=== PATIENT | female | born 1995 | race Caucasian/White ===

== ENCOUNTER 2016-09-14 02:14 | Outpatient (CLI) | payer MEDICAID ==
[~2016-09-14] VITALS: Ht 160 cm; Wt 73.9 kg
[~2016-09-14 02:14] MED LIST: AZITHROMYCIN250 MG PO; FLINTSTONES COM1 CTB PO; FLINTSTONES GU1 EACH PO; KEFLEX 500MG.500 MG PO; MAGNESIUM CITRA1 BOT PO; MEDROL DOSEPAK4 MG PO; MIRALAX(PO17 GM/1 PA PO; MOTRIN 400MG.400 MG PO; MOTRIN400 MG PO; VENTOLIN H0.09 MG/AC IH
[2016-09-14 02:39] VITALS: BP 117/80
[2016-09-14 03:06] LABS: URINE BILIRUBIN - DIPSTICK NEGATIVE (NEG); URINE BLOOD NEGATIVE (NEG)
== END 2016-09-14 03:25 | disposition home or self-care (01) ==
LOC: OB 02:14 → OBOUT 02:14 → OB 02:18 → OBOUT 03:25
PROVIDERS: Nurse Practitioner Obstetrics & Gynecology
DX: O62.9 Abnormality of forces of labor, unspecified (principal); Z3A.37 37 weeks gestation of pregnancy

== ENCOUNTER 2016-09-14 14:18 | Outpatient (CLI) | payer MEDICAID ==
[~2016-09-14] VITALS: Ht 160 cm; Wt 74.8 kg
[2016-09-14 14:28] VITALS: BP 127/57
[2016-09-14 14:38] LABS: URINE BILIRUBIN - DIPSTICK NEGATIVE (NEG); URINE BLOOD NEGATIVE (NEG)
== END 2016-09-14 16:16 | disposition home or self-care (01) ==
LOC: OB 14:18 → OBOUT 14:18
PROVIDERS: Obstetrics & Gynecology
DX: O62.9 Abnormality of forces of labor, unspecified (principal); Z3A.37 37 weeks gestation of pregnancy

== ENCOUNTER 2016-09-25 13:55 | Inpatient (IN) | payer MEDICAID ==
[~2016-09-25] VITALS: Ht 160 cm; Wt 74.8 kg
[2016-09-25 14:10] LABS: URINE BILIRUBIN - DIPSTICK NEGATIVE (NEG); URINE BLOOD TRACE-INTACT (NEG)
[2016-09-25 14:12] VITALS: BP 141/78
[2016-09-25] MEDS ORDERED: CLARITIN 10MG T10 MG PO (14:18)
--- OUTSIDE RECORDS SUMMARY | 2016-09-25 15:27 | External Medical Summary Rpt ---
Author Author , Organization [employer] Address Unknown Phone Unavailable Care Team Providers Care Radiologic Technology Teacher Name Role Phone ALISSON VINSON Unavailable Unavailable [facility] Unavailable Unavailable MEDICAL GROUP, [facility] BEINEKE JOLIE, BEINEKE Unavailable Unavailable JOLIE TIDWELL, TIDWELL Unavailable Unavailable TIDWELL ALL, TIDWELL ALL Unavailable Unavailable [facility] [employer] [facility] Unavailable Unavailable DEPARTMENT, [facility] DEPART[facility] Unavailable Unavailable DEPARTMENT, [facility] DEPARTMENT BRIGHT ENRIQUE, BRIGHT Unavailable Unavailable ENRIQUE MENG, FAN Unavailable Unavailable FAN JC, FAN Unavailable Unavailable JC FAN JC, FAN Unavailable Unavailable JC FAN, ERVIN J, Unavailable Unavailable FAN, ERVIN J [facility] Unavailable Unavailable [facility], [facility] WILLIAM J, WILLIAM J Unavailable Unavailable ANTWON THERESA, ANTWON Unavailable Unavailable THERESA ANTWON THERESA, ANTWON Unavailable Unavailable THERESA MOUNIKA, KYLAH Unavailable Unavailable J, MOUNIKA, KYLAH J ISRA ROCK, ISRA Unavailable Unavailable ROCK DAVID OSORIO, DAVID JO Unavailable Unavailable DAVID OSORIO, DAVID JO Unavailable Unavailable ECKERLINE, C A, Unavailable Unavailable ECKERLINE, C A [facility] FAUGHN DYSON, FAUGHN Unavailable Unavailable DYSON FAUGHN DYSON, FAUGHN Unavailable Unavailable DYSON TREVA ROCK, TREVA Unavailable Unavailable ROCK TREVA ROCK, TREVA Unavailable Unavailable ROCK HEATHER DON, HEATHER Unavailable Unavailable DON HARPEL RAMIRO, HARPEL Unavailable Unavailable RAMIRO HARPEL RAMIRO, HARPEL Unavailable Unavailable RAMIRO [facility] Unavailable Unavailable INC, [facility], [facility] WARD SCALES, Unavailable Unavailable WARD SCALES HINES Unavailable Unavailable JORDEN CHRISTIANNES Unavailable Unavailable CHRISTIAN FAY, CHRISTIAN FAY Unavailable Unavailable CHRISTIAN FAY, CHRISTIAN FAY Unavailable Unavailable [facility] Unavailable Unavailable P[facility], [facility], Unavailable Unavailable [facility] STACEY IMT, STACEY Unavailable Unavailable IMT STACEY IMT, STACEY Unavailable Unavailable IMT SABRINA SAMINA, SABRINA Unavailable Unavailable SAMINA [facility], [facility] HAIM, SANTANA Garcia, HAIM, Unavailable Unavailable SANTANA KOLB Unavailable Unavailable CAR, KENNEDI CAR JANE NUNEZ, Unavailable Unavailable JANE NUNEZ KHUSHI DMD MANDAEN, KHUSHI Unavailable Unavailable DMD MANDAEN KHUSHI DMD MANDAEN, KHUSHI Unavailable Unavailable DMD MANDAEN [facility] CEVALLOS JUSTUS, CEVALLOS JUSTUS Unavailable Unavailable NWABUNOR RAE, Unavailable Unavailable NWABUN[facility] RAE [facility] Unavailable Un[facility] Un[facility], [facility] Unavailable Unavailable LAB, [facility] RENUSCH SB, RENUSCH Unavailable Unavailable SB MERINO HAMILTON, MERINO Unavailable Unavailable HAMILTON SCIFRES ANG, SCIFRES Unavailable Unavailable ANG SCIFRES ANG, SCIFRES Unavailable Unavailable ANG STRIFLING RHY, Unavailable Unavailable STRIFLING RHY PILO JAC, Unavailable Unavailable PILO ROMÁN MAYELIN CARDENAS, MAYELIN Unavailable Unavailable [facility], Unavailable Unavailable [facility] Unavailable Unavailable [place] [facility], [facility] PEDIA [facility] Unavailable Unavailable #493, [facility] # Unavailable Unavailable [id number], [facility] # [id number] [facility] # Unavailable Unavailable [id number], [facility] # [id number] IRBY JR CAR, Unavailable Unavailable IRBY JR CAR WELLS MARKUS, WELLS MARKUS Unavailable Unavailable WEST, WEST Unavailable Unavailable WE[facility], WEST Unavailable Unavailable [facility], [facility] Unavailable Unavailable [facility], [facility] Unavailable Unavailable [facility] Unavailable Unavailable [facility] [place], [facility] MUNGUIA PET, MUNGUIA PET Unavailable Unavailable NESTOR GOMEZ, Unavailable Unavailable NESTOR GOMEZ Purpose Continuity of Care Document - 08-03-2005 through 2016 Problems Code Diagnosis DOS Provider Status [id number] MYOPIA 08-11-2016 CHRISTIAN BILATERAL Z3480 ENC 08-10-2016 [facility] OTH NORMAL GROUP PREG UNS TRIMESTER [id number] ABNORMAL 07-03-2016 [facility] GLUCOSE [facility] COMPLICATIN GROUP G N760 ACUTE 06-29-2016 [facility] VAGINITIS PHYS[facility]IANS GROUP Z3492 ENC 05-23-2016 [facility] NORMAL IMAGING ASS UNS 2 TRIMESTER Z36 ENCOUNTER 05-23-2016 [facility] SCREENING OF MOTHER Z3A20 20 WEEKS 05-23-2016 [facility] MEDICAL OF IMAGING ASS R112 NAUSEA WITH 04-11-2016 [facility]OMITING [facility] UNSPECIFIED INC Z3A15 15 WEEKS 04-11-2016 [facility] GESTATION [facility] OF INC Z720 TOBACCO USE 04-11-2016 [facility] INC [id number] UTERINE 02-28-2016 [facility] SIZE-DATE [facility] DISCREPANCY INC FIRST TRIMESTER Z3491 ENC 02-28-2016 [facility] MED[facility] NORMAL IMAGING ASS UNS 1 TRIMESTER Z3A08 8 WEEKS 02-28-2016 [facility] MEDICAL OF IMAGING ASS B373 CANDIDIASIS 02-22-2016 [facility] AND VAGINA Z113 ENCOUNTER 02-22-2016 [facility] SCREEN [facility] INFECTIONS SEXL MODE TRANSMISSN Z3201 ENCOUNTER 02-22-2016 [facility] TEST RESULT POSITIVE K5900 CONSTIPATIO 01-15-2016 [facility], UNSPECIFIED PLLC R1032 LEFT LOWER 01-15-2016 [facility]ANT [facility], PAIN PLLC M545 LOW BACK 12-07-2015 [facility] PAIN J209 ACUTE 09-11-2015 [facility] J0100 ACUTE 07-09-2015 [facility] SINUSITIS MEDICAL UNSPECIFIED GROUP H6991 UNSPECIFIED 05-24-2015 [facility] EUSTACHIAN TUBE DISORDER RIGHT EAR J00 ACUTE 05-24-2015 [facility] NASOPHARYNG ITIS COMMON COLD K219 GASTRO-ESOP 03-30-2015 [facility] H REFLUX DISEASE WITHOUT ESOPHAGITIS B349 VIRAL 03-22-2015 [facility] INFECTION UNSPECIFIED J4521 MILD 03-22-2015 [facility] INTERMITTEN T ASTHMA WITH ACUTE EXACERBATIO N J029 ACUTE 03-15-2015 [facility] PHARYNGITIS [facility]IANS, PLLC UNSPECIFIED J060 ACUTE 03-15-2015 [facility] LARYNGOPHAR [facility] YNGITIS INC R0602 SHORTNESS 03-15-2015 [facility] MEDICAL IMAGING ASS 3671 MYOPIA 12-22-2014 SCIFRES ANG V242 ROUTINE 06-08-2014 [facility] FOLLOW-UP 650 NORMAL 03-17-2014 [facility] DELIVERY [facility] GROUP V270 OUTCOME OF 03-17-2014 [facility] SINGLE GROUP LIVEBORN 48080 THREATENED 03-16-2014 [facility] PRE[facility]URE [facility] LABOR GROUP ANTEPARTUM 17835 OTH&UNS CRD 03-16-2014 [facility]NT[facility]GL [facility] W/O COMPRS INC COMP L&D DELIV 50563 FIRST-DEGRE 03-16-2014 [facility] E PERINEAL [facility] LACERATION INC WITH DELIVERY V221 SUPERVISION 03-13-2014 FAN JC OF OTHER NORMAL 76261 OTHER 01-15-2014 HARPEL RAMIRO THREATENED LABOR, ANTEPARTUM 06739 PAIN IN 01-15-2014 [place] [facility] ANKLE AND IMAGING ASS FOOT 56862 UNSPECIFIED 01-15-2014 STACEY IMT SITE OF ANKLE SPRAIN AND STRAIN E8888 OTHER fall01-15-2014 STACEY IMT 12581 ABN MAT 12-29-2013 [facility] GLUCOSE [facility] TOLERANCE INC COMPL PG CB/PP UNS EOC 84138 ABNORMAL 12-26-2013 [facility] JC MATERNAL GLUCOSE TOLERANCE ANTEPARTUM V283 ENCOUNTER 11-19-2013 MENG JC ROUTINE SCREEN MALFORMATIO N ULTRASONIC 45043 BN&JNT D/O 10-14-2013 TREVA ROCK MAT BACK PELVIS&LW LIMBS ANTEPARTUM 76916 OTH CURRENT 10-14-2013 [facility] MAT CONDS [facility] CLASSIFIABL INC E ELSW ANTPRTM 7242 LUMBAGO 10-14-2013 TREVA ROCK 7245 UNSPECIFIED 10-14-2013 [facility] BACKACHE [facility] INC 95470 ABDOMINAL 10-14-2013 [facility] PAIN, [facility] UNSPECIFIED INC SITE V220 SUPERVISION 10-07-2013 FAN JC OF NORMAL FIRST 75583 OTHER 08-14-2013 [facility] J[facility] SPECIFED COMPLICATIO N ANTEPARTUM V7242 08-01-2013 [facility] EXAMINATION OR TEST POSITIVE RESULT V2503 ENCOUNTER 07-31-2013 [facility] EMERGENCY HEALTH CONTRACEPT DEPARTMENT CNSL&PRESCR IPTION V2689 OTHER 07-31-2013 [facility] SPECIFIED HEALTH PROCREATIVE DEPARTMENT MANAGEMENT V851 BODY MASS 07-31-2013 [facility] INDEX HEALTH BETWEEN DEPARTMENT 19-24 ADULT 3679 UNSPECIFIED 12-13-2012 ANTWON THERESA DISORDER OF REFRACTION& ACCOMMODATI ON 684 IMPETIGO 12-12-2012 [facility] 1274 ENTEROBIASI 06-24-2012 [facility] S 5990 URINARY 06-24-2012 [facility] TRACT INFECTION SITE NOT SPECIFIED 5589 OTH&UNSPEC 10-18-2011 DAVID OSORIO NONINFECTIO US GASTROENTER ITIS&COLITI S V720 EXAMINATION 09-14-2011 CHRISTIAN FAY OF EYES AND VISION 36603 UNSPECIFIED 05-31-2011 FAUGHN DYSON CONJUNCTIVI TIS V1582 PERS HX 05-16-2011 [facility] TOBACCO USE HEALTH PRESENTING DEPARTMENT HAZARDS HEALTH V2549 SURVEILLANC 05-16-2011 [facility] Rukuku E OT PREV HEALTH PRSC DEPARTMENT CONTRACEPT METHOD 4659 ACUTE URIS 03-17-2011 [facility] OF UNSPECIFIED SITE 16717 ASTHMA, 03-17-2011 [facility] UNSPECIFIED , UNSPECIFIED STATUS 7821 RASH AND 03-17-2011 [facility] OTHER NONSPECIFIC SKIN ERUPTION 72208 UNSPECIFIED 02-28-2011 [facility] VAGINITIS AND VULVOVAGINI TIS 2662 OTHER 01-25-2011 [facility] B-COMPLEX HEALTH DEFICIENCIE DEPARTMENT S V2509 OT GENERAL 01-25-2011 [facility] HEALTH CNSL&ADVICE DEPARTMENT CONTRACEPT MANAGEMENT V850 BODY MASS 01-25-2011 [facility] INDEX LESS HEALTH THAN 19 DEPARTMENT ADULT 5210 DENTAL 01-18-2011 KHUSHI DMD CARIES MANDAEN 605 REDUNDANT 03-16-2010 [facility] PHIMOSIS 19715 POOR 03-16-2010 [facility] OF MANAGEMENT [place] MOTH DELIV 50777 OLIGOHYDRAM 03-16-2010 [facility] DELIVERED CLINIC OF [place] V3000 SINGLE 03-16-2010 [facility] W/O 16195 POOR 03-14-2010 [facility]OTH [facility] OF ANTPRTM [place] COND/COMP 6259 UNSPEC 12-23-2009 [facility] PCC W/FEMALE GENITAL ORGANS 7048 OTHER 09-28-2009 [facility] DISEASE OF PEDIA HAIR&HAIR FOLLICLES V642 SURG/OTH 08-23-2009 [facility] PROC NOT [facility] CARRIED OUT INC BECAUSE PTS DECN 1121 CANDIDIASIS 08-02-2009 PATHOLOGY & OF [facility] CYTOLOGY AND VAGINA LAB V745 SCREENING 08-02-2009 PATHOLOGY & EXAMINATION CYTOLOGY FOR LAB VENEREAL DISEASE 462 ACUTE 03-05-2009 [facility] V259 UNSPECIFIED 03-05-2009 [facility] CONTRACEPTI PEDIA VE MANAGEMENT V700 ROUTINE 03-05-2009 [facility] MEDICAL PEDIA EXAM@HEALTH CARE FACL V7388 SPECIAL SCR 03-05-2009 [facility] EXAMINATION PEDIA OTH SPEC CHLAMYDIAL DZ 7881 DYSURIA 01-05-2009 [facility] 7840 HEADACHE 12-21-2008 [facility] PEDIA V202 ROUTINE 12-04-2008 [facility] MED[facility] OR SERV CHILD FOUNDATIO HEALTH CHECK V7231 ROUTINE 10-27-2008 [facility] EXAMINATION [facility] 6235 LEUKORRHEA 08-06-2008 [facility] SPECIFIED PEDIA INFECTIVE 7862 COUGH 07-22-2008 [facility] PEDIA 7295 PAIN IN 01-27-2008 [facility] MEDICAL SOFT SERV TISSUES OF FOUNDATIO LIMB 7296 RESIDUAL 01-27-2008 [facility] BODY IN [facility] SOFT TISSUE 8830 OPEN WOUND 01-27-2008 [facility] WITHOUT MENTION COMPLICATIO N 8831 OPEN WOUND 01-27-2008 [facility] COMPLICATED 9156 FINGER SUP 01-27-2008 [facility] MEDICAL FB W/O LACI SERV OPEN FOUNDATIO WOUND&W/O MENTION INF E9179 OTHER 01-27-2008 [facility]ICAL STRIKING SERV AGAINST FOUNDATIO W/WO SUBSEQUENT FALL 92860 HEAD 11-21-[facility] 6918 OTHER 08-03-2005 [facility] DERMATITIS PEDIA AND RELATED CONDITIONS Medications Na ND Rx Da Fi Fi Am Da Di Ph RX Ph St me C No te ll ll ou ys ag ar # ys at rm s nt no ma ic us Or Da si cy ia de te s n re d ME 68 03 04 70 5 00 RI Ac TR 68 -1 -1 .0 00 TE ti ON 20 6- 4- 00 01 ve ID 45 20 20 17 AI AZ 57 17 17 54 D OL 0 93 PH E AR VA MA GI CY NA L #3 0. 93 75 8 % GL ME 68 02 03 70 5 00 RI Ac TR 68 -1 -1 .0 00 TE ti ON 20 6- 7- 00 01 ve ID 45 20 20 17 AI AZ 57 17 17 14 D OL 0 53 PH E AR VA MA GI CY NA L #3 0. 93 75 8 % GL CE 68 10 10 0 30 10 WA 70 WE Ac PH 18 -2 -2 .0 L- 98 ST ti AL 00 0- 0- 00 MA 35 ve EX 12 20 20 RT 5 RY IN 20 11 11 AN 1 PH B 50 AR 0 MA MG CY # CA PS 10 UL 04 E 93 CASTANEDA 53 10 10 0 40 10 WA 70 WE Ac LF 74 -2 -2 .0 L- 98 ST ti AM 60 0- 0- 00 MA 35 ve ET 27 20 20 RT 6 RY HO 20 11 11 AN XA 5 PH B ZO AR LE MA -T CY MP # DS 10 04 TA 93 BL ET VA 00 10 10 0 20 10 70 WE Ac LT 17 -1 -1 .0 L- 97 ST ti RE 30 8- 8- 00 MA 93 ve X 56 20 20 RT 1 RY 1 50 11 11 AN GM 4 PH B AR CA MA PL CY ET # 10 04 93 IL 00 07 07 4 10 30 WA 70 WE Ac EV 12 -2 -2 0. L- 87 LL ti ID 60 8- 8- 00 MA 40 S ve EN 07 20 20 0 RT 5 CH T 06 11 11 AM 50 1 PH BE 00 AR RS MA SE CY MO NS # RG IT AN IV 10 E [address] E LI 60 01 01 0 60 1 WA 70 CO Ac ND 43 -1 -2 .0 L- 62 OP ti AN 20 0- 7- 00 MA 05 ER ve E 83 20 20 RT 9 1% 36 11 11 MITCH 0 PH HN LO AR G TI MA ON CY # 10 04 93 LI 60 01 01 1 60 7 WA 70 CO Ac ND 43 -0 -1 .0 L- 61 OP ti AN 20 5- 2- 00 MA 49 ER ve E 83 20 20 RT 1 1% 36 11 11 MITCH 0 PH HN LO AR G TI MA ON CY # 10 04 93 LI 60 01 01 1 60 7 WA 70 CO Ac ND 43 -0 -0 .0 L- 61 OP ti AN 20 5- 5- 00 MA 49 ER ve E 83 20 20 RT 1 1% 36 11 11 MITCH 0 PH HN LO AR G TI MA ON CY # 10 04 93 NI 00 08 08 0 20 10 WA 70 [place] Ac TR 37 -1 -1 .0 L- 43 RP ti OF 83 2- 4- 00 MA 57 EL ve UR 42 20 20 RT 4 AN 20 10 10 GE TO 1 PH RA IN AR LD MA R MO CY NO # -M CR 10 04 10 93 0 MG FE 00 07 07 9 30 30 WA 88 CL Ac RR 67 -0 -0 .0 L- 16 AR ti OU 70 5- 5- 00 MA 24 KE ve S 07 20 20 RT 8 CASTANEDA 01 10 10 DE LF 0 PH RE AT AR K E MA J 32 CY 5 # MG 10 TA 05 BL 91 ET SE 54 05 05 5 15 30 WA 70 CL Ac RT 45 -1 -1 .0 L- 33 AR ti RA 80 0- 0- 00 MA 04 KE ve LI 94 20 20 RT 2 NE 51 10 10 DE 0 PH RE HC AR K L MA J 10 CY 0 # MG 10 TA 04 BL 93 ET 00 11 12 00 14 7 WA 70 LE Ac 59 -2 -0 .0 L- 12 NT ti 13 3- 3- 00 MA 93 ZS ve 97 20 20 RT 0 CH 05 09 09 -P 0 PH AR AR CE MA LL CY S CA #4 RO 93 LY N IL 00 11 11 00 30 30 WA 70 DE Ac OP 59 -1 -1 .0 L- 11 OK ti RA 15 2- 9- 00 MA 53 AR ve NO 55 20 20 RT 7 LO 50 09 09 AM L 1 PH IT 20 AR M MA MG CY TA #4 BL 93 ET 00 10 11 00 3. 20 WA 70 LE Ac 06 -2 -0 00 L- 09 NT ti 21 3- 5- 0 MA 05 ZS ve 92 20 20 RT 5 CH 01 09 09 -P 5 PH AR AR CE MA LL CY S CA #4 RO 93 LY N CASTANEDA 53 08 09 00 20 10 WA 70 No Ac LF 74 -2 -1 .0 L- 01 t ti AM 60 6- 0- 00 MA 54 Av ve ET 27 20 20 RT 3 ai HO 20 09 09 la XA 5 PH bl ZO AR e LE MA -T CY MP #4 DS 93 TA BL ET SF 60 07 07 00 56 10 WA 69 DU Ac 25 -2 -3 .0 L- 97 RB ti 1. 80 3- 0- 00 MA 47 IN ve 1% 15 20 20 RT 3 10 09 09 DO GE 1 PH UG L AR LA MA S CY D #4 93 MITCH 00 07 07 00 91 91 WA 69 WO Ac LE 55 -2 -3 .0 L- 97 OD ti SS 59 4- 0- 00 MA 55 S ve A 12 20 20 RT 8 SH 0. 36 09 09 EI 15 6 PH LA AR H MG MA -0 CY .0 3 #4 MG 93 TA BL ET 63 09 09 00 28 7 WA 69 No Ac 30 -1 -2 .0 L- 60 t ti 40 5- 6- 00 MA 23 Av ve 65 20 20 RT 5 ai 70 08 08 la 1 PH bl AR e MA CY #4 93 Results Labs Lab Lab Date Result Refere Interp Status Commen Order Detail nces retati t Range on CHLAMYDIA AND GONORRHEA TESTING (01-25-2011 16:31) COLLECT K1320 complet OR 011 ed 16:31 ETHNICI WHITE, complet TY 011 NON-HIS ed 16:31 PANIC KIT 03/2011 complet EXPIRAT 011 ed ION 16:31 DATE SYMPTOM YES complet S 011 ed 16:31 REASON INITIAL complet FOR 011 FAMILY ed REQUEST 16:31 PLANNIN G VISIT SPECIME FEMALE complet N 011 ENDOCER ed SOURCE 16:31 VICAL PREGNAN NO complet T 011 ed 16:31 CHART N/A complet NUMBER 011 ed 16:31 Chlamyd NEGATIV complet ia 011 E ed trachom 16:31 atis rRNA [Presen ce] in Unspeci fied specime n by Probe & target amplifi cation method Neisser NEGATIV complet ia 011 E ed gonorrh 16:31 oeae rRNA [Presen ce] in Unspeci fied specime n by Probe & target amplifi cation method Procedures Procedure DOS Code Location Performer Comment OPHTH 04542 [facility] 7 XM&EVAL COMPRHNSV ESTAB PT 1/> FRAMES V2020 ALISSON VINSON PURCHASES 7 SPHERE V2100 ALISSON VINSON SINGLE 7 VISION PLANO +/- 4.00 PER LENS GLUCOSE 08968 [facility] POST 7 PHYSICIAN PHYSICIAN GLUCOSE S GROUP S GROUP DOSE SMR PRIM 33894 [facility] FAN SRC WET 7 PHYSICIAN [place] S GROUP NFCT AGT US PREG 02765 [place] [facility] UTERUS 7 MEDICAL W/DETAIL IMAGING ASS URSULA 1ST GESTATION URNLS DIP 26040 [facility] ROD[facility]IGEZ 6 [facility] STICK/TAB INC INC LET REAGENT AUTO MICROSCOP Y BLOOD 63912 [facility] COUNT 6 [facility] COMPLETE INC INC AUTO&AUTO DIFRNTL WBC CULTURE 64537 [facility] RODRIGEZ BACTERIAL 6 [facility] INC [place] [address] [facility] RODRIGEZ INFUSION 6 [facility] THERAPY/P INC INC ROPHYLAXI S /DX 1ST TO 1 HR BASIC 76994 [facility] R[facility] METABOLIC 6 [facility] PANEL INC INC CALCIUM TOTAL OBSTETRIC 78794 [facility] ROD[facility] PANEL 6 [facility] INC INC INF AGT G0432 [facility] R[facility] AB DETECT 6 [facility] EIA TECH INC INC HIV-1&/HI V-2 SCR COLLECTIO 34082 [facility] RODRIGEZ N VENOUS 6 [facility] BLOOD INC INC VENIPUNCT URE US PREG 83477 [place] ALL UTERUS 6 MEDICAL REAL TIME IMAGING W/IMAGE ASS DCMTN TRANSVAG DRUG TST G0477 [facility] MENG PRESUMP;C 6 PHYSICIAN JC PBL BEING S GROUP READ DC OPT OBV ONLY CYTP C/V 59821 [facility], AUTO THIN 6 [facility] LYR PREPJ SCR MNL RESCR PHYS IADNA 92278 [facility], CHLAMYDIA 6 [facility] TRACHOMAT IS AMPLIFIED PROBE TQ IADNA 11920 [facility], NEISSERIA 6 [facility] GONORRHOE AE AMPLIFIED PROBE TQ URINE 77320 [facility] MENG 6 PHYSICIAN JC TEST S GROUP VISUAL COLOR CMPRSN METHS URINE 92846 [facility] RODRIGEZ 6 [facility] TEST INC INC VISUAL COLOR CMPRSN METHS CULTURE 36524 [facility] BCT 6 [facility] ISOL&PRSM INC INC PTV ID ISOLATE EA URINE CULTURE 19889 [facility] BACTERIAL 6 [facility] INC INC QUANTTATI VE COLONY COUNT URINE SUSCEPTIB 61451 [facility] LTY STDY 6 [facility] ANTIMICRB INC INC IAL MICRO/AGA R DILUTJ COMPREHEN 49319 [facility] SIVE 6 [facility] METABOLIC INC INC PANEL BLOOD 70059 [facility] COUNT 6 [facility] COMPLETE INC INC AUTO&AUTO DIFRNTL WBC URNLS DIP 36799 [facility]Z 6 [facility] STICK/TAB [place] [address] [facility] R[facility] ABDOMEN & 6 [facility] PELVIS INC INC W/O CONTRAST MATERIAL IAADIADOO [address] [facility] IAADIADOO [address] [facility] [address] [place] [address] [facility] STREPTOCO 5 [facility] CCUS INC INC GROUP A CUL BACT 56480 [facility] XCPT 5 [facility] URINE INC INC BLOOD/STO OL AEROBIC ISOL URNLS DIP 34235 [facility] RODRIGEZ 5 [facility] STICK/TAB INC INC LET REAGENT AUTO MICROSCOP Y RADIOLOGI 91265 [facility] R[facility] C EXAM 5 [facility] CHEST 2 INC INC VIEWS FRONTAL&L ATERAL IAADIADOO 59673 [facility] ISRA 5 [facility] CCUS GROUP A IAADI 95984 [facility] RODRIGEZ INFLUENZA 5 [facility] B VIRUS INC INC IAADI 47657 EL[facility] RODRIGEZ INFFLUENZ 5 [facility] A A VIRUS INC INC URINE 96377 [facility] RODRIGEZ 5 [facility] TEST INC INC VISUAL COLOR CMPRSN METHS OPHTH 88709 [facility] 5 ANG ANG XM&EVAL COMPRE NEW PT 1/> VST CYTP C/V 16263 [facility] AUTO THIN 5 [facility] LYR PREPJ SCR MNL RESCR PHYS VAGINAL 16951 [facility] DELIVERY 4 PHYSICIAN JC ONLY S GROUP W/POSTPAR ENIO CARE NEURAXIAL 10611 [facility] 4 ANESTH THERESA ANALG/ANE OF THE S PLND BLUE VAGINAL DELIVERY REPAIR OF 7569 ELIA RODRIGEZ OTHER 4 [facility] CURRENT INC INC OBSTETRIC LACERATIO N 92156 [facility] NONSTRESS 4 PHYSICIAN PHYSICIAN TEST S GROUP S GROUP CUL BACT 95931 COMBINED COMBINED XCPT 4 PHYSICIAN PHYSICIAN URINE S LA S LA BLOOD/STO OL AEROBIC ISOL CULTURE 85525 [facility]EZ BACTERIAL 4 [facility] INC INC QUANTTATI VE COLONY COUNT URINE EVAL C/V 66473 [facility] R[facility] AMNIOTIC 4 [facility] FLUID INC INC PROTEIN QUAL EA SPECIMEN FTL 49361 [facility] RODR[facility]EZ FIBRONECT 4 [facility] IN INC INC CERVICOVA G SECRETION S SEMI-REY URNLS DIP 36284 [facility] RODRIGEZ 4 [facility] STICK/TAB INC INC LET REAGENT AUTO MICROSCOP Y 18123 [facility] R[facility]RIGEZ NONSTRESS 4 [facility] TEST INC INC FTL 68584 ELIA RODRIGEZ FIBRONECT 4 [facility] IN INC INC CERVICOVA G SECRETION S SEMI-REY RADEX 12387 [place] ANKLE 4 MEDICAL JOLIE COMPLETE IMAGING MINIMUM 3 ASS VIEWS 84031 HARPEL HARPEL NONSTRESS 4 RAMIRO RAMIRO TEST GLUCOSE 67462 [facility] RODRIGEZ TOLERANCE 4 [facility] TEST GTT INC INC 3 SPECIMENS URNLS DIP 82136 [facility] RODRIGEZ 4 [facility] STICK/TAB INC INC LET RGNT NON-AUTO W/O MICRSCP GLUCOSE 10570 [facility] RODRIGEZ TOLERANCE 4 [facility] EA ADDL INC INC BEYOND 3 SPECIMENS GLUCOSE 88428 MENG FAN TOLERANCE 4 JC JC TEST GTT 3 SPECIMENS US PREG 48399 MENG FAN UTERUS 4 JC JC AFTER 1ST TRIMEST 1/ GESTATION EVAL C/V 38415 ELIA RODRIGEZ AMNIOTIC 4 [facility] FLUID INC INC PROTEIN QUAL EA SPECIMEN CULTURE 11663 ELIA RODRIGEZ BACTERIAL 4 [facility] INC INC QUANTTATI VE COLONY COUNT URINE URNLS DIP 57930 ELIA [facility] 4 [facility] STICK/TAB INC INC LET REAGENT AUTO MICROSCOP Y US PREG 86533 MENG FAN UTERUS 4 JC JC REAL TIME W/IMAGE DCMTN TRANSVAG ANTIBODY 85149 COMBINED COMBINED CHLAMYDIA 4 PHYSICIAN PHYSICIAN S LA S LA CUL BACT 47897 COMBINED COMBINED XCPT 4 PHYSICIAN PHYSICIAN URINE S LA S LA BLOOD/STO OL AEROBIC ISOL URINE 20735 MENG FAN 4 JC JC TEST VISUAL COLOR CMPRSN METHS URINE [address] [place] [address] [facility] TEST V[facility] COLOR T T CMPRSN METHS IADNA 497[address] [place] NE[address]ER[address] Motion Traxx [facility] AE T T AMPLIFIED PROBE TQ IADNA 16473 [place] CHLAMYDIA 4 [facility] Motion Traxx [facility] IS T T AMPLIFIED PROBE TQ SPHERE V2100 ANTWON ANTWON SINGLE 3 THERESA THERESA VISION PLANO +/- 4.00 PER LENS OPHTH 09847 ANTWON ANTWON MEDICAL 3 THERESA THERESA XM&EVAL COMPRE NEW PT 1/> VST FRAMES V2020 ANTWON ANTWON PURCHASES 3 THERESA THERESA DETERMINA 20876 ANTWON ANTWON TION 3 THERESA THERESA REFRACTIV E STATE FITTING 73752 ANTWON ANTWON SPECTACLE 3 THERESA THERESA S XCPT [facility] 88063 [facility] PROVIDED 3 OFFICE OTH/THN REG SCHED HOURS SPHERE V2100 ANAHI CHRISTIAN FAY SINGLE 2 VISION PLANO +/- 4.00 PER LENS OPHTH 14847 ANAHI CHRISTIAN FAY MEDICAL 2 XM&EVAL COMPRE NEW PT 1/> VST FRAMES V2020 ANAHI APONTE PURCHASES 2 DETERMINA 05619 ANAHI APONTE TION 2 REFRACTIV E STATE FITTING 68930 ANAHI APONTE SPECTACLE 2 S XCPT [facility] PRESSURIZ 46341 [facility] ED/NONPRE 1 SSURIZED INHALATIO N TREATMENT CONTRACEP A4267 [place] T[address] [facility] MALE EACH T T WET Q0111 [place] AYO [address] [facility] [employer] Traxx [facility] INCL PREP [facility] CERV/SKIN T T SPECIMENS IADNA 66364 [place] CHLAMY[address] Motion Traxx [facility] IS T T AMPLIFIED PROBE TQ IADNA 33286 [place] NE[address] [employer] Tra[facility] AE T T AMPLIFIED PROBE TQ CONTRACEP J7303 [place] T SUPPLY [address] [employer] [facility] G VAG T T RING EA ANALGESIA D9230 KHUSHI DMD KHUSHI DMD 1 MANDAEN MANDAEN ANXIOLYSI S INHALATIO N OF NITROUS OXIDE ANALGESIA D9230 KHUSHI DMD KHUSHI DMD 1 MANDAEN MANDAEN ANXIOLYSI S INHALATIO N OF NITROUS OXIDE ANALGESIA D9230 KHUSHI DMD KHUSHI DMD 1 MANDAEN MANDAEN ANXIOLYSI S INHALATIO N OF NITROUS OXIDE ANALGESIA D9230 KHUSHI DMD KHUSHI DMD 1 [facility] ANXIOLYSI S INHALATIO N OF NITROUS [facility] HOSP[facility] 15950 FAMILY WILLIAM Hooper DISCHARGE 0 CARE DAY ASSOCIATE [facility] T 30 MIN/< SUBQ 07454 [facility] 0 CARE CARE PER ASSOCIATE DAY E/M S NORMAL CIRCUMCIS 32426 FAMILY WILLIAM Hooper ION 0 CARE W/CLAMP/O ASSOCIATE [facility] S W/BLOCK NEURAXIAL 99465 [facility] LABOR 0 ANESTH ANALG/ANE OF THE S PLND BLUE VAGINAL DELIVERY 1ST 27894 FAMILY WILLIAM Hooper HOSP/WYATT 0 CARE [facility] S CARE PER DAY NML NB VAGINAL 36823 WOMEN'S FAN DELIVERY 0 [facility]ALTH [facility] ONLY CLINIC OF [place] REPAIR OF 7569 ELIA RODRIGEZ OTHER 0 [facility] CURRENT INC INC OBSTETRIC [place]ATIO [place] PREG 33529 WOMEN'S FAN UTERUS 0 [facility]ALTH [facility] REAL TIME CLINIC OF F/U [place] TRNSABDL PER FETUS 09028 W[facility]'S FAN BIOPHYSIC 0 [facility] AL CLINIC OF PROFILE [place] W/O NON-STRES S TESTING DOPPLER 31896 WOMEN'S FAN VELOCIMET 0 [facility]ALTH [facility] RY CLINIC OF UMBILICAL [place] ARTERY 30109 ELIA RODRIGEZ NONSTRESS 0 [facility] TEST INC INC CULTURE 71026 ELIA RODRIGEZ BACTERIAL 0 [facility] INC INC QUANTTATI VE COLONY COUNT URINE URNLS DIP 54958 ELIA RODRIGEZ 0 [facility] STICK/TAB INC INC LET REAGENT AUTO MICROSCOP Y US PREG 91474 [facility] F[facility] UTERUS 0 [facility]ALTH [facility] REAL TIME CLINIC OF F/U [place] TRNSABDL PER FETUS DOPPLER 37046 WOMEN'S FAN VELOCIMET 0 [facility]ALTH [facility] RY [facility]IN[facility] OF UMBILICAL [place] ARTERY 30210 WOM[facility]'S [facility] BIOPHYSIC 0 HEALTH J[facility] AL CLINIC OF PROFILE [place] W/O NON-STRES S TESTING DOPPLER 58056 WOMEN'S FAN VELOCIMET 0 [facility]ALTH [facility] RY [facility]IN[facility] OF UMBILICAL [place] ARTERY 75030 WOMEN'S FAN BIOPHYSIC 0 HEALTH J[facility] AL CLINIC OF PROFILE [place] W/O NON-STRES S TESTING US PREG 53959 WOMEN'S FAN UTERUS 0 HEALTH JC REAL TIME CLINIC OF F/U [place] TRNSABDL PER FETUS 45684 WOMEN'S F[facility] BIOPHYSIC 0 HEALTH JC AL CLINIC OF PROFILE [place] W/O NON-STRES S TESTING DOPPLER 73519 WOMEN'S WOMEN'S VELOCIMET 0 HEALTH HEALTH RY CLINIC OF [place] [address] WOMEN'S FAN 0 HEALTH JC UTERUS CLINIC OF LIMITED [place] 1/> FETUSES CUL BACT 54761 COMBINED COMBINED XCPT 0 PHYSICIAN PHYSICIAN URINE S LA S LA BLOOD/STO OL AEROBIC ISOL US PREG 10382 [facility] UTERUS 0 HEALTH JC REAL TIME CLINIC OF F/U [place] TRNSABDL PER FETUS 46547 WOMEN'S FAN BIOPHYSIC 0 HEALTH JC AL CLINIC OF PROFILE [place] W/O NON-STRES S TESTING DOPPLER 70359 WOMEN'S FAN VELOCIMET 0 HEALTH JC RY [facility]INIC OF UMBILICAL [place] ARTERY DOPPLER 62568 WOMEN'S FAN VELOCIMET 0 HEALTH JC RY CLINIC OF UMBILICAL [place] ARTERY 14603 WOMEN'S FAN BIOPHYSIC 0 HEALTH JC AL CLINIC OF PROFILE [place] W/O NON-STRES S TESTING US PREG 83068 WOMEN'S FAN UTERUS 0 HEALTH JC REAL TIME CLINIC OF F/U [place] TRNSABDL PER FETUS GLUCOSE 35249 WOMEN'S FAN TOLERANCE 0 HEALTH JC TEST GTT CLINIC OF 3 [place] SPECIMENS GLUCOSE 72778 WOMEN'S FAN POST 0 HEALTH JC GLUCOSE CLINIC OF DOSE [place] URINLS 36726 [facility] DIP 0 PHYSICIAN RAMIRO STICK/TAB GROUP LET PCC REAGNT NON-AUTO MICRSCPY URINALYSI 96741 [facility] S 0 PHYSICIAN RAMIRO MICROSCOP GROUP IC ONLY PCC US PREG 70283 [facility], UTERUS 0 HEALTH ERVIN J AFTER CLINIC OF TRIMEST [place] [facility] URNLS DIP 92857 ELIA ELIA 0 [facility] STICK/TAB INC INC LET REAGENT AUTO MICROSCOP Y US PREG 51923 [facility], UTERUS 0 HEALTH ERVIN J REAL TIME CLINIC OF W/IMAGE DCMTN [place] [facility] MOLECULAR 59918 MOLECULAR MOLECULAR DX AMP 0 TARGET PATHOLOGY PATHOLOGY MULTIPLEX LAB LAB 1ST 2 NETWORK NETWORK SEQ INC INC MOLECULAR 41281 MOLECULAR MOLECULAR 0 DIAGNOSTI PATHOLOGY PATHOLOGY CS LAB LAB INTERPRET NETWORK NETWORK ATION & INC INC REPORT MUTATION 53863 MOLECULAR MOLECULAR ID 0 ENZYMATIC PATHOLOGY PATHOLOGY LAB LAB LIG/PRIME NETWORK NETWORK R XTN 1 INC INC SGM EA CYTP C/V 46821 PATHOLOGY PATHOLOGY AUTO THIN 0 & & LYR CYTOLOGY CYTOLOGY PREPJ SCR LAB LAB MNL RESCR PHYS MOLECULAR 04059 MOLECULAR MOLECULAR DX AMP 0 TARGET PATHOLOGY PATHOLOGY MULTIPLEX LAB LAB EA ADDL NETWORK NETWORK SEQ INC INC MOLEC 72923 MOLECULAR MOLECULAR SEP&ID HI 0 RESOLU PATHOLOGY PATHOLOGY TQ EACH LAB LAB NUCLEIC NETWORK NETWORK ACID PREP INC INC IADNA 91909 PATHOLOGY PATHOLOGY NEISSERIA 0 & & CYTOLOGY CYTOLOGY GONORRHOE LAB LAB AE AMPLIFIED PROBE TQ IADNA 26363 PATHOLOGY PATHOLOGY CHLAMYDIA 0 & & CYTOLOGY CYTOLOGY TRACHOMAT LAB LAB IS AMPLIFIED PROBE TQ MOLEC 34540 MOLECULAR MOLECULAR ISOL/XTRJ 0 HP PATHOLOGY PATHOLOGY NUCLEIC LAB LAB ACID EA NETWORK NETWORK TYPE INC INC IADNA 49490 [facility] NEISSERIA 9 Y Y [facility]OSP[facility] GONORRHOE AE AMPLIFIED PROBE TQ IADNA 63657 [facility] CHLAMYDIA 9 Y Y [facility]OSP[facility] TRACHOMAT IS AMPLIFIED PROBE TQ IADNA 67592 [facility] CHLAMYDIA 9 Y Y HOSPITAL [facility] TRACHOMAT IS AMPLIFIED PROBE TQ CUL BACT 09025 [facility] XCPT 9 Y Y URINE [facility] BLOOD/STO OL AEROBIC ISOL IADNA 74166 [facility] NEISSERIA 9 Y Y [facility]OSPITAL [facility] GONORRHOE AE AMPLIFIED PROBE TQ IAADIADOO 16454 [facility]- 9 Y OF [place]CE[place] STREPTOCO [place] [facility] CCUS PEDIA GROUP A URINE 52087 [facility]- 9 Y OF PARCELLS TEST [place] CAR VISUAL PEDIA COLOR CMPRSN METHS OPHTH 01287 [facility] 9 [facility] LD, XM&EVAL KYLAH Hooper INTERMEDI ATE ESTAB PT URNLS DIP 30893 [facility] 9 Y OF ENRIQUE STICK/TAB [place] LET RGNT PEDIA NON-AUTO W/O MICRSCP IAADIADOO 57986 [facility] 9 Y OF JR CAR STREPTOCO [place] CCUS PEDIA GROUP A IADNA 91747 PATHOLOGY PATHOLOGY NEISSERIA 9 & & CYTOLOGY CYTOLOGY GONORRHOE LAB LAB AE AMPLIFIED PROBE TQ IADNA 71660 PATHOLOGY PATHOLOGY CHLAMYDIA 9 & & CYTOLOGY CYTOLOGY TRACHOMAT LAB LAB IS AMPLIFIED PROBE TQ CYTP C/V 17225 PATHOLOGY PATHOLOGY AUTO THIN 9 & & LYR CYTOLOGY CYTOLOGY PREPJ SCR LAB LAB MNL RESCR PHYS URNLS DIP 90888 [facility] 9 Y Y STICK/TAB [facility] LET REAGENT AUTO MICROSCOP Y IAADIADOO 44272 [facility] 9 Y OF ROM[place]N STREPTOCO [place] CCUS PEDIA GROUP A RADEX 65352 [facility] FING 8 Y Y MINIMUM 2 [facility] VIEWS INCISION 41458 [place] ECKERLINE & REMOVAL 8 MEDICAL , C A FOREIGN SERV BODY SUBQ FOUNDATIO TISS SIMPLE OPHTH 41439 [facility] 8 [facility] LD, XM&EVAL KYLAH J INTERMEDI ATE NEW PT FRAMES V2020 [facility], PURCHASES 8 Y OPTICAL WARD R SPHERE V2100 [facility], SINGLE 8 Y OPTICAL WARD R VISION PLANO +/- 4.00 PER LENS FITTING 28085 [facility], SPECTACLE 8 Y OPTICAL WARD R S XCPT APHAKIA MONOFOCAL Encounters Encounter Start End Date Code Location Performer Type Date OFFICE 18692 [facility] 7 7 PHYSICIAN T VISIT S GROUP 15 MINUTES OFFICE 34010 [facility] OUT[facility] 7 7 PHYSICIAN T VISIT S GROUP 15 MINUTES OFFICE 22482 [facility] 7 7 PHYSICIAN T VISIT S GROUP 15 MINUTES OFFICE 40557 [facility] 7 7 PHYSICIAN T VISIT S GROUP 15 MINUTES OFFICE 59570 [facility] 7 7 PHYSICIAN T VISIT S GROUP 15 MINUTES HOSPITAL ELIA - 7 7 [facility] OUTPATIEN INC T OFFICE 50106 [facility] 6 6 PHYSICIAN T VISIT S GROUP 15 MINUTES HOSPITAL ELIA - 6 6 [facility] OUTPATIEN INC T EMERGENCY 48178 ELIA 6 6 [facility] DEPARTMEN INC T VISIT HIGH/URGE NT SEVERITY HOSPITAL ELIA - 6 6 [facility] OUTPATIEN INC T OFFICE 18595 [facility] 6 6 PHYSICIAN JC T VISIT S GROUP 15 MINUTES OFFICE 27771 [facility] OUT[facility] 6 6 PHYSICIAN JC T VISIT S GROUP 15 MINUTES HOSPITAL ELIA - 6 6 [facility] OUTPATIEN INC T OFFICE 25749 [facility] OUT[facility] 6 6 PHYSICIAN JC T VISIT S GROUP 25 MINUTES EMERGENCY 74554 ELIA 6 6 [facility] DEPARTMEN INC T VISIT LOW/MODER SEVERITY HOSPITAL ELIA - 6 6 [facility] OUTPATIEN INC T EMERGENCY 53587 DWAIN LE 6 6 PHYSICIAN [facility] T VISIT HIGH/URGE NT SEVERITY OFFICE 18915 [facility] RY OUTPATIEN 6 6 T VISIT 15 MINUTES OFFICE 98084 ELIA DHALIWAL OUTPATIEN 6 6 [facility] T VISIT HOSPITAL 25 MINUTES OFFICE 03194 [facility] OUTPATIEN 6 6 HEALTH LA ENRIQUE T VISIT MEDICAL 15 GROUP MINUTES OFFICE 09222 [facility] OUTPATIEN 6 6 T VISIT 15 MINUTES OFFICE 54293 [facility] OUTPATIEN 5 5 T VISIT 15 MINUTES OFFICE 75007 [facility] OUTPATIEN 5 5 T VISIT 15 MINUTES OFFICE 65986 ELIA DHALIWAL OUTPATIEN 5 5 [facility] T NEW 20 HOSPITAL MINUTES EMERGENCY 06813 ELIA 5 5 [facility] DEPARTMEN INC T VISIT LOW/MODER SEVERITY EMERGENCY 30726 [facility] DEPT 5 5 PHYSICIAN [facility] VIS[facility], [facility] HIGH SEVERITY& THREAT FUNJ HOSPITAL ELIA - 5 5 [facility] OUTPATIEN INC HOSPITAL ELIA - 4 4 [facility] INPATIENT INC OFFICE 48044 [facility] FAN OUTPATIEN 4 4 J[facility] J[facility] T VISIT 15 MINUTES OFFICE 50036 [facility]AN OUTPATIEN 4 4 J[facility] T VISIT 15 MINUTES HOSPITAL ELIA - 4 4 [facility] OUTPATIEN INC T OFFICE 46653 [facility]AN OUTPATIEN 4 4 JC J[facility] T VISIT 15 MINUTES OFFICE 55877 [facility]AN OUTPATIEN 4 4 JC J[facility] T VISIT 15 MINUTES HOSPITAL ELIA - 4 4 [facility] OUTPATIEN INC T OFFICE 68472 [facility] OUTPATIEN 4 4 JC JC T VISIT 15 MINUTES HOSPITAL ELIA - 4 4 [facility] OUTPATIEN INC T EMERGENCY 94991 STACEY STACEY 4 4 [facility] T VISIT MODERATE SEVERITY OFFICE 54694 FAN FAN OUTPATIEN 4 4 JC JC T VISIT 15 MINUTES OFFICE 09846 [facility]AN OUTPATIEN 4 4 JC JC T VISIT 15 MINUTES HOSPITAL ELIA - 4 4 [facility] OUTPATIEN INC T OFFICE 85240 FAN [facility]AN OUTPATIEN 4 4 JC JC T VISIT 5 MINUTES OFFICE 72491 FAN FAN OUTPATIEN 4 4 JC JC T VISIT 15 MINUTES OFFICE 16306 MENG BOWERE OUTPATIEN 4 4 JC JC T VISIT 15 MINUTES EMERGENCY 47840 ELIA 4 4 [facility] DEPARTMEN INC T VISIT LOW/MODER SEVERITY EMERGENCY 58642 TREVA TREVA 4 4 [facility] DEPARTMEN T VISIT HIGH/URGE NT SEVERITY HOSPITAL ELIA - 4 4 [facility] OUTPATIEN INC T OFFICE 27552 MENG BOWERE OUTPATIEN 4 4 JC JC T VISIT 15 MINUTES OFFICE 76182 MENG BOWERE OUTPATIEN 4 4 JC JC T VISIT 15 MINUTES OFFICE 91220 [facility]AN FAN OUTPATIEN 4 4 JC JC T NEW 45 MINUTES OFFICE 04794 [facility] [facility] [address] [employer] [facility] T VISIT 15 DEPARTMEN DEPARTMEN MINUTES T T OFFICE 63035 [facility] RYA OUTPATIEN 3 3 T VISIT 15 MINUTES EMERGENCY 99841 YAHAIRA CAM 3 3 EMERGENCY RAE DEPARTMEN SERVICES T VISIT MODERATE SEVERITY OFFICE 48203 DAVID OSORIO OUTPATIEN 2 2 T NEW 45 MINUTES EMERGENCY 18857 NANCY CRUZ 2 2 DYSON DYSON DEPARTMEN T VISIT MODERATE SEVERITY OFFICE 76913 [facility] [facility] OUT[facility]IEN [address] [facility] T VISIT 10 DEPARTMEN DEPARTMEN MINUTES T T EMERGENCY 34011 SABRINA BENNETT 1 1 SAMINA SAMINA DEPARTMEN T VISIT HIGH/URGE NT SEVERITY OFFICE 36025 [place] [facility] 1 1 T VISIT 15 MINUTES OFFICE 75216 [facility] 1 1 T NEW 30 MINUTES INITIAL 67024 DIANNE DEAN PREVENTIV [address] [facility] NEW PT T T AGE 12-17 YR HOSPITAL ELIA - 0 0 [facility] INPATIENT [facility] ELIA - 0 0 [facility] OUTPATIEN INC T OFFICE 03131 [facility]PATI[facility] 0 0 [facility]ALTH [facility] T VISIT CLINIC OF 15 [place]LEY MINUTES OFFICE 01848 [facility] 0 0 [facility]ALTH [facility] T VISIT CLINIC OF 10 [place] MINUTES OFFICE 58761 [facility] F[facility] OUTPATIEN 0 0 HEALTH JC T VISIT CLINIC OF 15 [place]SHLEY MINUTES OFFICE 75386 [facility] F[facility] OUTPATIEN 0 0 HEALTH JC T VISIT CLINIC OF 15 [place]LEY MINUTES OFFICE 44176 [facility] F[facility] OUTPATIEN 0 0 HEALTH JC T VISIT CLINIC OF 15 [place] MINUTES OFFICE 74664 [facility] F[facility] OUTPATIEN 0 0 HEALTH JC T VISIT 5 CLINIC OF MINUTES [place] OFFICE 56064 [facility] 0 0 PHYSICIAN RAMIRO T VISIT GROUP 15 PCC MINUTES OFFICE 02993 [facility] OUTPATIEN 0 0 HEALTH JC T VISIT CLINIC OF 15 [place] MINUTES OFFICE 07293 [facility], OUTPATIEN 0 0 HEALTH ERVIN J T VISIT CLINIC OF 15 MIN[facility]ES [facility] 13021 [facility], OUTPATIEN 0 0 HEALTH ERVIN J T VISIT CLINIC OF 15 MINUTES [facility] OFF[facility] 15268 [facility] LENTZSCH- OUTPATIEN 0 0 Y OF PARCELLS T VISIT [place] CAR 15 PEDIA MINUTES OFFICE 95931 [facility], OUTPATIEN 0 0 HEALTH ERVIN J T VISIT CLINIC OF 15 MIN[facility]ES [facility] OFF[facility] 56700 [facility], OUTPATIEN 0 0 HEALTH ERVIN J T VISIT CLINIC OF 15 MINUTES SHAYY [facility] EMERGENCY 47112 ELIA 0 0 [facility] DEPARTMEN INC T VISIT LIMITED/M INOR [facility] ELIA - 0 0 [facility] OUTPATIEN INC T [facility] PERIOD[facility] 17470 [facility] LENTZSCH- PREVENTIV 9 9 Y OF PARCELLS E MED EST [place] CAR PATIENT PEDIA 12-YRS HOSPITAL [facility] 95166 [facility] 9 9 Y OF ENRIQUE T VISIT [place] 15 PEDIA [facility] UN[facility]ERSIT - 9 [facility] 63002 [facility] OF JR CAR T VISIT [place] 15 PEDIA MINUTES PERIODIC 51133 DC GOMEZ, PREVENTIV 9 9 MEDICAL NESTOR H E MED EST SERV PATIENT FOUNDATIO 12-17YRS INITIAL 84673 [facility], PREVENTIV 9 9 HEALTH ERVIN J E CLINIC OF MEDICINE NEW PT SHAYY AGE 12-17 [facility] YR OFFICE 42033 [facility] HEATHER OUTPATIEN 9 9 Y OF DON T VISIT [place] 15 PEDIA MINUTES HOSPITAL [facility] - [facility] T OFFICE 58804 UNIVERSIT PILO OUTPATIEN 9 9 Y OF ROMÁN T VISIT [place] 15 PEDIA MINUTES OFFICE 12162 [facility] MERINO OUTPATIEN 8 8 Y OF [place] T VISIT [place] 15 PEDIA MINUTES EMERGENCY 66883 UNIVERSIT 8 8 Y DEPARTMEN HOSPITAL T VISIT MODERATE SEVERITY HOSPITAL UNIVERSIT - 8 8 Y OUTPATIEN HOSPITAL T PERIODIC 91307 [facility] ZAHRA MARKUS PREVENTIV 8 8 Y OF E MED EST [place] PATIENT PEDIA 12-17YRS OFFICE 45644 [facility] STRIFLING OUTPATIEN 8 8 Y OF RHY T VISIT [place] 15 PEDIA MINUTES INITIAL 73923 [facility] NILDA PET PREVENTIV 6 6 Y OF E [place] MEDICINE PEDIA NEW PT AGE 12-17 YR
--- OUTSIDE RECORDS SUMMARY | 2016-09-25 15:27 | External Medical Summary Rpt ---
Author Author , Organization [employer] Address Unknown Phone Unavailable Care Team Providers Care Manufacturing Engineer Chief Name Role Phone ALISSON VINSON Unavailable Unavailable [facility] Unavailable Unavailable MEDICAL GROUP, [facility] BEINEKE JOLIE, BEINEKE Unavailable Unavailable JOLIE TIDWELL, TIDWELL Unavailable Unavailable TIDWELL ALL, TIDWELL ALL Un[facility] Unavailable Unavailable DEPARTMENT, [facility] DEPARTMENT [facility] Unavailable Unavailable DEPARTMENT, [facility] DEPARTMENT BRIGHT ENRIQUE, BRIGHT Unavailable Unavailable ENRIQUE [...] [facility] Unavailable Unavailable INC, [facility], [facility] WARD SCALES, Unavailable Unavailable WARD SCALES HINES Unavailable Unavailable JORDEN CHRISTIANNES Unavailable Unavailable CHRISTIAN FAY, CHRISTIAN FAY Unavailable Unavailable CHRISTIAN FAY, CHRISTIAN FAY Unavailable Unavailable [facility] Unavailable Unavailable PCC, [facility], Unavailable Unavailable [facility] STACEY IMT, STACEY Unavailable Unavailable IMT STACEY IMT, STACEY Unavailable Unavailable IMT SABRINA SAMINA, SABRINA Unavailable Unavailable [facility] Unavailable Unavailable [facility], [facility] HAIM, SANTANA Garcia, HAIM, Unavailable Unavailable SANTANA KOLB Unavailable Unavailable CAR, KENNEDI CAR JANE NUNEZ, Unavailable Unavailable JANE NUNEZ KHUSHI DMD DRUZE, KHUSHI Unavailable Unavailable DMD DRUZE KHUSHI DMD DRUZE, KHUSHI Unavailable Unavailable [facility] Unavailable [facility]available [facility], [...] PILO ROMÁN MAYELIN CARDENAS, MAYELIN Unavailable Unavailable [facility], Unavailable Unavailable [facility] Unavailable Unavailable [place] JANET[place], [facility] PEDIA [facility] Unavailable Unavailable #493, [facility] # Unavailable Unavailable [id number], [facility] # [id number] [facility] # Unavailable Unavailable [id number], [facility] # [id number] IRBY JR CAR, Unavailable Unavailable IRBY JR [...] MYOPIA 08-11-2016 CHRISTIAN BILATERAL Z3480 ENC 08-10-2016 [facility] SUPERVISION PHYSICIANS OTH NORMAL GROUP PREG UNS TRIMESTER [id number] ABNORMAL 07-03-2016 [facility] GLUCOSE PHYSICIANS COMPLICATIN GROUP G N760 ACUTE 06-29-2016 [facility] VAGINITIS PHYSICIANS GROUP Z3492 ENC 05-23-2016 [facility] MEDICAL NORMAL IMAGING ASS UNS 2 TRIMESTER Z36 ENCOUNTER 05-23-2016 [facility] SCREENING OF MOTHER Z3A20 20 WEEKS 05-23-2016 [facility] MEDICAL OF IMAGING ASS R112 NAUSEA WITH 04-11-2016 [facility] VOMITING [facility] UNSPECIFIED INC Z3A15 15 WEEKS 04-11-2016 [facility] GESTATION [facility] OF INC Z720 TOBACCO USE 04-11-2016 [facility] INC Q03896 UTERINE 02-28-2016 [facility] SIZE-DATE [facility] DISCREPANCY INC FIRST TRIMESTER Z3491 ENC 02-28-2016 [facility] MEDICAL NORMAL IMAGING ASS UNS 1 TRIMESTER Z3A08 8 WEEKS 02-28-2016 [facility] MEDICAL OF IMAGING ASS B373 CANDIDIASIS 02-22-2016 [facility] AND VAGINA Z113 ENCOUNTER 02-22-2016 [facility] SCREEN [facility] INFECTIONS SEXL MODE TRANSMISSN Z3201 ENCOUNTER 02-22-2016 [facility] FOR PHYSICIANS GROUP TEST RESULT POSITIVE K5900 CONSTIPATIO 01-15-2016 [facility] N [facility]ANS, UNSPECIFIED PLLC R1032 LEFT LOWER 01-15-2016 [facility] QU[facility]ANT [facility], PAIN PLLC M545 LOW BACK 12-07-2015 [facility] PAIN J209 ACUTE 09-11-2015 [facility] J0100 ACUTE 07-09-2015 [facility] UNSPECIFIED GROUP H6991 UNSPECIFIED 05-24-2015 [facility] EUSTACHIAN TUBE DISORDER RIGHT EAR J00 ACUTE 05-24-2015 [facility] NASOPHARYNG ITIS COMMON COLD K219 GASTRO-ESOP 03-30-2015 [facility] H REFLUX DISEASE WITHOUT ESOPHAGITIS B349 VIRAL 03-22-2015 [facility] INFECTION UNSPECIFIED J4521 MILD 03-22-2015 [facility] INTERMITTEN T ASTHMA WITH ACUTE EXACERBATIO N J029 ACUTE 03-15-2015 [facility] PHARYNGITIS PHYSICIANS, PLLC UNSPECIFIED J060 ACUTE 03-15-2015 [facility]NGOPHAR [facility] YNGITIS INC R0602 SHORTNESS 03-15-2015 [facility] MEDICAL IMAGING ASS 3671 MYOPIA 12-22-2014 SCIFRES ANG V242 ROUTINE 06-08-2014 [facility] FOLLOW-UP 650 NORMAL 03-17-2014 [facility] DELIVERY PHYSICIANS GROUP V270 OUTCOME OF 03-17-2014 [facility] DELIVERY PHYSICIANS SINGLE GROUP LIVEBORN 67358 THREATENED 03-16-2014 [facility] PREMATURE PHYSICIANS LABOR GROUP ANTEPARTUM 44567 OTH&UNS CRD 03-16-2014 [facility]NTANGL [facility] W/O COMPRS INC COMP L&D DELIV 17813 FIRST-DEGRE 03-16-2014 [facility] E PERINEAL [facility] LACERATION INC WITH DELIVERY V221 SUPERVISION 03-13-2014 [facility] OF OTHER NORMAL 58012 OTHER 01-15-2014 HARPEL RAMIRO THREATENED LABOR, ANTEPARTUM 43385 PAIN IN 01-15-2014 [place] JOINT, MEDICAL ANKLE AND IMAGING ASS FOOT 44871 UNSPECIFIED 01-15-2014 STACEY IMT SITE OF ANKLE SPRAIN AND STRAIN E8888 OTHER fall01-15-2014 STACEY IMT 00631 ABN MAT 12-29-2013 [facility] GLUCOSE [facility] TOLERANCE INC COMPL PG CB/PP UNS EOC 78904 ABNORMAL 12-26-2013 [facility] MATERNAL GLUCOSE TOLERANCE ANTEPARTUM V283 ENCOUNTER 11-19-2013 [facility] ROUTINE SCREEN MALFORMATIO N ULTRASONIC 90655 BN&JNT D/O 10-14-2013 [facility] [place] MAT BACK PELVIS&LW LIMBS ANTEPARTUM 32009 OTH CURRENT 10-14-2013 [facility] MAT CONDS [facility] CLASSIFIABL INC E ELSW ANTPRTM 7242 LUMBAGO 10-14-2013 [place] [place] 7245 UNSPECIFIED 10-14-2013 [facility] BACKACHE [facility] INC 50712 ABDOMINAL 10-14-2013 [facility] PAIN, [facility] UNSPECIFIED INC SITE V220 SUPERVISION 10-07-2013 [facility] OF NORMAL FIRST 63559 OTHER 08-14-2013 [facility] SPECIFED COMPLICATIO N ANTEPARTUM V7242 08-01-2013 [facility] EXAMINATION OR TEST POSITIVE RESULT V2503 ENCOUNTER 07-31-2013 [facility] EMERGENCY HEALTH CONTRACEPT DEPARTMENT CNSL&PRESCR IPTION V2689 OTHER 07-31-2013 [facility] SPECIFIED HEALTH PROCREATIVE DEPARTMENT MANAGEMENT V851 BODY MASS 07-31-2013 [facility] INDEX HEALTH BETWEEN DEPARTMENT 19-24 ADULT 3679 UNSPECIFIED 12-13-2012 ANTWON THERESA DISORDER OF REFRACTION& ACCOMMODATI ON 684 IMPETIGO 12-12-2012 [facility] 1274 ENTEROBIASI 06-24-2012 [facility] S 5990 URINARY 06-24-2012 [facility] TRACT INFECTION SITE NOT SPECIFIED 5589 OTH&UNSPEC 10-18-2011 DAVID OSORIO NONINFECTIO US GASTROENTER ITIS&COLITI S V720 EXAMINATION 09-14-2011 CHRISTIAN FAY OF EYES AND VISION 81754 UNSPECIFIED 05-31-2011 FAUGHN DYSON CONJUNCTIVI TIS V1582 PERS HX 05-16-2011 [facility] TOBACCO USE HEALTH PRESENTING DEPARTMENT HAZARDS HEALTH V2549 SURVEILLANC 05-16-2011 [facility]OB[facility] [employer]ass E OT PREV HEALTH PRSC DEPARTMENT CONTRACEPT METHOD 4659 ACUTE URIS 03-17-2011 [facility] OF UNSPECIFIED SITE 85632 ASTHMA, 03-17-2011 [facility] UNSPECIFIED , UNSPECIFIED STATUS 7821 RASH AND 03-17-2011 [facility] OTHER NONSPECIFIC SKIN ERUPTION 62694 UNSPECIFIED 02-28-2011 [facility] VAGINITIS AND VULVOVAGINI TIS 2662 OTHER 01-25-2011 [facility] B-COMPLEX HEALTH DEFICIENCIE DEPARTMENT S V2509 OT GENERAL 01-25-2011 [facility] HEALTH CNSL&ADVICE DEPARTMENT CONTRACEPT MANAGEMENT V850 BODY MASS 01-25-2011 [facility] INDEX LESS HEALTH THAN 19 DEPARTMENT ADULT 5210 DENTAL 01-18-2011 KHUSHI DMD CARIES DRUZE 605 REDUNDANT 03-16-2010 [facility] PHIMOSIS 66039 POOR 03-16-2010 [facility] A[facility]ECT CLINIC OF MANAGEMENT [place] MOTH DELIV 31772 OLIGOHYDRAM 03-16-2010 [facility]OS, HEALTH DELIVERED CLINIC OF [place] V3000 SINGLE 03-16-2010 [facility] W/O 01649 POOR 03-14-2010 [facility] MGMT HEALTH MOTH CLINIC OF ANTPRTM [place] COND/COMP 6259 UNSPEC 12-23-2009 [facility] SYMPTOM PHYSICIAN ASSOC GROUP PCC W/FEMALE GENITAL ORGANS 7048 OTHER 09-28-2009 [facility] DISEASE OF PEDIA HAIR&HAIR FOLLICLES V642 SURG/OTH 08-23-2009 [facility] PROC NOT [facility] CARRIED OUT INC BECAUSE PTS DECN 1121 CANDIDIASIS 08-02-2009 PATHOLOGY & OF [facility] CYTOLOGY AND VAGINA LAB V745 SCREENING 08-02-2009 PATHOLOGY & EXAMINATION CYTOLOGY FOR LAB VENEREAL DISEASE 462 ACUTE 03-05-2009 [facility] V259 UNSPECIFIED 03-05-2009 [facility] CONTRACEPTI PEDIA VE MANAGEMENT V700 ROUTINE 03-05-2009 [facility] EXAM@HEALTH CARE FACL V7388 SPECIAL SCR 03-05-2009 [facility] EXAMINATION PEDIA OTH SPEC CHLAMYDIAL DZ 7881 DYSURIA 01-05-2009 [facility] 7840 HEADACHE 12-21-2008 [facility] PEDIA V202 ROUTINE 12-04-2008 [facility] OR SERV CHILD FOUNDATIO HEALTH CHECK V7231 ROUTINE 10-27-2008 [facility] CL[facility] OF EXAMINATION [facility] 6235 LEUKORRHEA 08-06-2008 [facility] SPECIFIED PEDIA INFECTIVE 7862 COUGH 07-22-2008 [facility] PEDIA 7295 PAIN IN 01-27-2008 [facility] SOFT SERV TISSUES OF FOUNDATIO LIMB 7296 RESIDUAL 01-27-2008 [facility] BODY IN [facility] SOFT TISSUE 8830 OPEN WOUND 01-27-2008 [facility] AZLE WITHOUT MENTION COMPLICATIO N 8831 OPEN WOUND 01-27-2008 [facility] COMPLICATED 9156 FINGER SUP 01-27-2008 [facility] FB W/O LACI SERV OPEN FOUNDATIO WOUND&W/O MENTION INF E9179 OTHER 01-27-2008 [facility] STRIKING SERV AGAINST FOUNDATIO W/WO SUBSEQUENT FALL 15773 HEAD 11-21-2007 [facility] UNSPEC[facility] P[facility]IA 6918 OTHER 08-03-2005 [facility] DERMATITIS PEDIA AND RELATED CONDITIONS Medications Na [...] PL CY ET # 10 04 93 WV 00 07 07 4 10 30 WA [...] S CA #4 RO 93 LY N WV 00 11 11 00 30 30 WA [...] Procedure DOS Code Location Performer Comment OPHTH 06478 [facility] 7 XM&EVAL COMPRHNSV ESTAB PT 1/> FRAMES V2020 ALISSON VINSON PURCHASES 7 SPHERE V2100 ALISSON VINSON SINGLE 7 VISION [place]AN[place] +/- 4.00 PER LENS GLUCOSE 63695 [facility] POST 7 PHYSICIAN PHYSICIAN GLUCOSE S GROUP S GROUP DOSE SMR PRIM 97364 [facility] FAN SRC WET 7 PHYSICIAN [place] S GROUP NFCT AGT US PREG 80343 [place] TIDWELL UTERUS 7 MEDICAL W/DETAIL IMAGING ASS URSULA 1ST GESTATION URNLS DIP 31608 [facility] RODRIGEZ 6 [facility] STICK/TAB INC INC LET REAGENT AUTO MICROSCOP Y BLOOD 09022 [facility]IA COUNT 6 [facility] COMPLETE INC INC AUTO&AUTO DIFRNTL WBC CULTURE 74955 [facility] RODRIGEZ BACTERIAL 6 [facility] INC [place] [address] [facility] RODRIGEZ INFUSION 6 [facility] THERAPY/P INC INC ROPHYLAXI S /DX 1ST TO 1 HR BASIC 34109 [facility] ROD[facility]EZ METABOLIC 6 [facility] PANEL INC INC CALCIUM TOTAL OBSTETRIC 93768 [facility] RODRIGEZ PANEL 6 [facility] INC INC INF AGT G0432 [facility] RODRIGEZ AB DETECT 6 [facility] EIA TECH INC INC HIV-1&/HI V-2 SCR COLLECTIO 85099 [facility] RODRIGEZ N VENOUS 6 [facility] BLOOD [place] 42520 [place] TIDWELL ALL UTERUS 6 MEDICAL REAL TIME IMAGING W/IMAGE ASS DCMTN TRANSVAG DRUG TST G0477 [facility] MENG PRESUMP;C 6 PHYSICIAN JC PBL BEING S GROUP READ DC OPT OBV ONLY CYTP C/V 06038 [facility], AUTO THIN 6 [facility] LYR PREPJ SCR MNL RESCR PHYS IADNA 51113 [facility], CHLAMYDIA 6 [facility] TRACHOMAT IS AMPLIFIED PROBE TQ IADNA 42132 [facility], NEISSERIA 6 [facility] GONORRHOE AE AMPLIFIED PROBE TQ URINE 18854 [facility] MENG 6 PHYSICIAN JC TEST S GROUP VISUAL COLOR CMPRSN METHS URINE 33712 [facility] RODRIGEZ 6 [facility] TEST INC INC VISUAL COLOR CMPRSN METHS CULTURE 79006 [facility] R[facility] BCT 6 [facility] ISOL&PRSM INC INC PTV ID ISOLATE EA URINE CULTURE 66161 [facility] R[facility] BACTERIAL 6 [facility] INC INC QUANTTATI VE COLONY COUNT URINE SUSCEPTIB 31146 [facility] RODR[facility] LTY STDY 6 [facility] ANTIMICRB INC INC IAL MICRO/AGA R DILUTJ COMPREHEN 06660 [facility] SIVE 6 [facility] METABOLIC INC INC PANEL BLOOD 90973 [facility] R[facility] COUNT 6 [facility] COMPLETE INC INC AUTO&AUTO DIFRNTL WBC URNLS DIP 83825 [facility] RODRIGEZ 6 [facility] STICK/TAB INC [place] [address] [facility] RODRIGEZ ABDOMEN & 6 [facility] PELVIS INC INC W/O CONTRAST MATERIAL IAADIADOO [address] [facility] IAADIADOO 17022 [facility] [address] [place] [address] [facility] RODRIGEZ STREPTOCO 5 [facility] CCUS INC INC GROUP A CUL BACT 03618 [facility] R[facility] XCPT 5 [facility] URINE INC INC BLOOD/STO OL AEROBIC ISOL URNLS DIP 12550 [facility] RODRIGEZ 5 [facility] STICK/TAB INC INC LET REAGENT AUTO MICROSCOP Y RADIOLOGI 25529 [facility] RODR[facility] C EXAM 5 [facility] CHEST 2 INC INC VIEWS FRONTAL&L ATERAL IAADIADOO 68988 [facility] ISRA 5 [facility] CCUS GROUP A IAADI 42156 [facility] RODRIGEZ INFLUENZA 5 [facility] B VIRUS INC INC IAADI 86961 ELIA RODRIGEZ INFFLUENZ 5 [facility] A A VIRUS INC INC URINE 07373 [facility] RODRIGEZ 5 [facility] TEST INC INC VISUAL COLOR CMPRSN METHS OPHTH 81949 SCIFRES SCIFRES MEDICAL 5 ANG ANG XM&EVAL COMPRE NEW PT 1/> VST CYTP C/V 56681 [facility] AUTO THIN 5 [facility] LYR PREPJ SCR MNL RESCR PHYS VAGINAL 85018 [facility] FAN DELIVERY 4 PHYSICIAN JC ONLY S GROUP W/POSTPAR ENIO CARE NEURAXIAL 85062 [facility] LABOR 4 ANESTH THERESA ANALG/ANE OF THE S PLND BLUE VAGINAL DELIVERY REPAIR OF 7569 [facility] RODRIGEZ OTHER 4 [facility] CURRENT INC INC OBSTETRIC LACERATIO N 02133 [facility] NONSTRESS 4 PHYSICIAN PHYSICIAN TEST S GROUP S GROUP CUL BACT 76816 COMBINED COMBINED XCPT 4 PHYSICIAN PHYSICIAN URINE S LA S LA BLOOD/STO OL AEROBIC ISOL CULTURE 62282 [facility] R[facility]RIGEZ BACTERIAL 4 [facility] INC INC QUANTTATI VE COLONY COUNT URINE EVAL C/V 91756 [facility] RODR[facility]EZ AMNIOTIC 4 [facility] FLUID INC INC PROTEIN QUAL EA SPECIMEN FTL 50483 [facility] R[facility]EZ FIBRONECT 4 [facility] IN INC INC CERVICOVA G SECRETION S SEMI-REY URNLS DIP 14705 [facility] RODRIGEZ 4 [facility] STICK/TAB INC INC LET REAGENT AUTO MICROSCOP Y 73726 [facility] R[facility]EZ NONSTRESS 4 [facility] TEST INC INC FTL 30557 [facility] RODRIGEZ FIBRONECT 4 [facility] IN INC INC CERVICOVA G SECRETION S SEMI-REY RADEX 34035 [place] BEINEKE ANKLE 4 MEDICAL JOLIE COMPLETE IMAGING MINIMUM 3 ASS VIEWS 40501 HARPEL HARPEL NONSTRESS 4 RAMIRO RAMIRO TEST GLUCOSE 86231 [facility] RODRIGEZ TOLERANCE 4 [facility] TEST GTT INC INC 3 SPECIMENS URNLS DIP 85687 [facility] RODRIGEZ 4 [facility] STICK/TAB INC INC LET RGNT NON-AUTO W/O MICRSCP GLUCOSE 29210 [facility] RODRIGEZ TOLERANCE 4 [facility] EA ADDL INC INC BEYOND 3 SPECIMENS GLUCOSE 94524 MENG FAN TOLERANCE 4 JC JC TEST GTT 3 SPECIMENS [place] PREG 33669 MENG FAN UTERUS 4 JC JC AFTER 1ST TRIMEST 1/ GESTATION EVAL C/V 33475 [facility] RODRIGEZ AMNIOTIC 4 [facility] FLUID INC INC PROTEIN QUAL EA SPECIMEN CULTURE 58564 [facility] RODRIGEZ BACTERIAL 4 [facility] INC INC QUANTTATI VE COLONY COUNT URINE URNLS DIP 96651 [facility] RODRIGEZ 4 [facility] STICK/TAB INC INC LET REAGENT AUTO MICROSCOP Y US PREG 98696 MENG FAN UTERUS 4 JC JC REAL TIME W/IMAGE DCMTN TRANSVAG ANTIBODY 53174 COMBINED COMBINED CHLAMYDIA 4 PHYSICIAN PHYSICIAN S LA S LA CUL BACT 89483 COMBINED COMBINED XCPT 4 PHYSICIAN PHYSICIAN URINE S LA S LA BLOOD/STO OL AEROBIC ISOL URINE 40944 MENG FAN 4 JC JC TEST VISUAL COLOR CMPRSN METHS URINE 20676 [place] 4 MO Y[place] TEST VISUAL [facility]PARTMEN [facility] COLOR T T CMPRSN METHS IADNA 10786 [place] NEISSERIA 4 MO Yuyuto [facility] GONORRHOE DEPARTMEN [facility] AE T T AMPLIFIED PROBE TQ IADNA 77256 [place] CHLAMYDIA 4 [facility] Yuyuto TRACHOMAT [facility] IS T T AMPLIFIED PROBE TQ SPHERE V2100 ANTWON ANTWON SINGLE 3 THERESA THERESA VISION PLANO +/- 4.00 PER LENS OPHTH 60701 ANTWON ANTWON MEDICAL 3 THERESA THERESA XM&EVAL COMPRE NEW PT 1/> VST FRAMES V2020 ANTWON ANTWON PURCHASES 3 THERESA THERESA DETERMINA 25400 AN[facility] ATNWON TION 3 THERESA THERESA REFRACTIV E STATE FITTING 84169 ANTWON ANTWON SPECTACLE 3 THERESA THERESA S XCPT APHAKIA [facility] 62109 [facility] PROVIDED 3 OFFICE OTH/THN REG SCHED HOURS SPHERE V2100 ANAHI CHRISTIAN FAY SINGLE 2 VISION [place] +/- 4.00 PER LENS OPHTH 36419 ANAHI CHRISTIAN FAY MEDICAL 2 XM&EVAL COMPRE NEW PT 1/> VST FRAMES V2020 ANAHI APONTE PURCHASES 2 DETERMINA 02907 ANAHI APONTE TION 2 REFRACTIV E STATE FITTING 75309 ANAHI APONTE SPECTACLE 2 S XCPT APHAKIA MONOFOCAL PRESSURIZ 52641 [facility] ED/NONPRE 1 SSURIZED INHALATIO N TREATMENT CONTRACEP A4267 [place] TIVE 1 MO Yuyuto [facility] SUPPLY CONDOM [facility] MALE EACH T T WET Q0111 [place] AYO 1 MO Yuyuto [facility] INCL PREP VAGINAL [facility] CERV/SKIN T T SPECIMENS IADNA 82313 [place] CHLAMYDIA 1 MO Yuyuto [place] Yuyuto TRACHOMAT [facility] IS T T AMPLIFIED PROBE TQ IADNA 96097 [place] NEISSERIA 1 MO Yuyuto [facility] GONORRHOE [facility] AE T T AMPLIFIED PROBE TQ CONTRACEP J7303 [place] T SUPPLY 1 MO Yuyuto [place] HORMONE CONTAININ [facility] G VAG T T RING EA ANALGESIA D9230 KHUSHI DMD KHUSHI DMD 1 DRUZE DRUZE ANXIOLYSI S INHALATIO N OF NITROUS OXIDE ANALGESIA D9230 KHUSHI DMD KHUSHI DMD 1 DRUZE DRUZE ANXIOLYSI S INHALATIO N OF NITROUS OXIDE ANALGESIA D9230 KHUSHI DMD KHUSHI DMD 1 DRUZE DRUZE ANXIOLYSI S INHALATIO N OF NITROUS OXIDE ANALGESIA D9230 KUHSHI DMD KHUSHI DMD 1 [facility] ANXIOLYSI S INHALATIO N OF NITROUS OXIDE HOSPITAL 75825 [facility]ILY [facility] DISCHARGE 0 CARE DAY ASSOCIATE [facility] S T 30 MIN/< SUBQ 69615 [facility] 0 CARE CARE PER ASSOCIATE DAY E/M S NORMAL CIRCUMCIS 35369 FAMILY WILLIAM Ho[facility] ION 0 CARE W/CLAMP/O ASSOCIATE [facility] S W/BLOCK NEURAXIAL 28525 [facility] LABOR 0 ANESTH ANALG/ANE OF THE S PLND BLUE VAGINAL DELIVERY 1ST 20444 FAMILY WILLIAM Hooper HOSP/W[facility]ATT 0 CARE [facility] S CARE PER DAY NML NB VAGINAL 79069 [facility]OMEN[facility]S FAN DELIVERY 0 HEALTH JC ONLY CLINIC OF [place] REPAIR OF 7569 ELIA RODRIGEZ OTHER 0 [facility] CURRENT INC INC OBSTETRIC LACERATIO N US PREG 12857 WOMEN'S FAN UTERUS 0 HEALTH JC REAL TIME CLINIC OF F/U [place] TRNSABDL PER FETUS 60888 WOMEN'[facility] FAN BIOPHYSIC 0 HEALTH JC AL CLINIC OF PROFILE [place] W/O NON-STRES S TESTING DOPPLER 74711 WOMEN'S FAN VELOCIMET 0 HEALTH JC RY CLINIC OF UMBILICAL [place] ARTERY 91155 ELIA RODRIGEZ NONSTRESS 0 [facility] TEST INC INC CULTURE 85554 [facility]IA RODRIGEZ BACTERIAL 0 [facility] INC INC QUANTTATI VE COLONY COUNT URINE URNLS DIP 05451 [facility] RODRIGEZ 0 [facility] STICK/TAB INC INC LET REAGENT AUTO MICROSCOP Y US PREG 19157 [facility] FAN UTERUS 0 HEALTH JC REAL TIME CLINIC OF F/U [place] TRNSABDL PER FETUS DOPPLER 86041 WOMEN'S FAN VELOCIMET 0 HEALTH JC RY CLINIC OF UMBILICAL [place] ARTERY 61674 WOMEN'S FAN BIOPHYSIC 0 HEALTH JC AL CLINIC OF PROFILE [place] W/O NON-STRES S TESTING DOPPLER 98612 WOMEN'S FAN VELOCIMET 0 HEALTH JC RY CLINIC OF UMBILICAL [place] ARTERY 90392 WOMEN'S FAN BIOPHYSIC 0 HEALTH JC AL CLINIC OF PROFILE [place] W/O NON-STRES S TESTING US PREG 68854 [facility] FAN UTERUS 0 HEALTH JC REAL TIME CLINIC OF F/U [place] TRNSABDL PER FETUS 46591 [facility] F[facility] BIOPHYSIC 0 [facility]IN[facility] OF PROFILE [place] W/O NON-STRES S TESTING DOPPLER 11136 W[facility]EN'S WOMEN'S VELOCIMET 0 [facility] [place] [address] [facility]'S FAN 0 [facility] UTERUS CLINIC OF LIMITED [place] 1/> FETUSES CUL BACT 00023 COMBINED COMBINED XCPT 0 PHYSICIAN PHYSICIAN URINE S LA S LA BLOOD/STO OL AEROBIC ISOL US PREG 38601 [facility] UTERUS 0 [facility] REAL TIME CLINIC OF F/U [place] TRNSABDL PER FETUS 72216 WOMEN'S FAN BIOPHYSIC 0 [facility] AL CLINIC OF PROFILE [facility] W/O NON-STRES S TESTING DOPPLER 23713 WOMEN'S FAN VELOCIMET 0 [facility] OF UMBILICAL [place] ARTERY DOPPLER 05304 WOMEN'S FAN VELOCIMET 0 [facility] OF UMBILICAL [place] ARTERY 74859 WOMEN'S FAN BIOPHYSIC 0 [facility] AL CLINIC OF PROFILE [place] W/O NON-STRES [place] TESTING [place] PREG 32420 [facility]S FAN UTERUS 0 [facility] REAL TIME CLINIC OF F/U [place] TRNSABDL PER FETUS GLUCOSE 69678 WOMEN'S FAN TOLERANCE 0 [facility]ALTH [facility] TEST GTT CLINIC OF 3 [place] SPECIMENS GLUCOSE 45452 WOMEN'S FAN POST 0 [facility]ALTH [facility] GLUCOSE CLINIC OF DOSE [place] URINLS 61810 [facility] HARPEL DIP 0 PHYSICIAN RAMIRO STICK/TAB GROUP LET PCC REAGNT NON-AUTO MICRSCPY URINALYSI 23342 [facility] HARPEL S 0 PHYSICIAN RAMIRO MICROSCOP GROUP IC ONLY [place] PREG 14389 WOMEN'S FAN, UTERUS 0 HEALTH ERVIN J AFTER CLINIC OF TRIMEST [facility] URNLS DIP 19985 ELIA ELIA 0 [facility] STICK/TAB INC INC LET REAGENT AUTO MICROSCOP Y [place] PREG 69856 [facility]OMEN[facility]S FAN, UTERUS 0 HEALTH ERVIN J REAL TIME CLINIC OF W/IMAGE DCMTN [facility] MOLECULAR 99927 MOLECULAR MOLECULAR DX AMP 0 TARGET PATHOLOGY PATHOLOGY MULTIPLEX LAB LAB 1ST 2 NETWORK NETWORK SEQ INC INC MOLECULAR 33642 MOLECULAR MOLECULAR 0 DIAGNOSTI PATHOLOGY PATHOLOGY CS LAB LAB INTERPRET NETWORK NETWORK ATION & INC INC REPORT MUTATION 42409 MOLECULAR MOLECULAR ID 0 ENZYMATIC PATHOLOGY PATHOLOGY LAB LAB LIG/PRIME NETWORK NETWORK R XTN 1 INC INC SGM EA CYTP C/V 40099 PATHOLOGY PATHOLOGY AUTO THIN 0 & & LYR CYTOLOGY CYTOLOGY PREPJ SCR LAB LAB MNL RESCR PHYS MOLECULAR 76771 MOLECULAR MOLECULAR DX AMP 0 TARGET PATHOLOGY PATHOLOGY MULTIPLEX LAB LAB EA ADDL NETWORK NETWORK SEQ INC INC MOLEC 25855 MOLECULAR MOLECULAR SEP&ID HI 0 RESOLU PATHOLOGY PATHOLOGY TQ EACH LAB LAB NUCLEIC NETWORK NETWORK ACID PREP INC INC IADNA 94978 PATHOLOGY PATHOLOGY NEISSERIA 0 & & CYTOLOGY CYTOLOGY GONORRHOE LAB LAB AE AMPLIFIED PROBE TQ IADNA 66279 PATHOLOGY PATHOLOGY CHLAMYDIA 0 & & CYTOLOGY CYTOLOGY TRACHOMAT LAB LAB IS AMPLIFIED PROBE TQ MOLEC 56602 MOLECULAR MOLECULAR ISOL/XTRJ 0 HP PATHOLOGY PATHOLOGY NUCLEIC LAB LAB ACID EA NETWORK NETWORK TYPE INC INC IADNA 70750 [facility] NEISSERIA [address] [facility] GONORRHOE AE AMPLIFIED PROBE TQ IADNA 93606 [facility] CHLAMYDIA [address] [facility] TRACHOMAT IS AMPLIFIED PROBE TQ IADNA 89895 [facility] CHLAMYDIA [address] [facility] TR[facility] IS AMPLIFIED PROBE TQ CUL BACT 85703 [facility] XCPT 9 Y Y URINE [facility] BLOOD/STO OL AEROBIC ISOL IADNA 32357 [facility] NEISSERIA [address] [facility] GONORRHOE AE AMPLIFIED PROBE TQ IAADIADOO 44638 [facility]- 9 Y OF [place] STREPTOCO [place] [facility] CCUS [facility]EDIA GROUP A URINE 49081 [facility]- 9 Y OF [place] TEST [place] CAR VISUAL PEDIA COLOR CMPRSN METHS OPHTH 28774 [facility] 9 [facility] LD, XM&EVAL [place]LA[place] INTERMEDI ATE ESTAB PT URNLS DIP 64683 [facility] 9 Y OF ENRIQUE STICK/TAB [place] LET RGNT PEDIA NON-AUTO W/O MICRSCP IAADIADOO [id number] [facility] IRBY 9 Y OF JR CAR STREPTOCO [place] [facility]IA GROUP A IADNA 24502 PATHOLOGY PATHOLOGY NEISSERIA 9 & & CYTOLOGY CYTOLOGY GONORRHOE LAB LAB AE AMPLIFIED PROBE TQ IADNA 97222 PATHOLOGY PATHOLOGY CHLAMYDIA 9 & & CYTOLOGY CYTOLOGY TRACHOMAT LAB LAB IS AMPLIFIED PROBE TQ CYTP C/V 59381 PATHOLOGY PATHOLOGY AUTO THIN 9 & & LYR CYTOLOGY CYTOLOGY PREPJ SCR LAB LAB MNL RESCR PHYS URNLS DIP 11522 [facility] 9 Y Y STICK/TAB [facility] LET REAGENT AUTO MICROSCOP Y IAADIADOO 69064 [facility] 9 Y OF ROMÁN STREPTOCO [place] CC[facility] PEDIA GROUP A RADEX 04557 [facility] FING 8 Y Y MINIMUM [address] [facility] VIEWS INCISION [address]95 [place] ECKERLINE & REMOVAL 8 MEDICAL , C A FOREIGN SERV BODY SUBQ FOUNDATIO TISS SIMPLE OPHTH 98441 [facility] 8 [facility] LD, XM&EVAL KYLAH J INTERMEDI ATE NEW PT FRAMES V2020 [facility], PURCHASES 8 Y OPTICAL WARD R SPHERE V2100 [facility], SINGLE 8 Y OPTICAL WARD R VISION PLANO +/- 4.00 PER LENS FITTING 47944 [facility], SPECTACLE 8 Y OPTICAL WARD R S XCPT APHAKIA MONOFOCAL Encounters Encounter Start End Date Code Location Performer Type Date OFFICE 51679 [facility] MENG OUTPATIEN 7 7 PHYSICIAN T VISIT S GROUP 15 MINUTES OFFICE 43273 [facility] FAN OUTPATIEN 7 7 PHYSICIAN T VISIT S GROUP 15 MINUTES OFFICE 53942 [facility] FAN OUTPATIEN 7 7 PHYSICIAN T VISIT S GROUP 15 MINUTES OFFICE 13582 [facility] FAN OUTPATIEN 7 7 PHYSICIAN T VISIT S GROUP 15 MINUTES OFFICE 74245 [facility] MENG OUTPATIEN 7 7 PHYSICIAN T VISIT S GROUP 15 MINUTES HOSPITAL ELIA - 7 7 [facility] OUTPATIEN INC T OFFICE 01668 [facility] FAN OUTPATIEN 6 6 PHYSICIAN T VISIT S GROUP 15 MINUTES HOSPITAL ELIA - 6 6 [facility] OUTPATIEN INC T EMERGENCY 35032 [facility] 6 6 [facility] DEPARTMEN INC T VISIT HIGH/URGE NT SEVERITY HOSPITAL EL[facility] - 6 6 [facility] OUTPATIEN INC T OFFICE 01086 [facility] FAN OUTPATIEN 6 6 PHYSICIAN JC T VISIT S GROUP 15 MINUTES OFFICE 98632 [facility] FAN OUTPATIEN 6 6 PHYSICIAN JC T VISIT S GROUP 15 MINUTES HOSPITAL ELIA - 6 6 [facility] OUTPATIEN INC T OFFICE 05245 [facility] FAN OUTPATIEN 6 6 PHYSICIAN JC T VISIT S GROUP 25 MINUTES EMERGENCY 84236 ELIA 6 6 [facility] DEPARTMEN INC T VISIT LOW/MODER SEVERITY HOSPITAL ELIA - 6 6 [facility] OUTPATIEN INC T EMERGENCY 93338 DWAIN LE 6 6 [facility] T VISIT HIGH/URGE NT SEVERITY OFFICE 30895 [facility] RY OUTPATIEN 6 6 T VISIT 15 MINUTES OFFICE 70787 ELIA DHALIWAL OUTPATIEN 6 6 [facility] T VISIT HOSPITAL 25 MINUTES OFFICE 04209 [facility] OUTPATIEN 6 6 [facility] T VISIT MEDICAL 15 GROUP MINUTES OFFICE 99177 [facility] OUTPATIEN 6 6 T VISIT 15 MINUTES OFFICE 02107 [facility] OUTPATIEN 5 5 T VISIT 15 MINUTES OFFICE 53621 [facility] OUTPATIEN 5 5 T VISIT 15 MINUTES OFFICE 21492 ELIA DHALIWAL OUTPATIEN 5 5 [facility] T NEW 20 HOSPITAL MINUTES EMERGENCY 07605 ELIA 5 5 [facility] DEPARTMEN INC T VISIT LOW/MODER SEVERITY EMERGENCY 74016 DWAIN [facility]IL[facility] DEPT 5 5 PHYSICIAN [facility] VISIT S, [facility] HIGH SEVERITY& THREAT FUNJ HOSPITAL ELIA - 5 5 [facility] OUTPATIEN INC HOSPITAL ELIA - 4 4 [facility] INPATIENT INC OFFICE 15619 FAN FAN OUTPATIEN 4 4 JC JC T VISIT 15 MINUTES OFFICE 80089 FAN FAN OUTPATIEN 4 4 JC JC T VISIT 15 MINUTES HOSPITAL ELIA - 4 4 [facility] OUTPATIEN INC T OFFICE 85753 FAN FAN OUTPATIEN 4 4 JC JC T VISIT 15 MINUTES OFFICE 10674 [facility]AN FAN OUTPATIEN 4 4 JC JC T VISIT 15 MINUTES HOSPITAL ELIA - 4 4 [facility] OUTPATIEN INC T OFFICE 57396 FAN FAN OUTPATIEN 4 4 JC JC T VISIT 15 MINUTES HOSPITAL ELIA - 4 4 [facility] OUTPATIEN INC T EMERGENCY 86429 STACEY STACEY [facility] V[facility] MODERATE SEVERITY OFFICE 67080 FAN FAN OUTPATIEN 4 4 JC JC T VISIT 15 MINUTES OFFICE 12358 FAN FAN OUTPATIEN 4 4 JC JC T VISIT 15 MINUTES HOSPITAL ELIA - 4 4 [facility] OUTPATIEN INC T OFFICE 78343 FAN FAN OUTPATIEN 4 4 JC JC T VISIT 5 MINUTES OFFICE 94481 FAN FAN OUTPATIEN 4 4 JC JC T VISIT 15 MINUTES OFFICE 96308 MENG BOWERE OUTPATIEN 4 4 JC JC T VISIT 15 MINUTES EMERGENCY 99647 [facility] 4 4 [facility] DEPARTMEN INC T VISIT LOW/MODER SEVERITY EMERGENCY 55646 TREVA TREVA 4 4 [facility] DEPARTMEN T VISIT HIGH/URGE NT SEVERITY HOSPITAL ELIA - 4 4 [facility] OUTPATIEN INC T OFFICE 23857 MENG BOWERE OUTPATIEN 4 4 JC JC T VISIT 15 MINUTES OFFICE 17394 MENG BOWERE OUTPATIEN 4 4 JC JC T VISIT 15 MINUTES OFFICE 13186 FAN FAN OUTPATIEN 4 4 JC JC T NEW 45 MINUTES OFFICE 84509 [facility] OUT[facility] 4 4 [facility] T VISIT 15 DEPARTMEN DEPARTMEN MINUTES T T OFFICE 44437 [facility] RYA OUTPATIEN 3 3 T VISIT 15 MINUTES EMERGENCY 36751 YAHAIRA CAM 3 3 EMERGENCY RAE DEPARTMEN SERVICES T VISIT MODERATE SEVERITY OFFICE 38590 DAVID OSORIO OUTPATIEN 2 2 T NEW 45 MINUTES EMERGENCY 93081 NANCY CRUZ 2 2 DYSON DYSON DEPARTMEN T VISIT MODERATE SEVERITY OFFICE 84558 [facility] [facility] OUTPATIEN 2 2 [employer] [facility] T VISIT 10 DEPARTMEN DEPARTMEN MINUTES T T EMERGENCY 68455 SABRINA BENNETT 1 1 SAMINA SAMINA DEPARTMEN T VISIT HIGH/URGE NT SEVERITY OFFICE 76738 [place] [facility] OUTPATIEN 1 1 T VISIT 15 MINUTES OFFICE 05153 [facility] 1 1 T NEW 30 MINUTES INITIAL 14369 DIANNE DEAN PREVENTIV 1 1 [facility] NEW PT T T AGE 12-17 YR HOSPITAL ELIA - 0 0 [facility] INPATIENT [facility] HOSPITAL ELIA - 0 0 [facility] OUTPATIEN INC T OFFICE 93553 [facility] 0 0 HEALTH JC T VISIT CLINIC OF 15 ASHLEY MINUTES OFFICE 42638 [facility] F[facility] OUTPATIEN 0 0 HEALTH JC T VISIT CLINIC OF 10 ASHLEY MINUTES OFFICE 17495 [facility] F[facility] OUTPATIEN 0 0 HEALTH JC T VISIT CLINIC OF 15 ASHLEY MINUTES OFFICE 97669 [facility] F[facility] OUTPATIEN 0 0 HEALTH JC T VISIT CLINIC OF 15 ASHLEY MINUTES OFFICE 10620 [facility] F[facility] OUTPATIEN 0 0 HEALTH JC T VISIT CLINIC OF 15 ASHLEY MINUTES OFFICE 11538 [facility] F[facility] OUTPATIEN 0 0 HEALTH JC T VISIT 5 CLINIC OF MINUTES ASHLEY OFFICE 34261 [facility] HARPEL OUTPATIEN 0 0 PHYSICIAN RAMIRO T VISIT GROUP 15 PCC MINUTES OFFICE 25792 [facility] OUTPATIEN 0 0 HEALTH JC T VISIT CLINIC OF 15 ASHLEY MINUTES OFFICE 89176 [facility], OUTPATIEN 0 0 HEALTH ERVIN J T VISIT CLINIC [facility] 15 [facility]ES [facility] OFF[facility] 71877 [facility], OUTPATIEN 0 0 HEALTH ERVIN J T VISIT CLINIC OF 15 MINUTES [facility] 78955 [facility] LENTZSCH- OUTPATIEN 0 0 Y OF PARCELLS T VISIT [place] CAR 15 PEDIA MINUTES OFFICE 29287 [facility], OUTPATIEN 0 0 HEALTH ERVIN J T VISIT CLINIC [facility] 20890 [facility], OUTPATIEN 0 0 HEALTH ERVIN J T VISIT CLINIC OF 15 MINUTES [facility] EMERGENCY 56678 [facility] 0 0 [facility] DEPARTMEN INC T VISIT LIMITED/M INOR [facility] ELIA - 0 0 [facility] OUTPATIEN INC T HOSPITAL [facility] PERIODIC 78199 UNIVERSIT LENTZSCH- PREVENTIV 9 9 Y OF PARCELLS E MED EST [place] CAR PATIENT PEDIA 12-YRS [facility]OSPITAL [facility] 38142 [facility] 9 9 Y OF ENRIQUE T VISIT [place] 15 PEDIA [facility] 34447 [facility] Y OF JR CAR T VISIT [place] 15 PEDIA MINUTES PERIODIC 28843 [place] GOMEZ, PREVENTIV 9 9 MEDICAL NESTOR H E MED EST SERV PATIENT FOUNDATIO 12-17YRS INITIAL 06953 [facility], PREVENTIV 9 9 HEALTH ERVIN J E CLINIC OF MEDICINE NEW PT SHAYY AGE 12-17 [facility] YR OFFICE 48373 UNIVERSIT HEATHER OUTPATIEN 9 9 Y OF DON T VISIT [place] 15 PEDIA MINUTES [facility]OSPITAL [facility] 73463 UNIVERSIT PILO OUTPATIEN 9 9 Y OF ROMÁN T VISIT [place] 15 PEDIA MINUTES OFFICE 83026 UNIVERSIT MERINO OUTPATIEN 8 8 Y OF HAMILTON T VISIT [place] 15 PEDIA MINUTES EMERGENCY 11979 UNIVERSIT 8 8 Y DEPARTMEN HOSPITAL T VISIT MODERATE SEVERITY HOSPITAL UNIVERSIT - 8 8 Y OUTPATIEN HOSPITAL T PERIODIC 42793 [facility] ZAHRA MARKUS PREVENTIV 8 8 Y OF E MED EST [place] PATIENT PEDIA 12-17YRS OFFICE 53651 [facility] STRIFLING OUTPATIEN 8 8 Y OF RHY T VISIT [place] 15 PEDIA MINUTES INITIAL 44681 [facility] NILDA PET PREVENTIV 6 6 Y OF E [place] MEDICINE PEDIA NEW PT AGE 12-17 YR
--- OUTSIDE RECORDS SUMMARY | 2016-09-25 15:33 | External Medical Summary Rpt ---
Author Author , Organization [employer] Address Unknown Phone Unavailable Care Team Providers Care Pharmaceutical Assistant Name Role Phone ALISSON VINSON Unavailable Unavailable [facility] Unavailable Unavailable MEDICAL GROUP, [facility] BEINEKE JOLIE, BEINEKE Unavailable Unavailable JOLIE TIDWELL, TIDWELL Unavailable Unavailable TIDWELL ALL, TIDWELL ALL Unavailable Un[facility] Un[facility] Unavailable [facility], [facility] BRIGHT ENRIQUE, BRIGHT Unavailable Unavailable ENRIQUE MENG, FAN Unavailable Unavailable FAN JC, FAN Unavailable Unavailable JC FAN JC, FAN Unavailable Unavailable JC ERVIN FAN J, Unavailable Unavailable FAN, ERVIN J [facility] Unavailable Unavailable [place], [facility] WILLIAM J, WILLIAM J Unavailable Unavailable ANTWON THERESA, ANTWON Unavailable Unavailable THERESA ANTWON THERESA, ANTWON Unavailable Unavailable THERESA MOUNIKA, KYLAH Unavailable Unavailable J, MOUNIKA, KYLAH J ISRA ROCK, ISRA Unavailable Unavailable ROCK DAVID JO, DAVID JO Unavailable Unavailable DAVID OSORIO, DAVID [...] RAMIRO [facility] Unavailable Un[facility], [facility] Unavailable [facility], [facility] WARD SCALES, Unavailable Unavailable WARD SCALES HINES Unavailable Unavailable CHRISTIANJORDENCHRISTIAN Unavailable Unavailable CHRISTIAN FAY, CHRISTIAN FAY Unavailable Unavailable CHRISTIAN FAY, CHRISTIAN FAY Unavailable Unavailable [facility] Unavailable Unavailable [facility], [facility], Unavailable Unavailable [facility] STACEY IMT, STACEY Unavailable Unavailable IMT STACEY IMT, STACEY Unavailable Unavailable IMT SABRINA SAMINA, SABRINA Unavailable Unavailable SAMINA [facility] Unavailable Unavailable IMAGING [facility], [facility] HAIM, SANTANA Garcia, HAIM, Unavailable Unavailable SANTANA KOLB Unavailable Unavailable CAR, KENNEDI CAR MATCHESCACHORRO ENRIQUE, Unavailable Unavailable JAEN ENRIQUE KHUSHI DMD LATTER DAY, KHUSHI Unavailable Unavailable DMD LATTER DAY KHUSHI DMD LATTER DAY, KHUSHI Unavailable Unavailable DMD LATTER DAY [facility] Unavailable [facility], [...] STRIFLING RHY, Unavailable Unavailable STRIFLING RHY PILO FRNACE, Unavailable Unavailable PILO ROMÁN CARDENAS, MAYELIN Unavailable Unavailable THERESA [facility], Unavailable Unavailable [facility] Unavailable Unavailable [place] [facility], [facility] Unavailable Unavailable #493, [facility] # Unavailable Unavailable [id number], [facility] # [id number] [facility] # Unavailable Unavailable [id number], [facility] # [id number] IRBY JR CAR, Unavailable Unavailable IRBY JR [...] MYOPIA 08-11-2016 [facility] BILATERAL Z3480 ENC 08-10-2016 [facility] O[facility] NORMAL GROUP PREG UNS TRIMESTER [id number] ABNORMAL 07-03-2016 [facility] COMPLICATIN GROUP G N760 ACUTE 06-29-2016 [facility] Z3492 ENC 05-23-2016 [facility] MEDICAL NORMAL IMAGING ASS UNS 2 TRIMESTER Z36 ENCOUNTER 05-23-2016 [facility] SCREENING OF MOTHER Z3A20 20 WEEKS 05-23-2016 [facility] MEDICAL OF IMAGING ASS R112 NAUSEA WITH 04-11-2016 [facility]OMITING [facility] UNSPECIFIED INC Z3A15 15 WEEKS 04-11-2016 [facility] INC Z720 TOBACCO USE 04-11-2016 [facility] Q26457 UTERINE 02-28-2016 [facility] SIZE[facility]DATE [facility] DISCREPANCY INC FIRST TRIMESTER Z3491 ENC 02-28-2016 [facility] MEDICAL NORMAL IMAGING ASS UNS 1 TRIMESTER Z3A08 8 WEEKS 02-28-2016 [facility] MEDICAL OF IMAGING ASS B373 CANDIDIASIS 02-22-2016 [facility] AND VAGINA Z113 ENCOUNTER 02-22-2016 [facility] SCREEN [facility] INFECTIONS SEXL MODE TRANSMISSN Z3201 ENCOUNTER 02-22-2016 [facility] TEST RESULT POSITIVE K5900 CONSTIPATIO 01-15-2016 [facility] N [facility], UNSPECIFIED PLLC R1032 LEFT LOWER 01-15-2016 [facility]ANT [facility], PAIN PLLC M545 LOW BACK 12-07-2015 [facility] PAIN J209 ACUTE 09-11-2015 [facility] J0100 ACUTE 07-09-2015 [facility] SINUSITIS MEDICAL UNSPECIFIED GROUP H6991 UNSPECIFIED 05-24-2015 [facility] EUSTACHIAN TUBE DISORDER RIGHT EAR J00 ACUTE 05-24-2015 [facility] NASOPHARYNG ITIS COMMON COLD K219 GASTRO-ESOP 03-30-2015 [facility] H REFLUX DISEASE WITHOUT ESOPHAGITIS B349 VIRAL 03-22-2015 [facility] INFECTION UNSPECIFIED J4521 MILD 03-22-2015 [facility] INTERMITTEN T ASTHMA WITH ACUTE EXACERBATIO N J029 ACUTE 03-15-2015 [facility] PHARYNGITIS PHYSICIANS, PLLC UNSPECIFIED J060 ACUTE 03-15-2015 [facility]AR [facility] YNGITIS INC R0602 SHORTNESS 03-15-[address] [place] [address] [facility] IM[facility]ING [facility] 3671 MYOPIA 12-22-2014 SCIFRES ANG V242 ROUTINE 06-08-2014 [facility] FOLLOW-UP 650 NORMAL 03-17-2014 [facility] V270 OUTCOME OF 03-17-2014 [facility] SINGLE GROUP LIVEBORN 79830 THREATENED 03-16-2014 [facility] LABOR [facility] ANTEPARTUM 78306 OTH&UNS CRD 03-16-2014 [facility]GL [facility] W/O COMPRS INC COMP L&D DELIV 83500 FIRST-DEGRE 03-16-2014 [facility] PERINEAL [facility] LACERATION INC WITH DELIVERY V221 SUPERVISION 03-13-2014 FAN JC OF OTHER NORMAL 32561 OTHER 01-15-2014 HARPEL RAMIRO THREATENED LABOR, ANTEPARTUM 13569 PAIN IN 01-15-2014 [place] [facility]INT, MEDICAL ANKLE AND IMAGING ASS FOOT 65734 UNSPECIFIED 01-15-2014 STACEY IMT SITE OF ANKLE SPRAIN AND STRAIN E8888 OTHER FALL 01-15-2014 STACEY IMT 43125 ABN MAT 12-29-2013 [facility] GLUCOSE [facility] TOLERANCE INC COMPL PG CB/PP UNS EOC 35712 ABNORMAL 12-26-2013 [facility] JC MATERNAL GLUCOSE TOLERANCE ANTEPARTUM V283 ENCOUNTER 11-19-2013 M[facility] J[facility] ROUTINE SCREEN MALFORMATIO N ULTRASONIC 95895 BN&JNT D/O 10-14-2013 [facility] [place] MAT BACK PELVIS&LW LIMBS ANTEPARTUM 99682 OTH CURRENT 10-14-2013 [facility] MAT CONDS [facility] CLASSIFIABL INC E ELSW ANTPRTM 7242 LUMBAGO 10-14-2013 [place] 7245 UNSPECIFIED 10-14-2013 [facility] BACKACHE [facility] INC 99164 ABDOMINAL 10-14-2013 [facility] PAIN, [facility] UNSPECIFIED INC SITE V220 SUPERVISION 10-07-2013 FAN JC OF NORMAL FIRST 41675 OTHER 08-14-2013 [facility] J[facility] SPECIFED COMPLICATIO N ANTEPARTUM V7242 08-01-2013 [facility] J[facility] EXAMINATION OR TEST POSITIVE RESULT V2503 ENCOUNTER 07-31-2013 [facility] EMERGENCY HEALTH CONTRACEPT DEPARTMENT CNSL&PRESCR IPTION V2689 OTHER 07-31-2013 [facility] SPECIFIED HEALTH PROCREATIVE DEPARTMENT MANAGEMENT V851 BODY MASS 07-31-2013 [facility] INDEX HEALTH BETWEEN DEPARTMENT 19-24 ADULT 3679 UNSPECIFIED 12-13-2012 ANTWON THERESA DISORDER OF REFRACTION& ACCOMMODATI ON 684 IMPETIGO 12-12-2012 [facility] 1274 ENTEROBIASI 06-24-2012 [facility] S 5990 URINARY 06-24-2012 [place] TRACT INFECTION SITE NOT SPECIFIED 5589 OTH&UNSPEC 10-18-2011 DAVID OSORIO NONINFECTIO US GASTROENTER ITIS&COLITI S V720 EXAMINATION 09-14-2011 CHRISTIAN FAY OF EYES AND VISION 65162 UNSPECIFIED 05-31-2011 FAUGHN DYSON CONJUNCTIVI TIS V1582 PERS HX 05-16-2011 [facility] TOBACCO USE HEALTH PRESENTING DEPARTMENT HAZARDS HEALTH V2549 SURVEILLANC 05-16-2011 [facility] E OTH PREV HEALTH PRSC DEPARTMENT CONTRACEPT METHOD 2029 ACUTE URIS 03-17-2011 [place] OF UNSPECIFIED SITE 97738 ASTHMA, 03-17-2011 [facility] UNSPECIFIED , UNSPECIFIED STATUS 7821 RASH AND 03-17-2011 [facility] OTHER NONSPECIFIC SKIN ERUPTION 25503 UNSPECIFIED 02-28-2011 [place] [place] VAGINITIS AND VULVOVAGINI TIS 2662 OTHER 01-25-2011 [facility] B-COMPLEX HEALTH DEFICIENCIE DEPARTMENT S V2509 OTH GENERAL 01-25-2011 [facility] HEALTH CNSL&ADVICE DEPARTMENT CONTRACEPT MANAGEMENT V850 BODY MASS 01-25-2011 [facility] INDEX LESS HEALTH THAN 19 DEPARTMENT ADULT 5210 DENTAL 01-18-2011 KHUSHI DMD CARIES LATTER DAY 605 REDUNDANT 03-16-2010 [facility] PHIMOSIS 18064 POOR 03-16-2010 [facility] OF MANAGEMENT [place] MOTH DELIV 02945 OLIGOHYDRAM 03-16-2010 [facility], HEALTH DELIVERED CLINIC OF [place] V3000 SINGLE 03-16-2010 [facility] LIVEBORN [facility] W/O 73563 POOR 03-14-2010 [facility] MOTH CLINIC OF ANTPRTM [place] COND/COMP 6259 UNSPEC 12-23-2009 [facility] PCC W/FEMALE GENITAL ORGANS 7048 OTHER 09-28-2009 [facility] DISEASE OF PEDIA HAIR&HAIR FOLLICLES V642 SURG/OTH 08-23-2009 [facility] PROC NOT [facility] CARRIED OUT INC BECAUSE PTS DECN 1121 CANDIDIASIS 08-02-2009 PATHOLOGY & OF [facility] CYTOLOGY AND VAGINA LAB V745 SCREENING 08-02-2009 PATHOLOGY & EXAMINATION CYTOLOGY FOR LAB VENEREAL DISEASE 462 ACUTE 03-05-2009 [facility] V259 UNSPECIFIED 03-05-2009 [facility] CONTRACEPTI PEDIA VE MANAGEMENT V700 ROUTINE 03-05-2009 [facility] MEDICAL PEDIA EXAM@HEALTH CARE FACL V7388 SPECIAL SCR 03-05-2009 [facility] EXAMINATION PEDIA OTH SPEC CHLAMYDIAL DZ 7881 DYSURIA 01-05-2009 [facility] 7840 HEADACHE 12-21-2008 [facility] PEDIA V202 ROUTINE 12-04-2008 OR MEDICAL OR SERV CHILD FOUNDATIO HEALTH CHECK V7231 ROUTINE 10-27-2008 [facility] EXAMINATION [place] [facility] 6235 LEUKORRHEA 08-06-2008 [facility] SPECIFIED PEDIA INFECTIVE 7862 COUGH 07-22-2008 [facility] PEDIA 7295 PAIN IN 01-27-2008 OR MEDICAL SOFT SERV TISSUES OF FOUNDATIO LIMB 7296 RESIDUAL 01-27-2008 [facility] BODY IN [facility] SOFT TISSUE 8830 OPEN WOUND 01-27-2008 [facility] WITHOUT MENTION COMPLICATIO N 8831 OPEN WOUND 01-27-2008 [facility] COMPLICATED 9156 FINGER SUP 01-27-2008 OR MEDICAL FB W/O LACI SERV OPEN FOUNDATIO WOUND&W/O MENTION INF E9179 OTHER 01-27-2008 [facility] MEDICAL STRIKING SERV AGAINST FOUNDATIO W/WO SUBSEQUENT FALL 33541 HEAD 11-21-2007 [facility] 6918 OTHER 08-03-2005 [facility] DERMATITIS PEDIA AND RELATED CONDITIONS Medications Na [...] VA 00 10 10 0 20 10 WA 70 WE Ac LT 17 -1 -1 .0 L- 97 ST ti RE 30 8- 8- 00 MA 93 ve X 56 20 20 RT 1 RY 1 50 11 11 AN GM 4 PH B AR CA MA PL CY ET # 10 04 93 HI 00 07 07 4 10 30 WA [...] S CA #4 RO 93 LY N HI 00 11 11 00 30 30 WA [...] bl AR e MA CY #4 93 Procedures Procedure DOS Code Location Performer Comment SPHERE V2100 ALISSON VINSON SINGLE 7 [place] +/- 4.00 PER LENS OPHTH 23163 [facility] 7 XM&EVAL COMPRHNSV ESTAB PT 1/> FRAMES V2020 ALISSON VINSON PURCHASES 7 GLUCOSE 87215 [facility] POST 7 PHYSICIAN PHYSICIAN GLUCOSE S GROUP S GROUP DOSE SMR PRIM 50806 [facility] SRC WET 7 PHYSICIAN [place] S GROUP NFCT AGT US PREG 80836 [place] [facility] UTERUS 7 MEDICAL W/DETAIL IMAGING ASS URSULA 1ST GESTATION BLOOD 54544 [facility] COUNT 6 [facility] COMPLETE INC INC AUTO&[place] [address] [facility] INFUSION 6 [facility] THERAPY/P INC INC ROPHYLAXI S /DX 1ST TO 1 HR CULTURE 88073 [facility] BACTERIAL 6 [facility] INC INC QUANTTATI VE COLONY COUNT URINE URNLS DIP 53541 [facility] 6 [facility] STICK/TAB INC INC LET REAGENT AUTO MICROSCOP Y BASIC 43988 [facility] METABOLIC 6 [facility] PANEL INC INC CALCIUM TOTAL COLLECTIO 75795 [facility] N VENOUS 6 [facility] BLOOD INC INC VENIPUNCT URE OBSTETRIC 39954 [facility] PANEL 6 [facility] INC INC INF AGT G0432 [facility] AB DETECT 6 [facility] EIA TECH INC INC HIV-1&/HI V-2 SCR US PREG 93784 [place] [facility] ALL UTERUS 6 MEDICAL REAL TIME IMAGING W/IMAGE ASS DCMTN TRANSVAG URINE 18714 [facility] 6 PHYSICIAN JC TEST S GROUP VISUAL COLOR CMPRSN METHS CYTP C/V 99757 [facility] AUTO THIN 6 [facility] LLC LYR PREPJ SCR MNL RESCR PHYS DRUG TST G0477 [facility] PRESUMP;C 6 PHYSICIAN JC PBL BEING S GROUP READ DC OPT OBV ONLY IADNA 59715 [facility], [facility], NEISSERIA 6 [facility] GONORRHOE AE AMPLIFIED PROBE TQ IADNA 07214 [facility], CHLAMYDIA 6 [facility] TRACHOMAT IS AMPLIFIED PROBE TQ COMPREHEN 65229 [facility] SIVE 6 [facility] METABOLIC INC INC PANEL CULTURE 88241 [facility] BCT 6 [facility] ISOL&PRSM INC INC PTV ID ISOLATE EA URINE BLOOD 58475 [facility] COUNT 6 [facility] COMPLETE INC INC AUTO&AUTO DIFRNTL WBC SUSCEPTIB 44042 [facility] LTY STDY 6 [facility] ANTIMICRB INC INC IAL MICRO/AGA R DILUTJ CULTURE 08251 [facility] BACTERIAL 6 [facility] INC INC QUANTTATI VE COLONY COUNT URINE URINE 61042 [facility] 6 [facility] TEST INC INC VISUAL COLOR CMPRSN METHS URNLS DIP 34647 [facility] 6 [facility] STICK/TAB INC [place] [address] [facility] ABDOMEN & 6 [facility] PELVIS INC INC W/O CONTRAST MATERIAL IAADIADOO 59786 EPISCOPALIAN [facility] 6 [facility] IAADIADOO 17528 [facility] [address] [place] [address] [facility] STREPTOCO 5 [facility] CCUS INC INC GROUP A URNLS DIP 81381 [facility] 5 [facility] STICK/TAB INC INC LET REAGENT AUTO MICROSCOP Y URINE 15590 [facility] 5 [facility] TEST INC INC VISUAL COLOR CMPRSN METHS RADIOLOGI 63121 [facility] C EXAM 5 [facility] CHEST 2 INC INC VIEWS FRONTAL&L ATERAL IAADIADOO 32611 [facility] ISRA 5 [facility] CCUS GROUP A CUL BACT 90758 [facility] XCPT 5 [facility] URINE INC INC BLOOD/STO OL AEROBIC ISOL IAADI 59517 [facility] INFLUENZA 5 [facility] B VIRUS INC INC IAADI 01857 [facility] INFFLUENZ 5 [facility] A A VIRUS INC INC OPHTH 24331 [facility] SC[facility]RES MEDICAL 5 ANG ANG XM&EVAL COMPRE NEW PT 1/> VST CYTP C/V 66650 [facility] AUTO THIN 5 [facility] LYR PREPJ SCR MNL RESCR PHYS NEURAXIAL 99485 [facility] LAB[facility] 4 ANESTH THERESA ANALG/ANE OF THE S PLND BLUE VAGINAL DELIVERY VAGINAL 13778 [facility] 4 PHYSICIAN JC ONLY S GROUP W/POSTPAR ENIO CARE 63132 [facility] NONSTRESS 4 PHYSICIAN PHYSICIAN TEST S GROUP S GROUP REPAIR OF 7569 [facility] R[facility] OTHER 4 [facility] CURRENT INC INC OBSTETRIC LACERATIO N CUL BACT 30538 COMBINED COMBINED XCPT 4 PHYSICIAN PHYSICIAN URINE S LA S LA BLOOD/STO OL AEROBIC ISOL CULTURE 54536 [facility] BACTERIAL 4 [facility] INC INC QUANTTATI VE COLONY COUNT URINE EVAL C/V 28747 [facility] AMNIOTIC 4 [facility] FLUID INC INC PROTEIN QUAL EA SPECIMEN 15265 [facility] NONSTRESS 4 [facility] TEST INC INC URNLS DIP 22373 [facility]EZ 4 [facility] STICK/TAB INC INC LET REAGENT AUTO MICROSCOP Y FTL 76792 [facility] FIBRONECT 4 [facility] IN INC INC CERVICOVA G SECRETION S SEMI-REY FTL 12332 [facility] FIBRONECT 4 [facility] IN INC INC CERVICOVA G SECRETION S SEMI-REY 73478 HARPEL HARPEL NONSTRESS 4 RAMIRO RAMIRO TEST RADEX 38219 NIGEL BEINEKE ANKLE 4 MEDICAL JOLIE COMPLETE IMAGING MINIMUM 3 ASS VIEWS URNLS DIP 97247 [facility]Z 4 [facility] STICK/TAB INC INC LET RGNT NON-AUTO W/O MICRSCP GLUCOSE 86034 [facility] TOLERANCE 4 [facility] TEST GTT INC INC 3 SPECIMENS GLUCOSE 16820 ELIA RODRIGEZ TOLERANCE 4 [facility] EA ADDL INC INC BEYOND 3 SPECIMENS GLUCOSE 46069 MNEG FAN TOLERANCE 4 JC JC TEST GTT 3 SPECIMENS US PREG 95575 MENG FAN UTERUS 4 JC JC AFTER 1ST TRIMEST GESTATION EVAL C/V 25912 [facility] AMNIOTIC 4 [facility] FLUID INC INC PROTEIN QUAL EA SPECIMEN CULTURE 96306 [facility] BACTERIAL 4 [facility] INC INC QUANTTATI VE COLONY COUNT URINE URNLS DIP 22313 [facility] 4 [facility] STICK/TAB INC INC LET REAGENT AUTO MICROSCOP Y US PREG 11749 MENG FAN UTERUS 4 JC JC REAL TIME W/IMAGE DCMTN TRANSVAG URINE 99770 MENG FAN 4 JC JC TEST VISUAL COLOR CMPRSN METHS CUL BACT 65952 COMBINED COMBINED XCPT 4 PHYSICIAN PHYSICIAN URINE S LA S LA BLOOD/STO OL AEROBIC ISOL ANTIBODY 41180 COMBINED COMBINED CHLAMYDIA 4 PHYSICIAN PHYSICIAN S LA S LA IADNA 84111 [place] CH[place]AMYDIA 4 [place] [facility] [place] [facility] TRACHOMAT [facility] IS T T AMPLIFIED PROBE TQ URINE 18639 [place] 4 [facility] CaterCow TEST VISUAL DE[facility] COLOR T T CMPRSN METHS IADNA 18292 [place] NEISSERIA 4 [place] [facility] [place] [facility] GONORRHOE [facility] AE T T AMPLIFIED PROBE TQ FITTING 44856 [facility] ANTWON SPECTACLE 3 THERESA THERESA S XCPT APHAKIA MONOFOCAL OPHTH 17861 [facility] ANTWON MEDICAL 3 THERESA THERESA XM&EVAL COMPRE NEW PT 1/> VST DETERMINA 95366 [facility] TION 3 THERESA THERESA REFRACTIV E STATE SPHERE V2100 [facility] SINGLE 3 THERESA THERESA VISION [place]AN[place] +/- 4.00 PER LENS FRAMES V2020 [facility] AN[facility] PURCHASES 3 THERESA THERESA SERVICES 28657 [facility] PROVIDED 3 OFFICE OTH/THN REG SCHED HOURS FRAMES V2020 [facility] FAY [facility] PURCHASES 2 SPHERE V2100 CHRISTIAN FAY CHRISTIAN FAY SINGLE 2 [place] +/- 4.00 PER LENS DETERMINA 40315 CH[facility]STIAN FAY CH[facility]STIAN FAY TION 2 REFRACTIV E STATE OPHTH 72798 CHRISTIAN FAY CHRISTIAN FAY MEDICAL 2 XM&EVAL COMPRE NEW PT 1/> VST FITTING 99466 CH[facility]IAN FAY CHRISTIAN FAY SPECTACLE 2 S XCPT APHAKIA MONOFOCAL PRESSURIZ 92664 [facility] ED/NONPRE 1 SSURIZED INHALATIO N TREATMENT CONTRACEP A4267 [place] TIVE 1 [facility] MALE EACH T T IADNA 16034 [place] CHLAMYDIA 1 [facility] TRACHOMAT [facility] IS T T AMPLIFIED PROBE TQ WET Q0111 [place] AYO 1 [facility] PREP VAGINAL [facility] CERV/SKIN T T SPECIMENS CONTRACEP J7303 [place] T SUPPLY 1 [facility] G VAG T T RING EA IADNA 56866 [place] NEISSERIA 1 [facility] GONORRHOE [facility] AE T T AMPLIFIED PROBE TQ ANALGESIA D9230 KHUSHI DMD KHUSHI DMD 1 LATTER DAY LATTER DAY ANXIOLYSI S INHALATIO N OF NITROUS OXIDE ANALGESIA D9230 KHUSHI DMD KHUSHI DMD 1 LATTER DAY LATTER DAY ANXIOLYSI S INHALATIO N OF NITROUS OXIDE ANALGESIA D9230 KHUSHI DMD KHUSHI DMD 1 LATTER DAY LATTER DAY ANXIOLYSI S INHALATIO N OF NITROUS OXIDE ANALGESIA D9230 KHUSHI DMD KHUSHI DMD 1 [facility] ANXIOLYSI S INHALATIO N OF NITROUS OXIDE HOSPITAL 43626 [facility] DISCHARGE 0 CARE DAY ASSOCIATE MANAGEMEN S T 30 MIN/< CIRCUMCIS 01446 [facility] ION 0 CARE W/CLAMP/O ASSOCIATE TH DEV S W/BLOCK SUBQ 59832 [facility] 0 CARE CARE PER ASSOCIATE DAY E/M S NORMAL 1ST 58196 [facility] 0 [facility] S CARE PER DAY NML NB NEURAXIAL 05321 [facility] 0 ANESTH ANALG/ANE OF THE S PLND BLUE VAGINAL DELIVERY VAGINAL 62847 [facility] DELIVERY 0 HEALTH JC ONLY CLINIC OF [place] REPAIR OF 7569 [facility]IA RODRIGEZ OTHER 0 [facility] CURRENT INC INC OBSTETRIC LACERATIO N DOPPLER 08439 [facility]OMEN'S FAN VELOCIMET 0 HEALTH JC RY CLINIC OF UMBILICAL [place] ARTERY US PREG 12174 [facility] UTERUS 0 HEALTH JC REAL TIME CLINIC OF F/U [place] TRNSABDL PER FETUS 90829 [facility]OM[facility]'S FAN BIOPHYSIC 0 HEALTH JC AL CLINIC OF PROFILE [place] W/O NON-STRES S TESTING CULTURE 26932 [facility] BACTERIAL 0 [facility] INC INC QUANTTATI VE COLONY COUNT URINE 36800 [facility] NONSTRESS 0 [facility] TEST INC INC URNLS DIP 65183 [facility]EZ 0 [facility] STICK/TAB INC INC LET REAGENT AUTO MICROSCOP Y DOPPLER 30081 [facility] FAN VELOCIMET 0 HEALTH JC RY CLINIC OF UMBILICAL [facility] ARTERY US PREG 84092 WOMEN'S FAN UTERUS 0 HEALTH JC REAL TIME CLINIC OF F/U [place] TRNSABDL PER FETUS 48286 [facility] FAN BIOPHYSIC 0 HEALTH JC AL CLINIC OF PROFILE [place] W/O NON-STRES S TESTING 40623 [facility] FAN BIOPHYSIC 0 HEALTH JC AL CLINIC OF PROFILE [place] W/O NON-STRES S TESTING US PREG 28970 [facility] UTERUS 0 [facility] TIME [facility]IN[facility] OF F/U [facility] TRNSABDL PER FETUS DOPPLER 92023 WOMEN'S FAN VELOCIMET 0 [facility] RY CLINIC OF UMBILICAL [place] ARTERY DOPPLER 33146 WOMEN'S WOMEN'S VELOCIMET 0 [facility] [place] [address] [facility] FAN 0 [facility] UTERUS CLINIC OF LIMITED A[facility] 1/> FETUSES 39007 [facility] BIOPHYSIC 0 [facility] OF PROFILE [facility] W/O NON-STRES S TESTING CUL BACT 13657 COMBINED COMBINED XCPT 0 PHYSICIAN PHYSICIAN URINE S LA S LA BLOOD/STO OL AEROBIC ISOL US PREG 90570 [facility]US 0 [facility] TIME [facility]IN[facility] OF F/U [facility] TRNSABDL PER FETUS 97596 [facility] BIOPHYSIC 0 [facility] AL [facility]IN[facility] OF PROFILE [facility] W/O NON-STRES S TESTING DOPPLER 63134 [facility] VELOCIMET 0 [facility] RY CLINIC OF UMBILICAL [facility] ARTERY DOPPLER 68009 WOMEN'S FAN VELOCIMET 0 [facility] RY [facility]IN[facility] OF UMBILICAL [place] ARTERY 69934 [facility]'S F[facility] BIOPHYSIC 0 [facility] AL [facility]IN[facility] OF PROFILE [place] W/O NON-STRES S TESTING [place] PREG 56131 [facility] UTERUS 0 [facility] REAL TIME CLINIC OF F/U [facility] TRNSABDL PER FETUS GLUCOSE 78250 [facility]'S FAN TOLERANCE 0 [facility] TEST GTT CLINIC OF 3 A[facility] SPECIMENS GLUCOSE 69037 [facility]'S FAN POST 0 [facility] GLUCOSE CLINIC OF DOSE [facility] URINALYSI 25990 [facility] S 0 PHYSICIAN RAMIRO MICROSCOP GROUP IC ONLY PCC URINLS 54090 [facility] DIP 0 PHYSICIAN RAMIRO STICK/TAB GROUP LET PCC REAGNT NON-AUTO MICRSCPY [place] PREG 91748 [facility]EN'S FAN, UTERUS 0 HEALTH ERVIN J AFTER [facility] OF [facility] URNLS DIP 72724 ELIA RODRIGEZ [facility] STICK/TAB INC INC LET REAGENT AUTO MICROSCOP Y [place] PREG 67665 [facility], UTERUS 0 HEALTH ERVIN J REAL TIME CLINIC OF W/IMAGE DCMTN [facility] MOLECULAR 59769 MOLECULAR MOLECULAR DX AMP 0 TARGET PATHOLOGY PATHOLOGY MULTIPLEX LAB LAB 1ST 2 NETWORK NETWORK SEQ INC INC MOLECULAR 05743 MOLECULAR MOLECULAR 0 DIAGNOSTI PATHOLOGY PATHOLOGY CS LAB LAB INTERPRET NETWORK NETWORK ATION & INC INC REPORT MUTATION 05766 MOLECULAR MOLECULAR ID 0 ENZYMATIC PATHOLOGY PATHOLOGY LAB LAB LIG/PRIME NETWORK NETWORK R XTN 1 INC INC SGM EA MOLEC 58738 MOLECULAR MOLECULAR ISOL/XTRJ 0 HP PATHOLOGY PATHOLOGY NUCLEIC LAB LAB ACID EA NETWORK NETWORK TYPE INC INC MOLECULAR 42618 MOLECULAR MOLECULAR DX AMP 0 [facility] PATHOLOGY PATHOLOGY MULTIPLEX LAB LAB EA ADDL NETWORK NETWORK SEQ INC INC MOLEC 06008 MOLECULAR MOLECULAR SEP&ID HI 0 RESOLU PATHOLOGY PATHOLOGY TQ EACH LAB LAB NUCLEIC NETWORK NETWORK ACID PREP INC INC CYTP C/V 54526 PATHOLOGY PATHOLOGY AUTO THIN 0 & & LYR CYTOLOGY CYTOLOGY PREPJ SCR LAB LAB MNL RESCR PHYS IADNA 06435 PATHOLOGY PATHOLOGY CHLAMYDIA 0 & & CYTOLOGY CYTOLOGY TRACHOMAT LAB LAB IS AMPLIFIED PROBE TQ IADNA 33232 PATHOLOGY PATHOLOGY NEISSERIA 0 & & CYTOLOGY CYTOLOGY GONORRHOE LAB LAB AE AMPLIFIED PROBE TQ IADNA 11732 [facility] NEISSERIA 9 Y Y [facility] GONORRHOE AE AMPLIFIED PROBE TQ IADNA 67527 [facility] CHLAMYDIA 9 Y Y [facility] TRACHOMAT IS AMPLIFIED PROBE TQ IADNA 60675 [facility] CHLAMYDIA Y Y [facility] TRACHOMAT IS AMPLIFIED PROBE TQ IAADIADOO 27796 [facility]- 9 Y [facility] A CUL BACT 47394 [facility] XCPT 9 Y Y URINE [facility] BLOOD/STO OL AEROBIC ISOL URINE 87168 [facility] [facility] 9 Y OF PARCELLS TEST [place] CAR VISUAL PEDIA COLOR CMPRSN METHS IADNA 86519 [facility] NEISSERIA 9 Y Y [facility] GONORRHOE AE AMPLIFIED PROBE TQ OPHTH 20510 [facility] 9 [facility] LD, XM&EVAL KYLAH J INTERMEDI ATE ESTAB PT URNLS DIP 27496 [facility] 9 Y OF ENRIQUE STICK/TAB [place] LET RGNT PEDIA NON-AUTO W/O MICRSCP IAADIADOO 49393 [facility] 9 Y OF JR [facility] CC[facility] PEDIA GROUP A IADNA 67335 PATHOLOGY PATHOLOGY CHLAMYDIA 9 & & CYTOLOGY CYTOLOGY TRACHOMAT LAB LAB IS AMPLIFIED PROBE TQ CYTP C/V 54532 PATHOLOGY PATHOLOGY AUTO THIN 9 & & LYR CYTOLOGY CYTOLOGY PREPJ SCR LAB LAB MNL RESCR PHYS IADNA 89705 PATHOLOGY PATHOLOGY NEISSERIA 9 & & CYTOLOGY CYTOLOGY GONORRHOE LAB LAB AE AMPLIFIED PROBE TQ URNLS DIP 22667 [facility] Y Y STICK/TAB [facility] LET REAGENT AUTO MICROSCOP Y IAADIADOO 17909 [facility] 9 Y OF ROMÁN [facility] CCUS PEDIA GROUP A INCISION 13249 [place] ECKERLINE & REMOVAL 8 MEDICAL , C A FOREIGN SERV BODY SUBQ FOUNDATIO TISS SIMPLE RADEX 35703 [facility] FING 8 Y Y MINIMUM 2 HOSPITAL HOSPITAL VIEWS FITTING 08501 [facility], SPECTACLE 8 Y OPTICAL WARD R S XCPT APHAKIA MONOFOCAL FRAMES V2020 [facility], PURCHASES 8 Y OPTICAL WARD R SPHERE V2100 [facility], SINGLE 8 Y OPTICAL WARD R VISION PLANO +/- 4.00 PER LENS OPH 95019 [facility] 8 [facility] LD, XM&EVAL KYLAH J INTERMEDI ATE NEW PT Encounters Encounter Start End Date Code Location Performer Type Date OFFICE 51401 [facility] T VISIT S GROUP 15 MINUTES OFFICE 77118 [facility] VIS[facility] GROUP 15 MINUTES OFFICE 02835 [facility] 7 [facility] T VISIT S GROUP 15 MINUTES OFFICE 70658 [facility] 7 [facility]IAN T VISIT S GROUP 15 MINUTES OFFICE 92903 [facility] 7 [facility]IAN T VISIT S GROUP 15 MINUTES [facility] 7 7 [facility] T OFFICE 87099 [facility] 6 PHYSICIAN T VISIT S GROUP 15 MINUTES EMERGENCY 30382 [facility] 6 6 [facility] DEPART[facility] T VISIT HIGH/URGE NT SEVERITY [facility] - 6 6 [facility] T OFFICE 96187 [facility] 6 PHYSICIAN JC T VISIT S GROUP 15 MINUTES [facility]OSPITAL [facility] - 6 6 [facility] T OFFICE 03447 [facility] 6 6 PHYSICIAN JC T VISIT S GROUP 15 MINUTES HOSPITAL [facility] - 6 6 [facility]PAT[facility] INC T OFFICE 41044 [facility] 6 6 PHYSICIAN JC T VISIT S GROUP 25 MINUTES HOSPITAL [facility] - 6 6 [facility] OUTPATIEN INC T EMERGENCY 54730 [facility] 6 6 [facility] DEPARTMEN INC T VISIT LOW/MODER SEVERITY EMERGENCY 86025 DWAIN LE 6 6 [facility] VIS[facility] HIGH/URGE NT SEVERITY OFFICE 21839 [facility] OUTPATIEN 6 6 T VISIT 15 MINUTES OFFICE 65410 [facility] DHALIWAL OUTPATIEN 6 6 [facility] 25 MINUTES OFFICE 75869 [facility] OUTPATI[facility] 6 6 [facility] T VISIT MEDICAL 15 GROUP MINUTES OFFICE 54592 [facility] OUTPATIEN 6 6 T VISIT 15 MINUTES OFFICE 26082 [facility] OUTPATIEN 5 5 T VISIT 15 MINUTES OFFICE 01675 [facility] OUTPATIEN 5 5 T VISIT 15 MINUTES OFFICE 22279 [facility] DHALIWAL OUTPATIEN [address] MINUTES EMERGENCY 98806 [facility] 5 5 [facility] DEPART[facility] INC T VISIT LOW/MODER SEVERITY EMERGENCY 30364 DWAIN [facility] DEPT 5 5 PHYSICIAN [facility] VISIT S, [facility] HIGH SEVERITY& THREAT [facility] ELIA - 5 5 [facility] OUTPATIEN INC [facility]OSPITAL [facility] - 4 4 [facility] INPATIENT INC OFFICE 57227 [facility] FAN OUTPATIEN 4 4 JC JC T VISIT 15 MINUTES OFFICE 75398 [facility]AN OUTPATIEN 4 4 JC JC T VISIT 15 MINUTES HOSPITAL [facility] - 4 4 [facility] OUTPATIEN INC T OFFICE 05455 M[facility] FAN OUTPATIEN 4 4 JC JC T VISIT 15 MINUTES HOSPITAL [facility] - 4 4 [facility] OUTPATIEN INC T OFFICE 51607 [facility]AN OUTPATIEN 4 4 JC JC T VISIT 15 MINUTES OFFICE 78792 [facility] OUTPATIEN 4 4 JC JC T VISIT 15 MINUTES HOSPITAL EL[facility] - 4 4 [facility] OUTPATIEN INC T EMERGENCY 92969 STACEY STACEY 4 4 IMT IMT DEPARTMEN T VISIT MODERATE SEVERITY OFFICE 89801 [facility] OUTPATIEN 4 4 JC JC T VISIT 15 MINUTES OFFICE 79488 [facility] OUTPATIEN 4 4 JC JC T VISIT 15 MINUTES HOSPITAL EL[facility] - 4 4 [facility] OUTPATIEN INC T OFFICE 26263 [facility]AN OUTPATIEN 4 4 JC JC T VISIT 5 MINUTES OFFICE 67668 [facility]AN OUTPATIEN 4 4 JC JC T VISIT 15 MINUTES OFFICE 90992 [facility]AN OUTPATIEN 4 4 JC JC T VISIT 15 MINUTES EMERGENCY 51436 [facility] 4 4 [facility] DEPARTMEN INC T VISIT LOW/MODER SEVERITY [facility]OSPITAL [facility] - 4 4 [facility] OUTPATIEN INC T EMERGENCY 55812 TREVA [place] 4 4 [place] DEPARTMEN T VISIT HIGH/URGE NT SEVERITY OFFICE 24830 MENG BOWERE OUTPATIEN 4 4 CJ JC T VISIT 15 MINUTES OFFICE 46830 [facility]AN OUTPATIEN 4 4 JC JC T VISIT 15 MINUTES OFFICE 88825 [facility] FAN OUTPATIEN 4 4 JC JC T NEW 45 MINUTES OFFICE 43265 DIANNE DEAN OUTPATIEN 4 4 [facility] VIS[facility] 15 DEPARTMEN DEPARTMEN MINUTES T T OFFICE 70182 [facility] OUTPATIEN 3 3 T VISIT 15 MINUTES EMERGENCY 81182 YAHAIRA DORINA 3 3 [facility] VISIT MODERATE SEVERITY OFFICE 73281 DAVID JO DAVID JO OUTPATIEN 2 2 T NEW 45 MINUTES EMERGENCY 77327 NANCY CRUZ 2 2 DYSON DYSON DEPARTMEN T VISIT MODERATE SEVERITY OFFICE 41199 DIANNE BRANDON OUTPATIEN 2 2 [facility] T VISIT 10 DEPARTMEN DEPARTMEN MINUTES T T EMERGENCY 46550 SABRINA BENNETT 1 1 SAMINA SAMINA DEPARTMEN T VISIT HIGH/URGE NT SEVERITY OFFICE 32900 [facility] 1 1 T VISIT 15 MINUTES OFFICE 58668 [facility] OUTPATI[facility] 1 1 T NEW 30 MINUTES INITIAL 30135 DIANNE DEAN PREVENTIV 1 1 [facility] PT T T AGE 12-17 YR [facility] EL[facility] - 0 0 [facility] INPATIENT [facility] EL[facility] - 0 0 [facility] OUTPATIEN [facility] T OFFICE 95467 [facility]PATI[facility] 0 0 [facility]ALTH [facility] T VISIT CLINIC OF 15 ASHLEY MINUTES OFFICE 60439 [facility] F[facility] OUTPATIEN 0 0 HEALTH [facility] T VISIT CLINIC OF 10 ASHLEY MINUTES OFFICE 66829 [facility] F[facility] OUTPATIEN 0 0 HEALTH JC T VISIT CLINIC OF 15 ASHLEY MINUTES OFFICE 44575 [facility] F[facility] OUTPATIEN 0 0 HEALTH JC T VISIT CLINIC OF 15 ASHLEY MINUTES OFFICE 28239 [facility] F[facility] OUTPATIEN 0 0 HEALTH JC T VISIT CLINIC OF 15 ASHLEY MINUTES OFFICE 52471 [facility] F[facility] OUTPATIEN 0 0 HEALTH JC T VISIT 5 CLINIC OF MINUTES ASHLEY OFFICE 66653 [facility] 0 PHYSICIAN RAMIRO T VISIT GROUP 15 PCC MINUTES OFFICE 43703 [facility] OUTPATIEN 0 0 HEALTH JC T VISIT CLINIC OF 15 ASHLEY MINUTES OFFICE 07832 [facility], OUTPATIEN 0 0 HEALTH ERVIN J T VISIT CLINIC OF 15 MINUTES [facility] OFF[facility] 69052 [facility], OUTPATIEN 0 0 HEALTH ERVIN J [facility] 54457 [facility] L[facility]SCH- OUTPATIEN 0 0 Y OF PARCELLS T VISIT [place] CAR 15 PEDIA MINUTES OFFICE 26970 [facility], OUTPATIEN 0 0 HEALTH ERVIN J T VISIT CLINIC OF 15 MINUTES [facility] EMERGENCY DEPARTMENT OFFICE 88674 [facility]S FAN, OUTPATIEN 0 0 HEALTH ERVIN J T VISIT CLINIC OF 15 MINUTES [facility] EMERGENCY DEPARTMENT EMERGENCY 13704 [facility] 0 0 [facility] DEPARTMEN [facility] T VISIT LIMITED/M INOR [facility] ELIA - 0 0 [facility] OUTPATIEN [facility] H[facility]PITAL UNIVERSIT - [address] [facility] UNIVERSIT - 9 9 Y [facility] PERIODIC 62314 UNIVERSIT LENTZSCH- PREVENTIV 9 9 Y OF PARCELLS E MED EST [place] CAR PATIENT PEDIA 12-17YRS OFFICE 14349 [facility] 9 Y OF ENRIQUE T VISIT [place] 15 PEDIA MINUTES HOSPITAL UNIVERSIT - 9 9 Y [facility] OFFICE 42143 UN[facility]ERSIT [facility] 9 9 Y OF JR CAR T VISIT [place] 15 PEDIA MINUTES PERIODIC 47764 FRANKLIN GOMEZ, PREVENTIV 9 9 MEDICAL NESTOR H E MED EST SERV PATIENT FOUNDATIO 12-17YRS INITIAL 89020 [facility], PREVENTIV 9 9 [facility]ALTH [facility] NEW PT SHAYY AGE 12-17 PLLC YR OFFICE 52096 [facility] HEATHER OUTPATIEN 9 9 Y OF DON T VISIT [place] 15 PEDIA MINUTES HOSPITAL UNIVERSIT - 9 9 Y OUTPATIEN HOSPITAL T OFFICE 38450 [facility]IT [facility] OUTPATIEN 9 9 Y OF ROMÁN T VISIT [place] 15 PEDIA MINUTES OFFICE 50977 [facility] MERINO OUTPATIEN 8 8 Y OF [place] T VISIT [place] 15 PEDIA MINUTES EMERGENCY 99393 UN[facility]ERSIT 8 8 Y [facility] H[facility]PITAL T VISIT MODERATE SEVERITY HOSPITAL UNIVERSIT - 8 8 Y OUTPATIEN HOSPITAL T PERIODIC 25507 UNIVERSIT ZAHRA MARKUS PREVENTIV 8 8 Y OF E MED EST [place] PATIENT PEDIA 12-17YRS OFFICE 96918 [facility] STRIFLING OUTPATIEN 8 8 Y OF RHY T VISIT [place] 15 PEDIA MINUTES INITIAL 53228 UNIVERSIT MUNGUIA PET PREVENTIV 6 6 Y OF E [place] MEDICINE PEDIA NEW PT AGE 12-17 YR
--- OUTSIDE RECORDS SUMMARY | 2016-09-25 15:33 | External Medical Summary Rpt ---
Author Author , Organization [employer] Address Unknown Phone Unavailable Care Team Providers Care Pipelines Superintendent Name Role Phone ALISSON VINSON Unavailable Unavailable [facility] Unavailable Unavailable MEDICAL GROUP, [facility] BEINEKE JOLIE, BEINEKE Unavailable Unavailable JOLIE TIDWELL, TIDWELL Unavailable Unavailable TIDWELL ALL, TIDWELL ALL Unavailable Unavailable [facility] Unavailable Unavailable DEPARTMENT, [facility] DEPARTMENT [facility] Unavailable Unavailable DEPARTMENT, [facility] DEPARTMENT BRIGHT ENRIQUE, BRIGHT Unavailable Unavailable ENRIQUE EMNG, FAN Unavailable Unavailable FAN JC, FAN Unavailable [...] Unavailable Unavailable [facility] Unavailable [facility], [facility] WARD SCALES, Unavailable Unavailable WARD SCALES HINES Unavailable Unavailable CHRISTIANJORDENCHRISTIAN Unavailable Unavailable CHRISTIAN FAY, CHRISTIAN FAY Unavailable Unavailable CHRISTIAN FAY, CHRISTIAN FAY Unavailable Unavailable [facility] Unavailable Unavailable P[facility], [facility], Unavailable Unavailable [facility] STACEY IMT, STACEY Unavailable Unavailable IMT STACEY IMT, STACEY Unavailable Unavailable IMT SABRINA SAMINA, SABRINA Unavailable Unavailable SAMINA [facility] Unavailable Unavailable [facility], [facility] HAIM, SANTANA Garcia, HAIM, Unavailable Unavailable SANTANA KOLB Unavailable Unavailable CAR, KENNEDI CAR MATCHESCACHORRO ENRIQUE, Unavailable Unavailable JANE ENRIQUE KHUSHI DMD CATHOLIC, KHUSHI Unavailable Unavailable DMD CATHOLIC KHUSHI DMD CATHOLIC, KHUSHI Unavailable Unavailable DMD [facility] Unavailable [facility] [...] STRIFLING RHY, Unavailable Unavailable STRIFLING RHY PILO FRANCE, Unavailable Unavailable PILO ROMÁN CARDENAS, MAYELIN Unavailable Unavailable [facility], Unavailable Unavailable [facility] Unavailable [facility]available [place] [facility], [facility] Unavailable Unavailable #493, [facility] # Unavailable [facility]available [id number], [facility] # [id number] [facility] # Unavailable Unavailable [id number], [facility] # [id number] IRBY JR CAR, Unavailable Unavailable IRBY JR [...] MYOPIA 08-11-2016 CHRISTIAN BILATERAL Z3480 ENC 08-10-2016 [facility] SUPERVISION PHYSICIANS OTH NORMAL GROUP PREG UNS TRIMESTER [id number] ABNORMAL 07-03-2016 [facility] GLUCOSE PHYSICIANS COMPLICATIN GROUP G N760 ACUTE 06-29-2016 [facility] VAGINITIS PHYSICIANS GROUP Z3492 ENC 05-23-2016 [facility] MEDICAL NORMAL IMAGING ASS UNS 2 TRIMESTER Z36 ENCOUNTER 05-23-2016 [facility] SCREENING OF MOTHER Z3A20 20 WEEKS 05-23-2016 [facility] OF IMAGING ASS R112 NAUSEA WITH 04-11-2016 [facility] VOMITING [facility] UNSPECIFIED INC Z3A15 15 WEEKS 04-11-2016 [facility] INC Z720 TOBACCO USE 04-11-2016 [facility] K69682 UTERINE 02-28-2016 [facility] SIZE-DATE [facility] DISCREPANCY INC FIRST TRIMESTER Z3491 ENC 02-28-2016 [facility] MEDICAL NORMAL IMAGING ASS UNS 1 TRIMESTER Z3A08 8 WEEKS 02-28-2016 [facility] OF IMAGING ASS B373 CANDIDIASIS 02-22-2016 [facility] AND VAGINA Z113 ENCOUNTER 02-22-2016 [facility] SCREEN [facility] INFECTIONS SEXL MODE TRANSMISSN Z3201 ENCOUNTER 02-22-2016 [facility] GROUP TEST RESULT POSITIVE K5900 CONSTIPATIO 01-15-2016 [facility], UNSPECIFIED PLLC R1032 LEFT LOWER 01-15-2016 [facility], PAIN PLLC M545 LOW BACK 12-07-2015 [place] [place] PAIN J209 ACUTE 09-11-2015 [facility] J0100 ACUTE 07-09-2015 [facility] SINUSITIS MEDICAL UNSPECIFIED GROUP H6991 UNSPECIFIED 05-24-2015 [...] YNGITIS INC R0602 SHORTNESS 03-15-2015 [place] [facility] MEDICAL IMAGING ASS 3671 MYOPIA 12-22-2014 SC[facility] ANG V242 ROUTINE 06-08-2014 [facility] FOLLOW-UP 650 NORMAL 03-17-2014 [facility] DELIVERY PHYSICIANS GROUP V270 OUTCOME OF 03-17-2014 [facility] DELIVERY PHYSICIANS SINGLE GROUP LIVEBORN 23262 THREATENED 03-16-2014 [facility] PREMATURE PHYSICIANS LABOR GROUP ANTEPARTUM 27056 OTH&UNS CRD 03-16-2014 [facility]GL [facility] W/O COMPRS INC COMP L&D DELIV 39851 FIRST-DEGRE 03-16-2014 [facility] E PERINEAL [facility] LACERATION INC WITH DELIVERY V221 SUPERVISION 03-13-2014 [facility] J[facility] OF OTHER NORMAL 13075 OTHER 01-15-2014 HARPEL RAMIRO THREATENED LABOR, ANTEPARTUM 43090 PAIN IN 01-15-2014 [place] [facility], MEDICAL ANKLE AND IMAGING ASS FOOT 64617 UNSPECIFIED 01-15-2014 ST[facility] IMT SITE OF ANKLE SPRAIN AND STRAIN E8888 OTHER FALL 01-15-2014 STACEY IMT 83520 ABN MAT 12-29-2013 [facility] GLUCOSE [facility] TOLERANCE INC COMPL PG CB/PP UNS EOC 93427 ABNORMAL 12-26-2013 [facility] MATERNAL GLUCOSE TOLERANCE ANTEPARTUM V283 ENCOUNTER 11-19-2013 [facility] ROUTINE SCREEN MALFORMATIO N ULTRASONIC 57400 BN&JNT D/O 10-14-2013 [facility] MAT BACK PELVIS&LW LIMBS ANTEPARTUM 37894 OTH CURRENT 10-14-2013 [facility] MAT CONDS [facility] CLASSIFIABL INC E ELSW ANTPRTM 7242 LUMBAGO 10-14-2013 [place] [place] 7245 UNSPECIFIED 10-14-2013 [facility] BACKACHE [facility] 63668 ABDOMINAL 10-14-2013 [facility] PAIN, [facility] UNSPECIFIED INC SITE V220 SUPERVISION 10-07-2013 F[facility] J[facility] OF NORMAL FIRST 69460 OTHER 08-14-2013 [facility] SPECIFED COMPLICATIO N ANTEPARTUM V7242 08-01-2013 [facility] EXAMINATION OR TEST POSITIVE RESULT V2503 ENCOUNTER 07-31-2013 [facility] EMERGENCY HEALTH CONTRACEPT DEPARTMENT CNSL&PRESCR IPTION V2689 OTHER 07-31-2013 [facility] SPECIFIED HEALTH PROCREATIVE DEPARTMENT MANAGEMENT V851 BODY MASS 07-31-2013 [facility] INDEX HEALTH BETWEEN DEPARTMENT 19-24 ADULT 3679 UNSPECIFIED 12-13-2012 [facility] TH[facility]ESA DISORDER OF REFRACTION& ACCOMMODATI ON 684 IMPETIGO 12-12-2012 [place] 1274 ENTEROBIASI 06-24-2012 [place] S 5990 URINARY 06-24-2012 [place] TRACT INFECTION SITE NOT SPECIFIED 5589 OTH&UNSPEC 10-18-2011 DAVID OSORIO NONINFECTIO US GASTROENTER ITIS&COLITI S V720 EXAMINATION 09-14-2011 CHRISTIAN FAY OF EYES AND VISION 32786 UNSPECIFIED 05-31-2011 FAUGHN DYSON CONJUNCTIVI TIS V1582 PERS HX 05-16-2011 [facility] TOBACCO USE HEALTH PRESENTING DEPARTMENT HAZARDS HEALTH V2549 SURVEILLANC 05-16-2011 [facility] OTH PREV HEALTH PRSC DEPARTMENT CONTRACEPT METHOD 9299 ACUTE URIS 03-17-2011 [place] OF UNSPECIFIED SITE 09069 ASTHMA, 03-17-2011 [place] UNSPECIFIED , UNSPECIFIED STATUS 7821 RASH AND 03-17-2011 [place] OTHER NONSPECIFIC SKIN ERUPTION 07858 UNSPECIFIED 02-28-2011 [place] VAGINITIS AND VULVOVAGINI TIS 2662 OTHER 01-25-2011 [facility] B-COMPLEX HEALTH DEFICIENCIE DEPARTMENT S V2509 OTH GENERAL 01-25-2011 [facility] HEALTH CNSL&ADVICE DEPARTMENT CONTRACEPT MANAGEMENT V850 BODY MASS 01-25-2011 [facility] INDEX LESS HEALTH THAN 19 DEPARTMENT ADULT 5210 DENTAL 01-18-2011 KHUSHI DMD CARIES CATHOLIC 605 REDUNDANT 03-16-2010 [facility] PHIMOSIS 98607 POOR 03-16-2010 [facility] A[facility]ECT [facility]IN[facility] OF MANAGEMENT [place] MOTH DELIV 48976 OLIGOHYDRAM 03-16-2010 [facility], HEALTH DELIVERED CLINIC OF [place] V3000 SINGLE 03-16-2010 [facility] LIVEBORN [facility] W/O 80179 POOR 03-14-2010 [facility] MGMT HEALTH MOTH CLINIC OF ANTPRTM [place] COND/COMP 6259 UNSPEC 12-23-2009 [facility] SYMPTOM PHYSICIAN ASSOC GROUP PCC W/FEMALE GENITAL ORGANS 7048 OTHER 09-28-2009 [facility] DISEASE OF PEDIA HAIR&HAIR FOLLICLES V642 SURG/OTH 08-23-2009 [facility] PROC NOT [facility] CARRIED OUT INC BECAUSE PTS DECN 1121 CANDIDIASIS 08-02-2009 PATHOLOGY & OF [facility] CYTOLOGY AND VAGINA LAB V745 SCREENING 08-02-2009 PATHOLOGY & EXAMINATION CYTOLOGY FOR LAB VENEREAL DISEASE 462 ACUTE 03-05-2009 [place] [facility] V259 UNSPECIFIED 03-05-2009 [facility] CONTRACEPTI PEDIA VE MANAGEMENT V700 ROUTINE 03-05-2009 [facility] MEDICAL PEDIA EXAM@HEALTH CARE FACL V7388 SPECIAL SCR 03-05-2009 [facility] EXAMINATION PEDIA OTH SPEC CHLAMYDIAL DZ 7881 DYSURIA 01-05-2009 [facility] 7840 HEADACHE 12-21-2008 [facility] PEDIA V202 ROUTINE 12-04-2008 [facility] OR SERV CHILD FOUNDATIO HEALTH CHECK V7231 ROUTINE 10-27-2008 [facility] EXAMINATION [place] [facility] 6235 LEUKORRHEA 08-06-2008 [facility] SPECIFIED PEDIA INFECTIVE 7862 COUGH 07-22-2008 [facility] PEDIA 7295 PAIN IN 01-27-2008 [place] MEDICAL SOFT SERV TISSUES OF FOUNDATIO LIMB 7296 RESIDUAL 01-27-2008 [facility] BODY IN [facility] SOFT TISSUE 8830 OPEN WOUND 01-27-2008 [facility] WITHOUT MENTION COMPLICATIO N 8831 OPEN WOUND 01-27-2008 [facility] COMPLICATED 9156 FINGER SUP 01-27-2008 [facility]ICAL FB W/O LACI SERV OPEN FOUNDATIO WOUND&W/O MENTION INF E9179 OTHER 01-27-2008 [facility] STRIKING SERV AGAINST FOUNDATIO W/WO SUBSEQUENT FALL 01684 HEAD 11-21-2007 [facility] U[facility]PEC[facility]IA 6918 OTHER 08-03-2005 [facility] DERMATITIS PEDIA AND RELATED CONDITIONS [...] [place] +/- 4.00 PER LENS OPHTH 70082 [facility] 7 XM&EVAL COMPRHNSV ESTAB PT 1/> FRAMES V2020 ALISSON VINSON PURCHASES 7 GLUCOSE 10227 [facility] MUS[facility] POST 7 PHYSICIAN PHYSICIAN GLUCOSE S GROUP S GROUP DOSE SMR PRIM 83300 [facility] SRC WET 7 PHYSICIAN [place] S GROUP NFCT AGT US PREG 56681 [place] [facility] UTERUS 7 MEDICAL W/DETAIL IMAGING ASS URSULA 1ST GESTATION BLOOD 14257 [facility] COUNT 6 [facility] COMPLETE INC INC AUTO&[place] [address] [facility] INFUSION 6 [facility] THERAPY/P INC INC ROPHYLAXI S /DX 1ST TO 1 HR CULTURE 17521 [facility] BACTERIAL 6 [facility] INC INC QUANTTATI VE COLONY COUNT URINE URNLS DIP 86660 [facility] 6 [facility] STICK/TAB INC INC LET REAGENT AUTO MICROSCOP Y BASIC 98552 [facility] METABOLIC 6 [facility] PANEL INC INC CALCIUM TOTAL COLLECTIO 12482 [facility] N VENOUS 6 [facility] BLOOD INC INC VENIPUNCT URE OBSTETRIC 47310 [facility] PANEL 6 [facility] INC INC INF AGT G0432 [facility] AB DETECT 6 [facility] EIA TECH INC INC HIV-1&/HI V-2 SCR US PREG 47922 [place] [facility] ALL UTERUS 6 MEDICAL REAL TIME IMAGING W/IMAGE ASS DCMTN TRANSVAG URINE 75688 [facility] 6 PHYSICIAN JC TEST S GROUP VISUAL COLOR CMPRSN METHS CYTP C/V 98718 [facility], AUTO THIN 6 LLC LLC LYR PREPJ SCR MNL RESCR PHYS DRUG TST G0477 [facility] MENG PRESUMP;C 6 PHYSICIAN JC PBL BEING S GROUP READ DC OPT OBV ONLY IADNA 22053 [facility], [facility] NEISSERIA 6 [facility] GONORRHOE AE AMPLIFIED PROBE TQ IADNA 02015 [facility], CHLAMYDIA 6 [facility] TRACHOMAT IS AMPLIFIED PROBE TQ COMPREHEN 59693 [facility] SIVE 6 [facility] METABOLIC INC INC PANEL CULTURE 32613 [facility] BCT 6 [facility] ISOL&PRSM INC INC PTV ID ISOLATE EA URINE BLOOD 63389 [facility] COUNT 6 [facility] COMPLETE INC INC AUTO&AUTO DIFRNTL WBC SUSCEPTIB 37814 [facility] LTY STDY 6 [facility] ANTIMICRB INC INC IAL MICRO/AGA R DILUTJ CULTURE 66450 [facility] BACTERIAL 6 [facility] INC INC QUANTTATI VE COLONY COUNT URINE URINE 79024 [facility] 6 [facility] TEST INC INC VISUAL COLOR CMPRSN METHS URNLS DIP 47145 [facility] 6 [facility] STICK/TAB INC [place] [address] [facility] R[facility] ABDOMEN & 6 [facility] PELVIS INC INC W/O CONTRAST MATERIAL IAADIADOO 64193 [facility]IG[facility] 6 [facility] INFLUENZA MEDICAL GROUP IAADIADOO 22587 [facility] [address] [place] [address] [facility] STREPTOCO 5 [facility] CCUS INC INC GROUP A URNLS DIP 76357 [facility] 5 [facility] STICK/TAB INC INC LET REAGENT AUTO MICROSCOP Y URINE 12213 [facility] 5 [facility] TEST INC INC VISUAL COLOR CMPRSN METHS RADIOLOGI 69441 [facility] C EXAM 5 [facility] CHEST 2 INC INC VIEWS FRONTAL&L ATERAL IAADIADOO 83233 [facility] ISRA 5 [facility] CCUS GROUP A CUL BACT 04055 [facility] XCPT 5 [facility] URINE INC INC BLOOD/STO OL AEROBIC ISOL IAADI 13067 [facility] INFLUENZA 5 [facility] B VIRUS INC INC IAADI 81858 [facility] INFFLUENZ 5 [facility] A A VIRUS INC INC OPHTH 22332 [facility] 5 ANG ANG XM&EVAL COMPRE NEW PT 1/> VST CYTP C/V 64204 [facility], AUTO THIN 5 [facility] LYR PREPJ SCR MNL RESCR PHYS NEURAXIAL 44064 [facility] LABOR 4 ANESTH THERESA ANALG/ANE OF THE S PLND BLUE VAGINAL DELIVERY VAGINAL 30491 [facility] FAN DELIVERY 4 PHYSICIAN JC ONLY S GROUP W/POSTPAR ENIO CARE 31302 [facility] NONSTRESS 4 PHYSICIAN PHYSICIAN TEST S GROUP S GROUP REPAIR OF 7569 [facility] OTHER 4 [facility] CURRENT INC INC OBSTETRIC LACERATIO N CUL BACT 34592 COMBINED COMBINED XCPT 4 PHYSICIAN PHYSICIAN URINE S LA S LA BLOOD/STO OL AEROBIC ISOL CULTURE 26058 [facility] BACTERIAL 4 [facility] INC INC QUANTTATI VE COLONY COUNT URINE EVAL C/V 38855 [facility] AMNIOTIC 4 [facility] FLUID INC INC PROTEIN QUAL EA SPECIMEN 80377 [facility] NONSTRESS 4 [facility] TEST INC INC URNLS DIP 47712 [facility] 4 [facility] STICK/TAB INC INC LET REAGENT AUTO MICROSCOP Y FTL 54234 [facility] FIBRONECT 4 [facility] IN INC INC CERVICOVA G SECRETION S SEMI-REY FTL 95587 [facility] FIBRONECT 4 [facility] IN INC INC CERVICOVA G SECRETION S SEMI-REY 51966 HARPE[facility] HARPEL NONSTRESS 4 RAMIRO RAMIRO TEST RADEX 98033 NIGEL BEINEKE ANKLE 4 MEDICAL JOLIE COMPLETE IMAGING MINIMUM 3 ASS VIEWS URNLS DIP 97369 [facility] 4 [facility] STICK/TAB INC INC LET RGNT NON-AUTO W/O MICRSCP GLUCOSE 38623 [facility] TOLERANCE 4 [facility] TEST GTT INC INC 3 SPECIMENS GLUCOSE 09716 [facility] R[facility]EZ TOLERANCE 4 [facility] EA ADDL INC INC BEYOND 3 SPECIMENS GLUCOSE 64035 MENG FAN TOLERANCE 4 JC JC TEST GTT 3 SPECIMENS US PREG 53377 MENG FAN UTERUS 4 JC JC AFTER 1ST TRIMEST GESTATION EVAL C/V 08899 [facility] R[facility] AMNIOTIC 4 [facility] FLUID INC INC PROTEIN QUAL EA SPECIMEN CULTURE 59028 [facility] BACTERIAL 4 [facility] INC INC QUANTTATI VE COLONY COUNT URINE URNLS DIP 24561 [facility] 4 [facility] STICK/TAB INC INC LET REAGENT AUTO MICROSCOP Y [place] PREG 32292 MENG FAN UTERUS 4 JC JC REAL TIME W/IMAGE DCMTN TRANSVAG URINE 90342 MENG FAN 4 JC JC TEST VISUAL COLOR CMPRSN METHS CUL BACT 48518 COMBINED COMBINED XCPT 4 PHYSICIAN PHYSICIAN URINE S LA S LA BLOOD/STO OL AEROBIC ISOL ANTIBODY 31210 COMBINED COMBINED CHLAMYDIA 4 PHYSICIAN PHYSICIAN S LA S LA IADNA 79895 [facility] CHLAMYDIA 4 NE [facility] NE [facility] TRACHOMAT DEPARTMEN DEPART81ST MEDICAL GROUP IS T T AMPLIFIED PROBE TQ URINE 15491 [facility] 4 COUNT INCLUDES THE [facility] TEST VISUAL DEPARTMEN DEPART81ST MEDICAL GROUP COLOR T T CMPRSN METHS IADNA 78148 [facility] [facility] NEISSERIA 4 NE [facility] NE [facility] GONORRHOE DEPARTMEN DEPART81ST MEDICAL GROUP AE T T AMPLIFIED PROBE TQ FITTING 38988 [facility] SPECTACLE 3 THERESA THERESA S XCPT APHAKIA MONOFOCAL OPHTH 73770 [facility] MEDICAL 3 THERESA THERESA XM&EVAL COMPRE NEW PT 1/> VST DETERMINA 91663 [facility] TION 3 THERESA THERESA REFRACTIV E STATE SPHERE V2100 [facility] SINGLE 3 THERESA THERESA VISION PLANO +/- 4.00 PER LENS FRAMES V2020 [facility] PURCHASES 3 THERESA THERESA SERVICES 12794 [facility] PROVIDED 3 OFFICE OTH/THN REG SCHED HOURS FRAMES V2020 [facility]RI[facility]IAN FAY [facility] PURCHASES 2 SPHERE V2100 [facility]IAN FAY CH[facility]STIAN F[facility] SINGLE 2 VISION PLANO +/- 4.00 PER LENS DETERMINA 98012 CHRISTIAN FAY CHRISTIAN FAY TION 2 REFRACTIV E STATE OPHTH 14103 CHRISTIAN FAY CHRISTIAN FAY MEDICAL 2 XM&EVAL COMPRE NEW PT 1/> VST FITTING 88820 CHRISTIAN FAY CHRISTIAN FAY SPECTACLE 2 S XCPT APHAKIA MONOFOCAL PRESSURIZ 21547 [facility] ED/NONPRE 1 SSURIZED INHALATIO N TREATMENT CONTRACEP A4267 [facility] [facility] TIVE 1 NE [facility] SUPPLY CONDOM DEPART81ST MEDICAL GROUP DEPART81ST MEDICAL GROUP MALE EACH T T IADNA 12991 [place] CHLAMYDIA 1 NE [facility] TRACHOMAT DEPART81ST MEDICAL GROUP DEPART81ST MEDICAL GROUP IS T T AMPLIFIED PROBE TQ WET Q0111 [place] AYO 1 NE [facility] INCL PREP VAGINAL DEPART81ST MEDICAL GROUP DEPART81ST MEDICAL GROUP CERV/SKIN T T SPECIMENS CONTRACEP J7303 [place] T SUPPLY 1 NE [facility] DEPART81ST MEDICAL GROUP DEPART81ST MEDICAL GROUP G VAG T T RING EA IADNA 84099 [place] NEISSERIA 1 NE Crowdrally [facility] GONORRHOE DEPART81ST MEDICAL GROUP DEPART81ST MEDICAL GROUP AE T T AMPLIFIED PROBE TQ ANALGESIA D9230 KHUSHI DMD KHUSHI DMD 1 [facility] ANXIOLYSI S INHALATIO N OF NITROUS OXIDE ANALGESIA D9230 KHUSHI DMD KHUSHI DMD 1 [facility]ATHOLIC CATHOLIC ANXIOLYSI S INHALATIO N OF NITROUS OXIDE ANALGESIA D9230 KHUSHI DMD KHUSHI DMD 1 CATHOLIC CATHOLIC ANXIOLYSI S INHALATIO N OF NITROUS OXIDE ANALGESIA D9230 KHUSHI DMD KHUSHI DMD 1 [facility] ANXIOLYSI S INHALATIO N OF NITROUS OXIDE HOSPITAL 71483 [facility] DISCHARGE 0 CARE DAY ASSOCIATE MANAGEMEN S T 30 MIN/< CIRCUMCIS 88028 [facility] ION 0 CARE W/CLAMP/O ASSOCIATE TH DEV S W/BLOCK SUBQ 88940 [facility] 0 CARE CARE PER ASSOCIATE DAY E/M S NORMAL 1ST 36139 [facility] H[facility]P/W[facility] [address] [facility] S CARE PER DAY NML NB NEURAXIAL [address] [facility] LABOR 0 ANESTH ANALG/ANE OF THE S PLND BLUE VAGINAL DELIVERY VAGINAL 76869 [facility] F[facility] DELIVERY 0 HEALTH JC ONLY CLINIC OF [place] REPAIR OF 7569 [facility] R[facility]IGE[facility] OTHER 0 [facility] CURRENT INC INC OBSTETRIC LACERATIO N DOPPLER 19839 [facility] FAN VELOCIMET 0 HEALTH JC RY CLINIC OF UMBILICAL [place] 60638 [facility] F[facility] UTERUS 0 HEALTH JC REAL TIME CLINIC OF F/U [place] TRNSABDL PER FETUS 73520 [facility] BIOPHYSIC 0 HEALTH JC AL CLINIC OF PROFILE [place] W/O NON-STRES S TESTING CULTURE 83833 [facility] BACTERIAL 0 [facility] INC INC QUANTTATI VE COLONY COUNT URINE 33289 [facility] NONSTRESS 0 [facility] TEST INC INC URNLS DIP 65889 [facility] 0 [facility] STICK/TAB INC INC LET REAGENT AUTO MICROSCOP Y DOPPLER 69642 [facility] F[facility] VELOCIMET 0 HEALTH CJ RY CLINIC OF UMBILICAL [place] ARTERY US PREG 48263 [facility] F[facility] UTERUS 0 HEALTH JC REAL TIME CLINIC OF F/U [place] TRNSABDL PER FETUS 83016 [facility] BIOPHYSIC 0 HEALTH JC AL CLINIC OF PROFILE [place] W/O NON-STRES S TESTING 29660 [facility] FAN BIOPHYSIC 0 HEALTH JC AL CLINIC OF PROFILE [place] W/O NON-STRES S TESTING US PREG 55302 [facility] UTERUS 0 HEALTH JC REAL TIME CLINIC OF F/U [place] TRNSABDL PER FETUS DOPPLER 84867 [facility]EN'S FAN VELOCIMET 0 HEALTH JC RY CLINIC OF UMBILICAL [place] ARTERY DOPPLER 63734 WOMEN'S WOMEN'S VELOCIMET 0 HEALTH HEALTH RY CLINIC OF [facility] [address] WOMEN'S FAN 0 HEALTH JC UTERUS CLINIC OF LIMITED [place] 1/> FETUSES 60192 [facility] BIOPHYSIC 0 HEALTH JC AL CLINIC OF PROFILE [place] W/O NON-STRES S TESTING CUL BACT 46730 COMBINED COMBINED XCPT 0 PHYSICIAN PHYSICIAN URINE S LA S LA BLOOD/STO OL AEROBIC ISOL US PREG 82551 [facility] UTERUS 0 HEALTH JC REAL TIME CLINIC OF F/U [place] TRNSABDL PER FETUS 87150 [facility] FAN BIOPHYSIC 0 HEALTH JC AL CLINIC OF PROFILE [place] W/O NON-STRES S TESTING DOPPLER 28298 WOMEN'S FAN VELOCIMET 0 HEALTH JC RY CLINIC OF UMBILICAL [place] ARTERY DOPPLER 23682 WOMEN'S FAN VELOCIMET 0 HEALTH JC RY CLINIC OF UMBILICAL [place] ARTERY 64613 WOMEN'S FAN BIOPHYSIC 0 HEALTH JC AL CLINIC OF PROFILE [place] W/O NON-STRES S TESTING US PREG 85672 [facility] FAN UTERUS 0 HEALTH JC REAL TIME CLINIC OF F/U [facility] TRNSABDL PER FETUS GLUCOSE 00132 WOMEN'S FAN TOLERANCE 0 [facility] TEST GTT CLINIC OF 3 [facility] SPECIMENS GLUCOSE 48987 WOMEN'S FAN POST 0 [facility]ALTH [facility] GLUCOSE CLINIC OF DOSE [facility] URINALYSI 72181 [facility] HARPE[facility] S 0 PHYSICIAN RAMIRO MICROSCOP GROUP IC ONLY PCC URINLS 88547 [facility] HAR[facility] DIP 0 PHYSICIAN RAMIRO STICK/TAB GROUP LET PCC REAGNT NON-AUTO [place]CRSCPY [place] PREG 81308 WOMEN'S FAN, UTERUS 0 HEALTH ERVIN J AFTER CLINIC OF [facility] [place] [facility] URNLS DIP 72929 ELIA RODRIGEZ 0 [facility] STICK/TAB INC INC LET REAGENT AUTO MICROSCOP Y [place] PREG 30932 WOMEN'S FAN, UTERUS 0 HEALTH ERVIN J REAL TIME CLINIC OF W/IMAGE DCMTN [place] [facility] MOLECULAR 97120 MOLECULAR MOLECULAR DX AMP 0 TARGET PATHOLOGY PATHOLOGY MULTIPLEX LAB LAB 1ST 2 NETWORK NETWORK SEQ INC INC MOLECULAR 27592 MOLECULAR MOLECULAR 0 DIAGNOSTI PATHOLOGY PATHOLOGY CS LAB LAB INTERPRET NETWORK NETWORK ATION & INC INC REPORT MUTATION 45273 MOLECULAR MOLECULAR ID 0 ENZYMATIC PATHOLOGY PATHOLOGY LAB LAB LIG/PRIME NETWORK NETWORK R XTN 1 INC INC SGM EA MOLEC 42148 MOLECULAR MOLECULAR ISOL/XTRJ 0 HP PATHOLOGY PATHOLOGY NUCLEIC LAB LAB ACID EA NETWORK NETWORK TYPE INC INC MOLECULAR 85909 MOLECULAR MOLECULAR DX AMP 0 TARGET PATHOLOGY PATHOLOGY MULTIPLEX LAB LAB EA ADDL NETWORK NETWORK SEQ INC INC MOLEC 18282 MOLECULAR MOLECULAR SEP&ID HI 0 RESOLU PATHOLOGY PATHOLOGY TQ EACH LAB LAB NUCLEIC NETWORK NETWORK ACID PREP INC INC CYTP C/V 86597 PATHOLOGY PATHOLOGY AUTO THIN 0 & & LYR CYTOLOGY CYTOLOGY PREPJ SCR LAB LAB MNL RESCR PHYS IADNA 96081 PATHOLOGY PATHOLOGY CHLAMYDIA 0 & & CYTOLOGY CYTOLOGY TRACHOMAT LAB LAB IS AMPLIFIED PROBE TQ IADNA 87567 PATHOLOGY PATHOLOGY NEISSERIA 0 & & CYTOLOGY CYTOLOGY GONORRHOE LAB LAB AE AMPLIFIED PROBE TQ IADNA 33480 [facility] NEISSERIA 9 Y Y [facility] GONORRHOE AE AMPLIFIED PROBE TQ IADNA 27485 [facility] CHLAMYDIA 9 Y Y [facility] TRACHOMAT IS AMPLIFIED PROBE TQ IADNA 17046 [facility] CHLAMYDIA Y Y [facility] TRACHOMAT IS AMPLIFIED PROBE TQ IAADIADOO 34671 [facility] CYPRESS- 9 Y OF [place] STREPTOCO [place] CAR CCUS PEDIA GROUP A CUL BACT 46210 [facility] XCPT 9 Y Y URINE [facility] BLOOD/STO OL AEROBIC ISOL URINE 41009 [facility] 9 Y OF [place] TEST [place] CAR VISUAL PEDIA COLOR CMPRSN METHS IADNA 91056 [facility] NEISSERIA 9 Y Y [facility] GONORRHOE AE AMPLIFIED PROBE TQ OPHTH 85545 [facility] LD, XM&EVAL [place]LAH J INTERMEDI ATE ESTAB PT URNLS DIP 66716 [facility] 9 Y OF ENRIQUE STICK/TAB [place] LET RGNT PEDIA NON-AUTO W/O MICRSCP IAADIADOO 04820 [facility] 9 Y OF JR [facility] CCUS PEDIA GROUP A IADNA 29116 PATHOLOGY PATHOLOGY CHLAMYDIA 9 & & CYTOLOGY CYTOLOGY TRACHOMAT LAB LAB IS AMPLIFIED PROBE TQ CYTP C/V 19465 PATHOLOGY PATHOLOGY AUTO THIN 9 & & LYR CYTOLOGY CYTOLOGY PREPJ SCR LAB LAB MNL RESCR PHYS IADNA 40183 PATHOLOGY PATHOLOGY NEISSERIA 9 & & CYTOLOGY CYTOLOGY GONORRHOE LAB LAB AE AMPLIFIED PROBE TQ URNLS DIP 06780 [facility] Y Y STICK/TAB [facility] LET REAGENT AUTO MICROSCOP Y IAADIADOO 02008 [facility] 9 Y OF ROMÁN [facility] INC[facility] [id number] [place] ECKERLINE & REMOVAL 8 MEDICAL , C A FOREIGN SERV BODY SUBQ FOUNDATIO TISS SIMPLE RADEX 90384 [facility] FING 8 Y Y MINIMUM 2 HOSPITAL HOSPITAL VIEWS FITTING 11367 [facility], SPECTACLE 8 Y OPTICAL WARD R S XCPT APHAKIA MONOFOCAL FRAMES V2020 [facility], PURCHASES 8 Y OPTICAL WARD R SPHERE V2100 [facility], SINGLE 8 Y OPTICAL WARD R VISION PLANO +/- 4.00 PER LENS OPH 47306 [facility] 8 [facility] LD, XM&EVAL KYLAH J INTERMEDI ATE NEW PT Encounters Encounter Start End Date Code Location Performer Type Date OFFICE 43219 [facility] FAN OUTPATIEN 7 7 PHYSICIAN T VISIT S GROUP 15 MINUTES OFFICE 76821 [facility] FAN OUTPATIEN 7 7 PHYSICIAN T VISIT S GROUP 15 MINUTES OFFICE 52125 [facility] FAN OUTPATIEN 7 7 PHYSICIAN T VISIT S GROUP 15 MINUTES OFFICE 20010 [facility] FAN OUTPATIEN 7 7 PHYSICIAN T VISIT S GROUP 15 MINUTES OFFICE 30849 [facility] FAN OUTPATIEN 7 7 PHYSICIAN T VISIT S GROUP 15 MINUTES HOSPITAL [facility] - 7 7 [facility] OUTPATIEN INC T OFFICE 04689 [facility] OUTPATIEN 6 6 PHYSICIAN T VISIT S GROUP 15 MINUTES EMERGENCY 77804 [facility] 6 6 [facility] DEPARTMEN INC T VISIT HIGH/URGE NT SEVERITY HOSPITAL [facility] - 6 6 [facility] OUTPATIEN INC T OFFICE 58818 [facility] FAN OUTPATIEN 6 6 PHYSICIAN JC T VISIT S GROUP 15 MINUTES HOSPITAL [facility] - 6 6 [facility] OUTPATIEN INC T OFFICE 36338 [facility] FAN OUTPATIEN 6 6 PHYSICIAN JC T VISIT S GROUP 15 MINUTES HOSPITAL [facility] - 6 6 [facility] OUTPATIEN INC T OFFICE 18307 [facility] FAN OUTPATIEN 6 6 PHYSICIAN JC T VISIT S GROUP 25 MINUTES HOSPITAL [facility] - 6 6 [facility] OUTPATIEN INC T EMERGENCY 82947 [facility] 6 6 [facility] DEPARTMEN INC T VISIT LOW/MODER SEVERITY EMERGENCY 19697 DWAIN LE 6 6 PHYSICIAN SB [facility], [facility] T VISIT HIGH/URGE NT SEVERITY OFFICE 95816 [facility] OUT[facility] 6 6 T VISIT 15 MINUTES OFFICE 82293 [facility] DHALIWAL OUTPATIEN 6 6 [facility] T VISIT HOSPITAL 25 MINUTES OFFICE 22926 [facility] OUTPATIEN 6 6 [facility] T VISIT MEDICAL 15 GROUP MINUTES OFFICE 26879 [facility] OUTPATIEN 6 6 T VISIT 15 MINUTES OFFICE 65158 [facility] OUTPATIEN 5 5 T VISIT 15 MINUTES OFFICE 99980 [facility] OUTPATIEN 5 5 T VISIT 15 MINUTES OFFICE 14026 [facility] DHALIWAL OUTPATIEN [address] MINUTES EMERGENCY 82383 EL[facility] 5 5 [facility] DEPARTMEN INC T VISIT LOW/MODER SEVERITY EMERGENCY 54357 DWAIN [facility]IL[facility] DEPT 5 5 PHYSICIAN [facility] VISIT S, [facility] HIGH SEVERITY& THREAT [facility] ELIA - 5 5 [facility] OUTPATIEN INC HOSPITAL ELIA - 4 4 [facility] INPATIENT INC OFFICE 87925 [facility] FAN OUTPATIEN 4 4 JC JC T VISIT 15 MINUTES OFFICE 10592 [facility] FAN OUTPATIEN 4 4 JC JC T VISIT 15 MINUTES HOSPITAL EL[facility] - 4 4 [facility] OUTPATIEN INC T OFFICE 28211 [facility] FAN OUTPATIEN 4 4 JC JC T VISIT 15 MINUTES HOSPITAL EL[facility] - 4 4 [facility] OUTPATIEN INC T OFFICE 50682 [facility]AN FAN OUTPATIEN 4 4 JC JC T VISIT 15 MINUTES OFFICE 87919 [facility]AN FAN OUTPATIEN 4 4 JC JC T VISIT 15 MINUTES HOSPITAL ELIA - 4 4 [facility] OUTPATIEN INC T EMERGENCY 74560 STACEY STACEY 4 4 IMT IMT DEPARTMEN T VISIT MODERATE SEVERITY OFFICE 45710 [facility]AN FAN OUTPATIEN 4 4 JC JC T VISIT 15 MINUTES OFFICE 01729 [facility]AN OUTPATIEN 4 4 CJ JC T VISIT 15 MINUTES HOSPITAL EL[facility] - 4 4 [facility] OUTPATIEN INC T OFFICE 32598 [facility]AN FAN OUTPATIEN 4 4 JC JC T VISIT 5 MINUTES OFFICE 10151 [facility]AN FAN OUTPATIEN 4 4 JC JC T VISIT 15 MINUTES OFFICE 48667 [facility]AN FAN OUTPATIEN 4 4 JC JC T VISIT 15 MINUTES EMERGENCY 49482 [facility] 4 4 [facility] DEPARTMEN INC T VISIT LOW/MODER SEVERITY HOSPITAL [facility] - 4 4 [facility] OUTPATIEN INC T EMERGENCY 76548 TREVA [place]IL[place] 4 4 [place] DEPARTMEN T VISIT HIGH/URGE NT SEVERITY OFFICE 59934 MENG BOWERE OUTPATIEN 4 4 JC JC T VISIT 15 MINUTES OFFICE 55946 [facility]AN FAN OUTPATIEN 4 4 JC JC T VISIT 15 MINUTES OFFICE 52313 [facility]AN FAN OUTPATIEN 4 4 JC JC T NEW 45 MINUTES OFFICE 55508 DIANNE DEAN OUTPATIEN 4 4 [facility] VISIT 15 DEPARTMEN DEPARTMEN MINUTES T T OFFICE 58344 [facility] OUT[facility]EN 3 3 T VISIT 15 MINUTES EMERGENCY 38420 YAHAIRA DORINA 3 3 EMERGENCY [facility] T VISIT MODERATE SEVERITY OFFICE 04706 DAVID JO DAVID JO OUTPATIEN 2 2 T NEW 45 MINUTES EMERGENCY 39004 NANCY CRUZ 2 2 DYSON DYSON DEPARTMEN T VISIT MODERATE SEVERITY OFFICE 69382 DIANNE BRANDON OUTPATIEN 2 2 [facility] T VISIT 10 DEPARTMEN DEPARTMEN MINUTES T T EMERGENCY 23051 SABRINA BENNETT 1 1 SAMINA SAMINA DEPARTMEN T VISIT HIGH/URGE NT SEVERITY OFFICE 00816 [facility] 1 1 T VISIT 15 MINUTES OFFICE 66394 [facility] 1 1 T NEW 30 MINUTES INITIAL 00737 DIANNE DEAN PREVENTIV 1 1 [facility] MEDIC[facility] NEW PT T T AGE 12-17 YR HOSPITAL ELIA - 0 0 [facility] INPATIENT [facility] HOSPITAL ELIA - 0 0 [facility] OUTPATIEN [facility] T OFFICE 00371 [facility] 0 0 [facility]ALTH JC T VISIT CLINIC OF 15 ASHLEY MINUTES OFFICE 32886 [facility] F[facility] 0 0 [facility]ALTH [facility] T VISIT CLINIC OF 10 ASHLEY MINUTES OFFICE 70939 [facility] F[facility] 0 0 HEALTH JC T VISIT CLINIC OF 15 ASHLEY MINUTES OFFICE 47824 [facility] F[facility] OUTPATIEN 0 0 HEALTH JC T VISIT CLINIC OF 15 ASHLEY MINUTES OFFICE 10825 [facility] F[facility] OUTPATIEN 0 0 HEALTH JC T VISIT CLINIC OF 15 ASHLEY MINUTES OFFICE 28418 [facility] F[facility] OUTPATIEN 0 0 HEALTH JC T VISIT 5 CLINIC OF MINUTES ASHLEY OFFICE 01919 [facility] OUTPATIEN 0 0 PHYSICIAN RAMIRO T VISIT GROUP 15 PCC MINUTES OFFICE 81238 [facility] OUTPATIEN 0 0 HEALTH JC T VISIT CLINIC OF 15 ASHLEY MINUTES OFFICE 45533 [facility], OUTPATIEN 0 0 HEALTH ERVIN J T VISIT CLINIC OF 15 MINUTES [facility] OFFICE 91042 [facility], OUTPATIEN 0 0 HEALTH ERVIN J T VISIT CLINIC [facility] 15 [facility]ES [facility] OFFICE 73563 [facility] LENTZSCH- OUTPATIEN 0 0 Y OF PARCELLS T VISIT [place] [facility] 15 PEDIA MINUTES OFFICE 78951 [facility], OUTPATIEN 0 0 HEALTH ERVIN J T VISIT CLINIC OF 15 MINUTES [facility] OFFICE 10035 [facility], OUTPATIEN 0 0 HEALTH ERVIN J T VISIT CLINIC OF 15 MINUTES [facility] EMERGENCY 13856 ELIA 0 0 [facility] DEPARTMEN [facility] T VISIT LIMITED/M [facility]OR [facility] ELIA - 0 0 [facility] OUTPATIEN [facility] HOSPITAL UNIVERSIT - 9 9 Y [facility] UNIVERSIT - 9 9 Y [facility] PERIODIC 10310 UNIVERSIT LENTZSCH- PREVENTIV 9 9 Y OF PARCELLS E MED EST [place] CAR PATIENT PEDIA 12-17YRS OFFICE 11954 [facility] 9 9 Y OF ENRIQUE T VISIT [place] 15 PEDIA MINUTES HOSPITAL UNIVERSIT - 9 9 Y [facility] OFFICE 37611 UN[facility]IT [facility] 9 9 Y OF JR CAR T VISIT [place] 15 PEDIA MINUTES PERIODIC 22818 [facility] GOMEZ, PREVENTIV 9 9 MEDICAL NESTOR H E MED EST SERV PATIENT FOUNDATIO 12-17YRS INITIAL 63569 [facility]OMEN[facility] MENG, PREVENTIV 9 9 HEALTH [facility] OF MEDICINE NEW PT SHAYY AGE 12-17 PLLC YR OFFICE 55245 [facility]IT HEATHER OUTPATIEN 9 9 Y OF DON T VISIT [place] 15 PEDIA MINUTES HOSPITAL UNIVERSIT - 9 9 Y OUTPATIEN HOSPITAL T OFFICE 72941 [facility]IT [facility] OUTPATIEN 9 9 Y OF ROMÁN T VISIT [place] 15 PEDIA MINUTES OFFICE 11132 [facility]ERSIT MERINO OUTPATIEN 8 8 Y OF [place] T VISIT [place] 15 PEDIA MINUTES EMERGENCY 16378 UNIVERSIT 8 8 Y [facility] HOSPITAL T VISIT MODERATE SEVERITY HOSPITAL UNIVERSIT - 8 8 Y OUTPATIEN HOSPITAL T PERIODIC 66918 UNIVERSIT ZAHRA MARKUS PREVENTIV 8 8 Y OF E MED EST [place] PATIENT PEDIA 12-17YRS OFFICE 60539 [facility]ERSIT STRIFLING OUTPATIEN 8 8 Y OF RHY T VISIT [place] 15 PEDIA MINUTES INITIAL 27642 UNIVERSIT MUNGUIA PET PREVENTIV 6 6 Y OF E [place] [facility] PEDIA NEW PT AGE 12-17 YR
--- OUTSIDE RECORDS SUMMARY | 2016-09-25 15:34 | External Medical Summary Rpt ---
Author Author [employer], [employer] Organization [employer] Address Unknown Phone Unavailable Results CHLAMYDIA AND GONORRHEA TESTING Observa Value Referen Units Interpr Notes Date tion ce etation Range COLLECT K1320 No No No No Sep 14 OR informa informa informa informa 2011 tion in tion in tion in tion in 4:31 PM source source source source data data data data ETHNICI WHITE, No No No No Sep 14 TY NON-HIS informa informa informa informa 2011 PANIC tion in tion in tion in tion in 4:31 PM source source source source data data data data KIT 03/2011 No No No No Sep 14 EXPIRAT informa informa informa informa 2011 ION tion in tion in tion in tion in 4:31 PM DATE source source source source data data data data SYMPTOM YES No No No No Sep 14 S informa informa informa informa 2011 tion in tion in tion in tion in 4:31 PM source source source source data data data data REASON INITIAL No No No No Sep 14 FOR FAMILY informa informa informa informa 2011 REQUEST tion in tion in tion in tion in 4:31 PM PLANNIN source source source source G VISIT data data data data SPECIME FEMALE No No No No Sep 14 N ENDOCER informa informa informa informa 2011 SOURCE VICAL tion in tion in tion in tion in 4:31 PM source source source source data data data data PREGNAN NO No No No No Sep 14 T informa informa informa informa 2011 tion in tion in tion in tion in 4:31 PM source source source source data data data data CHART N/A No No No No Sep 14 NUMBER informa informa informa informa 2011 tion in tion in tion in tion in 4:31 PM source source source source data data data data Chlamyd NEGATIV No No No NEGATIV Sep 14 ia E informa informa informa E 2011 trachom tion in tion in tion in RESULT= 4:31 PM atis source source source WITHIN rRNA data data data NORMAL [Presen ce] in LIMITSP Unspeci OSITIVE fied specime RESULT= n by Probe & ABNORMA target LEQUIVO SARKIS amplifi RESULT= cation method INDETER MINATEU NSATISF ACTORY RESULT= INVALID Neisser NEGATIV No No No NEGATIV Sep 14 ia E informa informa informa E 2010 gonorrh tion in tion in tion in RESULT= 4:31 PM oeae source source source WITHIN rRNA data data data NORMAL [Presen ce] in LIMITSP Unspeci OSITIVE fied specime RESULT= n by Probe & ABNORMA target LEQUIVO SARKIS amplifi RESULT= cation method INDETER MINATEU NSATISF ACTORY RESULT= INVALID EFFECTI VE ROD R 2009: THE APTIMA COMBO 2 NUCLEIC ACIDAMP LIFICAT ION ASSAY IS NOT INTENDE D FOR THE EVALUAT ION OFSUSPE CTED SEXUAL ABUSE OR FOR OTHER MEDICO- LEGAL INDICAT IONS.FA LSE POSITIV E RESULTS ARE POSSIBL E.\.br\ This report contain s patient informa tion that must be protect ed in accorda nce with the Health Insuran ce Portabi lity and Account ability Act.
--- OUTSIDE RECORDS SUMMARY | 2016-09-25 15:34 | External Medical Summary Rpt ---
Demographics Preferred Language Upper Sorbian Marital Status Unknown Episcopal Affiliation Unknown Race Unknown Ethnic Group Unknown Author Author , Organization [employer] Address Unknown Phone Unavailable Purpose Continuity of Care Document - through 2016 Immunization No patient found.
--- OUTSIDE RECORDS SUMMARY | 2016-09-25 15:34 | External Medical Summary Rpt ---
Demographics Preferred Language Lao Marital Status Unknown Mormonism Affiliation Unknown Race Unknown Ethnic Group Unknown Author Author , Organization [employer] Address Unknown Phone Unavailable Purpose Continuity of Care Document - through 2016 Immunization No patient found.
[2016-09-25 16:10] LABS: LYMPH # 2.7 K/mm3 (0.7-4.5); LYMPH % 18.9 % (10-50.0)
[2016-09-25 16:17] LABS: HEMOGLOBIN 11.9 g/dL (12.2-16.2)
--- NOTE | 2016-09-25 17:59 | LABOR NOTE ---
Laboring Subjective Subjective Date 09/25/16 Time 1757 Subjective: Pt is having irregular contractions Laboring Objective Objective NST: Reactive Contractions: infrequent Cervical dilation: 4-5 Effacement: 100% Station: 0 Membranes are: Intact Fetus monitoring? Yes Type: External Laboring Assessment Assessment Progressing? Yes Cephalopelvic disproportion? No Problem List: 1. Comment: She is having irregular contractions. She has change her cervix from 4-5 cm. Her cervix has also thinned out. Baby's head is very low. Laboring Plan Plan Anethesia for epidural? No Continue to labor down? Yes Plan for ? No Continue to monitor? Yes Start pushing? No Comment: Since she is change her cervix and she is just having irregular contractions we will observe her overnight. If she changes her cervix overnight or she continues to have irregular contractions we will go ahead and augment her labor since she is 5 cm and this is her third baby. at 1752
[2016-09-25 20:26] VITALS: BP 119/71
[2016-09-26 04:07] LABS: ABO BLOOD TYPE A; RH BLOOD TYPE POSITIVE
[2016-09-26 07:20] VITALS: BP 124/73
[2016-09-26 07:36] LABS: URINE BILIRUBIN - DIPSTICK NEGATIVE (NEG); URINE BLOOD 2+ (NEG)
--- NOTE | 2016-09-26 07:56 | LABOR NOTE ---
Laboring Subjective Subjective Date 09/26/16 Time 0754 Subjective: Pt is having irregular contractions Laboring Objective Objective NST: Reactive Contractions: q 4-5 minutes Cervical dilation: 4-5 Effacement: 100% Station: -1 Membranes are: Artificially ruptured (with clear fluid) Fetus monitoring? Yes Type: External Laboring Assessment Assessment Progressing? Yes Cephalopelvic disproportion? No Problem List: 1. Laboring Plan Plan Anethesia for epidural? Yes Continue to labor down? Yes Plan for ? No Continue to monitor? Yes Start pushing? No Comment: She has had irregular contractions all night every 5-6 minutes. She has not progressed much but she is very uncomfortable enough that she required an epidural. Since she's 38 weeks and 6 days we will go ahead and deliver her. at 0756
--- NOTE | 2016-09-26 09:24 | Delivery Note ---
Delivery note Delivery date: 09/26/16 Delivery time: 907 Anesthesia: Epidural Was labor medically induced? No Gestational age in weeks: 38 weeks Days: 6 days Delivery prior to 39 weeks? Yes Justification for delivery: Active labor Sex: female score at one minute: 8 at 5 minutes: 9 Type of suction: bulb (clear fluid) AF: Clear fluid Delivery procedure: Normal Delivery Delivery of placenta: spontaneous Clinical note She is a 21-year-old 3 para 2 who was 38 and 6 weeks gestational age. She came in in early labor the evening before she delivered and was observed overnight. Her cervix was dilated 4-5 cm and she was having irregular contractions. She had an epidural overnight. As result of that we elected to deliver her by rupturing her membranes. She had her membranes ruptured and under labor epidural progressed to full dilation. She delivered spontaneously a liveborn female child at 9:08 AM on the morning of September 26, 2016. She delivered a live-born female child with Apgars of 8 at 1 minute and 9 at 5 minutes. On delivery the head the anterior shoulder delivered followed by the rest of the 's body atraumatically. We allowed the cord to stop pulsating over the next minute. The baby cried spontaneously. The cord was then clamped and cut and the baby was placed on the mother's abdomen for further care. The nurses assigned Apgars of 8 at 1 minute and 9 at 5 minutes. We then obtained cord blood as well as cord pH. The pH is pending. Using gentle traction on the cord and countertraction on the fundus the placenta easily delivered intact. It had a normal three-vessel cord. She had a small RIGHT labial tear that was repaired with interrupted 3-0 Vicryl Rapide suture. She has a positive blood, she is rubella immune and was group B streptococcus negative. She plans to breast-feed. 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 Yanes. Estimated blood loss was 400 mL. at 0914
[2016-09-26 20:06] VITALS: BP 116/84
[2016-09-27 06:59] LABS: HEMOGLOBIN 12.6 g/dL (12.2-16.2)
[2016-09-27 07:28] VITALS: BP 120/71
--- NOTE | 2016-09-27 07:47 | ACUTE CARE PROGRESS NOTE (QUA) ---
Progress Notes Subjective Date 09/27/16 Time 0746 Note She is doing very well and she is eating and drinking and ambulating. She is bottlefeeding. Her lochia is normal. She denies any pain. Patient/family reports: feeling better, no complaints Objective Findings Last VS-Temp:98.3 B/P:116/84 Pulse:75 Resp:17 SaO2: Last weight lbs:165 oz:0 K.844 Method:Floor Scales Laboratory Tests 09/27/16 0630: Hgb 12.6, Hct 39.1 09/26/16 0915: Cord Blood pH 7.42 Exam General appearance: normal appearance, alert, awake, no acute distress Reviewed: vital signs, lab results Assessment/Plan Problem List 1. Normal delivery Patient condition Improving, Stable Plan: continue current care This inpt stay is expected to cross 2 MNs from start of care Yes Comments: She is doing very well and we will plan to send her home tomorrow. at 0721
[2016-09-27 08:00] VITALS: BP 125/56
[2016-09-27 21:15] VITALS: BP 118/77
--- NOTE | 2016-09-28 07:57 | ACUTE CARE PROGRESS NOTE (QUA) ---
Progress Notes Subjective Date 09/28/16 Time 0756 Note She is doing well this morning. She is eating and drinking and ambulating. She is bottlefeeding. Her lochia is normal. Patient/family reports: feeling better, no complaints Objective Findings Last VS-Temp:98.2 B/P:118/77 Pulse:63 Resp:16 SaO2: Last weight lbs:165 oz:0 K.844 Method:Floor Scales Exam General appearance: normal appearance, alert, active, awake, no acute distress Reviewed: vital signs, lab results Assessment/Plan Problem List 1. Normal delivery Patient condition Improving, Stable Plan: continue current care, initiate discharge plan This inpt stay is expected to cross 2 MNs from start of care Yes Comments: She is doing well and we'll plan to send her home today. at 0753
--- NOTE | 2016-09-28 08:00 | Discharge Summary ---
Discharge Summary Admission date: 09/25/16 Discharge date: 09/28/16 Discharge diagnoses: Term , spontaneous vaginal delivery Clinical note: She is a 21 old 3 now para 3 who was 38 and 6 weeks gestational age. She came in in active labor. She was observed overnight and was having irregular contractions. She change her cervix from 4-5 cm. As result of that we elected to deliver her. She is had previous deliveries at 37 weeks. Course in hospital: On the morning of September 26, 2016 she was found be 5 cm dilated. She had her membranes ruptured and under labor epidural progressed to full dilation. She delivered spontaneously a liveborn female child at 9:08 AM on the morning of September 26, 2016. The baby weighed 7 lbs. 3 oz. and was 20 inches long. She had Apgars of 8 at 1 minute and 9 at 5 minutes. She has done well and has remained afebrile throughout her hospitalization. She is eating and drinking and ambulating. She is bottlefeeding. She has a positive blood, she is rubella immune and was group B streptococcus negative. Her spray booth operator is Dr. Yanes. Laboratory Tests 09/27/16 0630: Hgb 12.6, Hct 39.1 09/26/16 0915: Cord Blood pH 7.42 09/26/16 0645: Urine Color YELLOW, Urine Appearance CLEAR, Urine pH 7.0, Ur Specific [place] <= 1.005, Urine Protein NEGATIVE, Urine Ketones NEGATIVE, Urine Blood 2+ H, Urine Nitrate NEGATIVE, Urine Bilirubin NEGATIVE, Urine Urobilinogen 0.2, Ur Leukocyte Esterase NEGATIVE, Urine RBC 20-50, Urine WBC 3-5, Ur Squamous Epith Cells 3-5, Urine Bacteria TRACE, Urine Glucose NEGATIVE 09/25/16 1536: MCH 33.5 H 09/25/16 1536: WBC 14.3 H, RBC 3.55 L, Hgb 11.9 L, Hct 35.9 L, MCV 101.3 H, RDW 13.8, Plt Count 287, MPV 8.1, Gran % 75.8, Gran # 10.8 H, Lymphocytes % 18.9, Monocytes % 4.1, Eosinophils % 1.0, Basophils % 0.2, Lymphocytes # 2.7, Monocytes # 0.6, Eosinophils # 0.1, Basophils # 0.0, PUBS MCHC 33.1, Antibody Screen NEGATIVE, Miscellaneous Test POSITIVE 09/25/16 1405: Urine Color YELLOW, Urine Appearance CLEAR, Urine pH 6.5, Ur Specific [place] 1.015, Urine Protein NEGATIVE, Urine Ketones NEGATIVE, Urine Blood TRACE-INTACT, Urine Nitrate NEGATIVE, Urine Bilirubin NEGATIVE, Urine Urobilinogen 0.2, Ur Leukocyte Esterase 1+ H, Urine RBC OCC, Urine WBC 3-5, Ur Squamous Epith Cells 3-5, Urine Bacteria TRACE, Urine Glucose NEGATIVE Plans for ongoing care: She is discharged home to follow-up with me in approximately 2 weeks' time. Discharge medications She will continue with her vitamins and iron. She is just taking over- the-counter analgesics for pain. DC/follow-up instructions She was given the usual instructions with respect to limiting her activity, driving and sexual activity. Condition at discharge Stable and improved at 0800
[2016-09-28 08:10] VITALS: BP 127/77
== END 2016-09-28 10:20 | disposition home or self-care (01) | DRG 775 ==
LOC: OBOUT 13:55 → OB 13:55 → OBOUT 15:17 → OB 15:18
PROVIDERS: Nurse Practitioner Obstetrics & Gynecology
PROC: 0HQ9XZZ Repair Perineum Skin, External Approach (ICD-10-PCS; principal; 2016-09-26)
PROC: 10E0XZZ Delivery of Products of Conception, External Approach (ICD-10-PCS; principal; 2016-09-26)
DX: O70.0 First degree perineal laceration during delivery (principal); Z37.0 Single live birth; Z3A.38 38 weeks gestation of pregnancy

== ENCOUNTER → 2016-12-29 | Outpatient (CLI) | payer MEDICAID ==
[~2016-12-29] MED LIST changes: +CLARITIN 10MG T10 MG PO
--- NOTE | 2017-01-02 09:09 | RADIOLOGY REPORT PS360 ---
US PELVIS-TRANSVAGINAL ONLY HISTORY: IUD PLACEMENT pelvic discomfort Patient Age: 21 years: Female Ordering Physician: Victoriano Edward MD TECHNIQUE: Transvaginal pelvic ultrasound ar COMPARISON :Recent recent . Recent May 2016 ultrasound at 20 weeks. FINDINGS Retroflexed retroverted uterus.. Normal size uterus. 7.8 cm length as 5.1 cm AP x 5.8 cm wide. ] IUD is identifiedwithin the centimeter cavity.. Is towards the lower portion of the endometrial cavity on on these images. Axial as well as sagittal images would supported central location within the endometrial cavity as well Moderate endometrial. No significant Endometrial thickening. Endometrium measuring less than 8 mm. Numerous Small follicles are seen throughout both right & left ovary. Right ovary 3.1 x 1 0.2 to 2.1 cm. Left ovary 3.3 x 1.75 x 2.3 cm. Largest/dominant cyst at the left ovary measures up to 1.4 cm maximum. With minor wall irregularity at . No fluid is seen at the cul-de-sac. Generous venous structures about margin of uterus. IMPRESSION: --- Retroverted retroflexed uterus. . Moderate 8 mm thickness endometrial stripe IUD, is identified within the endometrial cavity . The inferiorly limb IUD extends to the lower uterine segment endometrial stripe. . Ovaries appear normal in size. Numerous Follicle cysts throughout both ovaries with dominant 1.4 cm cyst at the left ovary noted No fluid in cul-de-sac
== END ==
LOC: RAD 14:37
DX: Z97.5 Presence of (intrauterine) contraceptive device (principal); R10.2 Pelvic and perineal pain

== ENCOUNTER 2017-02-11 01:37 | Emergency (ER) | payer MEDICAID ==
[~2017-02-11] VITALS: Ht 160 cm; Wt 65.8 kg
--- NOTE | 2017-02-11 01:46 | Emergency Room Report ---
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 Clinical Suspician of Infection? Mental Status: Sepsis Risk: Have you (or family members/close friends) recently traveled outside the [place]? If Yes, where/when: Have you had exposure to infectious disease within the past month? TB? Other? Specify: Comment Patient complains of chest pain. She says she awakened about an hour ago with severe tightness in her chest and felt like she could not breathe. She felt like this also caused her to go into an anxiety attack which made it worse. She does not have pain with movement, touch, or breathing. 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 No leg pain or swelling. No hemoptysis. No abdominal pain or vomiting. Recently started Mirena control. She is a smoker. Currently improved, says she has had time to calm down. ALLERGIES Coded Allergies: Penicillins (NA-NAUSEA/VOMITING 09/14/16) Home Medications Reported Medications No Known Home Medications History Medical History General CAD? No Angina: No [place]: No Hypertension? No Hyperlipidemia? No CHF? No DVT? No PE? No COPD? No Asthma? No Anemia? No GERD? No Gastric ulcers? No GI Bleed? No Hernia? No Thyroid Problems? No Hypothyroidism? No CVA? No Seizures? No Diabetes? No Insulin Dependent: No Insulin Pump: No Home FSBS? No Renal Insuffiency? No End Stage Renal Disease? No UTI? No Stones? No BPH? No GB Disease: No Nephritic Syndrome? No Asplenia? No Hepatitis? No Sickle Cell Disease? No Arthritis? No Migraines? No Cataracts? No Glaucoma? No MRSA? No HIV? No TB? No Anxiety? No Depression? No Cancer? No More? No Immunization Hx DT/Tetanus UNKNOWN Flu Refused Pneumonia Refuses Surgical Hx Previous Surgery?Y RIGHT ANKLE Social History Smoking Hx Packs/day < 1 Pack Alcohol Alcohol: No Review of Systems All Other Systems Reviewed and Negative Constitutional denies diaphoresis, denies fever Respiratory denies cough, shortness of breath Cardiovascular chest pain, denies edema Gastrointestinal denies abdominal pain, denies vomiting Physical Exam Vital Signs Vital Signs Date Time Temp Pulse Resp B/P Pulse O2 O2 Flow FiO2 Ox Delivery Rate 02/11 0244 81 18 129/72 99 02/11 0219 81 18 129/72 99 02/11 0141 98.1 96 18 147/87 99 General Appearance normal appearance, WD/WN, no apparent distress Eye Exam - bilateral eye normal exam, bilateral eye PERRL, bilateral eye EOMI Ear, Nose, Throat hearing grossly normal, normal ENT inspection Neck normal inspection, non-tender, supple, full range of motion Respiratory Status Yes: trachea midline, chest symmetrical, non tender chest. No: respiratory distress. Lung Sounds bilateral: normal breath sounds, lungs clear. 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 No Results/Orders Laboratory Tests 02/11/17 0150: Urine Color YELLOW, Urine Appearance CLEAR, Urine pH 6.5, Ur Specific [place] 1.025, Urine Protein NEGATIVE, Urine Ketones NEGATIVE, Urine Blood 3+ H, Urine Nitrate NEGATIVE, Urine Bilirubin NEGATIVE, Urine Urobilinogen 0.2, Ur Leukocyte Esterase NEGATIVE, Urine RBC 5-10, Urine WBC 3-5, Ur Squamous Epith Cells 10-20, Urine Glucose NEGATIVE 02/11/17 0145: Sodium 143, Potassium 3.5, Chloride 105, Carbon Dioxide 28, BUN 17, Creatinine 0.8, Estimated Creat Clear 113, Estimated GFR (MDRD) 89, Glucose 98, Calcium 8.8 , Total Bilirubin 0.2, AST 13 L, ALT 23, Alkaline Phosphatase 80, Creatine Kinase 56, CK-MB (CK-2) Rel Index 0.9, CK and CKMB Interp < 0.5, Troponin I < 0.02, Total Protein 7.7, Albumin 4.1, Globulin 3.6 H, Albumin/Globulin Ratio 1.1, D-Dimer < 100, WBC 7.2, RBC 4.61, Hgb 14.6, Hct 46.0, MCV 99.8 H, RDW 12.0 , Plt Count 242, MPV 8.2, Gran % 45.8, Gran # 3.3, Lymphocytes % 47.3, Monocytes % 4.6, Eosinophils % 1.6, Basophils % 0.6, Lymphocytes # 3.4, Monocytes # 0.3, Eosinophils # 0.1, Basophils # 0.0, PUBS MCHC 31.7 L, MCH 31.6 H Orders Procedure Date/time Status D-DIMER 02/11 158 Complete URINALYSIS/COMPLETE 02/11 146 Complete URINE 02/11 146 Complete ELECTROCARDIOGRAM REQUEST 02/11 143 Active CHEST(2 VIEWS-NOT PORTABLE) 02/11 143 Active IV SALINE LOCK 02/11 143 Active CBC WITH AUTO DIFF 02/11 143 Complete CARDIAC ENZYMES 02/11 143 Complete CHEM 12 PROFILE 02/11 143 Complete 12 LEAD EKG[facility] ([facility]) 02/11 UNK Active CM/EKG CM/EKG Comments EKG interpreted by Onesimo Byrd MD: Rhythm: sinus Rate: 85 [place]: normal Ectopy: none Conduction: Incomplete RIGHT bundle-branch block ST Segment Changes: none T Wave Changes: none Q Waves: none No evidence of acute ischemia or injury No prior EKGs available for comparison XRAY/CT/US XRAY/CT/US XRAY chest Comment Chest x-ray interpreted by Onesimo Byrd M.D. No infiltrate, pneumothorax, pleural effusion, or wide mediastinum. scoliosis. Progress - I estimate there is LOW risk for PULMONARY EMBOLISM, ACUTE CORONARY SYNDROME, OR THORACIC AORTIC DISSECTION, thus I consider the discharge disposition reasonable. Departure Departure Disposition DC Home or Self Care(routine) Clinical Impression Primary Impression: Atypical chest pain Condition STABLE Patient Instructions DI for Atypical Chest Pain Additional Instructions Ibuprofen or Aleve for pain. Additional instructions for CHEST PAIN: See your physician for further evaluation. Return immediately if worsening chest pain, vomiting, shortness of breath, fever, coughing of blood. Prescriptions Current Visit Scripts No Known Home Medications ED Critical Care Critical Care No at 0642
[2017-02-11 01:56] LABS: HEMOGLOBIN 14.6 g/dL (12.2-16.2); LYMPH # 3.4 K/mm3 (0.7-4.5); LYMPH % 47.3 % (10-50.0)
[2017-02-11 02:06] LABS: URINE BILIRUBIN - DIPSTICK NEGATIVE (NEG); URINE BLOOD 3+ (NEG)
[2017-02-11 02:21] LABS: BUN 17 mg/dL (7-18); GFR (ESTIMATED) 89 ML/MIN (59-)
[2017-02-11 02:44] VITALS: BP 129/72
--- NOTE | 2017-02-11 09:02 | RADIOLOGY REPORT PS360 ---
CHEST(2 VIEWS-NOT PORTABLE) HISTORY: CP Patient Age: 21 years: Female Ordering Physician: Onesimo Byrd MD TECHNIQUE: PA and lateral chest COMPARISON :March 2015 FINDINGS Lungs are well expanded and clear with no active disease. No significant change. The heart is normal in size with normal pulmonary vascularity. No CHF. No pleural effusion. No pneumothorax. We again see the scoliosis of the thoracic spine: with dextroscoliosis through the mid & lower T-spine; and levoscoliosis upper T-spine, similar to 2015. Small calcified granulomas and granulomatous nodes are seen at the left vilma and perihilar region.-Stable. Chest wall intact no rib fracture or lesion evident on this study IMPRESSION: Stable chest. Nothing definitely acute. No pneumothorax. No pneumonia Scoliosis again noted
--- OUTSIDE RECORDS SUMMARY | 2017-02-21 21:02 | External Medical Summary Rpt ---
Author Author , PRERNA Hobbs PRERNA Address Unknown Phone [email or web address] With Style Care Team Providers Care Wealth Management Advisor Name Role Phone ALISSON VINSON Unavailable Unavailable [facility] Unavailable Unavailable [facility], [facility] BEINEKE JOLIE, BEINEKE Unavailable Unavailable JOLIE TIDWELL ALL, TIDWELL ALL Unavailable Unavailable [facility] Unavailable Unavailable DEPARTMENT, [facility] Unavailable Unavailable DEPARTMENT, [facility] BRIGHT ENRIQUE, BRIGHT Unavailable Unavailable ENRIQUE FAN, FAN Unavailable Unavailable FAN JC, FAN Unavailable Unavailable JC FAN JC, FAN Unavailable Unavailable JC FAN, ERVIN J, Unavailable Unavailable FAN, ERVIN J [facility] Unavailable Unavailable [facility], [facility] MELY THOMAS J, WILLIAM J Unavailable Unavailable ANTWON THERESA, ANTWON Unavailable Unavailable THERESA ANTWON THERESA, ANTWON Unavailable Unavailable THERESA MOUNIKA, KYLAH Unavailable Unavailable J, MOUNIKA, KYLAH J ISRA ROCK, ISRA Unavailable Unavailable ROCK DAVID OSORIO, DAVID OSORIO Unavailable Unavailable DAVID OSORIO, DAVID OSORIO Unavailable Unavailable ECKERLINE, C A, Unavailable Unavailable ECKERLINE, C A [facility] FAUGHN DYSON, FAUGHN Unavailable Unavailable DYSON FAUGHN DYSON, FAUGHN Unavailable Unavailable DYSON FEEBACK, FEEBACK Unavailable Unavailable TREVA ROCK, TREVA Unavailable Unavailable ROCK TREVA ROCK, TREVA Unavailable Unavailable ROCK HEATHER DON, HEATHER Unavailable Unavailable DON HARPEL, HARPEL Unavailable Unavailable HARPEL RAMIRO, HARPEL Unavailable Unavailable RAMIRO HARPEL RAMIRO, HARPEL Unavailable Unavailable RAMIRO [facility] Unavailable Unavailable INC, [facility], [facility] WARD SCALES, Unavailable Unavailable WARD SCALES HINES Unavailable Unavailable CHRISTIAN, CHRISTIAN Unavailable Unavailable CHRISTIAN FAY, CHRISTIAN FAY Unavailable Unavailable CHRISTIAN FAY, CHRISTIAN FAY Unavailable Unavailable [facility] Unavailable Unavailable [facility], [facility], Unavailable Unavailable [facility] STACEY IMT, STACEY Unavailable Unavailable IMT STACEY IMT, STACEY Unavailable Unavailable IMT SABRINA SAMINA, SABRINA Unavailable Unavailable SAMINA [facility]available [facility], [facility] HAIM, SANTANA Radha, HAIM, Unavailable Unavailable SANTANA Garcia [facility] Unavailable Unavailable CAR, [facility] CAR MATCHESWALA ENRIQUE, Unavailable Unavailable MATCHESWALA ENRIQUE KHUSHI DMD ORTHODOX, KHUSHI Unavailable Unavailable [facility] KHUSHI DMD ORTHODOX, KHUSHI Unavailable Unavailable [facility] Unavailable [facility]available [facility], [...] STRIFLING RHY, Unavailable Unavailable [facility] PILO ROMÁN, Unavailable Unavailable PILO ROMÁN MAYELIN CARDENAS, MAYELIN Unavailable Unavailable [facility], Unavailable Unavailable [facility] Unavailable Unavailable [facility], [facility] Unavailable Unavailable #493, [facility] # Unavailable Unavailable [id number], [facility] # [id number] [facility] # Unavailable Unavailable [id number], [facility] # [id number] IRBY JR CAR, Unavailable Unavailable IRBY JR CAR WELLS MARKUS, WELLS MARUKS Unavailable Unavailable WE[facility], WE[facility] Unavailable Unavailable WE[facility], WEST Unavailable Unavailable [facility] R[facility], [facility] Unavailable Unavailable [facility], [facility] Unavailable Unavailable [facility] Unavailable Unavailable [facility] [place], [facility] MUNGUIA PET, MUNGUIA PET Unavailable Unavailable NESTOR GOMEZ, Unavailable Unavailable NESTOR GOMEZ Purpose Continuity of Care Document - 08-03-2005 through 2016 Problems Code Diagnosis DOS Provider Status N945 SECONDARY 01-01-2017 [facility] DYSMENORRHE PHYSICIANS A GROUP [id number] ENCOUNTER 01-01-2017 [facility] ROUTINE PHYSICIANS CHECKING IU GROUP CONTRACEPT DEVICE R102 PELVIC AND 12-29-2016 [facility] Z975 PRESENCE OF 12-29-2016 [facility] INTRAUTERIN INC E CONTRACEPTI VE DEVICE N926 IRREGULAR 12-27-2016 [facility] MENSTRUATIO PHYSICIANS N GROUP UNSPECIFIED N944 PRIMARY 12-27-2016 [facility] DYSMENORRHE PHYSICIANS A GROUP N75789 ENCOUNTER 11-16-2016 [facility] INITIAL PHYSICIANS PRESCRIPTIO GROUP N IU CONTRACEPT DEV R5382 CHRONIC 11-10-2016 [facility]IGUE [facility] UNSPECIFIED INC Z392 ENCOUNTER 11-10-2016 [facility] FOR [facility]OUTINE LLC FOLLOW-UP O700 FIRST 09-26-2016 [facility] PERINEAL INC LACERATION DURING DELIVERY O80 ENCOUNTER 09-26-2016 [facility] FOR PHYSICIANS FULL-TERM GROUP UNCOMPLICAT ED DELIVERY Z370 SINGLE LIVE 09-26-2016 [facility] PHYSICIANS GROUP Z3A38 38 WEEKS 09-26-2016 [facility] GESTATION [facility] OF INC Z3480 ENC 09-25-2016 [facility] SUPERVISION PHYSICIANS OTH NORMAL GROUP PREG UNS TRIMESTER O471 FALSE LABOR 09-24-2016 [facility] AT/AFTER PHYSICIANS 37 GROUP COMPLETED WEEKS GEST O4703 FALSE LABOR 09-14-2016 [facility] BEFORE 37 PHYSICIANS CMPLETE GROUP WEEKS GEST 3RD TRI M545 LOW BACK 09-03-2016 [facility] PAIN [facility] INC O2693 09-03-2016 [facility] RELATED [facility] CONDITIONS INC UNS 3RD TRIMESTER Z3A35 35 WEEKS 09-03-2016 [facility] GESTATION [facility] OF INC H5213 MYOPIA 08-11-2016 CHRISTIAN BILATERAL W21536 ABNORMAL 07-03-2016 [facility] GLUCOSE PHYSICIANS COMPLICATIN GROUP G N760 ACUTE 06-29-2016 [facility] VAGINITIS PHYSICIANS GROUP Z3492 ENC 05-23-2016 [facility]ICAL NORMAL IMAGING ASS UNS 2 TRIMESTER Z36 ENCOUNTER 05-23-2016 [facility] FOR [facility] INC SCREENING OF MOTHER Z3A20 20 WEEKS 05-23-2016 [facility] OF IMAGING ASS R112 NAUSEA WITH 04-11-2016 [facility] VOMITING [facility] UNSPECIFIED INC Z3A15 15 WEEKS 04-11-2016 [facility] GESTATION [facility] OF INC Z720 TOBACCO USE 04-11-2016 [facility] INC R12172 UTERINE 02-28-2016 [facility] SIZE-DATE [facility] DISCREPANCY INC FIRST TRIMESTER Z3491 ENC 02-28-2016 [facility] NORMAL IMAGING ASS UNS 1 TRIMESTER Z3A08 8 WEEKS 02-28-2016 [facility]ATION [facility]ICAL OF IMAGING ASS B373 CANDIDIASIS 02-22-2016 [facility] OF [facility] LLC AND VAGINA Z113 ENCOUNTER 02-22-2016 [facility] SCREEN LLC INFECTIONS SEXL MODE TRANSMISSN Z3201 ENCOUNTER 02-22-2016 [facility] GROUP TEST RESULT POSITIVE K5900 CONSTIPATIO 01-15-2016 [facility] N PHYSICIANS, UNSPECIFIED PLLC R1032 LEFT LOWER 01-15-2016 [facility] QUADRANT PHYSICIANS, PAIN PLLC J209 ACUTE 09-11-2015 [facility] BRONCHITIS [facility] J0100 ACUTE 07-09-2015 [facility] SINUSITIS MEDICAL UNSPECIFIED GROUP H6991 UNSPECIFIED 05-24-2015 [facility] EUSTACHIAN TUBE DISORDER RIGHT EAR J00 ACUTE 05-24-2015 [facility] NASOPHARYNG ITIS COMMON COLD K219 GASTRO-ESOP 03-30-2015 WE[facility] H REFLUX DISEASE WITHOUT ESOPHAGITIS B349 VIRAL 03-22-2015 [facility] INFECTION UNSPECIFIED J4521 MILD 03-22-2015 [facility] INTERMITTEN T ASTHMA WITH ACUTE EXACERBATIO N J029 ACUTE 03-15-2015 [facility] PHARYNGITIS PHYSICIANS, [facility] UNSPECIFIED J060 ACUTE 03-15-2015 [facility] YNGITIS INC R0602 SHORTNESS 03-15-2015 [facility] 3671 MYOPIA 12-22-2014 SCIFRES ANG V242 ROUTINE 06-08-2014 [facility] FOLLOW-UP 650 NORMAL 03-17-2014 [facility] DELIVERY PHYSICIANS GROUP V270 OUTCOME OF 03-17-2014 [facility] DELIVERY PHYSICIANS SINGLE GROUP LIVEBORN 91996 THREATENED 03-16-2014 [facility] PREMATURE PHYSICIANS LABOR GROUP ANTEPARTUM 62666 OTH&UNS CRD 03-16-2014 [facility] ENTANGL [facility] W/O COMPRS INC COMP L&D DELIV 74676 FIRST-DEGRE 03-16-2014 [facility] E PERINEAL [facility] LACERATION INC WITH DELIVERY V221 SUPERVISION 03-13-2014 M[facility] JC OF OTHER NORMAL 73623 OTHER 01-15-2014 HARPEL RAMIRO THREATENED LABOR, ANTEPARTUM 17793 PAIN IN 01-15-2014 [facility] JOINT, MEDICAL ANKLE AND IMAGING ASS FOOT 45866 UNSPECIFIED 01-15-2014 STACEY IMT SITE OF ANKLE SPRAIN AND STRAIN E8888 OTHER FALL 01-15-2014 STACEY IMT 45073 ABN MAT 12-29-2013 [facility] GLUCOSE [facility] TOLERANCE INC COMPL PG CB/PP UNS EOC 23567 ABNORMAL 12-26-2013 [facility] JC MATERNAL GLUCOSE TOLERANCE ANTEPARTUM V283 ENCOUNTER 11-19-2013 [facility] GREENE ROUTINE SCREEN MALFORMATIO N ULTRASONIC 56383 BN&JNT D/O 10-14-2013 TREVA ROCK MAT BACK PELVIS&LW LIMBS ANTEPARTUM 95496 OTH CURRENT 10-14-2013 [facility] MAT CONDS [facility] CLASSIFIABL INC E ELSW ANTPRTM 7242 LUMBAGO 10-14-2013 TREVA ROCK 7245 UNSPECIFIED 10-14-2013 [facility] BACKACHE [facility] INC 28453 ABDOMINAL 10-14-2013 [facility] PAIN, [facility] UNSPECIFIED INC SITE V220 SUPERVISION 10-07-2013 M[facility] JC OF NORMAL FIRST 14701 OTHER 08-14-2013 [facility] JC SPECIFED COMPLICATIO N ANTEPARTUM V7242 08-01-2013 M[facility] GREENE EXAMINATION OR TEST POSITIVE RESULT V2503 ENCOUNTER 07-31-2013 [facility] DEPART[facility] CNSL&PRESCR IPTION V2689 OTHER 07-31-2013 [facility] SECURITY [place] SPECIFIED HEALTH PROCREATIVE DEPARTMENT MANAGEMENT V851 BODY MASS 07-31-2013 [facility] SECURITY [place] INDEX HEALTH BETWEEN DEPARTMENT 19-24 ADULT 3679 UNSPECIFIED 12-13-2012 ANTWON THERESA DISORDER OF REFRACTION& ACCOMMODATI ON 684 IMPETIGO 12-12-2012 [facility] 1274 ENTEROBIASI 06-24-2012 [facility] S 5990 URINARY 06-24-2012 [facility] TRACT INFECTION SITE NOT SPECIFIED 5589 OTH&UNSPEC 10-18-2011 DAVID OSORIO NONINFECTIO US GASTROENTER ITIS&COLITI S V720 EXAMINATION 09-14-2011 CHRISTIAN FAY OF EYES AND VISION 54263 UNSPECIFIED 05-31-2011 FAUGHN DYSON CONJUNCTIVI TIS V1582 PERS HX 05-16-2011 DIANNE [place] TOBACCO USE HEALTH PRESENTING DEPARTMENT HAZARDS HEALTH V2549 SURVEILLANC 05-16-2011 DIANNE [place] E OTH PREV HEALTH PRSC DEPARTMENT CONTRACEPT METHOD 7389 ACUTE URIS 03-17-2011 [facility] OF UNSPECIFIED SITE 01352 ASTHMA, 03-17-2011 [facility] UNSPECIFIED , UNSPECIFIED STATUS 7821 RASH AND 03-17-2011 [facility] OTHER NONSPECIFIC SKIN ERUPTION 58843 UNSPECIFIED 02-28-2011 [facility] VAGINITIS AND VULVOVAGINI TIS 2662 OTHER 01-25-2011 View and Chew B-COMPLEX HEALTH DEFICIENCIE DEPARTMENT S V2509 OTH GENERAL 01-25-2011 [facility] [place] [facility]ALTH CNSL&ADVICE DEPARTMENT CONTRACEPT MANAGEMENT V850 BODY MASS 01-25-2011 View and Chew INDEX LESS HEALTH THAN 19 DEPARTMENT ADULT 5210 DENTAL 01-18-2011 KHUSHI DMD CARIES ORTHODOX 605 REDUNDANT 03-16-2010 [facility] PREPUCE AND ASSOCIATES PHIMOSIS 65860 POOR 03-16-2010 [facility] MANAGEMENT [place] MOTH DELIV 90032 OLIGOHYDRAM 03-16-2010 [facility] DELIVERED CLINIC OF [place] V3000 SINGLE 03-16-2010 [facility] W/O 72693 POOR 03-14-2010 [facility]OTH [facility] OF ANTPRMELI [place] COND/COMP 6259 UNSPEC 12-23-2009 [facility] SYMPTOM PHYSICIAN ASSOC GROUP PCC W/FEMALE GENITAL ORGANS 7048 OTHER 09-28-2009 [facility] DISEASE OF PEDIA HAIR&HAIR FOLLICLES V642 SURG/OTH 08-23-2009 [facility] PROC NOT [facility] CARRIED OUT INC BECAUSE PTS DECN 1121 CANDIDIASIS 08-02-2009 PATHOLOGY & OF [facility] CYTOLOGY AND VAGINA LAB V745 SCREENING 08-02-2009 PATHOLOGY & EXAMINATION CYTOLOGY FOR LAB VENEREAL DISEASE 462 ACUTE 03-05-2009 [facility] V259 UNSPECIFIED 03-05-2009 [facility] CONTRACEPTI PEDIA VE MANAGEMENT V700 ROUTINE 03-05-[address] [facility] MEDICAL PEDIA EXAM@HEALTH CARE FACL V7388 SPECIAL SCR 03-05-2009 [facility] EXAMINATION PEDIA OTH SPEC CHLAMYDIAL DZ 7881 DYSURIA 01-05-2009 [facility] 7840 HEADACHE 12-21-2008 [facility] PEDIA V202 ROUTINE 12-04-2008 [facility] MED[facility] OR SERV CHILD FOUNDATIO HEALTH CHECK V7231 ROUTINE 10-27-2008 [facility]AMINATION [facility] 6235 LEUKORRHEA 08-06-2008 [facility] SPECIFIED PEDIA INFECTIVE 7862 COUGH 07-22-2008 [facility] PEDIA 7295 PAIN IN 01-27-2008 [facility] MEDICAL SOFT SERV TISSUES OF FOUNDATIO LIMB 7296 RESIDUAL 01-27-2008 [facility] BODY IN PEDIA SOFT TISSUE 8830 OPEN WOUND 01-27-2008 [facility] WITHOUT MENTION COMPLICATIO N 8831 OPEN WOUND 01-27-2008 [facility] COMPLICATED 9156 FINGER SUP 01-27-2008 [facility] MEDICAL FB W/O LACI SERV OPEN FOUNDATIO WOUND&W/O MENTION INF E9179 OTHER 01-27-2008 [facility] STRIKING SERV AGAINST FOUNDATIO W/WO SUBSEQUENT FALL 87283 HEAD 11-21-2007 [facility] UNSPECIFIED PEDIA 6918 OTHER 08-03-2005 [facility]EDIA AND RELATED CONDITIONS Medications Na ND Rx Da Fi Fi Am Da Di Ph RX Ph St me C No te ll ll ou ys ag ar # ys at rm s nt no ma ic us Or Da si cy ia de te s n re d TR 59 08 08 2. 5 00 RI Ac IA 76 -0 -2 00 00 TE ti ZO 23 2- 5- 0 01 ve LA 71 20 20 19 AI M 80 17 17 41 D 0. 4 48 PH 25 AR MA MG CY TA #3 BL 93 ET 8 IB 53 07 08 90 30 00 RI Ac UP 74 -2 -2 .0 00 TE ti RO 60 7- 5- 00 01 ve FE 46 20 20 19 AI N 50 17 17 34 D 60 1 24 PH 0 AR MG MA CY TA BL #3 ET 93 8 IB 53 07 08 30 7 00 RI Ac UP 74 -2 -1 .0 00 TE ti RO 60 1- 8- 00 01 ve FE 46 20 20 19 AI N 50 17 17 26 D 60 1 00 PH 0 AR MG MA CY TA BL #3 ET 93 8 HY 00 07 08 [address] 40 -2 -1 .0 00 TE ti OC 60 4- 8- 00 01 ve OD 12 20 20 19 AI ON 40 17 17 29 D -A 1 36 PH CE AR TA MA DE CY NO PH #3 93 7. 8 5- 32 5 TR 59 07 08 1. 5 00 RI Ac IA 76 -1 -1 00 00 TE ti ZO 23 9- 1- 0 01 ve LA 71 20 20 19 AI M 80 17 17 24 D 0. 4 12 PH 25 AR MA MG CY TA #3 BL 93 ET 8 AZ 50 04 05 6. 5 00 RI Ac IT 11 -2 -1 00 00 TE ti HR 10 1- 9- 0 01 ve OM 78 20 20 18 AI YC 76 17 17 09 D IN 6 56 PH AR 25 MA 0 CY MG #3 TA 93 BL 8 ET ME 68 03 04 70 5 00 RI Ac TR 68 -1 -1 .0 00 TE ti ON 20 6 4- 00 01 ve ID 45 20 [...] #3 0. 93 75 8 % GL CASTANEDA 53 10 10 0 40 10 70 WE Ac LF 74 -2 -2 .0 L- 98 ST ti AM 60 0- 0- 00 MA 35 ve ET 27 20 20 RT 6 RY HO 20 11 11 AN XA 5 PH B ZO AR LE MA -T CY MP # DS 10 04 TA 93 BL ET CE 68 10 10 0 30 10 70 WE Ac PH 18 -2 -2 .0 L- 98 ST ti AL 00 0- 0- 00 MA 35 ve EX 12 20 20 RT 5 RY IN 20 11 11 AN 1 PH B 50 AR 0 MA MG CY # CA PS 10 UL 04 E 93 VA 00 10 10 0 20 10 70 WE Ac LT 17 -1 -1 .0 L- 97 ST ti RE 30 8- 8- 00 MA 93 ve X 56 20 20 RT 1 RY 1 50 11 11 AN GM 4 PH B AR CA MA PL CY ET # 10 04 93 DC 00 07 07 4 10 30 70 WE Ac EV 12 -2 -2 [...] LI 60 01 01 0 60 1 70 CO Ac ND 43 -1 -2 [...] LI 60 01 01 1 60 7 70 CO Ac ND 43 -0 -0 .0 L- 61 OP ti AN 20 5- 5- 00 MA 49 ER ve E 83 20 20 RT 1 1% 36 11 11 MITCH 0 PH HN LO AR G TI MA ON CY # 10 04 93 NI 00 08 08 0 20 10 70 [place] Ac TR 37 -1 -1 .0 L- 43 RP ti OF 83 2- 4- 00 MA 57 EL ve UR 42 20 20 RT 4 AN 20 10 10 GE TO 1 PH RA IN AR LD MA R MO CY NO # -M CR 10 04 10 93 0 MG FE 00 07 07 9 30 30 88 CL Ac RR 67 -0 -0 .0 L- 16 AR ti OU 70 5- 5- 00 MA 24 KE ve S 07 20 20 RT 8 CASTANEDA 01 10 10 DE LF 0 PH RE AT AR K E MA J 32 CY 5 # MG 10 TA 05 BL 91 ET SE 54 05 05 5 15 30 70 CL Ac RT 45 -1 -1 .0 L- 33 AR ti RA 80 0- 0- 00 MA 04 KE ve LI 94 20 20 RT 2 NE 51 10 10 DE 0 PH RE HC AR K L MA J 10 CY 0 # MG 10 TA 04 BL 93 ET 00 11 12 00 14 7 70 LE Ac 59 -2 -0 .0 L- 12 NT ti 13 3- 3- 00 MA 93 ZS ve 97 20 20 RT 0 CH 05 09 09 -P 0 PH AR AR CE MA LL CY S CA #4 RO 93 LY N DC 00 11 11 00 30 30 70 DE Ac OP 59 -1 -1 [...] MP #4 DS 93 TA BL ET MITCH 00 07 07 00 91 91 WA 69 WO Ac LE 55 -2 -3 .0 L- 97 OD ti SS 59 4- 0- 00 MA 55 S ve A 12 20 20 RT 8 SH 0. 36 09 09 EI 15 6 PH LA AR H MG MA -0 CY .0 3 #4 MG 93 TA BL ET SF 60 07 07 00 56 10 WA 69 DU Ac 25 -2 -3 .0 L- 97 RB ti 1. 80 3- 0- 00 MA 47 IN ve 1% 15 20 20 RT 3 10 09 09 DO GE 1 PH UG L AR LA MA S CY D #4 93 63 09 09 00 28 7 WA 69 No Ac 30 -1 -2 .0 L- 60 t ti 40 5- 6- 00 MA 23 Av ve 65 20 20 RT 5 ai 70 08 08 la 1 PH bl AR e MA CY #4 93 Results Labs Lab Lab Date Result Refere Interp Status Commen Order Detail nces retati t Range on Urinalysis dipstick W Reflex Microscopic panel in Urine (02-11-2017 01:50) Erythro 5-10 0 complet cytes 017 ed [Presen 01:50 ce] in Urine sedimen t by Light microsc opy Epithel 10-20 0#/hp complet ial 017 f - ed cells.s 01:50 5#/hp quamous f [Presen ce] in Urine sedimen t by Microsc opy high power field Leukocy 3-5 O complet artemio 017 wbc/hpf ed [#/volu 01:50 me] in Urine Urinalysis dipstick W Reflex Microscopic panel in Urine (02-11-2017 01:50) Appeara CLEAR CLEAR complet nce of 017 ed Urine 01:50 Bilirub NEGATIV NEG complet in 017 E ed [Presen 01:50 ce] in Urine by Test strip Erythro 3+ NEG Abnorma complet cytes 017 l ed [Presen 01:50 ce] in Urine Color YELLOW YELLOW complet of 017 ed Urine 01:50 Ketones NEGATIV NEG complet 017 E ed [Presen 01:50 ce] in Urine by Automat ed test strip Mucus NEGATIV NEG complet [Presen 017 E ed ce] in 01:50 Urine sedimen t by Light microsc opy Nitrite NEGATIV NEG complet 017 E ed [Presen 01:50 ce] in Urine by Test strip Urobili 0.2 NEG complet nogen 017 ed [Presen 01:50 ce] in Urine by Test strip Blood type & Indirect antibody screen panel in Blood (09-25-2016 15:36) Blood NEGATIV NEGATIV complet group 017 E E ed antibod 15:36 y screen [Presen ce] in Serum or Plasma Rh POSITIV complet [Type] 017 E ed in 15:36 Blood ABO A complet group 017 ed [Type] 15:36 in Blood Urinalysis dipstick W Reflex Microscopic panel in Urine (09-25-2016 14:05) Bacteri TRACE O complet a 017 ed [Presen 14:05 ce] in Urine sedimen t by Light microsc opy Erythro OCC 0 complet cytes 017 ed [Presen 14:05 ce] in Urine sedimen t by Light microsc opy Epithel 3-5 0#/hp complet ial 017 f - ed cells.s 14:05 5#/hp quamous f [Presen ce] in Urine sedimen t by Microsc opy high power field Leukocy 3-5 O complet artemio 017 wbc/hpf ed [#/volu 14:05 me] in Urine Urinalysis dipstick W Reflex Microscopic panel in Urine (09-25-2016 14:05) Appeara CLEAR CLEAR complet nce of 017 ed Urine 14:05 Bilirub NEGATIV NEG complet in 017 E ed [Presen 14:05 ce] in Urine by Test strip Erythro TRACE-I NEG complet cytes 017 NTACT ed [Presen 14:05 ce] in Urine Color YELLOW YELLOW complet of 017 ed Urine 14:05 Ketones NEGATIV NEG complet 017 E ed [Presen 14:05 ce] in Urine by Automat ed test strip Mucus 1+ NEG Abnorma complet [Presen 017 l ed ce] in 14:05 Urine sedimen t by Light microsc opy Nitrite NEGATIV NEG complet 017 E ed [Presen 14:05 ce] in Urine by Test strip Urobili 0.2 NEG complet nogen 017 ed [Presen 14:05 ce] in Urine by Test strip CHLAMYDIA AND GONORRHEA TESTING (01-25-2011 16:31) COLLECT [...] Procedures Procedure DOS Code Location Performer Comment 95075 [facility] R[facility] TRANSVAGI 7 [facility] NAL INC INC URINE 87847 [facility] FAN 7 PHYSICIAN TEST S GROUP VISUAL COLOR CMPRSN METHS INSERTION 66407 [facility] MENG 7 PHYSICIAN INTRAUTER S GROUP INE DEVICE IUD LEVONORGE J7298 [facility] MENG STREL-RLS 7 PHYSICIAN S GROUP INTRAUTER INE NETTA SYS 52 MG CYTP C/V 72002 [facility] AUTO THIN 7 Imagin[facility] LYR PREPJ SCR MNL RESCR PHYS COLLECTIO 52449 [facility] N VENOUS 7 [facility] BLOOD INC INC VENIPUNCT URE BLOOD 59540 [facility] COUNT 7 [facility] COMPLETE INC INC AUTO&AUTO DIFRNTL WBC VAGINAL 34465 [facility] FAN DELIVERY 7 PHYSICIAN ONLY S GROUP W/POSTPAR ENIO CARE NEURAXIAL 88871 [facility] FEEBACK LABOR 7 ANESTH ANALG/ANE OF THE S PLND BLUE VAGINAL DELIVERY DELIVERY [id number] [facility] PRODUCTS 7 [facility] OF INC INC CONCEPTIO N EXTERNAL REPAIR [id number] [facility] PERINEUM 7 [facility] SKIN INC INC EXTERNAL APPROACH 15983 [facility] ANTHONYPEL NONSTRESS 7 PHYSICIAN TEST S GROUP 29580 [facility] MENG NONSTRESS 7 PHYSICIAN TEST S GROUP PARTICLE 44429 [facility] RDORIGEZ AGGLUTINA 7 [facility] TION INC INC SCREEN EACH ANTIBODY EVAL C/V 62925 [facility] AMNIOTIC 7 [facility] FLUID INC INC PROTEIN QUAL EA SPECIMEN 42459 [facility] NONSTRESS 7 [facility] TEST INC INC URNLS DIP 14096 [facility] 7 [facility] STICK/TAB INC INC LET REAGENT AUTO MICROSCOP Y CULTURE 09718 [facility] BACTERIAL 7 [facility] INC INC QUANTTATI VE COLONY COUNT URINE OPHTH 30903 [facility] 7 XM&EVAL COMPRHNSV ESTAB PT 1/> FRAMES V2020 [facility] ALISSON PURCHASES 7 SPHERE V2100 [facility] VINSON SINGLE 7 VISION PLANO +/- 4.00 PER LENS GLUCOSE 38199 [facility] POST 7 PHYSICIAN PHYSICIAN GLUCOSE S GROUP S GROUP DOSE SMR PRIM 49148 [facility] FAN SRC WET 7 PHYSICIAN [place] S GROUP NFCT AGT US PREG 87305 [facility] UTERUS 7 [facility] W/DETAIL INC INC URSULA 1ST GESTATION URNLS DIP 02630 [facility] 6 [facility] STICK/TAB INC INC LET REAGENT AUTO MICROSCOP Y CULTURE 56901 [facility] BACTERIAL 6 [facility] INC INC QUANTTATI VE COLONY COUNT URINE BASIC 47739 [facility] METABOLIC 6 [facility] PANEL INC INC CALCIUM TOTAL BLOOD 63523 [facility] COUNT 6 [facility] COMPLETE INC INC AUTO&[place] [address] [facility] INFUSION 6 [facility] THERAPY/P INC INC ROPHYLAXI S /DX 1ST TO 1 HR COLLECTIO 19733 [facility] N VENOUS 6 [facility] BLOOD INC INC VENIPUNCT URE OBSTETRIC 00068 [facility] PANEL 6 [facility] INC INC INF AGT G0432 ELIA [facility] AB DETECT [facility] EIA TECH INC INC HIV-1&/HI V-2 SCR US PREG 22880 [place] [facility] 6 MEDICAL REAL TIME IMAGING W/IMAGE ASS DCMTN TRANSVAG URINE 50681 [facility] 6 PHYSICIAN JC TEST S GROUP VISUAL COLOR CMPRSN METHS DRUG TST G0477 [facility] PRESUMP;C 6 PHYSICIAN JC PBL BEING S GROUP READ DC OPT OBV ONLY CYTP C/V 26221 [facility], [facility] LYR PREPJ SCR MNL RESCR PHYS IADNA 51312 [facility], [facility], NEISSERIA 6 [facility] AMPLIFIED PROBE TQ IADNA 57837 [facility], CHLAMYDIA 6 [facility] TRACHOMAT IS AMPLIFIED PROBE TQ BLOOD 49286 [facility] COUNT 6 [facility] COMPLETE INC INC AUTO&[place] [address] EL[facility] RODRIGE[facility] ABDOMEN & 6 [facility] PELVIS INC INC W/O CONTRAST MATERIAL URNLS DIP 20707 [facility] STICK/TAB INC INC LET REAGENT AUTO MICROSCOP Y COMPREHEN 86774 [facility] SIVE 6 [facility] METABOLIC INC INC PANEL SUSCEPTIB 53731 ELAI RODRIGEZ LTY STDY 6 [facility] ANTIMICRB INC INC IAL MICRO/AGA R DILUTJ CULTURE 89015 [facility] BCT [facility] ISOL&PRSM INC INC PTV ID ISOLATE EA URINE URINE 02039 [facility] TEST INC INC VISUAL COLOR CMPRSN METHS CULTURE 92262 [facility] BACTERIAL 6 [facility] INC INC QUANTTATI VE COLONY COUNT URINE IAADIADOO [address] [facility] IAADIADOO [address] [place] [address] [facility] [place] [address] ELIA ISRA 5 [facility] CCUS GROUP A RADIOLOGI 19681 [facility] C EXAM 5 MEDICAL JOLIE CHEST 2 IMAGING VIEWS [place] FR[place] [address] ELIA R[facility]RIG[facility]Z STREPTOCO 5 [facility] CCUS INC INC GROUP A CUL BACT 83621 EL[facility] XCPT 5 [facility] URINE INC INC BLOOD/STO OL AEROBIC ISOL URINE 54036 [facility] TEST INC INC VISUAL COLOR CMPRSN METHS URNLS DIP 23313 [facility] STICK/TAB INC INC LET REAGENT AUTO MICROSCOP Y IAADI 30360 ELIA RODRIGEZ INFLUENZA 5 [facility] B VIRUS INC INC IAADI 97204 ELIADUANE RODRIGEZ INFFLUENZ 5 [facility] A A VIRUS INC INC OPHTH 96629 [facility] SCIFRES MEDICAL 5 ANG ANG XM&EVAL COMPRE NEW PT 1/> VST CYTP C/V 72586 [facility] [employer] LYR PREPJ SCR MNL RESCR PHYS VAGINAL 02116 [facility] FAN DELIVERY 4 PHYSICIAN JC ONLY S GROUP W/POSTPAR ENIO CARE NEURAXIAL 74476 [facility] 4 ANESTH THERESA ANALG/ANE OF THE S PLND BLUE VAGINAL DELIVERY REPAIR OF 7569 ELIA RODRIGEZ OTHER 4 [facility] CURRENT INC INC OBSTETRIC LACERATIO N 72013 [facility] NONSTRESS 4 PHYSICIAN PHYSICIAN TEST S GROUP S GROUP CUL BACT 90122 COMBINED COMBINED XCPT 4 PHYSICIAN PHYSICIAN URINE S LA S LA BLOOD/STO OL AEROBIC ISOL CULTURE 91244 ELIA RODRIGEZ BACTERIAL 4 [facility] INC INC QUANTTATI VE COLONY COUNT URINE 21429 ELIA RODRIGEZ NONSTRESS 4 [facility] TEST INC INC URNLS DIP 17718 ELIA RODRIGEZ 4 [facility] STICK/TAB INC INC LET REAGENT AUTO MICROSCOP Y FTL 33437 ELIA RODRIGEZ FIBRONECT 4 [facility] IN INC INC CERVICOVA G SECRETION S SEMI-REY EVAL C/V 85642 ELIA RODRIGEZ AMNIOTIC 4 [facility] FLUID INC INC PROTEIN QUAL EA SPECIMEN FTL 73574 ELIA RODRIGEZ FIBRONECT 4 [facility] IN INC INC CERVICOVA G SECRETION S SEMI-REY RADEX 19045 [facility] ANKLE 4 MEDICAL JOLIE COMPLETE IMAGING MINIMUM 3 ASS VIEWS 35468 ELIA RODRIGEZ NONSTRESS 4 [facility] TEST INC INC GLUCOSE 54928 ELIA RODRIGEZ TOLERANCE 4 [facility] TEST GTT INC INC 3 SPECIMENS URNLS DIP 95764 ELIA RODRIGEZ 4 [facility] STICK/TAB INC INC LET RGNT NON-AUTO W/O MICRSCP GLUCOSE 76978 ELIA RODRIGEZ TOLERANCE 4 [facility] EA ADDL INC INC BEYOND 3 SPECIMENS GLUCOSE 28882 MENG FAN TOLERANCE 4 JC JC TEST GTT 3 SPECIMENS US PREG 35993 MENG FAN UTERUS 4 JC JC AFTER 1ST TRIMEST / GESTATION EVAL C/V 13159 ELIA RODRIGEZ AMNIOTIC 4 [facility] FLUID INC INC PROTEIN QUAL EA SPECIMEN URNLS DIP 06263 ELIA RODRIGEZ 4 [facility] STICK/TAB INC INC LET REAGENT AUTO MICROSCOP Y CULTURE 68396 ELIA RODRIGEZ BACTERIAL 4 [facility] INC INC QUANTTATI VE COLONY COUNT URINE US PREG 43231 MENG FAN UTERUS 4 JC JC REAL TIME W/IMAGE DCMTN TRANSVAG URINE 18692 MENG FAN 4 JC JC TEST VISUAL COLOR CMPRSN METHS CUL BACT 37041 COMBINED COMBINED XCPT 4 PHYSICIAN PHYSICIAN URINE S LA S LA BLOOD/STO OL AEROBIC ISOL ANTIBODY 70434 COMBINED COMBINED CHLAMYDIA 4 PHYSICIAN PHYSICIAN S LA S LA IADNA 59737 [facility] CH[place]AM[place]IA 4 [place] [facility] [facility] IS T T AMPLIFIED PROBE TQ URINE 48346 [place] 4 [place] RF nano TEST VISUAL DEPARTMEN DEPARTMEN COLOR T T CMPRSN METHS IADNA 69046 [place] NEISSERIA 4 [facility] AE T T AMPLIFIED PROBE TQ DETERMINA 76914 [facility] TION 3 THERESA THERESA REFRACTIV E STATE OPHTH 66382 [facility] MEDICAL 3 THERESA THERESA XM&EVAL COMPRE NEW PT 1/> VST FRAMES V2020 [facility] PURCHASES 3 THERESA THERESA SPHERE V2100 [facility] SINGLE 3 THERESA THERESA VISION PLANO +/- 4.00 PER LENS FITTING 43551 [facility] SPECTACLE 3 THERESA THERESA S XCPT APHAKIA MONOFOCAL [facility] 84531 [facility] PROVIDED 3 OFFICE OTH/THN REG SCHED HOURS FRAMES V2020 ANAHI APONTE PURCHASES 2 OPHTH 64841 ANA[facility] APONTE MEDICAL 2 XM&EVAL COMPRE NEW PT 1/> VST DETERMINA 01288 ANA[facility] APONTE TION 2 REFRACTIV E STATE FITTING 01348 ANA[facility] APONTE SPECTACLE 2 S XCPT APHAKIA MONOFOCAL SPHERE V2100 ANAHI APONTE SINGLE 2 VISION PLANO +/- 4.00 PER LENS PRESSURIZ 15628 [facility] ED/NONPRE 1 SSURIZED INHALATIO N TREATMENT IADNA 96078 [place] NEISSERIA 1 [place] [facility] AE T T AMPLIFIED PROBE TQ CONTRACEP A4267 [place] TIVE 1 [place] [facility] CON[facility] MALE EACH T T IADNA 18388 [place] CHLAMYDIA 1 [place] [facility] IS T T AMPLIFIED PROBE TQ WET Q0111 [place] AYO 1 [place] [facility] PREP [facility]AL [facility] CERV/SKIN T T SPECIMENS CONTRACEP J7303 [place] T SUPPLY 1 [place] [facility] G VAG T T RING EA ANALGESIA D9230 KHUSHI DMD KHUSHI DMD 1 [facility] ANXIOLYSI S INHALATIO N OF NITROUS OXIDE ANALGESIA D9230 KHUSHI DMD KHUSHI DMD 1 [facility] ANXIOLYSI S INHALATIO N OF NITROUS OXIDE ANALGESIA D9230 KHUSHI DMD KHUSHI DMD 1 [facility] ANXIOLYSI S INHALATIO N OF NITROUS OXIDE ANALGESIA D9230 KHUSHI DMD KHUSHI DMD 1 [facility] ANXIOLYSI S INHALATIO N OF NITROUS OXIDE HOSPITAL 04854 [facility] DISCHARGE 0 CARE DAY ASSOCIATE MANAGEMEN S T 30 MIN/< SUBQ 63713 [facility] 0 CARE CARE PER ASSOCIATE DAY E/M S NORMAL CIRCUMCIS 56337 [facility] ION 0 CARE W/CLAMP/O ASSOCIATE DEV S W/BLOCK 1ST 70066 [facility]/WYATT 0 CARE [facility] S CARE PER DAY NML NB VAGINAL 04212 [facility] DELIVERY 0 HEALTH JC ONLY CLINIC OF [place] NEURAXIAL 62137 [facility] LABOR 0 ANESTH ANALG/ANE OF THE S PLND BLUE VAGINAL DELIVERY REPAIR OF 7569 ELIA RODRIGEZ OTHER 0 [facility] CURRENT INC INC OBSTETRIC LACERATIO N US PREG 37389 [facility] UTERUS 0 [facility]ALTH [facility] REAL TIME CLINIC OF F/U [place] TRNSABDL PER FETUS DOPPLER 90787 WOM[facility] VELOCIMET 0 HEALTH [facility] RY CLINIC OF UMBILICAL [place] ARTERY 77126 [facility] BIOPHYSIC 0 HEALTH [facility] AL CLINIC OF PROFILE [place] W/O NON-STRES S TESTING CULTURE 20876 ELIA RODRIGEZ BACTERIAL 0 [facility] INC INC QUANTTATI VE COLONY COUNT URINE URNLS DIP 16671 ELIA RODRIGEZ 0 [facility] STICK/TAB INC INC LET REAGENT AUTO MICROSCOP Y 83795 ELIA RODRIGEZ NONSTRESS 0 [facility] TEST INC INC US PREG 93341 [facility] UTERUS 0 HEALTH JC REAL TIME CLINIC OF F/U ASH[place] TRNSABDL PER FETUS DOPPLER 73678 WOM[facility] F[facility] VELOCIMET 0 HEALTH [facility] RY [facility]INIC OF UMBILICAL [place] ARTERY 54427 [facility] BIOPHYSIC 0 HEALTH JC AL CLINIC OF PROFILE [place] W/O NON-STRES S TESTING 24761 [facility] BIOPHYSIC 0 HEALTH JC AL CLINIC OF PROFILE [place] W/O NON-STRES S TESTING DOPPLER 94773 [facility] VELOCIMET 0 HEALTH JC RY CLINIC OF UMBILICAL [place] ARTERY US PREG 36993 [facility] F[facility] UTERUS 0 HEALTH JC REAL TIME CLINIC OF F/U [place] TRNSABDL PER FETUS DOPPLER 35973 WOMEN'S WOMEN'S VELOCIMET 0 HEALTH HEALTH RY CLINIC OF [place] [address] WOMEN'S FAN 0 HEALTH JC UTERUS CLINIC OF LIMITED A[place] 1/> FETUSES 38632 [facility] BIOPHYSIC 0 HEALTH JC AL CLINIC OF PROFILE [place] W/O NON-STRES S TESTING CUL BACT 46791 COMBINED COMBINED XCPT 0 PHYSICIAN PHYSICIAN URINE S LA S LA BLOOD/STO OL AEROBIC ISOL DOPPLER 46186 [facility] VELOCIMET 0 HEALTH J[facility] RY CLINIC OF UMBILICAL [place] ARTERY US PREG 22710 WOMEN'S FAN UTERUS 0 HEALTH JC REAL TIME CLINIC OF F/U [place] TRNSABDL PER FETUS 04552 [facility] BIOPHYSIC 0 HEALTH JC AL CLINIC OF PROFILE [place] W/O NON-STRES S TESTING 47526 [facility] BIOPHYSIC 0 HEALTH JC AL CLINIC OF PROFILE [place] W/O NON-STRES S TESTING US PREG 05711 [facility]OM[facility] UTERUS 0 HEALTH JC REAL TIME CLINIC OF F/U [place] TRNSABDL PER FETUS DOPPLER 79422 WOMEN'S FAN VELOCIMET 0 HEALTH JC RY [facility]INIC OF UMBILICAL [place] ARTERY GLUCOSE 95024 WOMEN'S FAN TOLERANCE 0 HEALTH JC TEST GTT CLINIC OF 3 [place] SPECIMENS GLUCOSE 80106 [facility] FAN POST 0 HEALTH JC GLUCOSE CLINIC OF DOSE [place] URINLS 42088 [facility] DIP 0 PHYSICIAN RAMIRO STICK/TAB GROUP LET PCC REAGNT NON-AUTO MICRSCPY URINALYSI 79414 [facility] S 0 PHYSICIAN RAMIRO MICROSCOP GROUP IC ONLY PCC US PREG 66692 [facility], UTERUS 0 HEALTH ERVIN [place] AFTER CLINIC OF TRIMEST [place] GESTATION [facility] URNLS DIP 95038 ELIA VILLAON 0 [facility] STICK/TAB INC INC LET REAGENT AUTO MICROSCOP Y US PREG 96885 [facility], UTERUS 0 HEALTH ERVIN J REAL TIME CLINIC OF W/IMAGE DCMTN [place] TRANSVAG [facility] IADNA 51426 PATHOLOGY PATHOLOGY CHLAMYDIA 0 & & CYTOLOGY CYTOLOGY TRACHOMAT LAB LAB IS AMPLIFIED PROBE TQ CYTP C/V 42070 PATHOLOGY PATHOLOGY AUTO THIN 0 & & LYR CYTOLOGY CYTOLOGY PREPJ SCR LAB LAB MNL RESCR PHYS IADNA 83414 PATHOLOGY PATHOLOGY NEISSERIA 0 & & CYTOLOGY CYTOLOGY GONORRHOE LAB LAB AE AMPLIFIED PROBE TQ MOLECULAR 65014 MOLECULAR MOLECULAR DX AMP 0 TARGET PATHOLOGY PATHOLOGY MULTIPLEX LAB LAB 1ST 2 NETWORK NETWORK SEQ INC INC MOLECULAR 64419 MOLECULAR MOLECULAR 0 DIAGNOSTI PATHOLOGY PATHOLOGY CS LAB LAB INTERPRET NETWORK NETWORK ATION & INC INC REPORT MUTATION 52393 MOLECULAR MOLECULAR ID 0 ENZYMATIC PATHOLOGY PATHOLOGY LAB LAB LIG/PRIME NETWORK NETWORK R XTN 1 INC INC SGM EA MOLECULAR 92220 MOLECULAR MOLECULAR DX AMP 0 TARGET PATHOLOGY PATHOLOGY MULTIPLEX LAB LAB EA ADDL NETWORK NETWORK SEQ INC INC MOLEC 92413 MOLECULAR MOLECULAR SEP&ID HI 0 RESOLU PATHOLOGY PATHOLOGY TQ EACH LAB LAB NUCLEIC NETWORK NETWORK ACID PREP INC INC MOLEC 85766 MOLECULAR MOLECULAR ISOL/XTRJ 0 HP PATHOLOGY PATHOLOGY NUCLEIC LAB LAB ACID EA NETWORK NETWORK TYPE INC INC IADNA 72459 [facility] CHLAMYDIA 9 Y Y HOSPITAL [facility] TRACHOMAT IS AMPLIFIED PROBE TQ IADNA 50666 [facility] NEISSERIA 9 Y Y HOSPITAL [facility] GONORRHOE AE AMPLIFIED PROBE TQ IADNA 33234 [facility] NEISSERIA 9 Y Y HOSPITAL [facility]OSPITAL GONORRHOE AE AMPLIFIED PROBE TQ IADNA 93573 [facility] CHLAMYDIA 9 Y Y HOSPITAL [facility] TRACHOMAT IS AMPLIFIED PROBE TQ IAADIADOO 08345 [facility] 9 Y OF PARCELLS STREPTOCO [facility] CCUS PEDIA GROUP A URINE 83874 [facility] 9 Y OF PARCELLS TEST [place] CAR VISUAL PEDIA COLOR CMPRSN METHS CUL BACT 59007 [facility] XCPT 9 Y Y URINE [facility] BLOOD/STO OL AEROBIC ISOL OPHTH 75803 [facility] LD, XM&EVAL KYLAH J INTERMEDI ATE ESTAB PT URNLS DIP 73503 [facility] 9 Y OF ENRIQUE STICK/TAB [place] LET RGNT PEDIA NON-AUTO W/O MICRSCP IAADIADOO 51541 [facility] 9 Y OF JR CAR STREPTOCO [place] CCUS PEDIA GROUP A IADNA 21927 PATHOLOGY PATHOLOGY NEISSERIA 9 & & CYTOLOGY CYTOLOGY GONORRHOE LAB LAB AE AMPLIFIED PROBE TQ CYTP C/V 37352 PATHOLOGY PATHOLOGY AUTO THIN 9 & & LYR CYTOLOGY CYTOLOGY PREPJ SCR LAB LAB MNL RESCR PHYS IADNA 92306 PATHOLOGY PATHOLOGY CHLAMYDIA 9 & & CYTOLOGY CYTOLOGY TRACHOMAT LAB LAB IS AMPLIFIED PROBE TQ URNLS DIP 01282 [facility] 9 Y Y STICK/TAB HOSPITAL HOSPITAL LET REAGENT AUTO MICROSCOP Y IAADIADOO 50328 [facility] 9 Y OF ROMÁN [facility] SA[facility] CCUS PEDIA GROUP A INCISION 86906 [place] ECKERLINE & REMOVAL 8 MEDICAL , C A FOREIGN SERV BODY SUBQ FOUNDATIO TISS SIMPLE RADEX 18421 [place] HAIM, FINGR 8 MEDICAL SANTANA G MINIMUM 2 SERV VIEWS FOUNDATIO SPHERE V2100 [facility], SINGLE 8 Y OPTICAL WARD R VISION PLANO +/- 4.00 PER LENS FITTING 95764 [facility], SPECTACLE 8 Y OPTICAL WARD R S XCPT APHAKIA MONOFOCAL FRAMES V2020 [facility], PURCHASES 8 Y OPTICAL WARD R OPHTH [address] LD, XM&EVAL KYLAH ARANA ATE NEW PT Encounters Encounter Start End Date Code Location Performer Type Date OFFICE 84428 [facility]ENG OUTPATIEN 7 7 PHYSICIAN T VISIT S GROUP 15 MINUTES [facility]OSP[facility] - 7 7 [facility] OUTPATIEN INC T OFFICE 82922 [facility] MENG OUTPATIEN 7 7 PHYSICIAN T VISIT S GROUP 15 MINUTES [facility]OSPITAL [facility] - 7 7 [facility] OUTPATIEN INC T [facility]OSPITAL ELIA - 7 7 [facility] INPATIENT INC OFFICE 48154 [facility] FAN OUTPATIEN 7 7 PHYSICIAN T VISIT S GROUP 15 MINUTES OFFICE 51988 [facility] FAN OUTPATIEN 7 7 PHYSICIAN T VISIT S GROUP 15 MINUTES OFFICE 08223 [facility] FAN OUTPATIEN 7 7 PHYSICIAN T VISIT S GROUP 15 MINUTES HOSPITAL ELIA - 7 7 [facility] OUTPATIEN INC T OFFICE 64178 [facility] FAN OUTPATIEN 7 7 PHYSICIAN T VISIT S GROUP 15 MINUTES HOSPITAL ELIA - 7 7 [facility] OUTPATIEN INC T OFFICE 67156 [facility] FAN OUTPATIEN 7 7 PHYSICIAN T VISIT S GROUP 15 MINUTES OFFICE 50931 [facility] FAN OUTPATIEN 7 7 PHYSICIAN T VISIT S GROUP 15 MINUTES OFFICE 97627 [facility] FAN OUTPATIEN 7 7 PHYSICIAN T VISIT S GROUP 15 MINUTES OFFICE 21108 [facility] FAN OUTPATIEN 7 7 PHYSICIAN T VISIT S GROUP 15 MINUTES OFFICE 86865 [facility] FAN OUTPATIEN 7 7 PHYSICIAN T VISIT S GROUP 15 MINUTES OFFICE 04856 [facility] FAN OUTPATIEN 7 7 PHYSICIAN T VISIT S GROUP 15 MINUTES HOSPITAL ELIA - 7 7 [facility] OUTPATIEN INC T OFFICE 77660 [facility] FAN OUTPATIEN 6 6 PHYSICIAN T VISIT S GROUP 15 MINUTES EMERGENCY 07253 ELIA 6 6 [facility] DEPARTMEN INC T VISIT HIGH/URGE NT SEVERITY [facility]OSPITAL [facility] - 6 6 [facility] OUTPATIEN INC T OFFICE 84313 [facility] FAN OUTPATIEN 6 6 PHYSICIAN JC T VISIT S GROUP 15 MINUTES HOSPITAL ELIA - 6 6 [facility] OUTPATIEN INC T OFFICE 54417 [facility] FAN OUTPATIEN 6 6 PHYSICIAN JC T VISIT S GROUP 15 MINUTES HOSPITAL ELIA - 6 6 [facility] OUTPATIEN INC T OFFICE 26545 [facility] FAN OUTPATIEN 6 6 PHYSICIAN JC T VISIT S GROUP 25 MINUTES HOSPITAL ELIA - 6 6 [facility] OUTPATIEN INC T EMERGENCY 04409 ELIA 6 6 [facility] DEPARTMEN INC T VISIT LOW/MODER SEVERITY EMERGENCY 80979 DWAIN LE 6 6 PHYSICIAN SBLeti GREGORIOMEN S, [facility] T VISIT HIGH/URGE NT SEVERITY OFFICE 97041 [facility] OUTPATIEN 6 6 T VISIT 15 MINUTES OFFICE 66279 ELIA ISRA OUTPATIEN 6 6 [facility] 25 MINUTES OFFICE 44061 [facility] OUTPATI[facility] 6 6 HEALTH LA ENRIQUE T VISIT MEDICAL 15 GROUP MINUTES OFFICE 59533 [facility] OUTPATIEN 6 6 T VISIT 15 MINUTES OFFICE 23328 [facility] OUTPATIEN 5 5 T VISIT 15 MINUTES OFFICE 92156 [facility] OUTPATIEN 5 5 T VISIT 15 MINUTES OFFICE 34634 ELIA DHALIWAL OUTPATIEN 5 5 [facility] MINUTES EMERGENCY 86821 DWAIN TIL[place] DEPT 5 5 PHYSICIAN [place]OCK VISIT S, [facility] HIGH SEVERITY& [facility] OUTPATIEN INC T EMERGENCY 75426 ELIA 5 5 [facility] DEPARTMEN INC T VISIT LOW/MODER SEVERITY HOSPITAL ELIA - 4 4 [facility] INPATIENT INC OFFICE 07197 FAN FAN OUTPATIEN 4 4 JC JC T VISIT 15 MINUTES OFFICE 31899 FAN FAN OUTPATIEN 4 4 J[facility] T VISIT 15 MINUTES [facility]OSPITAL ELIA - 4 4 [facility] INC T OFFICE 49864 FAN FAN OUTPATIEN 4 4 JC JC T VISIT 15 MINUTES OFFICE 83993 FAN FAN OUTPATIEN 4 4 JC JC T VISIT 15 MINUTES HOSPITAL ELIA - 4 4 [facility] OUTPATIEN INC T OFFICE 26011 FAN FAN OUTPATIEN 4 4 JC JC T VISIT 15 MINUTES EMERGENCY 87658 STACEY IBARRA 4 4 IMT IMT DEPARTMEN T VISIT MODERATE SEVERITY HOSPITAL [facility] - 4 4 [facility] OUTPATIEN INC T OFFICE 45967 FAN FAN OUTPATIEN 4 4 JC JC T VISIT 15 MINUTES OFFICE 36582 FAN FAN OUTPATIEN 4 4 JC JC T VISIT 15 MINUTES HOSPITAL ELIA - 4 4 [facility] OUT[facility] INC T OFFICE 39549 FAN FAN OUTPATIEN 4 4 JC JC T VISIT 5 MINUTES OFFICE 99846 FAN FAN OUTPATIEN 4 4 JC JC T VISIT 15 MINUTES OFFICE 89334 FAN FAN OUTPATIEN 4 4 JC JC T VISIT 15 MINUTES EMERGENCY 47044 ELIA 4 4 [facility] DEPARTMEN INC T VISIT LOW/MODER SEVERITY EMERGENCY 84727 T[place]VA [place] 4 4 [place] DEPARTMEN T VISIT HIGH/URGE NT SEVERITY [facility]OSPITAL ELIA - 4 4 [facility] OUTPATIEN INC T OFFICE 17150 FAN FAN OUTPATIEN 4 4 JC JC T VISIT 15 MINUTES OFFICE 48890 [facility]AN [facility]AN OUTPATIEN 4 4 JC JC T VISIT 15 MINUTES OFFICE 49596 [facility] FAN OUTPATIEN 4 4 JC JC T NEW 45 MINUTES OFFICE 57683 [place] OUTPATIEN 4 4 [place] [facility]ISIT 15 DEPARTMEN DEPARTMEN MINUTES T T OFFICE 42029 [facility] OUTPATIEN 3 3 T VISIT 15 MINUTES EMERGENCY 61747 YAHAIRA CAM 3 3 EMERGENCY RAE DEPARTMEN SERVICES T VISIT MODERATE SEVERITY OFFICE 83858 DAVID OSORIO OUTPATIEN 2 2 T NEW 45 MINUTES EMERGENCY 43670 NANCY CRUZ 2 2 DYSON DYSON DEPARTMEN T VISIT MODERATE SEVERITY OFFICE 71976 [place] OUTPATIEN 2 2 [place] [facility] T VISIT 10 DEPARTMEN DEPARTMEN MINUTES T T EMERGENCY 52773 SABRINA BENNETT 1 1 [facility] DEPARTMEN T VISIT HIGH/URGE NT SEVERITY OFFICE 41974 [facility] 1 1 T VISIT 15 MINUTES OFFICE 63277 [facility] 1 1 T NEW 30 MINUTES INITIAL 79303 [place] PREVENTIV 1 1 [place] [facility] NEW PT T T AGE 12-17 YR [facility] - 0 0 [facility] ELIA - 0 0 [facility] OUTPATIEN INC T OFFICE 36132 [facility] OUTPATIEN 0 0 [facility]ALTH [facility] T VISIT CLINIC OF 15 [place]SHLEY MINUTES OFFICE 82212 [facility] F[facility] OUTPATIEN 0 0 HEALTH JC T VISIT CLINIC OF 10 [place]SHLEY MINUTES OFFICE 91527 [facility] F[facility] OUTPATIEN 0 0 HEALTH JC T VISIT CLINIC OF 15 [place]SHLEY MINUTES OFFICE 73708 [facility] F[facility] OUTPATIEN 0 0 HEALTH JC T VISIT CLINIC OF 15 [place]SHLEY MINUTES OFFICE 92705 [facility] F[facility] OUTPATIEN 0 0 HEALTH JC T VISIT CLINIC OF 15 [place]SH[place] MINUTES OFFICE 96709 [facility] F[facility] OUTPATIEN 0 0 HEALTH JC T VISIT 5 CLINIC OF MINUTES [place]SH[place] OFFICE 39236 [facility] OUTPATIEN 0 0 PHYSICIAN RAMIRO T VISIT GROUP 15 PCC MINUTES OFFICE 31938 [facility] OUTPATIEN 0 0 HEALTH JC T VISIT CLINIC OF 15 [place]LEY MINUTES OFFICE 80293 [facility], OUTPATIEN 0 0 HEALTH ERVIN J T VISIT CLINIC OF 15 MINUTES [facility] OFFICE 98436 [facility], OUTPATIEN 0 0 HEALTH ERVIN J T VISIT CLINIC OF 15 MINUTES [facility] OFFICE 38434 UN[facility]ERS[facility] LENTZSCH- OUTPATIEN 0 0 Y OF PARCELLS T VISIT [place] CAR 15 PEDIA MINUTES OFFICE 31247 [facility], OUTPATIEN 0 0 HEALTH ERVIN J T VISIT CLINIC OF 15 MINUTES [facility] OFFICE 50284 [facility], OUTPATIEN 0 0 HEALTH ERVIN J T VISIT CLINIC OF 15 MINUTES [facility] ELIA - 0 0 [facility] OUTPATIEN INC T EMERGENCY 86660 ELIA 0 0 [facility] DEPARTMEN INC T VISIT LIMITED/M INOR [facility] UNIVERSIT - 9 9 [facility] - 9 9 Y OUTPATI HOSPITAL T PERIODIC 58537 UNIVERSIT LENVINCENTSCH- PREVENTIV 9 9 Y OF PARCELLS E MED EST [place] CAR PATIENT PEDIA 12-17YRS OFFICE 00840 [facility] 9 9 Y OF ENRIQUE T VISIT [place] 15 PEDIA MINUTES HOSPITAL UNIVERSIT - 9 9 [facility] T OFFICE 18189 [facility] 9 9 Y OF JR CAR T VISIT [place] 15 PEDIA MINUTES PERIODIC 18512 FRANKLIN GOMEZ PREVENTIV 9 9 MEDICAL NESTOR H E MED EST SERV PATIENT FOUNDATIO 12-17YRS INITIAL 44560 [facility] MENG, PREVENTIV 9 9 [facility] NEW PT [place] AGE 12-17 PLL YR OFFICE 61630 [facility] 9 9 Y OF DON T VISIT [place] 15 PEDIA MINUTES HOSPITAL UNIVERSIT - 9 9 [facility] T OFF[facility] 30951 [facility] 9 Y OF ROMÁN T VISIT [place] 15 PEDIA MINUTES OFFICE 72584 [facility]IT MERINO [facility] 8 8 Y OF HAMILTON T VISIT [place] 15 PEDIA MINUTES EMERGENCY 32938 [place] ECKERLINE 8 8 MEDICAL , C A DEPARTMEN SERV T [facility]ISIT [facility] UNIVERSIT - 8 8 Y [facility] T PERIODIC 66871 UNIVERSIT ZAHRA APARICIO PREVENTIV 8 8 Y OF E MED EST [place] PATIENT PEDIA 12-17YRS OFFICE [id number] UNIVERSIT [place] [facility] 8 8 Y OF RHY T VISIT [place] 15 PEDIA MINUTES INITIAL 08537 [facility] [place] PET PREVENTIV 6 6 Y OF E [place] MEDICINE ORAL ESTES PT AGE 12-17 YR
--- OUTSIDE RECORDS SUMMARY | 2017-02-21 21:02 | External Medical Summary Rpt ---
Author Author , PRERNA Hobbs PRERNA Address Unknown Phone [email or web address] Care Team Providers Care Fan Blade Aligner Name Role Phone ALISSON VINSON Unavailable Unavailable [facility] Unavailable Unavailable MEDICAL GROUP, [facility] BEINEKE JOLIE, BEINEKE Unavailable Unavailable JOLIE TIDWELL ALL, TIDWELL ALL Unavailable Unavailable [facility] Unavailable Unavailable DEPARTMENT, [facility] DEPARTMENT [facility] Unavailable Unavailable DEPARTMENT, [facility] DEPARTMENT BRIGHT ENRIQUE, BRIGHT Unavailable Unavailable ENRIQUE [...] RAMIRO HARPEL RAMIRO, HARPEL Unavailable Unavailable RAMIRO [facility] Unavailable Unavailable INC, [facility], [facility] WARD SCALES, Unavailable Unavailable WARD SCALES HINES Unavailable Unavailable CHRISTIAN, CHRISTIAN Unavailable Unavailable CHRISTIAN FAY, CHRISTIAN FAY Unavailable Unavailable CHRISTIAN FAY, CHRISTIAN FAY Unavailable Unavailable [facility] Unavailable Unavailable P[facility], [facility], Unavailable Unavailable [facility] STACEY IMT, STACEY Unavailable Unavailable IMT STACEY IMT, STACEY Unavailable Unavailable IMT SABRINA SAMINA, SABRINA Unavailable Unavailable [facility] HAIM, SANTANA Radha, HAIM, Unavailable Unavailable SANTANA Garcia [facility] Unavailable Unavailable CAR, [facility] CAR MATCHESWALA ENRIQUE, Unavailable Unavailable MATCHESWALA ENRIQUE KHUSHI DMD RELIGION, KHUSHI Unavailable Unavailable DMD RELIGION KHUSHI DMD RELIGION, KHUSHI Unavailable Unavailable [facility] Unavailable [facility]available [facility], [...] PILO ROMÁN MAYELIN CARDENAS, MAYELIN Unavailable Unavailable [facility], Unavailable Unavailable [facility] Unavailable Unavailable [place] ORAL, [facility] Unavailable Unavailable #493, [facility] # Unavailable Unavailable [id number], [facility] # [id number] [facility] # Unavailable Unavailable [id number], [facility] # [id number] IRBY JR CAR, Unavailable Unavailable IRBY JR [...] Diagnosis DOS Provider Status [id number] SECONDARY 01-01-2017 [facility] DYSMENORRHE PHYSICIANS A GROUP [id number] ENCOUNTER 01-01-2017 [facility] ROUTINE PHYSICIANS CHECKING IU GROUP CONTRACEPT DEVICE R102 PELVIC AND 12-29-2016 [place] PERINEAL [facility]ICAL PAIN IMAGING ASS Z975 PRESENCE OF 12-29-2016 [facility] INTRAUTERIN INC E CONTRACEPTI VE DEVICE N926 IRREGULAR 12-27-2016 [facility] MENSTRUATIO PHYSICIANS N GROUP UNSPECIFIED N944 PRIMARY 12-27-2016 [facility] DYSMENORRHE PHYSICIANS A GROUP [id number] ENCOUNTER 11-16-2016 [facility] INITIAL PHYSICIANS PRESCRIPTIO GROUP N IU CONTRACEPT DEV R5382 CHRONIC 11-10-2016 [facility]UE [facility] UNSPECIFIED INC Z392 ENCOUNTER 11-10-2016 [facility] FOR ROUTINE LLC FOLLOW-UP O700 FIRST 09-26-2016 [facility]GREE [facility] PERINEAL INC LACERATION DURING DELIVERY O80 ENCOUNTER 09-26-2016 [facility] FULL-TERM GROUP UNCOMPLICAT ED DELIVERY Z370 SINGLE LIVE 09-26-2016 [facility] Z3A38 38 WEEKS 09-26-2016 [facility] GESTATION [facility] OF INC Z3480 ENC 09-25-2016 [facility] SUPERVISION PHYSICIANS OTH NORMAL GROUP PREG UNS TRIMESTER O471 FALSE LABOR 09-24-2016 [facility] AT/AFTER PHYSICIANS 37 GROUP COMPLETED WEEKS GEST O4703 FALSE LABOR 09-14-2016 [facility] BEFORE 37 PHYSICIANS CMPLETE GROUP WEEKS GEST 3RD TRI M545 LOW BACK 09-03-2016 [facility] PAIN [facility] INC O2693 09-03-2016 [facility] RELATED [facility] CONDITIONS INC UNS 3RD TRIMESTER Z3A35 35 WEEKS 09-03-2016 [facility]STATION [facility] OF INC H5213 MYOPIA 08-11-2016 CHRISTIAN BILATERAL Q94062 ABNORMAL 07-03-2016 [facility] GLUCOSE PHYSICIANS COMPLICATIN GROUP G N760 ACUTE 06-29-2016 [facility] VAGINITIS PHYSICIANS GROUP Z3492 ENC 05-23-2016 [place] SUPERVISION MEDICAL NORMAL IMAGING ASS UNS 2 TRIMESTER Z36 ENCOUNTER 05-23-2016 [facility] FOR [facility] INC SCREENING OF MOTHER Z3A20 20 WEEKS 05-23-2016 [facility] MEDICAL OF IMAGING ASS R112 NAUSEA WITH 04-11-2016 [facility] VOMITING [facility] UNSPECIFIED INC Z3A15 15 WEEKS 04-11-2016 [facility] GESTATION [facility] OF INC Z720 TOBACCO USE 04-11-2016 [facility] INC U44015 UTERINE 02-28-2016 [facility] SIZE-DATE [facility] DISCREPANCY INC FIRST TRIMESTER Z3491 ENC 02-28-2016 [place] SUPERVISION MEDICAL NORMAL IMAGING ASS UNS 1 TRIMESTER Z3A08 8 WEEKS 02-28-2016 [place] GESTATION MEDICAL OF IMAGING ASS B373 CANDIDIASIS 02-22-2016 [facility] OF VULVA LLC AND VAGINA Z113 ENCOUNTER 02-22-2016 [facility] SCREEN LLC INFECTIONS SEXL MODE TRANSMISSN Z3201 ENCOUNTER 02-22-2016 [facility] GROUP TEST RESULT POSITIVE K5900 CONSTIPATIO 01-15-2016 [facility] N PHYSICIANS, UNSPECIFIED PLLC R1032 LEFT LOWER 01-15-2016 [facility] QUADRANT PHYSICIANS, PAIN PLLC J209 ACUTE 09-11-2015 [facility]IS [facility] J0100 ACUTE 07-09-2015 [facility] SINUSITIS MEDICAL UNSPECIFIED GROUP H6991 UNSPECIFIED 05-24-2015 [facility] EUSTACHIAN TUBE DISORDER RIGHT EAR J00 ACUTE 05-24-2015 [facility] NASOPHARYNG ITIS COMMON COLD K219 GASTRO-ESOP 03-30-2015 [facility] H REFLUX DISEASE WITHOUT ESOPHAGITIS B349 VIRAL 03-22-2015 [facility] INFECTION UNSPECIFIED J4521 MILD 03-22-2015 [facility] INTERMITTEN T ASTHMA WITH ACUTE EXACERBATIO N J029 ACUTE 03-15-2015 [facility] PH[facility]NGITIS [facility]YSICI[facility], [facility] UNSPEC[facility] J060 ACUTE 03-15-2015 [facility] LARYNGOPHAR [facility] YNGITIS INC R0602 SHORTNESS 03-15-2015 [place] OF [facility] MEDICAL IMAGING ASS 3671 MYOPIA 12-22-2014 SCIFRES ANG V242 ROUTINE 06-08-2014 [facility] LLC FOLLOW-UP 650 NORMAL 03-17-2014 [facility] DELIVERY PHYSICIANS GROUP V270 OUTCOME OF 03-17-2014 [facility] DELIVERY PHYSICIANS SINGLE GROUP LIVEBORN 91693 THREATENED 03-16-2014 [facility] PREMATURE PHYSICIANS LABOR GROUP ANTEPARTUM 29500 OTH&UNS CRD 03-16-2014 [facility] ENTANGL [facility] W/O COMPRS INC COMP L&D DELIV 46351 FIRST-DEGRE 03-16-2014 [facility] E PERINEAL [facility] LACERATION INC WITH DELIVERY V221 SUPERVISION 03-13-2014 [facility] JC OF OTHER NORMAL 72254 OTHER 01-15-2014 HARPEL RAMIRO THREATENED LABOR, ANTEPARTUM 14924 PAIN IN 01-15-2014 [place] JOINT, MEDICAL ANKLE AND IMAGING ASS FOOT 30162 UNSPECIFIED 01-15-2014 STACEY IMT SITE OF ANKLE SPRAIN AND STRAIN E8888 OTHER FALL 01-15-2014 STACEY IMT 33991 ABN MAT 12-29-2013 [facility] GLUCOSE [facility] TOLERANCE INC COMPL PG CB/PP UNS EOC 80591 ABNORMAL 12-26-2013 [facility] JC MATERNAL GLUCOSE TOLERANCE ANTEPARTUM V283 ENCOUNTER 11-19-2013 [facility] GREENE ROUTINE SCREEN MALFORMATIO N ULTRASONIC 91284 BN&JNT D/O 10-14-2013 [facility] [place] MAT BACK PELVIS&LW LIMBS ANTEPARTUM 51504 OTH CURRENT 10-14-2013 [facility] MAT CONDS [facility] CLASSIFIABL INC E ELSW ANTPRTM 7242 LUMBAGO 10-14-2013 [place] 7245 UNSPECIFIED 10-14-2013 [facility] BACKACHE [facility] INC 80295 ABDOMINAL 10-14-2013 [facility] PAIN, [facility] UNSPECIFIED INC SITE V220 SUPERVISION 10-07-2013 [facility] JC OF NORMAL FIRST 07881 OTHER 08-14-2013 [facility] JC SPECIFED COMPLICATIO N ANTEPARTUM V7242 08-01-2013 [facility] GREENE EXAMINATION OR TEST POSITIVE RESULT V2503 ENCOUNTER 07-31-2013 [facility] CONTRACEPT DEPARTMENT CNSL&PRESCR IPTION V2689 OTHER 07-31-[address] [facility] [facility] SPECIFIED HEALTH PROCREATIVE DEPARTMENT MANAGEMENT V851 BODY MASS 07-31-[address] [facility] INDEX HEALTH BETWEEN DEPARTMENT 19-24 ADULT 3679 UNSPECIFIED 12-13-2012 AN[facility] THERESA DISORDER OF REFRACTION& ACCOMMODATI ON 684 IMPETIGO 12-12-2012 [facility] 1274 ENTEROBIASI 06-24-2012 [facility] S 5990 URINARY 06-24-2012 [facility] TRACT INFECTION SITE NOT SPECIFIED 5589 OTH&UNSPEC 10-18-2011 DAVID OSORIO NONINFECTIO US GASTROENTER ITIS&COLITI S V720 EXAMINATION 09-14-2011 CHRISTIAN FAY OF EYES AND VISION 42930 UNSPECIFIED 05-31-2011 FAUGHN DYSON CONJUNCTIVI TIS V1582 PERS HX 05-16-[address] TOBACCO USE HEALTH PRESENTING DEPARTMENT HAZARDS HEALTH V2549 SURVEILLANC 05-16-[address] E OTH PREV HEALTH PRSC DEPARTMENT CONTRACEPT METHOD 1519 ACUTE URIS 03-17-2011 [facility] OF UNSPECIFIED SITE 81415 ASTHMA, 03-17-2011 [facility] UNSPECIFIED , UNSPECIFIED STATUS 7821 RASH AND 03-17-2011 [facility] OTHER NONSPECIFIC SKIN ERUPTION 71540 UNSPECIFIED 02-28-2011 [facility] VAGINITIS AND VULVOVAGINI TIS 2662 OTHER 01-25-2011 [facility] B-COMPLEX HEALTH DEFICIENCIE DEPARTMENT S V2509 OTH GENERAL 01-25-[address] HEALTH CNSL&ADVICE DEPARTMENT CONTRACEPT MANAGEMENT V850 BODY MASS 01-25-2011 [facility] INDEX LESS HEALTH THAN 19 DEPARTMENT ADULT 5210 DENTAL 01-18-2011 KHUSHI DMD CARIES RELIGION 605 REDUNDANT 03-16-2010 [facility] PHIMOSIS 30400 POOR 03-16-2010 [facility] AFFECT [facility]INIC OF MANAGEMENT ASHLEY MOTH DELIV 80197 OLIGOHYDRAM 03-16-2010 [facility], HEALTH DELIVERED CLINIC OF ASHLEY V3000 SINGLE 03-16-2010 [facility] LIVEBORN ANDALUSIA HEALTH W/O 76271 POOR 03-14-2010 [facility] MGMT HEALTH MOTH CLINIC OF ANTPRMELI ASHLEY COND/COMP 6259 UNSPEC 12-23-2009 [facility] SYMPTOM PHYSICIAN ASSOC GROUP PCC W/FEMALE GENITAL ORGANS 7048 OTHER 09-28-2009 [facility] DISEASE OF PEDIA HAIR&HAIR FOLLICLES V642 SURG/OTH 08-23-2009 [facility] PROC NOT [facility] CARRIED OUT INC BECAUSE PTS DECN 1121 CANDIDIASIS 08-02-2009 PATHOLOGY & OF VULVA CYTOLOGY AND VAGINA LAB V745 SCREENING 08-02-2009 PATHOLOGY & EXAMINATION CYTOLOGY FOR LAB VENEREAL DISEASE 462 ACUTE 03-05-2009 [facility] V259 UNSPECIFIED 03-05-2009 [facility] CONTRACEPTI PEDIA VE MANAGEMENT V700 ROUTINE 03-05-2009 [facility] MEDICAL PEDIA EXAM@HEALTH CARE FACL V7388 SPECIAL SCR 03-05-2009 [facility] EXAMINATION PEDIA OTH SPEC CHLAMYDIAL DZ 7881 DYSURIA 01-05-2009 [facility] 7840 HEADACHE 12-21-2008 [facility] PEDIA V202 ROUTINE 12-04-2008 [facility] SERV CHILD FOUNDATIO HEALTH CHECK V7231 ROUTINE 10-27-2008 [facility] OF EXAMINATION [facility] 6235 LEUKORRHEA 08-06-2008 [facility] SPECIFIED PEDIA INFECTIVE 7862 COUGH 07-22-2008 [facility] PEDIA 7295 PAIN IN 01-27-2008 [facility] SOFT SERV TISSUES OF FOUNDATIO LIMB 7296 RESIDUAL 01-27-2008 [facility] BODY IN PEDIA SOFT TISSUE 8830 OPEN WOUND 01-27-2008 [facility] WITHOUT MENTION COMPLICATIO N 8831 OPEN WOUND 01-27-2008 [facility] COMPLICATED 9156 FINGER SUP 01-27-2008 [facility] FB W/O LACI SERV OPEN FOUNDATIO WOUND&W/O MENTION INF E9179 OTHER 01-27-2008 [facility] STRIKING SERV AGAINST FOUNDATIO W/WO SUBSEQUENT FALL 97740 HEAD 11-21-2007 [place] [facility] UNSPECIFIED PEDIA 6918 OTHER 08-03-2005 [facility] DERMATITIS PEDIA AND RELATED CONDITIONS Medications Na [...] 1 36 PH CE AR TA MA PR CY NO PH #[phone]. [phone] [...] PL CY ET # 10 04 93 OH 00 07 07 4 10 30 70 [...] S CA #4 RO 93 LY N OH 00 11 11 00 30 30 70 [...] Procedures Procedure DOS Code Location Performer Comment 89976 [facility] RODRIGEZ TRANSVAGI 7 [facility] NAL INC INC URINE 01487 [facility] FAN 7 PHYSICIAN TEST S GROUP VISUAL COLOR CMPRSN METHS INSERTION 13575 [facility] MENG 7 PHYSICIAN INTRAUTER S GROUP INE DEVICE IUD LEVONORGE J7298 [facility] MENG STREL-RLS 7 PHYSICIAN S GROUP INTRAUTER INE NETTA SYS 52 MG CYTP C/V 67026 [facility], AUTO THIN 7 [employer] LYR PREPJ SCR MNL RESCR PHYS COLLECTIO 47967 [facility] R[facility] N VENOUS 7 [facility] BLOOD INC INC VENIPUNCT URE BLOOD 78669 [facility] COUNT 7 [facility] COMPLETE INC INC AUTO&AUTO DIFRNTL WBC VAGINAL 60088 [facility] FAN DELIVERY 7 PHYSICIAN ONLY S GROUP W/POSTPAR ENIO CARE NEURAXIAL 38599 [facility] FEEBACK LABOR 7 ANESTH ANALG/ANE OF THE S PLND BLUE VAGINAL DELIVERY DELIVERY [id number] [facility] R[facility] PRODUCTS 7 [facility] OF INC INC CONCEPTIO N EXTERNAL REPAIR [id number] [facility] PERINEUM 7 [facility] SKIN INC INC EXTERNAL APPROACH 86784 [facility] ANTHONYPEL NONSTRESS 7 PHYSICIAN TEST S GROUP 20748 [facility] MENG NONSTRESS 7 PHYSICIAN TEST S GROUP PARTICLE 04858 [facility] R[facility] AGGLUTINA 7 [facility] TION INC INC SCREEN EACH ANTIBODY EVAL C/V 11206 [facility] AMNIOTIC 7 [facility] FLUID INC INC PROTEIN QUAL EA SPECIMEN 11407 [facility] NONSTRESS 7 [facility] TEST INC INC URNLS DIP 15780 [facility] RODRIGEZ 7 [facility] STICK/TAB INC INC LET REAGENT AUTO MICROSCOP Y CULTURE 25619 [facility] BACTERIAL 7 [facility] INC INC QUANTTATI VE COLONY COUNT URINE OPHTH 53070 [facility] 7 XM&EVAL COMPRHNSV ESTAB PT 1/> FRAMES V2020 ALISSON ALISSON PURCHASES 7 SPHERE V2100 ALISSON VINSON SINGLE 7 VISION PLANO +/- 4.00 PER LENS GLUCOSE 77044 [facility] POST 7 PHYSICIAN PHYSICIAN GLUCOSE S GROUP S GROUP DOSE SMR PRIM 24625 [facility] AFN SRC WET 7 PHYSICIAN [place] S GROUP NFCT AGT US PREG 76927 [facility] UTERUS 7 [facility] W/DETAIL INC INC URSULA 1ST GESTATION URNLS DIP 00608 [facility]Z 6 [facility] STICK/TAB INC INC LET REAGENT AUTO MICROSCOP Y CULTURE 58952 [facility] BACTERIAL 6 [facility] INC INC QUANTTATI VE COLONY COUNT URINE BASIC 46685 [facility] METABOLIC 6 [facility] PANEL INC INC CALCIUM TOTAL BLOOD 35281 [facility] COUNT 6 [facility] COMPLETE INC INC AUTO&[place] [address] [facility] INFUSION 6 [facility] THERAPY/P INC INC ROPHYLAXI S /DX 1ST TO 1 HR COLLECTIO 80633 [facility] R[facility] N VENOUS 6 [facility] BLOOD INC INC VENIPUNCT URE OBSTETRIC 75823 [facility] PANEL 6 [facility] INC INC INF AGT G0432 [facility] AB DETECT 6 [facility] EIA TECH INC INC HIV-1&/HI V-2 SCR US PREG 81648 [place] TIDWELL ALL UTERUS 6 MEDICAL REAL TIME IMAGING W/IMAGE ASS DCMTN TRANSVAG URINE 07994 [facility] FAN 6 PHYSICIAN JC TEST S GROUP VISUAL COLOR CMPRSN METHS DRUG TST G0477 [facility] FAN PRESUMP;C 6 PHYSICIAN JC PBL BEING S GROUP READ DC OPT OBV ONLY CYTP C/V 44800 [facility], [facility] AUT[facility] THIN 6 LLC LLC LYR PREPJ SCR MNL RESCR PHYS IADNA 11061 [facility], [facility], NEISSERIA 6 [facility] GONORRHOE AE AMPLIFIED PROBE TQ IADNA 92220 [facility], CHLAMYDIA 6 [facility] LLC TRACHOMAT IS AMPLIFIED PROBE TQ BLOOD 26502 [facility] COUNT 6 [facility] COMPLETE INC INC AUTO&[place] [address] [facility] ABDOMEN & 6 [facility] PELVIS INC INC W/O CONTRAST MATERIAL URNLS DIP 52420 [facility]EZ 6 [facility] STICK/TAB INC INC LET REAGENT AUTO MICROSCOP Y COMPREHEN 07298 [facility] SIVE 6 [facility] METABOLIC INC INC PANEL SUSCEPTIB 58955 [facility] LTY STDY 6 [facility] ANTIMICRB INC INC IAL MICRO/AGA R DILUTJ CULTURE 63173 [facility] BCT 6 [facility] ISOL&PRSM INC INC PTV ID ISOLATE EA URINE URINE 48170 [facility] 6 [facility] TEST INC INC VISUAL COLOR CMPRSN METHS CULTURE 60988 [facility] BACTERIAL 6 [facility] INC INC QUANTTATI VE COLONY COUNT URINE IAADIADOO [address] [facility] IAADIADOO [address] [place] [address] INFLUENZA IAADIADOO 39329 [facility] ISRA 5 [facility] CCUS GROUP A RADIOLOGI 62669 [facility] C EXAM 5 MEDICAL JOLIE CHEST 2 IMAGING VIEWS ASS FRONTAL&[place] [address] [facility] STREPTOCO 5 [facility] CCUS INC INC GROUP A CUL BACT 12464 [facility] XCPT 5 [facility] URINE INC INC BLOOD/STO OL AEROBIC ISOL URINE 93890 [facility] RODRIGEZ 5 [facility] TEST INC INC VISUAL COLOR CMPRSN METHS URNLS DIP 42800 [facility]EZ 5 [facility] STICK/TAB INC INC LET REAGENT AUTO MICROSCOP Y IAADI 39323 [facility] R[facility] INFLUENZA 5 [facility] B VIRUS INC INC IAADI 61159 ELIADUANE RODRIGEZ INFFLUENZ 5 [facility] A A VIRUS INC INC OPHTH 44682 [facility] SCIFRES MEDICAL 5 ANG ANG XM&EVAL COMPRE NEW PT 1/> VST CYTP C/V 24299 [facility], [facility] THIN 5 LLC LLC LYR PREPJ SCR MNL RESCR PHYS VAGINAL 69124 [facility] FAN DELIVERY 4 PHYSICIAN JC ONLY S GROUP W/POSTPAR ENIO CARE NEURAXIAL 85217 [facility] MAYELIN LABOR 4 ANESTH THERESA ANALG/ANE OF THE S PLND BLUE VAGINAL DELIVERY REPAIR OF 7569 ELIA RODRIGEZ OTHER 4 [facility] CURRENT INC INC OBSTETRIC LACERATIO N 33833 [facility] NONSTRESS 4 PHYSICIAN PHYSICIAN TEST S GROUP S GROUP CUL BACT 80190 COMBINED COMBINED XCPT 4 PHYSICIAN PHYSICIAN URINE S LA S LA BLOOD/STO OL AEROBIC ISOL CULTURE 59926 [facility] BACTERIAL 4 [facility] INC INC QUANTTATI VE COLONY COUNT URINE 84424 [facility] NONSTRESS 4 [facility] TEST INC INC URNLS DIP 70527 [facility] R[facility]RIGEZ 4 [facility] STICK/TAB INC INC LET REAGENT AUTO MICROSCOP Y FTL 91034 [facility] R[facility] FIBRONECT 4 [facility] IN INC INC CERVICOVA G SECRETION S SEMI-REY EVAL C/V 53467 [facility] AMNIOTIC 4 [facility] FLUID INC INC PROTEIN QUAL EA SPECIMEN FTL 20959 [facility] FIBRONECT 4 [facility] IN INC INC CERVICOVA G SECRETION S SEMI-REY RADEX 21900 [place] BEINE ANKLE 4 MEDICAL JOLIE COMPLETE IMAGING MINIMUM 3 ASS VIEWS 91022 [facility] R[facility]EZ NONSTRESS 4 [facility] TEST INC INC GLUCOSE 70489 [facility] RODRIGE[facility] TOLERANCE 4 [facility] TEST GTT INC INC 3 SPECIMENS URNLS DIP 61209 [facility] R[facility]RIGEZ 4 [facility] STICK/TAB INC INC LET RGNT NON-AUTO W/O MICRSCP GLUCOSE 45546 [facility] RODRIGEZ TOLERANCE 4 [facility] EA ADDL INC INC BEYOND 3 SPECIMENS GLUCOSE 58092 MENG FAN TOLERANCE 4 JC JC TEST GTT 3 SPECIMENS US PREG 73375 MENG FAN UTERUS 4 JC JC AFTER 1ST TRIMEST / GESTATION EVAL C/V 02039 [facility] R[facility]RIGE[facility] AMNIOTIC 4 [facility] FLUID INC INC PROTEIN QUAL EA SPECIMEN URNLS DIP 57899 [facility] R[facility]RIGEZ 4 [facility] STICK/TAB INC INC LET REAGENT AUTO MICROSCOP Y CULTURE 89382 [facility] R[facility] BACTERIAL 4 [facility] INC INC QUANTTATI VE COLONY COUNT URINE US PREG 05326 MENG FAN UTERUS 4 JC JC REAL TIME W/IMAGE DCMTN TRANSVAG URINE 93837 MENG FAN 4 JC JC TEST VISUAL COLOR CMPRSN METHS CUL BACT 19773 COMBINED COMBINED XCPT 4 PHYSICIAN PHYSICIAN URINE S LA S LA BLOOD/STO OL AEROBIC ISOL ANTIBODY 49478 COMBINED COMBINED CHLAMYDIA 4 PHYSICIAN PHYSICIAN S LA S LA IADNA 37368 [place] CHL[address] [employer] [facility] TRACHOMAT DEPARTMEN DEPARTMISSISSIPPI [facility] IS T T AMPLIFIED PROBE TQ URINE [address] [place] [address] [employer] TEST VISUAL DEPARTMEN DEPARTMEN COLOR T T CMPRSN METHS IADNA 47901 [place] NEISSERIA 4 [facility] GONORRHOE DEPARTMEN DEPARTMISSISSIPPI [facility] AE T T AMPLIFIED PROBE TQ DETERMINA 13776 [facility] TION 3 THERESA THERESA REFRACTIV E STATE OPHTH 44253 [facility] MEDICAL 3 THERESA THERESA XM&EVAL COMPRE NEW PT 1/> VST FRAMES V2020 [facility] PURCHASES 3 THERESA THERESA SPHERE V2100 [facility] SINGLE 3 THERESA THERESA VISION PLANO +/- 4.00 PER LENS FITTING 75497 [facility] SPECTACLE 3 THERESA THERESA S XCPT [facility] [employer] 38284 [facility] PROVIDED 3 OFFICE OTH/THN REG SCHED HOURS FRAMES V2020 ANAHI APONTE PURCHASES 2 OPHTH 33302 ANAHI APONTE MEDICAL 2 XM&EVAL COMPRE NEW PT 1/> VST DETERMINA 06176 ANAHI APONTE TION 2 REFRACTIV E STATE FITTING 14393 ANAHI APONTE SPECTACLE 2 S XCPT APHAKIA MONOFOCAL SPHERE V2100 ANAHI APONTE SINGLE 2 VISION PLANO +/- 4.00 PER LENS PRESSURIZ 25408 [facility] ED/NONPRE 1 SSURIZED INHALATIO N TREATMENT IADNA 85495 [place] [address] [employer]RHOE [facility] AE T T AMPLIFIED PROBE TQ CONTRACEP A4267 [place] [facility] [address] [facility] CONDOM DE[facility] MALE EACH T T IADNA 04167 [place] B[facility] CHLAMYDIA [address] [facility] [employer] TRACHOMAT [facility] IS T T AMPLIFIED PROBE TQ WET Q0111 [place] [facility] AYO [address] [facility] PREP VAGINAL [facility] CERV/SKIN T T SPECIMENS CONTRACEP J7303 [place] T SUPPLY [address] [facility] G VAG T T RING EA ANALGESIA D9230 KHUSHI DMD KHUSHI DMD 1 [facility] ANXIOLYSI S INHALATIO N OF NITROUS OXIDE ANALGESIA D9230 KHUSHI DMD KHUSHI DMD 1 RELIGION RELIGION ANXIOLYSI S INHALATIO N OF NITROUS OXIDE ANALGESIA D9230 KHUSHI DMD KHUSHI DMD 1 RELIGION RELIGION ANXIOLYSI S INHALATIO N OF NITROUS OXIDE ANALGESIA D9230 KHUSHI DMD KHUSHI DMD 1 [facility] ANXIOLYSI S INHALATIO N OF NITROUS OXIDE [facility] [address] [facility] DISCHARGE 0 CARE DAY ASSOCIATE MANAGEMEN S T 30 MIN/< SUBQ 63980 [facility] HOSPITAL 0 CARE CARE PER ASSOCIATE DAY E/M S NORMAL CIRCUMCIS 38060 [facility] ION 0 CARE W/CLAMP/O ASSOCIATE DEV S W/BLOCK 1ST 28264 [facility] 0 CARE [facility] S CARE PER DAY NML NB VAGINAL 30108 [facility] DELIVERY 0 [facility] ONLY [facility] NEURAXIAL 15177 [facility] LABOR 0 ANESTH ANALG/ANE OF THE S PLND BLUE VAGINAL DELIVERY REPAIR OF 7569 ELIA RODRIGEZ OTHER 0 [facility] CURRENT INC [place] PREG 40218 [facility] FAN UTERUS 0 [facility] REAL TIME CLINIC OF F/U [facility] TRNSABDL PER FETUS DOPPLER 11723 WOM[facility] F[facility] VELOCIMET 0 [facility] RY [facility] UMBILICAL [place] ARTERY 73560 [facility] FAN BIOPHYSIC 0 [facility] AL CLINIC OF PROFILE [place] W/O NON-STRES S TESTING CULTURE 69165 ELIA RODRIGEZ BACTERIAL 0 [facility] INC INC QUANTTATI VE COLONY COUNT URINE URNLS DIP 65504 EL[facility] RODRIGEZ 0 [facility] STICK/TAB INC INC LET REAGENT AUTO MICROSCOP Y 05425 ELIA RODRIGEZ NONSTRESS 0 [facility] [place] 41387 [facility] UTERUS 0 [facility] REAL TIME [facility]IN[facility] OF F/U [place] TRNSABDL PER FETUS DOPPLER 07597 [facility] FAN VELOCIMET 0 [facility]MBIL[facility] [place] ARTERY 05566 [facility]'S FAN BIOPHYSIC 0 [facility] AL [facility]IN[facility] OF PROFILE [place] W/O NON-STRES S TESTING 79563 [facility] FAN BIOPHYSIC 0 [facility] AL CLINIC OF PROFILE [place] W/O NON-STRES S TESTING DOPPLER 14914 [facility] VELOCIMET 0 [facility] [place] PREG 07638 [facility] F[facility] UTERUS 0 [facility] REAL TIME CLINIC OF F/U [place] TRNSABDL PER FETUS DOPPLER 90712 WOMEN'S WOMEN'S VELOCIMET 0 HEALTH HEALTH RY [facility] [address] WOMEN'S FAN 0 HEALTH [facility] UTERUS CLINIC OF LIMITED [facility] 1/> FETUSES 74359 WOMEN'S FAN BIOPHYSIC 0 [facility] OF PROFILE [place] W/O NON-STRES S TESTING CUL BACT 05651 COMBINED COMBINED XCPT 0 PHYSICIAN PHYSICIAN URINE S LA S LA BLOOD/STO OL AEROBIC ISOL DOPPLER 93676 [facility]OMEN'S FAN VELOCIMET 0 [facility] UMBILICAL [place] ARTERY US PREG 71285 [facility] UTERUS 0 [facility] REAL TIME [facility]IN[facility] OF F/U [place] TRNSABDL PER FETUS 57013 [facility]'S [facility] BIOPHYSIC 0 [facility] OF PROFILE [place] W/O NON-STRES S TESTING 35430 [facility] BIOPHYSIC 0 [facility] OF PROFILE [place] W/O NON-STRES S TESTING US PREG 26531 [facility] UTERUS 0 [facility]IN[facility] OF F/U [place] TRNSABDL PER FETUS DOPPLER 14392 [facility]OMEN'S [facility]AN VELOCIMET 0 [facility]MBIL[facility] [place] ARTERY GLUCOSE 77147 WOMEN'S FAN TOLERANCE 0 [facility] TEST GTT CLINIC OF 3 [place] SPECIMENS GLUCOSE 37043 WOMEN'S FAN POST 0 [facility] GLUCOSE CLINIC OF DOSE [place] URINLS 57753 [facility] DIP 0 PHYSICIAN RAMIRO STICK/TAB GROUP LET PCC REAGNT NON-AUTO MICRSCPY URINALYSI 11595 [facility] S 0 PHYSICIAN RAMIRO MICROSCOP GROUP IC ONLY [place] PREG 64638 [facility], UTERUS 0 HEALTH ERVIN [place] AFTER CLINIC OF TR[facility]ST [place] [facility] URNLS DIP 63511 EL[facility] VILLAON 0 [facility] STICK/TAB INC INC LET REAGENT AUTO MICROSCOP Y [place] PREG 28842 [facility]OMEN'S FAN, UTERUS 0 HEALTH ERVIN J REAL TIME CLINIC OF W/IMAGE DCMTN [place] TRANSV[facility] IADNA 35310 PATHOLOGY PATHOLOGY CHLAMYDIA 0 & & CYTOLOGY CYTOLOGY TRACHOMAT LAB LAB IS AMPLIFIED PROBE TQ CYTP C/V 83487 PATHOLOGY PATHOLOGY AUTO THIN 0 & & LYR CYTOLOGY CYTOLOGY PREPJ SCR LAB LAB MNL RESCR PHYS IADNA 42904 PATHOLOGY PATHOLOGY NEISSERIA 0 & & CYTOLOGY CYTOLOGY GONORRHOE LAB LAB AE AMPLIFIED PROBE TQ MOLECULAR 83889 MOLECULAR MOLECULAR DX AMP 0 TARGET PATHOLOGY PATHOLOGY MULTIPLEX LAB LAB 1ST 2 NETWORK NETWORK SEQ INC INC MOLECULAR 04050 MOLECULAR MOLECULAR 0 DIAGNOSTI PATHOLOGY PATHOLOGY CS LAB LAB INTERPRET NETWORK NETWORK ATION & INC INC REPORT MUTATION 85531 MOLECULAR MOLECULAR ID 0 ENZYMATIC PATHOLOGY PATHOLOGY LAB LAB LIG/PRIME NETWORK NETWORK R XTN 1 INC INC SGM EA MOLECULAR 08415 MOLECULAR MOLECULAR DX AMP 0 TARGET PATHOLOGY PATHOLOGY MULTIPLEX LAB LAB EA ADDL NETWORK NETWORK SEQ INC INC MOLEC 23036 MOLECULAR MOLECULAR SEP&ID HI 0 RESOLU PATHOLOGY PATHOLOGY TQ EACH LAB LAB NUCLEIC NETWORK NETWORK ACID PREP INC INC MOLEC 31452 MOLECULAR MOLECULAR ISOL/XTRJ 0 HP PATHOLOGY PATHOLOGY NUCLEIC LAB LAB ACID EA NETWORK NETWORK TYPE INC INC IADNA 89423 [facility] CHLAMYDIA 9 Y Y [facility] TRACHOMAT IS AMPLIFIED PROBE TQ IADNA 45557 [facility] NEISSERIA 9 Y Y [facility] GONORRHOE AE AMPLIFIED PROBE TQ IADNA 71310 [facility] NEISSERIA 9 Y Y HOSPITAL HOSPITAL GONORRHOE AE AMPLIFIED PROBE TQ IADNA 60985 [facility] CHLAMYDIA 9 Y Y [facility] TRACHOMAT IS AMPLIFIED PROBE TQ IAADIADOO 91077 [facility] 9 Y OF PARCELLS STRE[facility]OCO [facility] CCUS PEDIA GROUP A URINE 98670 [facility] 9 Y OF [place] TEST [place] CAR VISUAL PEDIA COLOR CMPRSN METHS CUL BACT 32310 [facility] XCPT 9 Y Y URINE [facility] BLOOD/STO OL AEROBIC ISOL OPHTH 25479 [facility] LD, XM&EVAL KYLAH J INTERMEDI ATE ESTAB PT URNLS DIP 63911 [facility] 9 Y OF ENRIQUE STICK/TAB [place] LET RGNT PEDIA NON-AUTO W/O MICRSCP IAADIADOO 81146 [facility] 9 Y OF JR CAR STREPTOCO [place] CCUS PEDIA GROUP A IADNA 79574 PATHOLOGY PATHOLOGY NEISSERIA 9 & & CYTOLOGY CYTOLOGY GONORRHOE LAB LAB AE AMPLIFIED PROBE TQ CYTP C/V 26504 PATHOLOGY PATHOLOGY AUTO THIN 9 & & LYR CYTOLOGY CYTOLOGY PREPJ SCR LAB LAB MNL RESCR PHYS IADNA 85483 PATHOLOGY PATHOLOGY CHLAMYDIA 9 & & CYTOLOGY CYTOLOGY TRACHOMAT LAB LAB IS AMPLIFIED PROBE TQ URNLS DIP 36701 [facility] 9 Y Y STICK/TAB HOSPITAL HOSPITAL LET REAGENT AUTO MICROSCOP Y IAADIADOO 85261 [facility] 9 Y [facility] CCUS PEDIA GROUP A INCISION 03357 [place] ECKERLINE & REMOVAL 8 MEDICAL , C A FOREIGN SERV BODY SUBQ FOUNDATIO TISS SIMPLE RADEX 82288 [place] HAIM, FINGR 8 MEDICAL SANTANA G MINIMUM 2 SERV VIEWS FOUNDATIO SPHERE V2100 [facility], SINGLE 8 Y OPTICAL WARD R VISION PLANO +/- 4.00 PER LENS FITTING 30759 [facility], SPECTACLE 8 Y OPTICAL WARD R S XCPT APHAKIA MONOFOCAL FRAMES V2020 [facility], PURCHASES 8 Y OPTICAL WARD R OPHTH [address] LD, XM&EVAL [place]LAH ARANA ATE NEW PT Encounters Encounter Start End Date Code Location Performer Type Date OFFICE 15156 [facility] OUTPATIEN 7 7 PHYSICIAN T VISIT S GROUP 15 MINUTES [facility]OSP[facility] - 7 7 [facility] T OFFICE [facility]08 [facility]PAT[facility] 7 7 PHYSICIAN T VISIT S GROUP 15 MINUTES [facility]OSP[facility] EL[facility] - 7 7 [facility] OUTPATIEN INC T [facility] - 7 7 [facility] INPATIENT INC OFFICE 86516 [facility] FAN OUTPATIEN 7 7 PHYSICIAN T VISIT S GROUP [address]ES [address] [facility] FAN OUTPATIEN 7 7 PHYSICIAN T VISIT S GROUP [address] [facility] FAN OUTPATIEN 7 7 PHYSICIAN T VISIT S GROUP 15 MINUTES HOSPITAL [facility] - 7 7 [facility]PATIEN INC T OFFICE 56871 [facility] FAN OUTPATIEN 7 7 PHYSICIAN T VISIT S GROUP 15 MINUTES HOSPITAL [facility] - 7 7 [facility] OUTPATIEN INC T OFFICE 28083 [facility] FAN OUTPATIEN 7 7 PHYSICIAN T VISIT S GROUP [address]ES [address] [facility] FAN OUTPATIEN 7 7 PHYSICIAN T VISIT S GROUP [address] [address] [facility] FAN OUTPATIEN 7 7 PHYSICIAN T VISIT S GROUP [address] [address] [facility] FAN OUTPATIEN 7 7 PHYSICIAN T VISIT S GROUP [address] [address] [facility] FAN OUTPATIEN 7 7 PHYSICIAN T VISIT S GROUP [address] [facility] FAN OUTPATIEN 7 7 PHYSICIAN T VISIT S GROUP 15 MINUTES HOSPITAL EL[facility] - 7 7 [facility] OUTPATIEN INC T OFFICE [address]888 [facility] FAN OUTPATIEN 6 6 PHYSICIAN T VISIT S GROUP 15 MINUTES EMERGENCY 48644 ELIA 6 6 [facility] DEPARTMEN INC T VISIT HIGH/URGE NT SEVERITY [facility]OSPITAL [facility] - 6 6 [facility] OUTPATIEN INC T OFFICE 18669 [facility] FAN OUTPATIEN 6 6 PHYSICIAN JC T VISIT S GROUP 15 MINUTES HOSPITAL [facility] - 6 6 [facility] OUTPATIEN INC T OFFICE 96980 [facility] FAN OUTPATIEN 6 6 PHYSICIAN JC T VISIT S GROUP 15 MINUTES HOSPITAL EL[facility] - 6 6 [facility] OUTPATIEN INC T OFFICE 37433 [facility] FAN OUTPATIEN 6 6 PHYSICIAN JC T VISIT S GROUP 25 MINUTES HOSPITAL EL[facility] - 6 6 [facility] OUTPATIEN INC T EMERGENCY 51124 [facility] 6 6 [facility] DEPARTMEN INC T VISIT LOW/MODER SEVERITY EMERGENCY 54712 DWAIN LE 6 6 PHYSICIAN SBLeti GREGORIOMEN S, [facility] T VISIT HIGH/URGE NT SEVERITY OFFICE 28866 [facility] OUTPATIEN 6 6 T VISIT 15 MINUTES OFFICE 28316 ELIA ISRA OUTPATIEN 6 6 [facility] 25 MINUTES OFFICE 71306 [facility] OUTPATIEN 6 6 HEALTH LA ENRIQUE T VISIT MEDICAL 15 GROUP MINUTES OFFICE 25906 [facility] OUTPATIEN 6 6 T VISIT 15 MINUTES OFFICE 55784 [facility] OUTPATIEN 5 5 T VISIT 15 MINUTES OFFICE 43459 [facility] OUTPATIEN 5 5 T VISIT 15 MINUTES OFFICE 10655 ELIA DHALIWAL OUTPATIEN 5 5 [facility] MINUTES EMERGENCY 81989 DWAIN TILLEY DEPT 5 5 PHYSICIAN [place] VISIT S, [facility] HIGH SEVERITY& [facility] OUTPATIEN INC T EMERGENCY 80740 EL[facility] 5 5 [facility] DEPARTMEN INC T VISIT LOW/MODER SEVERITY HOSPITAL [facility] - 4 4 [facility] INPATIENT INC OFFICE 36322 FAN FAN OUTPATIEN 4 4 JC JC T VISIT 15 MINUTES OFFICE 14977 FAN FAN OUTPATIEN 4 4 JC JC T VISIT 15 MINUTES HOSPITAL ELIA - 4 4 [facility] OUT[facility] INC T OFFICE 13266 FAN FAN OUTPATIEN 4 4 JC JC T VISIT 15 MINUTES OFFICE 05923 FAN FAN OUTPATIEN 4 4 JC JC T VISIT 15 MINUTES HOSPITAL ELIA - 4 4 [facility] OUTPATIEN INC T OFFICE 44958 FAN FAN OUTPATIEN 4 4 JC JC T VISIT 15 MINUTES EMERGENCY 48797 STACEY IBARRA 4 4 IMT IMT DEPARTMEN T VISIT MODERATE SEVERITY HOSPITAL EL[facility] - 4 4 [facility] OUTPATIEN INC T OFFICE 96618 FAN FAN OUTPATIEN 4 4 JC JC T VISIT 15 MINUTES OFFICE 40336 FAN FAN OUTPATIEN 4 4 JC JC T VISIT 15 MINUTES HOSPITAL ELIA - 4 4 [facility] OUTPATIEN INC T OFFICE 00314 FAN FAN OUTPATIEN 4 4 JC JC T VISIT 5 MINUTES OFFICE 85066 FAN FAN OUTPATIEN 4 4 JC JC T VISIT 15 MINUTES OFFICE 80985 FAN FAN OUTPATIEN 4 4 JC JC T VISIT 15 MINUTES EMERGENCY 38311 ELIA 4 4 [facility] DEPARTMEN INC T VISIT LOW/MODER SEVERITY EMERGENCY 36978 TREVA TIL[place] 4 4 [place] DEPARTMEN T VISIT HIGH/URGE NT SEVERITY HOSPITAL ELIA - 4 4 [facility] OUTPATIEN INC T OFFICE 24361 FAN FAN OUTPATIEN 4 4 JC JC T VISIT 15 MINUTES OFFICE 70211 FAN FAN OUTPATIEN 4 4 JC JC T VISIT 15 MINUTES OFFICE 11118 FAN FAN OUTPATIEN 4 4 JC JC T NEW 45 MINUTES OFFICE 67678 [facility] [address] [facility] T VISIT 15 DEPARTMEN DEPARTMEN MINUTES T T OFFICE 80613 [facility] OUTPATIEN 3 3 T VISIT 15 MINUTES EMERGENCY 00556 YAHAIRA CAM 3 3 EMERGENCY RAE DEPARTMEN SERVICES T VISIT MODERATE SEVERITY OFFICE 68406 DAVID OSORIO OUTPATIEN 2 2 T NEW 45 MINUTES EMERGENCY 41185 NANCY CRUZ 2 2 DYSON DYSON DEPARTMEN T VISIT MODERATE SEVERITY OFFICE 24864 [facility] [address] [facility] T VISIT 10 DEPARTMEN DEPARTMEN MINUTES T T EMERGENCY 41357 SABRINA BENNETT 1 1 [facility] DEPARTMEN T VISIT HIGH/URGE NT SEVERITY OFFICE 71295 [facility] 1 T VISIT 15 MINUTES OFFICE 33213 [facility] 1 1 T NEW 30 MINUTES INITIAL 33020 [facility] PREVENTIV [address] [facility] E [facility] PT T T AGE 12-17 YR [facility] EL[facility] - 0 0 [facility] INPATIENT [facility] ELIA - 0 0 [facility] OUTPATIEN INC T OFFICE 82417 [facility] OUTPATIEN 0 0 [facility]ALTH [facility] T VISIT CLINIC OF 15 [place] MINUTES OFFICE 90925 [facility] F[facility] OUTPATIEN 0 0 HEALTH [facility] T VISIT CLINIC OF 10 [place] MINUTES OFFICE 65493 [facility] F[facility] OUTPATIEN 0 0 [facility]ALTH [facility] T VISIT CLINIC OF 15 [place] MINUTES OFFICE 49548 [facility] F[facility] OUTPATIEN 0 0 HEALTH J[facility] T VISIT CLINIC OF 15 [place] MINUTES OFFICE 81214 [facility] F[facility] OUTPATIEN 0 0 HEALTH [facility] T VISIT CLINIC OF 15 [place] MINUTES OFFICE 64110 [facility] F[facility] OUTPATIEN 0 0 HEALTH [facility] T VISIT 5 CLINIC OF MINUTES [facility] OFFICE 50474 [facility] OUTPAT[facility] 0 0 PHYSICIAN RAMIRO T VISIT GROUP 15 PCC MINUTES OFFICE 89215 [facility] OUTPATIEN 0 0 HEALTH [facility] T VISIT CLINIC OF 15 [place] MINUTES OFFICE 98833 [facility], OUTPATIEN 0 0 HEALTH ERVIN J T VISIT CLINIC OF 15 MINUTES [facility] OFFICE 87368 WOMEN'S FAN, OUTPATIEN 0 0 HEALTH ERVIN J T VISIT CLINIC OF 15 MINUTES [facility] OFFICE 23123 [facility] L[facility]- OUTPATIEN 0 0 Y OF PARCELLS T VISIT [place] CAR 15 PEDIA MINUTES OFFICE 71067 [facility], OUTPATIEN 0 0 HEALTH ERVIN J T VISIT CLINIC OF 15 MINUTES [facility] OFFICE 42710 WOMEN'S FAN, OUTPATIEN 0 0 HEALTH ERVIN J T VISIT CLINIC OF 15 MINUTES [facility] ELIA - 0 0 [facility] OUTPATIEN INC T EMERGENCY 68392 ELIA 0 0 [facility] DEPARTMEN INC T VISIT LIMITED/M INOR [facility] UNIVERSIT - 9 9 [facility] 9 9 Y OUTPATI HOSPITAL T PERIODIC 26880 UN[facility]ERSIT LENVINCENTSCH- PREVENTIV 9 9 Y OF PARCELLS E MED EST [place] CAR PATIENT PEDIA 12-17YRS OFFICE 30841 [facility] Y OF ENRIQUE T VISIT [place] 15 PEDIA MINUTES [facility]OSPITAL [facility] 06312 [facility] Y OF JR CAR T VISIT [place] 15 PEDIA MINUTES PERIODIC 85315 [facility]OME[facility] PREVENTIV 9 9 MEDICAL NESTOR H E MED EST SERV PATIENT FOUNDATIO 12-17YRS INITIAL 53576 WOMEN'S MENG, PREVENTIV 9 9 [facility] NEW PT [place] A[place] 12-17 PLL YR OFFICE 88150 [facility] 9 Y OF DON T VISIT [place] 15 PEDIA MINUTES HOSPITAL [facility]ERS[facility] - 9 [facility] 04240 [facility] Y OF ROMÁN T VISIT [place] 15 PEDIA MINUTES OFFICE 21432 [facility] 8 Y OF [place] T VISIT [place] 15 PEDIA MINUTES EMERGENCY 04653 [place] ECKERLINE 8 8 MEDICAL , C A DEPARTMEN SERV T VISIT [facility] MODERATE SEVERITY HOSPITAL [facility]ERSIT - 8 [facility] PERIODIC 08588 UNIVERSIT ZAHRA APARICIO PREVENTIV 8 8 Y OF E MED EST [place] PATIENT PEDIA 12-17YRS OFFICE 10504 [facility] 8 Y OF RHY T VISIT [place] 15 PEDIA MINUTES INITIAL 76925 [facility] PET PREVENTIV 6 6 Y OF E [place] MEDICINE ORAL ESTES PT AGE 12-17 YR
--- OUTSIDE RECORDS SUMMARY | 2017-02-21 21:06 | External Medical Summary Rpt ---
Author Author , PRERNA Hobbs PRERNA Address Unknown Phone [email or web address] [employer] Care Team Providers Care Bench Worker Name Role Phone ALISSON VINSON Unavailable Unavailable [facility] Unavailable Unavailable [facility], [facility] BEINEKE JOLIE, BEINEKE Unavailable Unavailable JOLIE TIDWELL, TIDWELL Unavailable Unavailable TIDWELL ALL, TIDWELL ALL Unavailable Unavailable [facility] Unavailable Unavailable DEPARTMENT, [facility] DEPARTMENT [facility] Unavailable Unavailable DEPARTMENT, [facility] DEPARTMENT BRIGHT ENRIQUE, BRIGHT Unavailable Unavailable ENRIQUE FAN, FAN Unavailable Unavailable AFN JC, FAN Unavailable Unavailable JC FNA JC, FAN Unavailable Unavailable JC FAN, ERVIN J, Unavailable Unavailable FAN, ERVIN J [facility] Unavailable Unavailable [facility], [facility] MELY THOMAS J, WILLIAM J Unavailable Unavailable ANTWON THERESA, ANTWON Unavailable Unavailable THERESA ANTWON THERESA, ANTWON Unavailable Unavailable THERESA JOE, JOE Unavailable Unavailable MOUNIKA, KYLAH Unavailable Unavailable J, MOUNIKA, KYLAH J ISRA ROCK, ISRA Unavailable Unavailable ROCK DAVID OSORIO, DAVID OSORIO Unavailable Unavailable DAVID GALLARDO Unavailable Unavailable ECKERLINE, C A, Unavailable Unavailable [...] RAMIRO HARPEL RAMIRO, HARPEL Unavailable Unavailable RAMIRO [facility] Unavailable Unavailable INC, [facility] Unavailable [facility] [place] WARD SCALES, Unavailable Unavailable WARD SCALESNES, CHRISTIAN Unavailable Unavailable CHRISTIAN, CHRISTIAN Unavailable Unavailable CHRISTIAN FAY, CHRISTIAN FAY Unavailable Unavailable CHRISTIAN FAY, CHRISTIAN FAY Unavailable Unavailable [facility] Unavailable Unavailable P[facility], [facility] P[facility], Unavailable Unavailable [facility] STACEY IMT, STACEY Unavailable Unavailable IMT STACEY IMT, STACEY Unavailable Unavailable IMT SABRINA SAMINA, SABRINA Unavailable Unavailable SAMINA [facility] Unavailable Unavailable IMAGING [facility], [facility] HAIM, SANTANA Garcia, HAIM, Unavailable Unavailable SANTANA Garcia [facility] Unavailable Unavailable CAR, [facility] CAR MATCHESWALA ENRIQUE, Unavailable Unavailable MATCHESWALA ENRIQUE KHUSHI DMD HINDUISM, KHUSHI Unavailable Unavailable DMD HINDUISM KHUSHI DMD HINDUISM, KHUSHI Unavailable Unavailable [facility] Unavailable [facility]available [facility] [...] PILO ROMÁN, Unavailable Unavailable PILO ROMÁN MAYELIN ANTONIO Unavailable Unavailable [facility], Unavailable Unavailable [facility] Unavailable Unavailable [place] [facility] Unavailable Unavailable #493, [facility] # Unavailable Unavailable [id number], [facility] # [id number] [facility] # Unavailable Unavailable [id number], [facility] # [id number] IRBY JR CAR, Unavailable Unavailable [facility]LL[facility] MARKUS, WELLS MARKUS Unavailable Unavailable WEST, WEST Unavailable Unavailable WE[facility], WEST Unavailable Unavailable [facility] R[facility], [facility] Unavailable Unavailable [facility], [facility] Unavailable Unavailable [facility] Un[facility] Unavailable [facility] [place], [facility] MUNGUIA PET, MUNGUIA PET Unavailable Unavailable NESTOR GOMEZ H, Unavailable Unavailable NESTOR GOMEZ Purpose Continuity of Care Document - 08-03-2005 through 2016 Problems Code Diagnosis DOS Provider Status N945 SECONDARY 01-01-2017 [facility] DYSMENORRHE PHYSICIANS A GROUP [id number] ENCOUNTER 01-01-2017 [facility] ROUTINE PHYSICIANS CHECKING IU GROUP CONTRACEPT DEVICE R102 PELVIC AND 12-29-2016 [place] [facility] Z975 PRESENCE OF 12-29-2016 [facility] INTRAUTERIN INC E CONTRACEPTI VE DEVICE N926 IRREGULAR 12-27-2016 [facility] MENSTRUATIO PHYSICIANS N GROUP UNSPECIFIED N944 PRIMARY 12-27-2016 [facility] DYSMENORRHE PHYSICIANS A GROUP [id number] ENCOUNTER 11-16-2016 [facility] INITIAL PHYSICIANS PRESCRIPTIO GROUP N IU CONTRACEPT DEV R5382 CHRONIC 11-10-2016 [facility]IGUE [facility] UNSPECIFIED INC Z392 ENCOUNTER 11-10-2016 [facility] FOLLOW-UP O700 FIRST 09-26-2016 [facility]GREE [facility] PERINEAL INC LACERATION DURING DELIVERY O80 ENCOUNTER 09-26-2016 [facility] FOR PHYSICIANS FULL-TERM GROUP UNCOMPLICAT ED DELIVERY Z370 SINGLE LIVE 09-26-2016 [facility] PHYSICIANS GROUP Z3A38 38 WEEKS 09-26-2016 [facility] GESTATION [facility] OF INC Z3480 ENC 09-25-2016 [facility] SUPERVISION PHYSICIANS OTH NORMAL GROUP PREG UNS TRIMESTER O471 FALSE LABOR 09-24-2016 [facility] AT/AFTER PHYSICIANS 37 GROUP COMPLETED WEEKS GEST O4703 FALSE LABOR 09-14-2016 [facility] BEFORE 37 PHYSICIANS CMPLETE GROUP WEEKS GEST 3RD TRI M545 LOW BACK 09-03-2016 [facility] PAIN [facility] INC O2693 09-03-2016 [facility] RELATED [facility] CONDITIONS INC UNS 3RD TRIMESTER Z3A35 35 WEEKS 09-03-2016 [facility] GESTATION [facility] OF INC H5213 MYOPIA 08-11-2016 CH[facility]STIAN BILATERAL W42193 ABNORMAL 07-03-2016 [facility] GLUCOSE PHYSICIANS COMPLICATIN GROUP G N760 ACUTE 06-29-2016 [facility] VAGINITIS PHYSICIANS GROUP Z3492 ENC 05-23-2016 [place] SU[facility] MEDICAL NORMAL IMAGING ASS UNS 2 TRIMESTER Z36 ENCOUNTER 05-23-2016 [facility] FOR [facility] INC SCREENING OF MOTHER Z3A20 20 WEEKS 05-23-2016 [facility] MEDICAL OF IMAGING ASS R112 NAUSEA WITH 04-11-2016 [facility] VOMITING [facility] UNSPECIFIED INC Z3A15 15 WEEKS 04-11-2016 [facility] GESTATION [facility] OF INC Z720 TOBACCO USE 04-11-2016 [facility] INC N72177 UTERINE 02-28-2016 [facility] SIZE-DATE [facility] DISCREPANCY INC FIRST TRIMESTER Z3491 ENC 02-28-2016 [place] SU[facility] MEDICAL NORMAL IMAGING ASS UNS 1 TRIMESTER Z3A08 8 WEEKS 02-28-2016 [place] GESTATION MEDICAL OF IMAGING ASS B373 CANDIDIASIS 02-22-2016 [facility] OF [facility] AND VAGINA Z113 ENCOUNTER 02-22-2016 [facility] SCREEN LLC INFECTIONS SEXL MODE TRANSMISSN Z3201 ENCOUNTER 02-22-2016 [facility] GROUP TEST RESULT POSITIVE K5900 CONSTIPATIO 01-15-2016 [facility] N PHYSICIANS, UNSPECIFIED PLLC R1032 LEFT LOWER 01-15-2016 [facility] QU[facility]ANT [facility]YS[facility]IANS, PAIN PLLC J209 ACUTE 09-11-2015 [facility] [place] J0100 ACUTE 07-09-2015 [facility] SINUSITIS MEDICAL UNSPECIFIED GROUP H6991 UNSPECIFIED [...] MEM HOSP YNGITIS INC R0602 SHORTNESS 03-15-2015 [place] [facility] MEDICAL IMAGING ASS 3671 MYOPIA 12-22-2014 SCIF[facility] ANG V242 ROUTINE 06-08-2014 [facility] FOLLOW-UP 650 NORMAL 03-17-2014 [facility] DELIVERY PHYSICIANS GROUP V270 OUTCOME OF 03-17-2014 [facility] DELIVERY PHYSICIANS SINGLE GROUP LIVEBORN 25641 THREATENED 03-16-2014 [facility] PREMATURE PHYSICIANS LABOR GROUP ANTEPARTUM 66349 OTH&UNS CRD 03-16-2014 [facility] ENTANGL [facility] W/O COMPRS INC COMP L&D DELIV 99442 FIRST-DEGRE 03-16-2014 [facility] E PERINEAL [facility] LACERATION INC WITH DELIVERY V221 SUPERVISION 03-13-2014 [facility] JC OF OTHER NORMAL 62977 OTHER 01-15-2014 HARPEL RAMIRO THREATENED LABOR, ANTEPARTUM 18410 PAIN IN 01-15-2014 [place] JOINT, MEDICAL ANKLE AND IMAGING ASS FOOT 72757 UNSPECIFIED 01-15-2014 STACEY IMT SITE OF ANKLE SPRAIN AND STRAIN E8888 OTHER FALL 01-15-2014 [place] I[place] 63147 ABN MAT 12-29-2013 [facility] GLUCOSE [facility] TOLERANCE INC COMPL PG CB/PP UNS EOC 77263 ABNORMAL 12-26-2013 [facility] MATERNAL GLUCOSE TOLERANCE ANTEPARTUM V283 ENCOUNTER 11-19-2013 [facility] ROUTINE SCREEN MALFORMATIO N ULTRASONIC 32005 BN&JNT D/O 10-14-2013 [place] [place] MAT BACK PELVIS&LW LIMBS ANTEPARTUM 46096 OTH CURRENT 10-14-2013 [facility] MAT CONDS [facility] CLASSIFIABL INC E ELSW ANTPRTM 7242 LUMBAGO 10-14-2013 [place] 7245 UNSPECIFIED 10-14-2013 [facility] BACKACHE [facility] INC 37139 ABDOMINAL 10-14-2013 [facility] PAIN, [facility] UNSPECIFIED INC SITE V220 SUPERVISION 10-07-2013 [facility] J[facility] OF NORMAL FIRST 15128 OTHER 08-14-2013 [facility] SPECIFED COMPLICATIO N ANTEPARTUM V7242 08-01-2013 [facility] EXAMINATION OR TEST POSITIVE RESULT V2503 ENCOUNTER 07-31-2013 [facility] CONTRACEPT DEPARTMENT CNSL&PRESCR IPTION V2689 OTHER 07-31-2013 [facility] SPECIFIED HEALTH PROCREATIVE DEPARTMENT MANAGEMENT V851 BODY MASS 07-31-2013 [facility] INDEX HEALTH BETWEEN DEPARTMENT 19-24 ADULT 3679 UNSPECIFIED 12-13-2012 ANTWON THERESA DISORDER OF REFRACTION& ACCOMMODATI ON 684 IMPETIGO 12-12-2012 [facility] 1274 ENTEROBIASI 06-24-2012 [facility] [place] S 5990 URINARY 06-24-2012 [facility] TRACT INFECTION SITE NOT SPECIFIED 5589 OTH&UNSPEC 10-18-2011 DAVID OSORIO NONINFECTIO US GASTROENTER ITIS&COLITI S V720 EXAMINATION 09-14-2011 CHRISTIAN FAY OF EYES AND VISION 72952 UNSPECIFIED 05-31-2011 FAUGHN DYSON CONJUNCTIVI TIS V1582 PERS HX 05-16-2011 [facility] USE HEALTH PRESENTING DEPARTMENT HAZARDS HEALTH V2549 SURVEILLANC 05-16-2011 [facility] E OTH PREV HEALTH PRSC DEPARTMENT CONTRACEPT METHOD 5498 ACUTE URIS 03-17-2011 [place] OF UNSPECIFIED SITE 52395 ASTHMA, 03-17-2011 [facility] UNSPECIFIED , UNSPECIFIED STATUS 7821 RASH AND 03-17-2011 [facility] OTHER NONSPECIFIC SKIN ERUPTION 66076 UNSPECIFIED 02-28-2011 [place] [place] VAGINITIS AND VULVOVAGINI TIS 2662 OTHER 01-25-2011 [facility] B-COMPLEX HEALTH DEFICIENCIE DEPARTMENT S V2509 OTH GENERAL 01-25-2011 [facility] [employer] [place] HEALTH CNSL&ADVICE DEPARTMENT CONTRACEPT MANAGEMENT V850 BODY MASS 01-25-2011 [facility] INDEX LESS HEALTH THAN 19 DEPARTMENT ADULT 5210 DENTAL 01-18-2011 KHUSHI DMD CARIES HINDUISM 605 REDUNDANT 03-16-2010 [facility] PRE[facility] ASSOCIATES PHIMOSIS 28748 POOR 03-16-2010 [facility] OF MANAGEMENT [place] MOTH DELIV 82523 OLIGOHYDRAM 03-16-2010 [facility] DELIVERED CLINIC OF [place] V3000 SINGLE 03-16-2010 [facility] LIVEBORN [facility] W/O 14389 POOR 03-14-2010 [facility] MOTH [facility]IN[facility] OF ANTPRTM [place] COND/COMP 6259 UNSPEC 12-23-2009 [facility] SYMPTOM PHYSICIAN ASSOC GROUP PCC W/FEMALE GENITAL ORGANS 7048 OTHER 09-28-2009 [facility] DISEASE OF PEDIA HAIR&HAIR FOLLICLES V642 SURG/OTH 08-23-2009 [facility] PROC NOT [facility] CARRIED OUT INC BECAUSE PTS DECN 1121 CANDIDIASIS 08-02-2009 PATHOLOGY & OF [facility] CYTOLOGY AND VAGINA LAB V745 SCREENING 08-02-2009 PATHOLOGY & EXAMINATION CYTOLOGY FOR LAB VENEREAL DISEASE 462 ACUTE 03-05-2009 [facility] V259 UNSPECIFIED 03-05-2009 [facility] CONTRACEPTI PEDIA VE MANAGEMENT V700 ROUTINE 03-05-2009 [facility] MEDICAL PEDIA EXAM@HEALTH CARE FACL V7388 SPECIAL SCR 03-05-2009 [facility] EXAMINATION PEDIA OTH SPEC CHLAMYDIAL DZ 7881 DYSURIA 01-05-2009 [facility] 7840 HEADACHE 12-21-2008 [facility] PEDIA V202 ROUTINE 12-04-2008 [place] MED[facility] INFANT OR SERV CHILD FOUNDATIO HEALTH CHECK V7231 ROUTINE 10-27-2008 [facility]AMINATION [facility] 6235 LEUKORRHEA 08-06-2008 [facility] SPECIFIED PEDIA INFECTIVE 7862 COUGH 07-22-2008 [facility] PEDIA 7295 PAIN IN 01-27-2008 [place] MEDICAL SOFT SERV TISSUES OF FOUNDATIO LIMB 7296 RESIDUAL 01-27-2008 [facility] BODY IN PEDIA SOFT TISSUE 8830 OPEN WOUND 01-27-2008 [facility] WITHOUT MENTION COMPLICATIO N 8831 OPEN WOUND 01-27-2008 [facility] COMPLICATED 9156 FINGER SUP 01-27-2008 [place] MEDICAL FB W/O LACI SERV OPEN FOUNDATIO WOUND&W/O MENTION INF E9179 OTHER 01-27-2008 [place] [facility] STRIKING SERV AGAINST FOUNDATIO W/WO SUBSEQUENT FALL 96706 HEAD 11-21-2007 [facility] UNSPECIFIED PEDIA 6918 OTHER 08-03-2005 [facility] DERMATITIS PEDIA AND RELATED CONDITIONS Medications Na ND Rx Da Fi Fi Am Da Di Ph RX Ph St me C No te ll ll ou ys ag ar # ys at rm s nt no ma ic us Or Da si cy ia de te s n re d IB 53 07 08 90 30 00 RI Ac UP 74 -2 -2 .0 00 TE ti RO 60 7- 5- 00 01 ve FE 46 20 20 19 AI N 50 17 17 34 D 60 1 24 PH 0 AR MG MA CY TA BL #3 ET 93 8 TR 59 08 08 2. 5 00 RI Ac IA 76 -0 -2 00 00 TE ti ZO 23 2- 5- 0 01 ve LA 71 20 20 19 AI M 80 17 17 41 D 0. 4 48 PH 25 AR MA MG CY TA #3 BL 93 ET 8 HY 00 07 08 [address] 40 -2 -1 .0 00 TE ti OC 60 1- 8- 00 01 ve OD 12 20 20 19 AI ON 40 17 17 25 D -A 1 98 PH CE AR TA MA DC CY NO PH #3 93 7. 8 5- 32 5 IB 53 07 08 30 7 00 RI Ac UP 74 -2 -1 .0 00 TE ti RO 60 1- 8- 00 01 ve FE 46 20 20 19 AI N 50 17 17 26 D 60 1 00 PH 0 AR MG MA CY TA BL #3 ET 93 8 TR 59 07 08 1. 5 00 [...] .0 00 TE ti ON 20 6 00 01 ve ID 45 20 20 17 AI AZ 57 17 17 54 D OL 0 93 PH E AR VA MA GI CY NA L #3 0. 93 75 8 % GL ME 68 02 03 70 5 00 RI Ac TR 68 -1 -1 .0 00 TE ti ON 20 00 01 ve ID 45 20 20 [...] PL CY ET # 10 04 93 TX 00 07 07 4 10 30 70 [...] 7 70 CO Ac ND 43 -0 -1 [...] S CA #4 RO 93 LY N TX 00 11 11 00 30 30 WA [...] Procedures Procedure DOS Code Location Performer Comment 24268 [facility] 7 MEDICAL NAL IMAGING ASS INSERTION 58296 [facility] MENG 7 PHYSICIAN INTRAUTER S GROUP INE DEVICE IUD LEVONORGE J7298 [facility] MENG STREL-RLS 7 PHYSICIAN S GROUP INTRAUTER INE NETTA SYS 52 MG URINE 90834 [facility] MENG 7 PHYSICIAN TEST S GROUP VISUAL COLOR CMPRSN METHS BLOOD 78380 [facility] RODRIGEZ COUNT 7 [facility] COMPLETE INC INC AUTO&AUTO DIFRNTL WBC CYTP C/V 32862 [facility] AUTO THIN 7 LLC LLC LYR PREPJ SCR MNL RESCR PHYS COLLECTIO 76280 [facility] RODRIGEZ N VENOUS 7 [facility] BLOOD INC INC VENIPUNCT URE NEURAXIAL 65714 [facility] 7 ANESTH ANALG/ANE OF THE S PLND BLUE VAGINAL DELIVERY VAGINAL 97185 [facility] MENG DELIVERY 7 PHYSICIAN ONLY S GROUP W/POSTPAR ENIO CARE REPAIR [id number] [facility] ROD[facility]EZ PERINEUM 7 [facility] SKIN INC INC EXTERNAL APPROACH DELIVERY [id number] [facility] RODRIGEZ PRODUCTS 7 [facility] OF INC INC CONCEPTIO N EXTERNAL 54582 [facility] HARPEL NONSTRESS 7 PHYSICIAN TEST S GROUP 21117 [facility] MENG NONSTRESS 7 PHYSICIAN TEST S GROUP PARTICLE 16185 [facility] AGGLUTINA 7 [facility] TION INC INC SCREEN EACH ANTIBODY CULTURE 42181 [facility] BACTERIAL 7 [facility] INC INC QUANTTATI VE COLONY COUNT URINE 02415 [facility] NONSTRESS 7 [facility] TEST INC INC EVAL C/V 28690 [facility] AMNIOTIC 7 [facility] FLUID INC INC PROTEIN QUAL EA SPECIMEN URNLS DIP 25186 [facility] RODRIGEZ 7 [facility] STICK/TAB INC INC LET REAGENT AUTO MICROSCOP Y FRAMES V2020 ALISSON VINSON PURCHASES 7 SPHERE V2100 ALISSON VINSON SINGLE 7 VISION PLANO +/- 4.00 PER LENS OPHTH 06487 [facility] 7 XM&EVAL COMPRHNSV ESTAB PT 1/> GLUCOSE 18262 [facility] POST 7 PHYSICIAN PHYSICIAN GLUCOSE S GROUP S GROUP DOSE SMR PRIM 32509 [facility] PHYSICIAN [place] S GROUP NFCT AGT US PREG 63095 [place] [facility] UTERUS 7 MEDICAL W/DETAIL IMAGING ASS URSULA 1ST GESTATION URNLS DIP 04511 [facility] RODRIGEZ 6 [facility] STICK/TAB INC INC LET REAGENT AUTO MICROSCOP Y BLOOD 57254 [facility] R[facility] COUNT 6 [facility] COMPLETE INC INC AUTO&[place] [address] [facility] INFUSION 6 [facility] THERAPY/P INC INC ROPHYLAXI S /DX 1ST TO 1 HR BASIC 34168 [facility] METABOLIC 6 [facility] PANEL INC INC CALCIUM TOTAL CULTURE 93051 [facility] BACTERIAL 6 [facility] INC INC QUANTTATI VE COLONY COUNT URINE INF AGT G0432 [facility] R[facility] AB DETECT 6 [facility] EIA TECH INC INC HIV-1&/HI V-2 SCR COLLECTIO 27129 [facility] R[facility] N VENOUS 6 [facility] BLOOD INC INC VENIPUNCT URE OBSTETRIC 65245 [facility] PANEL 6 [facility] INC INC US PREG 96663 [place] T[place] ALL UTERUS 6 MEDICAL REAL TIME IMAGING W/IMAGE ASS DCMTN TRANSVAG URINE 48164 [facility] MENG 6 PHYSICIAN JC TEST S GROUP VISUAL COLOR CMPRSN METHS IADNA 92670 [facility], NEISSERIA 6 [facility] GONORRHOE AE AMPLIFIED PROBE TQ CYTP C/V 33871 [facility], AUTO THIN 6 [facility] LYR PREPJ SCR MNL RESCR PHYS DRUG TST G0477 [facility] MENG PRESUMP;C 6 PHYSICIAN JC PBL BEING S GROUP READ DC OPT OBV ONLY IADNA 25501 [facility], CHLAMYDIA 6 [facility] [place] [address] ELIA [facility] ABDOMEN & 6 [facility] PELVIS INC INC W/O CONTRAST MATERIAL CULTURE 87687 [facility] BCT 6 [facility] ISOL&PRSM INC INC PTV ID ISOLATE EA URINE CULTURE 68732 ELIADUANE RODRIGEZ BACTERIAL 6 [facility] INC INC QUANTTATI VE COLONY COUNT URINE URINE 02801 [facility] RODRIGEZ 6 [facility] TEST INC INC VISUAL COLOR CMPRSN METHS BLOOD 85035 [facility] COUNT 6 [facility] COMPLETE INC INC AUTO&AUTO DIFRNTL WBC URNLS DIP 19823 [facility]RIGEZ 6 [facility] STICK/TAB INC INC LET REAGENT AUTO MICROSCOP Y COMPREHEN 81590 [facility] SIVE 6 [facility] METABOLIC INC INC PANEL SUSCEPTIB 52072 [facility] LTY STDY 6 [facility] ANTIMICRB INC INC IAL MICRO/AGA R DILUTJ IAADIADOO 01363 [facility] 6 [facility] IAADIADOO [address] [place] [address] [place] [address] [facility] RODR[facility] STREPTOCO 5 [facility] CCUS INC INC GROUP A CUL BACT 75739 [facility] XCPT 5 [facility] URINE INC INC BLOOD/STO OL AEROBIC ISOL IAADI 64211 [facility] RODIRGEZ INFLUENZA 5 [facility] B VIRUS INC INC IAADI 06606 [facility] RODRIGEZ INFFLUENZ 5 [facility] A A VIRUS INC INC IAADIADOO 60499 [facility] ISRA 5 [facility] CCUS GROUP A RADIOLOGI 92001 [facility] RODRIGEZ C EXAM 5 [facility] CHEST 2 INC INC VIEWS FRONTAL&L ATERAL URNLS DIP 16059 [facility] RODRIGEZ 5 [facility] STICK/TAB INC INC LET REAGENT AUTO MICROSCOP Y URINE 82958 [facility] RODRIGEZ 5 [facility] TEST INC INC VISUAL COLOR CMPRSN METHS OPHTH 11599 [facility] 5 ANG ANG XM&EVAL COMPRE NEW PT 1/> VST CYTP C/V 16690 [facility], [facility] THIN 5 LLC LLC LYR PREPJ SCR MNL RESCR PHYS NEURAXIAL 88512 [facility] LABOR 4 ANESTH THERESA ANALG/ANE OF THE S PLND BLUE VAGINAL DELIVERY VAGINAL 12828 [facility] FAN DELIVERY 4 PHYSICIAN JC ONLY S GROUP W/POSTPAR ENIO CARE 50765 [facility] NONSTRESS 4 PHYSICIAN PHYSICIAN TEST S GROUP S GROUP REPAIR OF 7569 ELIA ELIA OTHER 4 [facility] CURRENT INC INC OBSTETRIC LACERATIO N CUL BACT 99935 COMBINED COMBINED XCPT 4 PHYSICIAN PHYSICIAN URINE S LA S LA BLOOD/STO OL AEROBIC ISOL CULTURE 53950 [facility] RODR[facility]EZ BACTERIAL 4 [facility] INC INC QUANTTATI VE COLONY COUNT URINE 45557 ELIA [facility]IA NONSTRESS 4 [facility] TEST INC INC EVAL C/V 57097 [facility] R[facility]EZ AMNIOTIC 4 [facility] FLUID INC INC PROTEIN QUAL EA SPECIMEN FTL 80565 [facility] RODRIGEZ FIBRONECT 4 [facility] IN INC INC CERVICOVA G SECRETION S SEMI-REY URNLS DIP 30732 [facility] RODRIGEZ 4 [facility] STICK/TAB INC INC LET REAGENT AUTO MICROSCOP Y FTL 54806 [facility] RODRIGEZ FIBRONECT 4 [facility] IN INC INC CERVICOVA G SECRETION S SEMI-REY 99124 [facility] HARPEL NONSTRESS 4 RAMIRO RAMIRO TEST RADEX 97003 [place] BEINE ANKLE 4 MEDICAL JOLIE COMPLETE IMAGING MINIMUM 3 ASS VIEWS GLUCOSE 62471 [facility] RODRIGEZ TOLERANCE 4 [facility] EA ADDL INC INC BEYOND 3 SPECIMENS URNLS DIP 40990 ELIADUANE RODRIGEZ 4 [facility] STICK/TAB INC INC LET RGNT NON-AUTO W/O MICRSCP GLUCOSE 95776 [facility] RODRIGEZ TOLERANCE 4 [facility] TEST GTT INC INC 3 SPECIMENS GLUCOSE 34892 FAN FAN TOLERANCE 4 JC JC TEST GTT 3 SPECIMENS US PREG 46296 FAN FAN UTERUS 4 JC JC AFTER 1ST TRIMEST 1/ GESTATION EVAL C/V 17396 ELIA ELIA AMNIOTIC 4 [facility] FLUID INC INC PROTEIN QUAL EA SPECIMEN URNLS DIP 13999 [facility]IA VILLAON 4 [facility] STICK/TAB INC INC LET REAGENT AUTO MICROSCOP Y CULTURE 88423 [facility] RODRIGEZ BACTERIAL 4 [facility] INC INC QUANTTATI VE COLONY COUNT URINE US PREG 95169 FAN FAN UTERUS 4 JC JC REAL TIME W/IMAGE DCMTN TRANSVAG CUL BACT 03008 COMBINED COMBINED XCPT 4 PHYSICIAN PHYSICIAN URINE S LA S LA BLOOD/STO OL AEROBIC ISOL ANTIBODY 32239 COMBINED COMBINED CHLAMYDIA 4 PHYSICIAN PHYSICIAN S LA S LA URINE 49552 FAN FAN 4 JC JC TEST VISUAL COLOR CMPRSN METHS URINE 93962 [place] [facility] 4 [facility] [employer] HEALTH TEST VISUAL DEPARTMEN [facility] COLOR T T CMPRSN METHS IADNA 64169 [facility] [facility] CHLAMYDIA 4 [facility] IS T T AMPLIFIED PROBE TQ IADNA 28182 [facility] NEISSERIA 4 [facility] [employer] GONORRHOE [facility] AE T T AMPLIFIED PROBE TQ FITTING 62722 ANTWON ANTWON SPECTACLE 3 THERESA THERESA S XCPT APHAKIA MONOFOCAL DETERMINA 67606 ANTWON ANTWON TION 3 THERESA THERESA REFRACTIV E STATE OPHTH 73627 ANTWON ANTWON MEDICAL 3 THERESA THERESA XM&EVAL COMPRE NEW PT 1/> VST SPHERE V2100 ANTWON ANTWON SINGLE 3 THERESA THERESA VISION PLANO +/- 4.00 PER LENS FRAMES V2020 ANTWON ANTWON PURCHASES 3 THERESA THERESA SERVICES 68540 [facility] PROVIDED 3 OFFICE OTH/THN REG SCHED HOURS DETERMINA 37628 [facility]AY TION 2 REFRACTIV E STATE FITTING 19716 [facility]ST[facility] FAY CHRISTIAN FAY SPECTACLE 2 S XCPT APHAKIA MONOFOCAL FRAMES V2020 [facility]RI[facility] FAY CHRISTIAN FAY PURCHASES 2 SPHERE V2100 [facility]RIST[facility] FAY CHRISTIAN FAY SINGLE 2 VISION PLANO +/- 4.00 PER LENS OPHTH 76349 [facility] FAY [facility] F[facility] MEDICAL 2 XM&EVAL COMPRE NEW PT 1/> VST PRESSURIZ 39996 [facility] ED/NONPRE 1 SSURIZED INHALATIO N TREATMENT CONTRACEP J7303 [facility] T SUPPLY 1 [facility] CON[facility] G VAG T T RING EA IADNA 61568 DIANNE MCKENZIEURBON CHLAMYDIA 1 [facility] IS T T AMPLIFIED PROBE TQ IADNA 12365 DIANNE BRANDON NEISSERIA 1 [facility] AE T T AMPLIFIED PROBE TQ WET Q0111 [facility] AYO 1 [facility] INCL PREP VAGINAL [facility] CERV/SKIN T T SPECIMENS CONTRACEP A4267 [facility] TIVE 1 [facility] SUPPLY CONDOM DEPARTMEN [facility] MALE EACH T T ANALGESIA D9230 KHUSHI DMD KHUSHI DMD 1 [facility]UISM HINDUISM ANXIOLYSI S INHALATIO N OF NITROUS OXIDE ANALGESIA D9230 KHUSHI DMD KHUSHI DMD 1 [facility]UISM HINDUISM ANXIOLYSI S INHALATIO N OF NITROUS OXIDE ANALGESIA D9230 KHUSHI DMD KHUSHI DMD 1 HINDUISM HINDUISM ANXIOLYSI S INHALATIO N OF NITROUS OXIDE ANALGESIA D9230 KHUSHI DMD KHUSHI DMD 1 [facility] ANXIOLYSI S INHALATIO N OF NITROUS OXIDE [facility] [address]55 [facility] DISCHARGE 0 CARE DAY [facility] T [facility] MIN/< SUBQ 69161 [facility] 0 CARE CARE PER ASSOCIATE DAY E/M S NORMAL CIRCUMCIS 64237 [facility] ION 0 CARE W/CLAMP/O [facility] DEV S W/BLOCK VAGINAL 99758 WOMEN'S FAN DELIVERY 0 [facility] [place] NEURAXIAL 80705 [facility] JUSTUS LABOR 0 ANESTH ANALG/ANE OF THE S PLND BLUE VAGINAL DELIVERY 1ST 01741 [facility] HOSP/WYATT 0 CARE [facility] S CARE PER DAY NML NB REPAIR OF 7569 ELIADUANE RODRIGEZ OTHER 0 [facility] CURRENT INC INC OBSTETRIC LACERATIO N DOPPLER 16002 [facility] VELOCIMET 0 [facility] UMBILICAL [place] ARTERY 94774 [facility]OM[facility]'S FAN BIOPHYSIC 0 [facility] AL [facility] OF PROFILE [place] W/O NON-STRES S TESTING US PREG 26158 [facility]OM[facility]S FAN UTERUS 0 [facility]ALTH [facility] REAL TIME CLINIC OF F/U [place] TRNSABDL PER FETUS URNLS DIP 67684 ELIA RODRIGEZ 0 [facility] STICK/TAB INC INC LET REAGENT AUTO MICROSCOP Y 99182 ELIA RODRIGEZ NONSTRESS 0 [facility] TEST INC INC CULTURE 61484 ELIA RODRIGEZ BACTERIAL 0 [facility] INC INC QUANTTATI VE COLONY COUNT URINE US PREG 15755 [facility] UTERUS 0 [facility] F/U [place] TRNSABDL PER FETUS 68058 WOMEN'S FAN BIOPHYSIC 0 [facility] AL [facility] OF PROFILE [place] W/O NON-STRES S TESTING DOPPLER 93659 [facility]OMEN'S FAN VELOCIMET 0 [facility] [place] ARTERY DOPPLER 40606 WOMEN'S FAN VELOCIMET 0 [facility]ICAL [place] ARTERY 38624 WOMEN'S FAN BIOPHYSIC 0 [facility] AL [facility]IN[facility] OF PROFILE [place] W/O NON-STRES S TESTING US PREG 98752 WOMEN'S FAN UTERUS 0 [facility] REAL TIME CLINIC OF F/[place] [address] WOMEN'S FAN 0 [facility]ALTH J[facility] UTERUS CLINIC OF LIMITED [place] 1/> FETUSES 45622 WOMEN'S FAN BIOPHYSIC 0 [facility] AL [facility]INIC OF PROFILE [place] W/O NON-STRES S TESTING DOPPLER 62939 WOMEN'S WOMEN'S VELOCIMET 0 HEALTH [facility]Y [facility]IN[facility] OF CLINIC OF UMBILICAL [place] ARTERY CUL BACT 06703 COMBINED COMBINED XCPT 0 PHYSICIAN PHYSICIAN URINE S LA S LA BLOOD/STO OL AEROBIC ISOL 41308 [facility]OMEN'S F[facility] BIOPHYSIC 0 [facility] AL [facility]INIC OF PROFILE [place] W/O NON-STRES S TESTING US PREG 72879 WOMEN'S FAN UTERUS 0 HEALTH J[facility] REAL TIME CLINIC OF F/U [place] TRNSABDL PER FETUS DOPPLER 41747 WOMEN'S FAN VELOCIMET 0 [facility]ICAL [place] ARTERY DOPPLER 87537 WOMEN'S FAN VELOCIMET 0 [facility] R[facility] OF UMBILICAL [place] ARTERY US PREG 58655 WOMEN'S FAN UTERUS 0 [facility]ALTH J[facility] REAL TIME CLINIC OF F/U [place] TRNSABDL PER FETUS 90017 WOMEN'S FAN BIOPHYSIC 0 [facility] AL CLINIC OF PROFILE [place] W/O NON-STRES S TESTING GLUCOSE 90653 [facility]OM[facility]S FAN POST 0 [facility] GLUCOSE CLINIC OF DOSE [place] GLUCOSE 33297 WOMEN'S FAN TOLERANCE 0 HEALTH JC TEST GTT CLINIC OF 3 [place] SPECIMENS URINALYSI 53193 [facility] HARPE[facility] S 0 PHYSICIAN RAMIRO MICROSCOP GROUP IC ONLY PCC URINLS 38996 [facility] DIP 0 PHYSICIAN RAMIRO STICK/TAB GROUP LET PCC REAGNT NON-AUTO [place]CRSCPY US PREG 83048 [facility]S FAN, UTERUS 0 HEALTH ERVIN J AFTER CLINIC OF [facility] [place] [facility] URNLS DIP 97150 ELIA RODRIGEZ 0 [facility] STICK/TAB INC INC LET REAGENT AUTO MICROSCOP [place] PREG 30021 [facility], UTERUS 0 HEALTH ERVIN J REAL TIME CLINIC OF W/IMAGE DCMTN [place] [facility] MOLECULAR 14354 MOLECULAR MOLECULAR DX AMP 0 TARGET PATHOLOGY PATHOLOGY MULTIPLEX LAB LAB 1ST 2 NETWORK NETWORK SEQ INC INC MOLECULAR 37174 MOLECULAR MOLECULAR 0 DIAGNOSTI PATHOLOGY PATHOLOGY CS LAB LAB INTERPRET NETWORK NETWORK ATION & INC INC REPORT MUTATION 67753 MOLECULAR MOLECULAR ID 0 ENZYMATIC PATHOLOGY PATHOLOGY LAB LAB LIG/PRIME NETWORK NETWORK R XTN 1 INC INC SGM EA MOLECULAR 23428 MOLECULAR MOLECULAR DX AMP 0 [facility] PATHOLOGY PATHOLOGY MULTIPLEX LAB LAB EA ADDL NETWORK NETWORK SEQ INC INC MOLEC 55875 MOLECULAR MOLECULAR SEP&ID HI 0 RESOLU PATHOLOGY PATHOLOGY TQ EACH LAB LAB NUCLEIC NETWORK NETWORK ACID PREP INC INC MOLEC 51595 MOLECULAR MOLECULAR ISOL/XTRJ 0 HP PATHOLOGY PATHOLOGY NUCLEIC LAB LAB ACID EA NETWORK NETWORK TYPE INC INC IADNA 27918 PATHOLOGY PATHOLOGY CHLAMYDIA 0 & & CYTOLOGY CYTOLOGY TRACHOMAT LAB LAB IS AMPLIFIED PROBE TQ CYTP C/V 97149 PATHOLOGY PATHOLOGY AUTO THIN 0 & & LYR CYTOLOGY CYTOLOGY PREPJ SCR LAB LAB MNL RESCR PHYS IADNA 73979 PATHOLOGY PATHOLOGY NEISSERIA 0 & & CYTOLOGY CYTOLOGY GONORRHOE LAB LAB AE AMPLIFIED PROBE TQ IADNA 91274 [facility] NEISSERIA 9 Y Y HOSPITAL [facility] GONORRHOE AE AMPLIFIED PROBE TQ IADNA 93597 [facility] CHLAMYDIA 9 Y Y [facility] TRACHOMAT IS AMPLIFIED PROBE TQ IADNA 32492 [facility] CHLAMYDIA 9 Y Y [facility] TRACHOMAT IS AMPLIFIED PROBE TQ CUL BACT 46268 [facility] XCPT 9 Y Y URINE [facility] BLOOD/STO OL AEROBIC ISOL IADNA 75567 [facility] NEISSERIA 9 Y Y HOSPITAL [facility] GONORRHOE AE AMPLIFIED PROBE TQ IAADIADOO 85210 [facility] Y OF [place]S STREPTOCO [place] CAR CCUS PEDIA GROUP A URINE 18320 [facility] Y OF [place] TEST [place] [facility] VISUAL PEDIA COLOR CMPRSN METHS OPHTH 84582 [facility] MED[facility] 9 [facility] LD, XM&EVAL KYLAH J INTERMEDI ATE ESTAB PT URNLS DIP 35076 [facility] 9 Y OF ENRIQUE STICK/TAB [place] LET RGNT PEDIA NON-AUTO W/O MICRSCP IAADIADOO 93912 [facility] IRBY 9 Y OF JR CAR STREPTOCO [place] CCUS PEDIA GROUP A CYTP C/V 68141 PATHOLOGY PATHOLOGY AUTO THIN 9 & & LYR CYTOLOGY CYTOLOGY PREPJ SCR LAB LAB MNL RESCR PHYS IADNA 77441 PATHOLOGY PATHOLOGY NEISSERIA 9 & & CYTOLOGY CYTOLOGY GONORRHOE LAB LAB AE AMPLIFIED PROBE TQ IADNA 89873 PATHOLOGY PATHOLOGY CHLAMYDIA 9 & & CYTOLOGY CYTOLOGY TRACHOMAT LAB LAB IS AMPLIFIED PROBE TQ URNLS DIP 43923 [facility] 9 Y Y STICK/TAB [facility] HOSPITAL LET REAGENT AUTO MICROSCOP Y IAADIADOO 32507 [facility] 9 Y OF ROMÁN STREPTOCO [place] CCUS PEDIA GROUP A INCISION 82523 [place] ECKERLINE & REMOVAL 8 MEDICAL , C A FOREIGN SERV BODY SUBQ FOUNDATIO TISS SIMPLE RADEX 91779 [facility] FINGR 8 Y Y MINIMUM 2 [facility] HOSPITAL VIEWS FITTING 32852 [facility], SPECTACLE 8 Y OPTICAL WARD R S XCPT APHAKIA MONOFOCAL OPHTH 97777 [facility] 8 [facility] LD, XM&EVAL KYLAH J INTERMEDI ATE NEW PT FRAMES V2020 [facility], PURCHASES 8 Y OPTICAL WARD R SPHERE V2100 [facility], SINGLE 8 Y OPTICAL WARD R VISION PLANO +/- 4.00 PER LENS Encounters Encounter Start End Date Code Location Performer Type Date OFFICE 20773 [facility] FAN OUTPATIEN 7 7 PHYSICIAN T VISIT S GROUP 15 MINUTES HOSPITAL ELIA - 7 7 [facility] OUTPATIEN [facility] OFFICE 79437 [facility] FAN OUTPATIEN 7 7 PHYSICIAN T VISIT S GROUP 15 MINUTES HOSPITAL ELIA - 7 7 [facility] OUTPATIEN [facility] ELIA - 7 7 [facility] INPATIENT INC OFFICE 32241 [facility] FAN OUTPATIEN 7 7 PHYSICIAN T VISIT S GROUP 15 MINUTES OFFICE 27504 [facility] FAN OUTPATIEN 7 7 PHYSICIAN T VISIT S GROUP 15 MINUTES OFFICE 67212 [facility] FAN OUTPATIEN 7 7 PHYSICIAN T VISIT S GROUP 15 MINUTES OFFICE 78649 [facility] FAN OUTPATIEN 7 7 PHYSICIAN T VISIT S GROUP 15 MINUTES HOSPITAL ELIA - 7 7 [facility] OUTPATIEN INC T [facility]OSPITAL ELIA - 7 7 [facility] OUTPATIEN INC T OFFICE 81314 [facility] FAN OUTPATIEN 7 7 PHYSICIAN T VISIT S GROUP 15 MINUTES OFFICE 90672 [facility] FAN OUTPATIEN 7 7 PHYSICIAN T VISIT S GROUP 15 MINUTES OFFICE 73786 [facility] FAN OUTPATIEN 7 7 PHYSICIAN T VISIT S GROUP 15 MINUTES OFFICE 14436 [facility] FAN OUTPATIEN 7 7 PHYSICIAN T VISIT S GROUP 15 MINUTES OFFICE 20789 [facility] FAN OUTPATIEN 7 7 PHYSICIAN T VISIT S GROUP 15 MINUTES OFFICE 12322 [facility] FAN OUTPATIEN 7 7 PHYSICIAN T VISIT S GROUP 15 MINUTES HOSPITAL ELIA - 7 7 [facility] OUTPATIEN INC T OFFICE 89079 [facility] FAN OUTPATIEN 6 6 PHYSICIAN T VISIT S GROUP 15 MINUTES HOSPITAL ELIA - 6 6 [facility] OUTPATIEN INC T EMERGENCY 65007 ELIA 6 6 [facility] DEPARTMEN INC T VISIT HIGH/URGE NT SEVERITY OFFICE 51426 [facility] FAN OUTPATIEN 6 6 PHYSICIAN JC T VISIT S GROUP 15 MINUTES HOSPITAL ELIA - 6 6 [facility] OUTPATIEN INC T OFFICE 09062 [facility] FAN OUTPATIEN 6 6 PHYSICIAN JC T VISIT S GROUP 15 MINUTES HOSPITAL ELIA - 6 6 [facility] OUTPATIEN INC T OFFICE 06542 [facility] FAN OUTPATIEN 6 6 PHYSICIAN JC T VISIT S GROUP 25 MINUTES EMERGENCY 83357 DWAIN LE 6 6 PHYSICIAN SB DEPARTMEN S, PLLC T VISIT HIGH/URGE NT SEVERITY HOSPITAL ELIA - 6 6 [facility] OUTPATIEN INC T EMERGENCY 78294 ELIA 6 6 [facility] DEPARTMEN INC T VISIT LOW/MODER SEVERITY OFFICE 85295 [facility] OUTPATIEN 6 6 T VISIT 15 MINUTES OFFICE 84791 ELIA DHALIWAL OUTPATIEN 6 6 [facility] T VISIT HOSPITAL 25 MINUTES OFFICE 61287 [facility] 6 6 [facility] ENRIQUE T VISIT MEDICAL 15 GROUP MINUTES OFFICE 04218 [facility] 6 T VISIT 15 MINUTES OFFICE 79350 [facility] 5 5 T VISIT 15 MINUTES OFFICE 81632 [facility] 5 5 T VISIT 15 MINUTES EMERGENCY 99911 ELIA 5 5 [facility] DEPARTMEN INC T VISIT LOW/MODER SEVERITY EMERGENCY 55122 [facility] DEPT 5 5 PHYSICIAN [facility]VER[facility]& THREAT [facility] ELIA - 5 5 [facility] OUTPATIEN INC T OFFICE 13206 ELIA DHALIWAL OUTPATIEN 5 5 [facility] T NEW 20 HOSPITAL [facility]PITAL ELIA - 4 4 [facility] INPATIENT INC OFFICE 68557 MENG FAN OUTPATIEN 4 4 JC JC T VISIT 15 MINUTES OFFICE 29119 MENG FAN OUTPATIEN 4 4 JC JC T VISIT 15 MINUTES HOSPITAL ELIA - 4 4 [facility] OUTPATIEN INC T OFFICE 77289 MENG FAN OUTPATIEN 4 4 JC JC T VISIT 15 MINUTES HOSPITAL ELIA - 4 4 [facility] OUTPATIEN INC T OFFICE 48877 FAN FAN OUTPATIEN 4 4 JC CJ T VISIT 15 MINUTES OFFICE 92731 FAN FAN OUTPATIEN 4 4 JC JC T VISIT 15 MINUTES HOSPITAL ELIA - 4 4 [facility] OUTPATIEN INC T EMERGENCY 89257 STACEY STACEY 4 4 IMT IMT DEPARTMEN T VISIT MODERATE SEVERITY OFFICE 57766 FAN FAN OUTPATIEN 4 4 JC JC T VISIT 15 MINUTES OFFICE 73515 FAN FAN OUTPATIEN 4 4 JC JC T VISIT 15 MINUTES HOSPITAL ELIA - 4 4 [facility] OUTPATIEN INC T OFFICE 78798 FAN FAN OUTPATIEN 4 4 JC JC T VISIT 5 MINUTES OFFICE 38755 FAN FAN OUTPATIEN 4 4 JC JC T VISIT 15 MINUTES OFFICE 70349 FAN FAN OUTPATIEN 4 4 JC JC T VISIT 15 MINUTES EMERGENCY 51642 ELIA 4 4 [facility] DEPARTMEN INC T VISIT LOW/MODER SEVERITY HOSPITAL ELIA - 4 4 [facility] OUTPATIEN INC T EMERGENCY 43079 TREVA [place] 4 4 [place] DEPARTMEN T VISIT HIGH/URGE NT SEVERITY OFFICE 86860 FAN FAN OUTPATIEN 4 4 JC JC T VISIT 15 MINUTES OFFICE 20262 FAN FAN OUTPATIEN 4 4 JC JC T VISIT 15 MINUTES OFFICE 82787 FAN FAN OUTPATIEN 4 4 JC JC T NEW 45 MINUTES OFFICE 14063 DIANNE DEAN OUTPATIEN 4 4 [facility] T VISIT 15 DEPARTMEN DEPARTMEN MINUTES T T OFFICE 57861 [facility] OUTPATIEN 3 3 T VISIT 15 MINUTES EMERGENCY 07752 YAHAIRA DORINA 3 3 EMERGENCY [facility] DEPARTMEN SERVICES T VISIT MODERATE SEVERITY OFFICE 31037 DAVID OSORIO OUTPATIEN 2 2 T NEW 45 MINUTES EMERGENCY 20288 NANCY BELTRANLeslie 2 2 DYSON DYSON DEPARTMEN T VISIT MODERATE SEVERITY OFFICE 14729 BOALISONON CATHIEON OUTPATIEN 2 2 [facility] T VISIT 10 DEPARTMEN DEPARTMEN MINUTES T T EMERGENCY 07293 SABRINA BENNETT 1 1 SAMINA SAMINA DEPARTMEN T VISIT HIGH/URGE NT SEVERITY OFFICE 94336 [facility] RYA OUTPATIEN 1 1 T VISIT 15 MINUTES OFFICE 95453 [facility] OUTPATIEN 1 1 T NEW 30 MINUTES INITIAL 69389 DIANNE DEAN PREVENTIV 1 1 [facility] DE[facility] NEW PT T T AGE 12-17 YR HOSPITAL ELIA - 0 0 [facility] INPATIENT [facility] ELIA - 0 0 [facility]EN [facility] T OFFICE 54610 [facility] OUTPATIEN 0 0 HEALTH [facility] T VISIT CLINIC OF 15 [place] MINUTES OFFICE 83766 [facility] F[facility] OUTPATIEN 0 0 HEALTH JC T VISIT CLINIC OF 10 [place] MINUTES OFFICE 62422 [facility] F[facility] OUTPATIEN 0 0 HEALTH JC T VISIT CLINIC OF 15 [place] MINUTES OFFICE 27325 [facility] F[facility] OUTPATIEN 0 0 HEALTH JC T VISIT CLINIC OF 15 [place] MINUTES OFFICE 71790 [facility] F[facility] OUTPATIEN 0 0 HEALTH JC T VISIT CLINIC OF 15 [place] MINUTES OFFICE 32287 [facility] F[facility] OUTPATIEN 0 0 HEALTH JC T VISIT 5 CLINIC OF MINUTES [place] OFFICE 91603 [facility] OUTPATIEN 0 0 PHYSICIAN RAMIRO T VISIT GROUP 15 PCC MINUTES OFFICE 39276 [facility] OUTPATIEN 0 0 HEALTH JC T VISIT CLINIC OF 15 [place] MINUTES OFFICE 41580 [facility], OUTPATIEN 0 0 HEALTH ERVIN J T VISIT CLINIC OF 15 MINUTES [facility] OFFICE 42020 [facility], OUTPATIEN 0 0 HEALTH ERVIN J T VISIT CLINIC OF 15 MINUTES [facility] OFFICE 57423 [facility]- OUTPATIEN 0 0 Y OF PARCELLS T VISIT [place] CAR 15 PEDIA MINUTES OFFICE 25802 [facility], OUTPATIEN 0 0 HEALTH ERVIN J T VISIT CLINIC OF 15 MINUTES [facility] OFFICE 42760 [facility], OUTPATIEN 0 0 HEALTH ERVIN J T VISIT CLINIC OF 15 MINUTES [facility]PITAL ELIA - 0 0 [facility] OUTPATIEN INC T EMERGENCY 63136 ELIA 0 0 [facility] DEPARTMEN INC T VISIT LIMITED/M [facility] UNIVERSIT - 9 9 Y [facility] T PERIODIC 57620 [facility] L[facility]- PREVENTIV 9 9 Y OF PARCELLS E MED EST [place] PATIENT PEDIA 12-17YRS [facility] UNIVERSIT - 9 9 Y [facility] T OFFICE 89111 [facility] 9 9 Y OF ENRIQUE T VISIT [place] 15 PEDIA [facility] UNIVERSIT - 9 9 Y [facility] T OFFICE 78635 [facility] IRBY OUTPATIEN 9 9 Y OF JR CAR T VISIT [place] 15 PEDIA MINUTES PERIODIC 20282 FRANKLIN GOMEZ, PREVENTIV 9 9 MEDICAL NESTOR H E MED EST SERV PATIENT FOUNDATIO 12-17YRS INITIAL 57314 [facility], PREVENTIV [address] [facility] MEDICINE NEW PT [place]AY[place] AGE 12-17 PLLC YR HOSPITAL UNIVERSIT - 9 9 Y [facility] T OFF[facility] 93715 [facility]ATHER OUTPATIEN 9 9 Y OF DON T VISIT [place] 15 PEDIA MINUTES OFFICE 81201 [facility] OUTPATIEN 9 9 Y OF ROMÁN T VISIT [place] 15 PEDIA MINUTES EMERGENCY 70332 [facility]IT 8 8 Y [facility] T VISIT MODERATE SEVERITY OFFICE 37374 [facility] MERINO OUTPATIEN 8 8 Y OF [place] T VISIT [place] 15 PEDIA MINUTES HOSPITAL UNIVERSIT - 8 8 Y [facility] T PERIODIC 49948 [facility]IT ZAHRA MARKUS PREVENTIV 8 8 Y OF E MED EST [place] PATIENT PEDIA 12-17YRS OFFICE 59777 [facility] STRIFLING OUTPATIEN 8 8 Y OF RHY T VISIT [place] 15 PEDIA MINUTES INITIAL 41743 [facility]IT MUNGUIA PET PREVENTIV 6 6 Y OF E [place] MEDICINE PEDIA NEW PT AGE 12-17 YR
--- OUTSIDE RECORDS SUMMARY | 2017-02-21 21:06 | External Medical Summary Rpt ---
Author Author , PRERNA Hobbs PRERNA Address Unknown Phone [email or web address] Care Team Providers Care Intake Clerk Name Role Phone ALISSON VINSON Unavailable Unavailable [facility] Unavailable Unavailable [facility], [facility] BEINEKE JOLIE, BEINEKE Unavailable Unavailable JOLIE TIDWELL, TIDWELL Unavailable Unavailable TIDWELL ALL, TIDWELL ALL Unavailable Unavailable [facility] Unavailable Unavailable DEPARTMENT, [facility] DEPARTMENT [facility] Unavailable Unavailable DEPARTMENT, [facility] DEPARTMENT BRIGHT ENRIQUE, BRIGHT Unavailable Unavailable [...] KYLAH Unavailable Unavailable J, MOUNIKA, KYLAH J IRSA ROCK, ISRA Unavailable Unavailable ROCK DAVID OSORIO, [...] RAMIRO HARPEL RAMIRO, HARPEL Unavailable Unavailable RAMIRO [facility] Unavailable Unavailable INC, [facility] Unavailable [facility], [facility] WARD SCALES, Unavailable Unavailable WARD SCALESNES, CHRISTIAN Unavailable Unavailable CHRISTIAN, CHRISTIAN Unavailable Unavailable CHRISTIAN FAY, CHRISTIAN FAY Unavailable Unavailable CHRISTIAN FAY, CHRISTIAN FAY Unavailable Unavailable [facility] Unavailable Unavailable P[facility], [facility], Unavailable Unavailable [facility] STACEY IMT, STACEY Unavailable Unavailable IMT STACEY IMT, STACEY Unavailable Unavailable IMT SABRINA SAMINA, SABRINA Unavailable Unavailable SAMINA [facility] Unavailable Unavailable [facility], [facility] HAIM, SANTANA Garcia, HAIM, Unavailable Unavailable SANTANA Garcia [facility] Unavailable Unavailable CAR, [facility] CAR MATCHESWALA ENRIQUE, Unavailable Unavailable MATCHESWALA ENRIQUE KHUSHI DMD ZOROASTRIAN, KHUSHI Unavailable Unavailable DMD ZOROASTRIAN KHUSHI DMD ZOROASTRIAN, KHUSHI Unavailable Unavailable DMD [facility]OROASTRIAN [facility] Unavailable [facility]available [facility] [...] Unavailable PILO ROMÁN MAYELIN ANTONIO Unavailable Unavailable [facility], Unavailable Unavailable [facility] Unavailable Unavailable [place] [facility], [facility] Unavailable Unavailable #493, [facility] # Unavailable Unavailable [id number], [facility] # [id number] [facility] # Unavailable Unavailable [id number], [facility] # [id number] IRBY JR CAR, Unavailable Unavailable IRBY JR [...] Diagnosis DOS Provider Status N945 SECONDARY 01-01-2017 [facility] DYSMENORRHE PHYSICIANS A GROUP [id number] ENCOUNTER 01-01-2017 [facility] ROUTINE PHYSICIANS CHECKING IU GROUP CONTRACEPT DEVICE R102 PELVIC AND 12-29-2016 [place] PER[facility]AL [facility] PAIN IMAGING ASS Z975 PRESENCE OF 12-29-2016 [facility] INTRAUTERIN INC E CONTRACEPTI VE DEVICE N926 IRREGULAR 12-27-2016 [facility] MENSTRUATIO PHYSICIANS N GROUP UNSPECIFIED N944 PRIMARY 12-27-2016 [facility] DYSMENORRHE PHYSICIANS A GROUP [id number] ENCOUNTER 11-16-2016 [facility] INITIAL PHYSICIANS PRESCRIPTIO GROUP N IU CONTRACEPT DEV R5382 CHRONIC 11-10-2016 [facility] UNSPECIFIED INC Z392 ENCOUNTER 11-10-2016 [facility]INE [facility] FOLLOW-UP O700 FIRST 09-26-2016 [facility] PERINEAL INC LACERATION DURING DELIVERY O80 ENCOUNTER 09-26-2016 [facility] FOR PHYSICIANS FULL-TERM GROUP UNCOMPLICAT ED DELIVERY Z370 SINGLE LIVE 09-26-2016 [facility] PHYSICIANS GROUP Z3A38 38 WEEKS 09-26-2016 [facility] GESTATION [facility] OF INC Z3480 ENC 09-25-2016 [facility] SUPERVISION PHYSICIANS OTH NORMAL GROUP PREG UNS TRIMESTER O471 FALSE LABOR 09-24-2016 [facility] AT/AFTER PHYSICIANS 37 GROUP COMPLETED WEEKS GEST O4703 FALSE LABOR 09-14-2016 [facility] BEFORE 37 PHYSICIANS CMPLETE GROUP WEEKS GEST 3RD TRI M545 LOW BACK 09-03-2016 [facility] PAIN [facility] INC O2693 09-03-2016 [facility] RELATED [facility] CONDITIONS INC UNS 3RD TRIMESTER Z3A35 35 WEEKS 09-03-2016 [facility]STATION [facility] OF INC H5213 MYOPIA 08-11-2016 CHRISTIAN BILATERAL L65262 ABNORMAL 07-03-2016 [facility] GLUCOSE PHYSICIANS COMPLICATIN GROUP G N760 ACUTE 06-29-2016 [facility] VAGINITIS PHYSICIANS GROUP Z3492 ENC 05-23-2016 [place] SUPERVISION MEDICAL NORMAL IMAGING ASS UNS 2 TRIMESTER Z36 ENCOUNTER 05-23-2016 [facility] FOR [facility] INC SCREENING OF MOTHER Z3A20 20 WEEKS 05-23-2016 [facility] OF IMAGING ASS R112 NAUSEA WITH 04-11-2016 [facility] VOMITING [facility] UNSPECIFIED INC Z3A15 15 WEEKS 04-11-2016 [facility]ATION [facility] OF INC Z720 TOBACCO USE 04-11-2016 [facility] INC A55922 UTERINE 02-28-2016 [facility] SIZE-DATE [facility] DISCREPANCY INC FIRST TRIMESTER Z3491 ENC 02-28-2016 [place] SUPERVISION MEDICAL NORMAL IMAGING ASS UNS 1 TRIMESTER Z3A08 8 WEEKS 02-28-2016 [place] GESTATION MEDICAL OF IMAGING ASS B373 CANDIDIASIS 02-22-2016 [facility] OF V[facility]VA LLC AND VAGINA Z113 ENCOUNTER 02-22-2016 [facility] SCREEN LLC INFECTIONS SEXL MODE TRANSMISSN Z3201 ENCOUNTER 02-22-2016 [facility] GROUP TEST RESULT POSITIVE K5900 CONSTIPATIO 01-15-2016 [facility] N PHYSICIANS, UNSPECIFIED PLLC R1032 LEFT LOWER 01-15-2016 [facility]ANT PHYSICIANS, PAIN PLLC J209 ACUTE 09-11-2015 [facility] J0100 ACUTE 07-09-2015 [facility] SINUSITIS MEDICAL UNSPECIFIED GROUP H6991 UNSPECIFIED [...] YNGITIS INC R0602 SHORTNESS 03-15-2015 [place] [facility]ICAL IMAGING ASS 3671 MYOPIA 12-22-2014 SCIFRES ANG V242 ROUTINE 06-08-2014 [facility] FOLLOW-UP 650 NORMAL 03-17-2014 [facility] DELIVERY PHYSICIANS GROUP V270 OUTCOME OF 03-17-2014 [facility] DELIVERY PHYSICIANS SINGLE GROUP LIVEBORN 90309 THREATENED 03-16-2014 [facility] PREMATURE PHYSICIANS LABOR GROUP ANTEPARTUM 75964 OTH&UNS CRD 03-16-2014 [facility] ENTANGL [facility] W/O COMPRS INC COMP L&D DELIV 34337 FIRST-DEGRE 03-16-2014 [facility] E PERINEAL [facility] LACERATION INC WITH DELIVERY V221 SUPERVISION 03-13-2014 MENG JC OF OTHER NORMAL 55189 OTHER 01-15-2014 HARPEL RAMIRO THREATENED LABOR, ANTEPARTUM 17561 PAIN IN 01-15-2014 [place] JOINT, MEDICAL ANKLE AND IMAGING ASS FOOT 69361 UNSPECIFIED 01-15-2014 STACEY IMT SITE OF ANKLE SPRAIN AND STRAIN E8888 OTHER FALL 01-15-2014 STACEY IMT 07522 ABN MAT 12-29-2013 [facility] GLUCOSE [facility] TOLERANCE INC COMPL PG CB/PP UNS EOC 15120 ABNORMAL 12-26-2013 M[facility] JC MATERNAL GLUCOSE TOLERANCE ANTEPARTUM V283 ENCOUNTER 11-19-2013 [facility] J[facility] ROUTINE SCREEN MALFORMATIO N ULTRASONIC 54921 BN&JNT D/O 10-14-2013 T[facility]VA [place] MAT BACK PELVIS&LW LIMBS ANTEPARTUM 03398 OTH CURRENT 10-14-2013 [facility] MAT CONDS [facility] CLASSIFIABL INC E ELSW ANTPRTM 7242 LUMBAGO 10-14-2013 [facility] [place] 7245 UNSPECIFIED 10-14-2013 [facility] BACKACHE [facility] INC 15396 ABDOMINAL 10-14-2013 [facility] PAIN, [facility] UNSPECIFIED INC SITE V220 SUPERVISION 10-07-2013 MENG JC OF NORMAL FIRST 07349 OTHER 08-14-2013 [facility] JC SPECIFED COMPLICATIO N ANTEPARTUM V7242 08-01-2013 [facility] JC EXAMINATION OR TEST POSITIVE RESULT V2503 ENCOUNTER 07-31-2013 [facility] EMER[facility] CONTRACEPT DEPARTMENT CNSL&PRESCR IPTION V2689 OTHER 07-31-2013 [facility] SPECIFIED HEALTH PROCREATIVE DEPARTMENT MANAGEMENT V851 BODY MASS 07-31-2013 [facility] INDEX HEALTH BETWEEN DEPARTMENT 19-24 ADULT 3679 UNSPECIFIED 12-13-2012 ANTW[facility] THERESA DISORDER OF REFRACTION& ACCOMMODATI ON 684 IMPETIGO 12-12-2012 [facility] 1274 ENTEROBIASI 06-24-2012 [facility] S 5990 URINARY 06-24-2012 [place] TRACT INFECTION SITE NOT SPECIFIED 5589 OTH&UNSPEC 10-18-2011 DAVID OSORIO NONINFECTIO US GASTROENTER ITIS&COLITI S V720 EXAMINATION 09-14-2011 CHRISTIAN FAY OF EYES AND VISION 85088 UNSPECIFIED 05-31-2011 FAUGHN DYSON CONJUNCTIVI TIS V1582 PERS HX 05-16-2011 [facility] TO[facility]ACCO USE HEALTH PRESENTING DEPARTMENT HAZARDS HEALTH V2549 SURVEILLANC 05-16-2011 [facility] E OTH PREV HEALTH PRSC DEPARTMENT CONTRACEPT METHOD 9933 ACUTE URIS 03-17-2011 [place] [place] OF UNSPECIFIED SITE 52707 ASTHMA, 03-17-2011 [facility] UNSPECIFIED , UNSPECIFIED STATUS 7821 RASH AND 03-17-2011 [facility] OTHER NONSPECIFIC SKIN ERUPTION 79764 UNSPECIFIED 02-28-2011 [place] [place] VAGINITIS AND VULVOVAGINI TIS 2662 OTHER 01-25-2011 [facility] B-COMPLEX HEALTH DEFICIENCIE DEPARTMENT S V2509 OTH GENERAL 01-25-2011 [facility] [place] HEALTH CNSL&ADVICE DEPARTMENT CONTRACEPT MANAGEMENT V850 BODY MASS 01-25-2011 [facility] INDEX LESS HEALTH THAN 19 DEPARTMENT ADULT 5210 DENTAL 01-18-2011 KHUSHI DMD CARIES ZOROASTRIAN 605 REDUNDANT 03-16-2010 [facility] PREPUCE AND ASSOCIATES PHIMOSIS 20993 POOR 03-16-2010 [facility] OF MANAGEMENT ASHLEY MOTH DELIV 98736 OLIGOHYDRAM 03-16-2010 [facility], [facility] DELIVERED CLINIC OF ASHLEY V3000 SINGLE 03-16-2010 [facility] W/O 98090 POOR 03-14-2010 [facility] MOTH CLINIC OF ANTPRTM ASHLEY COND/COMP 6259 UNSPEC 12-23-2009 [facility] SYMPTOM PHYSICIAN ASSOC GROUP PCC W/FEMALE GENITAL ORGANS 7048 OTHER 09-28-[address] [facility] DISEASE OF PEDIA HAIR&HAIR FOLLICLES V642 SURG/OTH 08-23-2009 [facility] PROC NOT [facility] CARRIED OUT INC BECAUSE PTS DECN 1121 CANDIDIASIS 08-02-2009 PATHOLOGY & OF [facility] CYTOLOGY AND VAGINA LAB V745 SCREENING 08-02-2009 PATHOLOGY & EXAMINATION CYTOLOGY FOR LAB VENEREAL DISEASE 462 ACUTE 03-05-2009 [facility] V259 UNSPECIFIED 03-05-2009 [facility] CONTRACEPTI PEDIA VE MANAGEMENT V700 ROUTINE 03-05-2009 [facility] MEDICAL PEDIA EXAM@HEALTH CARE FACL V7388 SPECIAL SCR 03-05-2009 [facility] EXAMINATION PEDIA OTH SPEC CHLAMYDIAL DZ 7881 DYSURIA 01-05-2009 [facility] 7840 HEADACHE 12-21-2008 [facility] PEDIA V202 ROUTINE 12-04-2008 [facility]ICAL INFANT OR SERV CHILD FOUNDATIO HEALTH CHECK V7231 ROUTINE 10-27-2008 [facility] EXAMINATION [facility] 6235 LEUKORRHEA 08-06-2008 [facility] SPECIFIED PEDIA INFECTIVE 7862 COUGH 07-22-2008 [facility] PEDIA 7295 PAIN IN 01-27-2008 NE MEDICAL SOFT SERV TISSUES OF FOUNDATIO LIMB 7296 RESIDUAL 01-27-2008 [facility] BODY IN PEDIA SOFT TISSUE 8830 OPEN WOUND 01-27-2008 [facility] WITHOUT MENTION COMPLICATIO N 8831 OPEN WOUND 01-27-2008 [facility] COMPLICATED 9156 FINGER SUP 01-27-2008 NE MEDICAL FB W/O LACI SERV OPEN FOUNDATIO WOUND&W/O MENTION INF E9179 OTHER 01-27-2008 [facility] MEDICAL STRIKING SERV AGAINST FOUNDATIO W/WO SUBSEQUENT FALL 66341 HEAD 11-21-2007 [facility] UNSPECIF[facility]IA 6918 OTHER 08-03-2005 [facility] DERMATITIS PEDIA AND RELATED CONDITIONS Medications [...] 1 98 PH CE AR TA MA DE CY [...] HI 00 07 07 4 10 30 70 [...] Procedures Procedure DOS Code Location Performer Comment 62108 [facility] 7 MEDICAL NAL IMAGING ASS INSERTION 47046 [facility] MENG 7 PHYSICIAN INTRAUTER S GROUP INE DEVICE IUD LEVONORGE J7298 [facility] MENG STREL-RLS 7 PHYSICIAN S GROUP INTRAUTER INE NETTA SYS 52 MG URINE 92321 [facility] MENG 7 PHYSICIAN TEST S GROUP VISUAL COLOR CMPRSN METHS BLOOD 07540 [facility] RODRIGEZ COUNT 7 [facility] COMPLETE INC INC AUTO&AUTO DIFRNTL WBC CYTP C/V 68500 [facility] AUTO THIN 7 LLC LLC LYR PREPJ SCR MNL RESCR PHYS COLLECTIO 82022 [facility] RODRIGEZ N VENOUS 7 [facility] BLOOD INC INC VENIPUNCT URE NEURAXIAL 01152 [facility] FEEBACK LABOR 7 ANESTH ANALG/ANE OF THE S PLND BLUE VAGINAL DELIVERY VAGINAL 56643 [facility] MENG DELIVERY 7 PHYSICIAN ONLY S GROUP W/POSTPAR ENIO CARE REPAIR 2DU9ETT [facility] RODRIGEZ PERINEUM 7 [facility] SKIN INC INC EXTERNAL APPROACH DELIVERY 22R3ZCS [facility] RODRIGEZ PRODUCTS 7 [facility] OF INC INC CONCEPTIO N EXTERNAL 48374 [facility] HARPEL NONSTRESS 7 PHYSICIAN TEST S GROUP 04763 [facility] MENG NONSTRESS 7 PHYSICIAN TEST S GROUP PARTICLE 21232 [facility] RODRIGEZ AGGLUTINA 7 [facility] TION INC INC SCREEN EACH ANTIBODY CULTURE 82994 [facility] ROD[facility]IGEZ BACTERIAL 7 [facility] INC INC QUANTTATI VE COLONY COUNT URINE 42512 [facility] R[facility] NONSTRESS 7 [facility] TEST INC INC EVAL C/V 39941 [facility] RODRIGE[facility] AMNIOTIC 7 [facility] FLUID INC INC PROTEIN QUAL EA SPECIMEN URNLS DIP 26714 [facility] RODRIGEZ 7 [facility] STICK/TAB INC INC LET REAGENT AUTO MICROSCOP Y FRAMES V2020 ALISSON VINSON PURCHASES 7 SPHERE V2100 ALISSON VINSON SINGLE 7 VISION [place]ANO +/- 4.00 PER LENS OPHTH 07176 [facility] 7 XM&EVAL COMPRHNSV ESTAB PT 1/> GLUCOSE 50479 [facility] POST 7 PHYSICIAN PHYSICIAN GLUCOSE S GROUP S GROUP DOSE SMR PRIM 49537 [facility] [place] [facility] GROUP NFCT AGT US PREG 92142 [place] [facility] UTERUS 7 MEDICAL W/DETAIL IMAGING ASS URSULA 1ST GESTATION URNLS DIP 43361 [facility] RODRIGEZ 6 [facility] STICK/TAB INC INC LET REAGENT AUTO MICROSCOP Y BLOOD 69223 [facility] RODRIGE[facility] COUNT 6 [facility] COMPLETE INC INC AUTO&[place] [address] [facility] RODRIGE[facility] INFUSION 6 [facility] THERAPY/P INC INC ROPHYLAXI S /DX 1ST TO 1 HR BASIC 84819 [facility] R[facility] METABOLIC 6 [facility] PANEL INC INC CALCIUM TOTAL CULTURE 33223 [facility] R[facility] BACTERIAL 6 [facility] INC INC QUANTTATI VE COLONY COUNT URINE INF AGT G0432 [facility] RODRIGEZ AB DETECT 6 [facility] EIA TECH INC INC HIV-1&/HI V-2 SCR COLLECTIO 14894 [facility] RODRIGEZ N VENOUS 6 [facility] BLOOD INC INC VENIPUNCT URE OBSTETRIC 47305 [facility] RODR[facility] PANEL 6 [facility] INC INC US PREG 41504 [place] T[place] ALL UTERUS 6 MEDICAL REAL TIME IMAGING W/IMAGE ASS DCMTN TRANSVAG URINE 06843 [facility] MENG 6 PHYSICIAN JC TEST S GROUP VISUAL COLOR CMPRSN METHS IADNA 25154 [facility] NEISSERIA 6 [facility] GONORR[facility] AE AMPLIFIED PROBE TQ CYTP C/V 37963 [facility], AUTO THIN 6 [facility] LYR PREPJ SCR MNL RESCR PHYS DRUG TST G0477 [facility] MENG PRESUMP;C 6 PHYSICIAN JC PBL BEING S GROUP READ DC OPT OBV ONLY IADNA 46526 [facility], CHLAMYDIA 6 [facility] [place] [address] ELIA [facility] ABDOMEN & 6 [facility] PELVIS INC INC W/O CONTRAST MATERIAL CULTURE 63947 [facility] RODR[facility] BCT 6 [facility] ISOL&PRSM INC INC PTV ID ISOLATE EA URINE CULTURE 56536 ELIADUANE RODRIGEZ BACTERIAL 6 [facility] INC INC QUANTTATI VE COLONY COUNT URINE URINE 20140 [facility] RODRIGEZ 6 [facility] TEST INC INC VISUAL COLOR CMPRSN METHS BLOOD 65925 [facility] COUNT 6 [facility] COMPLETE INC INC AUTO&AUTO DIFRNTL WBC URNLS DIP 13755 [facility] RODRIGEZ 6 [facility] STICK/TAB INC INC LET REAGENT AUTO MICROSCOP Y COMPREHEN 58970 [facility] SIVE 6 [facility] METABOLIC INC INC PANEL SUSCEPTIB 03819 [facility] LTY STDY 6 [facility] ANTIMICRB INC INC IAL MICRO/AGA R DILUTJ IAADIADOO 01626 [facility] 6 [facility] IAADIADOO [address] [place] [address] [place] [address] [facility] RODRIGEZ STREPTOCO 5 [facility] CCUS INC INC GROUP A CUL BACT 60546 [facility] XCPT 5 [facility] URINE INC INC BLOOD/STO OL AEROBIC ISOL IAADI 94258 [facility] RODRIGEZ INFLUENZA 5 [facility] B VIRUS INC INC IAADI 17126 [facility] RODRIGEZ INFFLUENZ 5 [facility] A A VIRUS INC INC IAADIADOO 34962 EL[facility] ISRA 5 [facility] CCUS GROUP A RADIOLOGI 26250 [facility] RODRIGEZ C EXAM 5 [facility] CHEST 2 INC INC VIEWS FRONTAL&L ATERAL URNLS DIP 90326 [facility] RODRIGEZ 5 [facility] STICK/TAB INC INC LET REAGENT AUTO MICROSCOP Y URINE 57050 [facility] RODRIGEZ 5 [facility] TEST INC INC VISUAL COLOR CMPRSN METHS OPHTH 82557 [facility] 5 ANG ANG XM&EVAL COMPRE NEW PT 1/> VST CYTP C/V 35097 [facility], [facility] 5 LLC LLC LYR PREPJ SCR MNL RESCR PHYS NEURAXIAL 57295 [facility] LABOR 4 ANESTH THERESA ANALG/ANE OF THE S PLND BLUE VAGINAL DELIVERY VAGINAL 56553 [facility] FAN DELIVERY 4 PHYSICIAN JC ONLY S GROUP W/POSTPAR ENIO CARE 13608 [facility] NONSTRESS 4 PHYSICIAN PHYSICIAN TEST S GROUP S GROUP REPAIR OF 7569 ELIA ELIA OTHER 4 [facility] CURRENT INC INC OBSTETRIC LACERATIO N CUL BACT 12749 COMBINED COMBINED XCPT 4 PHYSICIAN PHYSICIAN URINE S LA S LA BLOOD/STO OL AEROBIC ISOL CULTURE 27545 [facility] RODRIGEZ BACTERIAL 4 [facility] INC INC QUANTTATI VE COLONY COUNT URINE 33996 ELIA ELIA NONSTRESS 4 [facility] TEST INC INC EVAL C/V 90418 ELIA RODRIGEZ AMNIOTIC 4 [facility] FLUID INC INC PROTEIN QUAL EA SPECIMEN FTL 19652 [facility] RODRIGEZ FIBRONECT 4 [facility] IN INC INC CERVICOVA G SECRETION S SEMI-REY URNLS DIP 97979 [facility] RODRIGEZ 4 [facility] STICK/TAB INC INC LET REAGENT AUTO MICROSCOP Y FTL 59022 [facility] RODRIGEZ FIBRONECT 4 [facility] IN INC INC CERVICOVA G SECRETION S SEMI-REY 91873 HARPEL HARPEL NONSTRESS 4 RAMIRO RAMIRO TEST RADEX 87777 [place] BEINE ANKLE 4 MEDICAL JOLIE COMPLETE IMAGING MINIMUM 3 ASS VIEWS GLUCOSE 34132 [facility] RODRIGEZ TOLERANCE 4 [facility] EA ADDL INC INC BEYOND 3 SPECIMENS URNLS DIP 41445 ELIADUANE RODRIGEZ 4 [facility] STICK/TAB INC INC LET RGNT NON-AUTO W/O MICRSCP GLUCOSE 36585 [facility] RODRIGEZ TOLERANCE 4 [facility] TEST GTT INC INC 3 SPECIMENS GLUCOSE 33369 FAN FAN TOLERANCE 4 JC JC TEST GTT 3 SPECIMENS US PREG 94906 FAN FAN UTERUS 4 JC JC AFTER 1ST TRIMEST 1/ GESTATION EVAL C/V 58759 ELIA ELIA AMNIOTIC 4 [facility] FLUID INC INC PROTEIN QUAL EA SPECIMEN URNLS DIP 14793 [facility]IA VILLAON 4 [facility] STICK/TAB INC INC LET REAGENT AUTO MICROSCOP Y CULTURE 95253 [facility] RODRIGEZ BACTERIAL 4 [facility] INC INC QUANTTATI VE COLONY COUNT URINE US PREG 58360 FAN FAN UTERUS 4 JC JC REAL TIME W/IMAGE DCMTN TRANSVAG CUL BACT 61351 COMBINED COMBINED XCPT 4 PHYSICIAN PHYSICIAN URINE S LA S LA BLOOD/STO OL AEROBIC ISOL ANTIBODY 49712 COMBINED COMBINED CHLAMYDIA 4 PHYSICIAN PHYSICIAN S LA S LA URINE 85829 FAN FAN 4 JC JC TEST VISUAL COLOR CMPRSN METHS URINE 52889 [place] 4 [facility] TEST VISUAL DEPARTMEN [facility]PART[facility]IV[facility] COLOR T T CMPRSN METHS IADNA 33563 [place] CHLAMYDIA 4 [facility]PART[facility] DEPART[facility] IS T T AMPLIFIED PROBE TQ IADNA 71016 [place] NEISSERIA 4 RI Mosaic [place] Mosaic GONORRHOE DEPARTUNIVERS[facility] DEPARTUN[facility] AE T T AMPLIFIED PROBE TQ FITTING 91881 [facility]TW[facility] ANTWON SPECTACLE 3 THERESA THERESA S XCPT APHAKIA MONOFOCAL DETERMINA 39664 [facility] TION 3 THERESA THERESA REFRACTIV E STATE OPHTH 17180 [facility] ANTWON MEDICAL 3 THERESA THERESA XM&EVAL COMPRE NEW PT 1/> VST SPHERE V2100 [facility] ANTW[facility] SINGLE 3 THERESA THERESA VISION PLANO +/- 4.00 PER LENS FRAMES V2020 ANTW[facility] ANTW[facility] PURCHASES 3 THERESA THERESA SERVICES 55757 [facility] PROVIDED 3 OFFICE OTH/THN REG SCHED HOURS DETERMINA 63144 CHRISTIAN FAY CHRISTIAN FAY TION 2 REFRACTIV E STATE FITTING 67829 CHRISTIAN FAY CHRISTIAN FAY SPECTACLE 2 S XCPT APHAKIA MONOFOCAL FRAMES V2020 CHRISTIAN FAY CHRISTIAN FAY PURCHASES 2 SPHERE V2100 CHRISTIAN FAY CHRISTIAN FAY SINGLE 2 VISION PLANO +/- 4.00 PER LENS OPHTH 12644 CHRISTIAN FAY CHRISTIAN FAY MEDICAL 2 XM&EVAL COMPRE NEW PT 1/> VST PRESSURIZ 40209 [facility] ED/NONPRE 1 SSURIZED INHALATIO N TREATMENT CONTRACEP J7303 [place] T SUPPLY 1 [facility]PART[facility] DEPART[facility] G VAG T T RING EA IADNA 10456 DIANNE MCKENZIEURBON CHLAMYDIA 1 [facility]AT [facility] IS T T AMPLIFIED PROBE TQ IADNA 29524 DIANNE BRANDON NEISSERIA 1 [facility] GONORRHOE [facility] AE T T AMPLIFIED PROBE TQ WET Q0111 [place] AYO 1 [facility] INCL PREP VAGINAL [facility] CERV/SKIN T T SPECIMENS CONTRACEP [id number] [facility] [facility] TIVE 1 [facility] SUPPL[facility] CONDOM DEPARTMEN [facility] MALE EACH T T ANALGESIA D9230 KHUSHI DMD KHUSHI DMD 1 [facility] ANXIOLYSI S INHALATIO N OF NITROUS OXIDE ANALGESIA D9230 KHUSHI DMD KHUSHI DMD 1 [facility] ANXIOLYSI S INHALATIO N OF NITROUS OXIDE ANALGESIA D9230 KHUSHI DMD KHUSHI DMD 1 [facility] ANXIOLYSI S INHALATIO N OF NITROUS OXIDE ANALGESIA D9230 KHUSHI DMD KHUSHI DMD [address] [facility] ANXIOLYSI S INHALATIO N OF NITROUS OXIDE [facility] [address] [facility] DISCHARGE 0 CARE DAY [facility] S T 30 MIN/< SUBQ 75466 [facility] 0 CARE CARE PER ASSOCIATE DAY E/M S NORMAL CIRCUMCIS [address]12 [facility] ION 0 CARE W/CLAMP/O [facility] DEV S W/BLOCK VAGINAL 43607 [facility]AN DELIVERY 0 [facility]ALTH [facility] NEURAXIAL 28114 [facility] JUSTUS LABOR 0 ANESTH ANALG/ANE OF THE S PLND BLUE VAGINAL DELIVERY [address]ST [address] [facility] HOSP/W[place] 0 CARE [facility] S CARE PER DAY NML [place] RE[place]IR OF 7569 ELIADUANE RODRIGEZ OTHER 0 [facility] CURRENT INC INC OBSTETRIC LACERATIO N DOPPLER 91762 [facility] VELOCIMET 0 [facility] ARTERY 29590 [facility] BIOPHYSIC 0 [facility] AL [facility] OF PROFILE [place] W/O NON-STRES S TESTING [place] PREG 29616 [facility] UTERUS 0 [facility] REAL TIME CLINIC OF F/U [facility] TRNSABDL PER FETUS URNLS DIP 40780 ELIA RODRIGEZ 0 [facility] STICK/TAB INC INC LET REAGENT AUTO MICROSCOP Y 23986 ELIA RODRIGEZ NONSTRESS 0 [facility] TEST INC INC CULTURE 20175 ELIA RODRIGEZ BACTERIAL 0 [facility] INC INC QUANTTATI VE [place] PREG 82852 [facility] UTERUS 0 [facility] OF F/U [facility] TRNSABDL PER FETUS 07270 [facility] BIOPHYSIC 0 [facility] AL [facility] OF PROFILE [facility] W/O NON-STRES S TESTING DOPPLER 13883 [facility] VELOCIMET 0 [facility] ARTERY DOPPLER 46269 [facility] FAN VELOCIMET 0 [facility] [place] ARTERY 49928 [facility] FAN BIOPHYSIC 0 [facility] AL [facility]IN[facility] OF PROFILE [place] W/O NON-STRES [place] TESTING [place] PREG 18545 [facility] FAN UTERUS 0 [facility] REAL TIME CLINIC OF F/[place] [address] [facility] FAN 0 [facility] UTERUS CLINIC OF LIMITED [facility] 1/> FETUSES 04229 [facility] FAN BIOPHYSIC 0 [facility] AL [facility] OF PROFILE [facility] W/O NON-STRES S TESTING DOPPLER 90243 WOMEN'S WOMEN'S VELOCIMET 0 [facility]ALTH [facility]ALTH [facility] OF [facility]INIC OF UMBILICAL [facility] ARTERY CUL BACT 72292 COMBINED COMBINED XCPT 0 PHYSICIAN PHYSICIAN URINE S LA S LA BLOOD/STO OL AEROBIC ISOL 02224 WOMEN'S [facility]AN BIOPHYSIC 0 [facility] OF PROFILE ASH[place] W/O NON-STRES S TESTING US PREG 86462 WOMEN'S FAN UTERUS 0 [facility] REAL TIME CLINIC OF F/U [place] TRNSABDL PER FETUS DOPPLER 82979 WOMEN'S FAN VELOCIMET 0 [facility] RY [facility]INIC OF UMBILICAL [place] ARTERY DOPPLER 57132 WOMEN'S FAN VELOCIMET 0 [facility] RY [facility]IN[facility] OF UMBILICAL [place] ARTERY US PREG 80249 WOMEN'S FAN UTERUS 0 [facility] REAL TIME [facility]INIC OF F/U [place] TRNSABDL PER FETUS 12126 WOMEN'S FAN BIOPHYSIC 0 [facility]IN[facility] OF PROFILE [place]SH[place] W/O NON-STRES S TESTING GLUCOSE 22513 WOMEN'S FAN POST 0 [facility] GLUCOSE CLINIC OF DOSE [place] GLUCOSE 56907 WOMEN'S FAN TOLERANCE 0 [facility]ALTH [facility] TEST GTT CLINIC OF 3 [place] SPECIMENS URINALYSI 73998 [facility] HARPEL S 0 PHYSICIAN RAMIRO MICROSCOP GROUP IC ONLY PCC URINLS 19089 [facility] HARPEL DIP 0 PHYSICIAN RAMIRO STICK/TAB GROUP LET PCC REAGNT NON-AUTO MICRSCPY US PREG 17543 WOMEN'S FAN, UTERUS 0 HEALTH ERVIN J AFTER CLINIC OF TRIMEST [place] [facility] URNLS DIP 75996 ELIA RODRIGEZ 0 [facility] STICK/TAB INC INC LET REAGENT AUTO MICROSCOP Y US PREG 34313 [facility]OMEN'S FAN, UTERUS 0 HEALTH ERVIN J REAL TIME CLINIC OF W/IMAGE DCMTN [facility] MOLECULAR 37116 MOLECULAR MOLECULAR DX AMP 0 TARGET PATHOLOGY PATHOLOGY MULTIPLEX LAB LAB 1ST 2 NETWORK NETWORK SEQ INC INC MOLECULAR 53961 MOLECULAR MOLECULAR 0 DIAGNOSTI PATHOLOGY PATHOLOGY CS LAB LAB INTERPRET NETWORK NETWORK ATION & INC INC REPORT MUTATION 62873 MOLECULAR MOLECULAR ID 0 ENZYMATIC PATHOLOGY PATHOLOGY LAB LAB LIG/PRIME NETWORK NETWORK R XTN 1 INC INC SGM EA MOLECULAR 43343 MOLECULAR MOLECULAR DX AMP 0 TARGET PATHOLOGY PATHOLOGY MULTIPLEX LAB LAB EA ADDL NETWORK NETWORK SEQ INC INC MOLEC 30094 MOLECULAR MOLECULAR SEP&ID HI 0 RESOLU PATHOLOGY PATHOLOGY TQ EACH LAB LAB NUCLEIC NETWORK NETWORK ACID PREP INC INC MOLEC 43321 MOLECULAR MOLECULAR ISOL/XTRJ 0 HP PATHOLOGY PATHOLOGY NUCLEIC LAB LAB ACID EA NETWORK NETWORK TYPE INC INC IADNA 75436 PATHOLOGY PATHOLOGY CHLAMYDIA 0 & & CYTOLOGY CYTOLOGY TRACHOMAT LAB LAB IS AMPLIFIED PROBE TQ CYTP C/V 45864 PATHOLOGY PATHOLOGY AUTO THIN 0 & & LYR CYTOLOGY CYTOLOGY PREPJ SCR LAB LAB MNL RESCR PHYS IADNA 49232 PATHOLOGY PATHOLOGY NEISSERIA 0 & & CYTOLOGY CYTOLOGY GONORRHOE LAB LAB AE AMPLIFIED PROBE TQ IADNA 76764 [facility] PLANO NEISSERIA 9 Y Y HOSPITAL [facility] GONORRHOE AE AMPLIFIED PROBE TQ IADNA 35673 [facility] PLAN[facility] CHLAMYDIA 9 Y Y [facility] TRACHOMAT IS AMPLIFIED PROBE TQ IADNA 37437 [facility] PL[facility] CHLAMYDIA 9 Y Y [facility] TRACHOMAT IS AMPLIFIED PROBE TQ CUL BACT 74047 [facility] XCPT 9 Y Y URINE [facility] BLOOD/STO OL AEROBIC ISOL IADNA 12104 [facility] PL[facility] NEISSERIA 9 Y Y HOSPITAL [facility] GONORRHOE AE AMPLIFIED PROBE TQ IAADIADOO 88880 [facility]- 9 Y OF [place] STREPTOCO [place] CAR CCUS PEDIA GROUP A URINE 44511 [facility] 9 Y OF PARCELLS TEST [place] CAR VISUAL PEDIA COLOR CMPRSN METHS OPHTH 11954 [facility] 9 [facility] LD, XM&EVAL KYLAH J INTERMEDI ATE ESTAB PT URNLS DIP 23568 [facility] 9 Y OF ENRIQUE STICK/TAB [place] LET RGNT PEDIA NON-AUTO W/O MICRSCP IAADIADOO 66417 [facility] IRBY 9 Y OF JR CAR STREPTOCO [place] CCUS PEDIA GROUP A CYTP C/V 13684 PATHOLOGY PATHOLOGY AUTO THIN 9 & & LYR CYTOLOGY CYTOLOGY PREPJ SCR LAB LAB MNL RESCR PHYS IADNA 80322 PATHOLOGY PATHOLOGY NEISSERIA 9 & & CYTOLOGY CYTOLOGY GONORRHOE LAB LAB AE AMPLIFIED PROBE TQ IADNA 30120 PATHOLOGY PATHOLOGY CHLAMYDIA 9 & & CYTOLOGY CYTOLOGY TRACHOMAT LAB LAB IS AMPLIFIED PROBE TQ URNLS DIP 97851 [facility] 9 Y Y STICK/TAB [facility] LET REAGENT AUTO MICROSCOP Y IAADIADOO [address] [facility] 9 Y OF ROMÁN STREPTOCO [place] CCUS PEDIA GROUP A INCISION 48807 [place] ECKERLINE & REMOVAL 8 MEDICAL , C A FOREIGN SERV BODY SUBQ FOUNDATIO TISS SIMPLE RADEX 13881 [facility] PL[facility]O FINGR 8 Y Y MINIMUM 2 [facility] VIEWS FITTING 59515 [facility], SPECTACLE 8 Y OPTICAL WARD R S XCPT APHAKIA MONOFOCAL OPHTH 39849 [facility] 8 [facility] LD, XM&EVAL KYLAH J INTERMEDI ATE NEW PT FRAMES V2020 [facility], PURCHASES 8 Y OPTICAL WARD R SPHERE V2100 [facility], SINGLE 8 Y OPTICAL WARD R VISION PLANO +/- 4.00 PER LENS Encounters Encounter Start End Date Code Location Performer Type Date OFFICE 59693 [facility] FAN OUTPATIEN 7 7 PHYSICIAN T VISIT S GROUP 15 MINUTES [facility]OSPITAL ELIA - 7 7 [facility] OFF[facility] 27408 [facility] FAN OUTPATIEN 7 7 PHYSICIAN T VISIT S GROUP 15 MINUTES HOSPITAL ELIA - 7 7 [facility] OUTPATIEN [facility] ELIA - 7 7 [facility] INPATIENT INC OFFICE 83839 [facility] FAN OUTPATIEN 7 7 PHYSICIAN T VISIT S GROUP 15 MINUTES OFFICE 39575 [facility] FAN OUTPATIEN 7 7 PHYSICIAN T VISIT S GROUP 15 MINUTES OFFICE 21798 [facility] FAN OUTPATIEN 7 7 PHYSICIAN T VISIT S GROUP 15 MINUTES OFFICE 51342 [facility] FAN OUTPATIEN 7 7 PHYSICIAN T VISIT S GROUP 15 MINUTES HOSPITAL ELIA - 7 7 [facility] OUTPATIEN INC T [facility] ELIA - 7 7 [facility] OUTPATIEN INC T OFFICE 29147 [facility] FAN OUTPATIEN 7 7 PHYSICIAN T VISIT S GROUP 15 MINUTES OFFICE 10621 [facility] FAN OUTPATIEN 7 7 PHYSICIAN T VISIT S GROUP 15 MINUTES OFFICE 97856 [facility] FAN OUTPATIEN 7 7 PHYSICIAN T VISIT S GROUP 15 MINUTES OFFICE 21616 [facility] FAN OUTPATIEN 7 7 PHYSICIAN T VISIT S GROUP 15 MINUTES OFFICE 09970 [facility] FAN OUTPATIEN 7 7 PHYSICIAN T VISIT S GROUP 15 MINUTES OFFICE 80307 [facility] FAN OUTPATIEN 7 7 PHYSICIAN T VISIT S GROUP 15 MINUTES HOSPITAL ELIA - 7 7 [facility] OUTPATIEN INC T OFFICE 11943 [facility] FAN OUTPATIEN 6 6 PHYSICIAN T VISIT S GROUP 15 MINUTES HOSPITAL ELIA - 6 6 [facility] OUTPATIEN INC T EMERGENCY 73956 ELIA 6 6 [facility] DEPARTMEN INC T VISIT HIGH/URGE NT SEVERITY OFFICE 26083 [facility] FAN OUTPATIEN 6 6 PHYSICIAN JC T VISIT S GROUP 15 MINUTES HOSPITAL ELIA - 6 6 [facility] OUTPATIEN INC T OFFICE 93886 [facility] FAN OUTPATIEN 6 6 PHYSICIAN JC T VISIT S GROUP 15 MINUTES HOSPITAL ELIA - 6 6 [facility] OUTPATIEN INC T OFFICE 29550 [facility] FAN OUTPATIEN 6 6 PHYSICIAN JC T VISIT S GROUP 25 MINUTES EMERGENCY 60242 DWAIN LE 6 6 PHYSICIAN SB DEPARTMEN S, PLLC T VISIT HIGH/URGE NT SEVERITY HOSPITAL EL[facility] - 6 6 [facility] OUTPATIEN INC T EMERGENCY 36081 ELIA 6 6 [facility] DEPARTMEN INC T VISIT LOW/MODER SEVERITY OFFICE [address] [facility] OUT[facility] 6 6 T VISIT 15 MINUTES OFFICE 62705 ELIA DHALIWAL OUTPATIEN [address] [facility] T VISIT HOSPITAL 25 MINUTES OFFICE 06524 [facility] 6 6 [facility] ENRIQUE T VISIT MEDICAL 15 GROUP [address]ES OFF[address] 96656 [facility] 6 T VISIT [address] [address] [facility] 5 5 T VISIT [address]ES [address] [facility] 5 5 T VISIT 15 MINUTES EMERGENCY 08017 ELIA 5 5 [facility] DEPARTMEN INC T VISIT LOW/MODER SEVERITY EMERGENCY 01146 [facility] 5 5 PHYSICIAN [facility] VISIT [facility] HIGH [facility]VERITY& [facility] ELIA - 5 5 [facility] OUTPATIEN INC T OFFICE 81875 ELIA DHALIWAL OUTPATIEN [address] [facility] T NEW 20 [facility] ELIA - 4 4 [facility] INPATIENT INC OFFICE 95178 MENG FAN OUTPATIEN 4 4 JC JC T VISIT 15 MINUTES OFFICE 52214 MENG FAN OUTPATIEN 4 4 JC JC T VISIT 15 MINUTES HOSPITAL ELIA - 4 4 [facility] OUTPATIEN INC T OFFICE 99020 [facility]ENG FAN OUTPATIEN 4 4 JC JC T VISIT 15 MINUTES HOSPITAL ELIA - 4 4 [facility] OUTPATIEN INC T OFFICE 54823 FAN FAN OUTPATIEN 4 4 JC JC T VISIT 15 MINUTES OFFICE 12974 FAN FAN OUTPATIEN 4 4 JC JC T VISIT 15 MINUTES HOSPITAL ELIA - 4 4 [facility] OUTPATIEN INC T EMERGENCY 57656 STACEY STACEY 4 4 IMT IMT DEPARTMEN T VISIT MODERATE SEVERITY OFFICE 16876 [facility]AN FAN OUTPATIEN 4 4 JC JC T VISIT 15 MINUTES OFFICE 64790 [facility]AN FAN OUTPATIEN 4 4 JC JC T VISIT 15 MINUTES HOSPITAL ELIA - 4 4 [facility] OUTPATIEN INC T OFFICE 89141 FAN FAN OUTPATIEN 4 4 JC JC T VISIT 5 MINUTES OFFICE 14245 FAN FAN OUTPATIEN 4 4 JC JC T VISIT 15 MINUTES OFFICE 49237 FAN FAN OUTPATIEN 4 4 JC JC T VISIT 15 MINUTES EMERGENCY 00183 ELIA 4 4 [facility] DEPARTMEN INC T VISIT LOW/MODER SEVERITY HOSPITAL ELIA - 4 4 [facility] OUTPATIEN INC T EMERGENCY 31845 TREVA [place] 4 4 [place] DEPARTMEN T VISIT HIGH/URGE NT SEVERITY OFFICE 17095 FAN FAN OUTPATIEN 4 4 JC JC T VISIT 15 MINUTES OFFICE 36309 FAN FAN OUTPATIEN 4 4 JC JC T VISIT 15 MINUTES OFFICE 27432 FAN FAN OUTPATIEN 4 4 JC JC T NEW 45 MINUTES OFFICE 52859 DIANNE DEAN OUTPATIEN 4 4 [facility] T VISIT 15 DEPARTMEN DEPARTMEN MINUTES T T OFFICE 60860 [facility] OUTPATI[facility] 3 3 T VISIT 15 MINUTES EMERGENCY 42368 YAHAIRA DORINA 3 3 EMERGENCY [facility] DEPARTMEN SERVICES T VISIT MODERATE SEVERITY OFFICE 91034 DAVID OSORIO OUTPATIEN 2 2 T NEW 45 MINUTES EMERGENCY 55923 NANCY BELTRANLeslie 2 2 DYSON DYSON DEPARTMEN T VISIT MODERATE SEVERITY OFFICE 29397 BOALISONON CATHIEON OUTPATIEN 2 2 [facility] T VISIT 10 DEPARTMEN DEPARTMEN MINUTES T T EMERGENCY 47702 SABRINA BENNETT 1 1 SAMINA SAMINA DEPARTMEN T VISIT HIGH/URGE NT SEVERITY OFFICE 84574 [facility] OUTPATIEN 1 1 T VISIT 15 MINUTES OFFICE 08497 [facility] OUTPATIEN 1 1 T NEW 30 MINUTES INITIAL 03958 DIANNE DEAN PREVENTIV 1 1 [facility] NEW PT T T AGE 12-17 YR [facility] ELIA - 0 0 [facility]PATIENT [facility] ELIA - 0 0 [facility] OUTPATIEN [facility] T OFFICE 27757 [facility] OUTPATIEN 0 0 [facility]ALTH [facility] T VISIT CLINIC OF 15 ASHLEY MINUTES OFFICE 17221 [facility] F[facility] OUTPATIEN 0 0 HEALTH J[facility] T VISIT CLINIC OF 10 ASHLEY MINUTES OFFICE 50213 [facility] F[facility] OUTPATIEN 0 0 [facility]ALTH J[facility] T VISIT CLINIC OF 15 ASHLEY MINUTES OFFICE 11735 [facility] F[facility] OUTPATIEN 0 0 [facility]ALTH J[facility] T VISIT CLINIC OF 15 ASHLEY MINUTES OFFICE 19048 [facility] F[facility] OUTPATIEN 0 0 HEALTH JC T VISIT CLINIC OF 15 ASHLEY MINUTES OFFICE 95274 [facility] F[facility] OUTPATIEN 0 0 HEALTH J[facility] T VISIT 5 CLINIC OF MINUTES ASHLEY OFFICE 72821 [facility] OUTPATIEN 0 0 PHYSICIAN RAMIRO T VISIT GROUP 15 PCC MINUTES OFFICE 20231 [facility] OUTPATIEN 0 0 HEALTH JC T VISIT CLINIC OF 15 ASHLEY MINUTES OFFICE 03529 [facility], OUTPATIEN 0 0 HEALTH ERVIN J T VISIT CLINIC OF 15 MINUTES [facility] OFFICE 28605 [facility], OUTPATIEN 0 0 HEALTH ERVIN J T VISIT CLINIC OF 15 MINUTES [facility] OFFICE 97357 [facility]- OUTPATIEN 0 0 Y OF PARCELLS T VISIT [place] CAR 15 PEDIA MINUTES OFFICE 49643 [facility], OUTPATIEN 0 0 HEALTH ERVIN J T VISIT CLINIC OF 15 MINUTES [facility] OFFICE 39020 [facility], OUTPATIEN 0 0 HEALTH ERVIN J T VISIT CLINIC OF 15 MINUTES [facility] ELIA - 0 0 [facility] OUTPATIEN INC T EMERGENCY 05857 ELIA 0 0 [facility] DEPARTMEN INC T VISIT LIMITED/M [facility] UNIVERSIT - 9 9 Y [facility] T PERIODIC 11859 [facility] L[facility]- PREVENTIV 9 9 Y OF PARCELLS E MED EST [place] CAR PATIENT PEDIA 12-17YRS [facility] UNIVERSIT - 9 9 Y [facility] T OFFICE 35011 [facility] 9 9 Y OF ENRIQUE T VISIT [place] 15 PEDIA [facility] UNIVERSIT - 9 9 Y [facility] T OFFICE 04489 [facility] IRBY OUTPATIEN 9 9 Y OF JR CAR T VISIT [place] 15 PEDIA MINUTES PERIODIC 19375 FRANKLIN GOMEZ, PREVENTIV 9 9 MEDICAL NESTOR H E MED EST SERV PATIENT FOUNDATIO 12-17YRS INITIAL 67528 [facility], PREVENTIV 9 9 [facility]ALTH [facility] MEDICINE NEW PT SHAYY AGE 12-17 PLLC YR HOSPITAL UNIVERSIT - 9 9 Y [facility] T OFFICE 72058 [facility] HEATHER OUTPATIEN 9 9 Y OF DON T VISIT [place] 15 PEDIA MINUTES OFFICE 78020 [facility] OUTPATIEN 9 9 Y OF ROMÁN T VISIT [place] 15 PEDIA MINUTES EMERGENCY 29079 UN[facility]ERSIT 8 8 Y [facility] T VISIT MODERATE SEVERITY OFFICE 66758 [facility] MERINO OUTPATIEN 8 8 Y OF [place] T VISIT [place] 15 PEDIA MINUTES HOSPITAL UN[facility]ERSIT - 8 8 Y [facility] T PERIODIC 30049 [facility]ERSIT ZAHRA MARKUS PREVENTIV 8 8 Y OF E MED EST [place] PATIENT PEDIA 12-17YRS OFFICE 78186 [facility] STRIFLING OUTPATIEN 8 8 Y OF RHY T VISIT [place] 15 PEDIA MINUTES INITIAL 33744 [facility]ERSIT MUNGUIA PET PREVENTIV 6 6 Y OF E [place] MEDICINE PEDIA NEW PT AGE 12-17 YR
--- OUTSIDE RECORDS SUMMARY | 2017-02-21 21:07 | External Medical Summary Rpt ---
Author Author PRERNA Sheehan, PRERNA Etaoshi Organization [employer] Address Unknown Phone Unavailable Results Urinalysis dipstick W Reflex Microscopic panel in Urine Observa Value Referen Units Interpr Notes Date tion ce etation Range Appeara CLEAR CLEAR No No No Feb 11 nce of informa informa informa 2016 Urine tion in tion in tion in 1:50 AM source source source data data data Bilirub NEGATIV NEG No No No Feb 11 in E informa informa informa 2016 [Presen tion in tion in tion in 1:50 AM ce] in source source source Urine data data data by Test strip Erythro 3+ NEG No Abnorma No Feb 11 cytes informa l informa 2016 [Presen tion in tion in 1:50 AM ce] in source source Urine data data Color YELLOW YELLOW No No No Feb 11 of informa informa informa 2016 Urine tion in tion in tion in 1:50 AM source source source data data data Glucose NEG No No No Feb 11 [Mass/vol informati informati informati 2016 1:50 ume] in on in on in on in AM Urine by source source source Test data data data strip Ketones NEGATIV NEG mg/dL No No Feb 11 E informa informa 2016 [Presen tion in tion in 1:50 AM ce] in source source Urine data data by Automat ed test strip Mucus NEGATIV NEG No No No Feb 11 [Presen E informa informa informa 2016 ce] in tion in tion in tion in 1:50 AM Urine source source source sedimen data data data t by Light microsc opy Nitrite NEGATIV NEG No No No Feb 11 E informa informa informa 2016 [Presen tion in tion in tion in 1:50 AM ce] in source source source Urine data data data by Test strip pH of 5.0 - 8.5 No Normal No Feb 11 Urine informati informati 2017 1:50 on in on in AM source source data data Protein NEG mg/dL No No Feb 11 [Mass/vol informati informati 2017 1:50 ume] in on in on in AM Urine by source source Automated data data test strip Erythro 5-10 0 rbc/hpf No No Feb 11 cytes informa informa 2017 [Presen tion in tion in 1:50 AM ce] in source source Urine data data sedimen t by Light microsc opy Specific 1.005 - No Normal No Feb 11 gravity 1.030 informati informati 2017 1:50 of Urine on in on in AM source source data data Epithel 10-20 0 - 5 #/hpf No No Feb 11 ial informa informa 2017 cells.s tion in tion in 1:50 AM quamous source source data data [Presen ce] in Urine sedimen t by Microsc opy high power field Urobili 0.2 NEG E.U./dL No No Feb 11 nogen informa informa 2016 [Presen tion in tion in 1:50 AM ce] in source source Urine data data by Test strip Leukocy [3 O wbc/hpf No No Feb 11 artemio wbc/hpf informa informa 2016 [#/volu ; 5 tion in tion in 1:50 AM me] in wbc/hpf source source Urine ] data data Choriogonadotropin.beta subunit [Units] in 24 hour Urine Observa Value Referen Units Interpr Notes Date tion ce etation Range Choriogon NEG No No No Feb 11 adotropin informati informati informati 2017 1:50 .beta on in on in on in AM subunit source source source [Units] data data data in 24 hour Urine Urinalysis dipstick W Reflex Microscopic panel in Urine Observa Value Referen Units Interpr Notes Date tion ce etation Range Appeara CLEAR CLEAR No No No Feb 11 nce of informa informa informa 2017 Urine tion in tion in tion in 1:50 AM source source source data data data Bilirub NEGATIV NEG No No No Feb 11 in E informa informa informa 2016 [Presen tion in tion in tion in 1:50 AM ce] in source source source Urine data data data by Test strip Erythro 3+ NEG No Abnorma No Feb 11 cytes informa l informa 2016 [Presen tion in tion in 1:50 AM ce] in source source Urine data data Color YELLOW YELLOW No No No Feb 11 of informa informa informa 2016 Urine tion in tion in tion in 1:50 AM source source source data data data Glucose NEG No No No Feb 11 [Mass/vol informati informati informati 2016 1:50 ume] in on in on in on in AM Urine by source source source Test data data data strip Ketones NEGATIV NEG mg/dL No No Feb 11 E informa informa 2016 [Presen tion in tion in 1:50 AM ce] in source source Urine data data by Automat ed test strip Mucus NEGATIV NEG No No No Feb 11 [Presen E informa informa informa 2016 ce] in tion in tion in tion in 1:50 AM Urine source source source sedimen data data data t by Light microsc opy Nitrite NEGATIV NEG No No No Feb 11 E informa informa informa 2016 [Presen tion in tion in tion in 1:50 AM ce] in source source source Urine data data data by Test strip pH of 5.0 - 8.5 No Normal No Feb 11 Urine informati informati 2016 1:50 on in on in AM source source data data Protein NEG mg/dL No No Feb 11 [Mass/vol informati informati 2016 1:50 ume] in on in on in AM Urine by source source Automated data data test strip Specific 1.005 - No Normal No Feb 11 gravity 1.030 informati informati 2016 1:50 of Urine on in on in AM source source data data Urobili 0.2 NEG E.U./dL No No Feb 11 nogen informa informa 2016 [Presen tion in tion in 1:50 AM ce] in source source Urine data data by Test strip CBC W Auto Differential panel in Blood Observa Value Referen Units Interpr Notes Date tion ce etation Range Basophils 0 - 0.2 K/MM3 Normal No Oct informati 2016 1:45 [#/volume on in AM ] in source Blood by data Automated count Basophils 0.1 - 2.0 % Normal No Oct 1 /100 informati 2016 1:45 leukocyte on in AM s in source Blood by data Automated count Eosinophi 0.0 - 0.4 K/mm3 Normal No Oct 1 ls informati 2016 1:45 [#/volume on in AM ] in source Blood by data Automated count Eosinophi 0.1 - % Normal No Feb 11 ls/100 12.0 informati 2016 1:45 leukocyte on in AM s in source Blood by data Automated count Granulocy 1.8 - 7.8 K/mm3 Normal No Feb 1 artemio informati 2016 1:45 [#/volume on in AM ] in source Blood by data Automated count Granulocy 37.0 - % Normal No Feb 11 artemio/100 80.0 informati 2016 1:45 leukocyte on in AM s in source Blood by data Automated count Hematocri 37.0 - % Normal No Feb 11 t [Volume 47.0 informati 2016 1:45 on in AM Fraction] source of Blood data Hemoglobi 12.2 - g/dL Normal No Feb 11 n 16.2 informati 2016 1:45 [Mass/vol on in AM ume] in source Blood data Lymphocyt 0.7 - 4.5 K/mm3 Normal No Feb 11 es informati 2016 1:45 [#/volume on in AM ] in source Unspecifi data ed specimen by Automated count Lymphocyt 10 - 50.0 % Normal No Feb 11 es informati 2016 1:45 [#/volume on in AM ] in source Unspecifi data ed specimen by Automated count Erythrocy 27 - 31.2 pg High No Feb 11 te mean informati 2016 1:45 corpuscul on in AM ar source hemoglobi data n [Entitic mass] Erythrocy 31.8 - g/dl Low No Feb 11 te mean 35.4 informati 2016 1:45 corpuscul on in AM ar source hemoglobi data n concentra tion [Mass/vol ume] by Automated count Erythrocy 82.2 - fl High No Feb 11 te mean 97.8 informati 2016 1:45 corpuscul on in AM ar volume source [Entitic data volume] by Automated count Monocytes 0.1 - 1.0 K/mm3 Normal No Feb 1 informati 2016 1:45 [#/volume on in AM ] in source Blood by data Automated count Monocytes 1.7 - 9.3 % Normal No Oct 1 /100 informati 2016 1:45 leukocyte on in AM s in source Blood by data Automated count Platelet 7.4 - fl Normal No Feb 11 mean 10.4 informati 2017 1:45 volume on in AM [Entitic source volume] data in Blood by Automated count Platelets 142 - 424 K/mm3 Normal No Feb 11 informati 2016 1:45 [#/volume on in AM ] in source Blood data Erythrocy 4.2 - 5.4 M/mm3 Normal No Feb 11 artemio informati 2016 1:45 [#/volume on in AM ] in source Amniotic data fluid Erythrocy 11.5 - % Normal No Feb 11 te 17.5 informati 2016 1:45 distribut on in AM ion width source [Entitic data volume] by Automated count Leukocyte 4.8 - K/MM3 Normal No Feb 11 s 10.8 informati 2016 1:45 [#/volume on in AM ] in source Blood data CBC W Auto Differential panel in Blood Observa Value Referen Units Interpr Notes Date tion ce etation Range Basophils 0 - 0.2 K/MM3 Normal No Nov 10 informati 2017 9:51 [#/volume on in AM ] in source Blood by data Automated count Basophils 0.1 - 2.0 % Normal No Nov 10 / informati 2016 9:51 leukocyte on in AM s in source Blood by data Automated count Eosinophi 0.0 - 0.4 K/mm3 Normal No Nov 10 ls informati 2016 9:51 [#/volume on in AM ] in source Blood by data Automated count Eosinophi 0.1 - % Normal No Nov 10 ls/100 12.0 informati 2016 9:51 leukocyte on in AM s in source Blood by data Automated count Granulocy 1.8 - 7.8 K/mm3 Normal No Nov 10 artemio informati 2016 9:51 [#/volume on in AM ] in source Blood by data Automated count Granulocy 37.0 - % Normal No Nov 10 artemio/100 80.0 informati 2016 9:51 leukocyte on in AM s in source Blood by data Automated count Hematocri 37.0 - % Normal No Nov 10 t [Volume 47.0 informati 2016 9:51 on in AM Fraction] source of Blood data Hemoglobi 12.2 - g/dL No No Nov 10 n 16.2 informati informati 2016 9:51 [Mass/vol on in on in AM ume] in source source Blood data data Lymphocyt 0.7 - 4.5 K/mm3 Normal No Nov 10 es informati 2016 9:51 [#/volume on in AM ] in source Unspecifi data ed specimen by Automated count Lymphocyt 10 - 50.0 % Normal No Nov 10 es informati 2016 9:51 [#/volume on in AM ] in source Unspecifi data ed specimen by Automated count Erythrocy 27 - 31.2 pg High No Nov 10 te mean informati 2016 9:51 corpuscul on in AM ar source hemoglobi data n [Entitic mass] Erythrocy 31.8 - g/dl Normal No Nov 10 te mean 35.4 informati 2016 9:51 corpuscul on in AM ar source hemoglobi data n concentra tion [Mass/vol ume] by Automated count Erythrocy 82.2 - fl High No Nov 10 te mean 97.8 informati 2017 9:51 corpuscul on in AM ar volume source [Entitic data volume] by Automated count Monocytes 0.1 - 1.0 K/mm3 Normal No Nov 10 informati 2017 9:51 [#/volume on in AM ] in source Blood by data Automated count Monocytes 1.7 - 9.3 % Normal No Nov 10 /100 informati 2017 9:51 leukocyte on in AM s in source Blood by data Automated count Platelet 7.4 - fl Normal No Nov 10 mean 10.4 informati 2017 9:51 volume on in AM [Entitic source volume] data in Blood by Automated count Platelets 142 - 424 K/mm3 Normal No Nov 10 informati 2017 9:51 [#/volume on in AM ] in source Blood data Erythrocy 4.2 - 5.4 M/mm3 Normal No Nov 10 artemio informati 2016 9:51 [#/volume on in AM ] in source Amniotic data fluid Erythrocy 11.5 - % Normal No Nov 10 te 17.5 informati 2016 9:51 distribut on in AM ion width source [Entitic data volume] by Automated count Leukocyte 4.8 - K/MM3 Normal No Nov 10 s 10.8 informati 2016 9:51 [#/volume on in AM ] in source Blood data Hemoglobin & Hematocrit panel in Blood Observa Value Referen Units Interpr Notes Date tion ce etation Range Hematocri 37.0 - % Normal No September 27 t [Volume 47.0 informati 2016 6:30 on in AM Fraction] source of Blood data Hemoglobi 12.2 - g/dL Normal No September 27 n 16.2 informati 2017 6:30 [Mass/vol on in AM ume] in source Blood data pH of Cord blood Observa Value Referen Units Interpr Notes Date ti ce etation Range pH of 7.35 - No Normal No September 26 Cord 7.45 informati informati 2016 9:15 blood on in on in AM source source data data Blood type & Indirect antibody screen panel in Blood Observa Value Referen Units Interpr Notes Date ti ce etation Range Blood NEGATIV NEGATIV No No No September 25 group E E informa informa informa 2016 antibod tion in tion in tion in 3:36 PM y source source source screen data data data [Presen ce] in Serum or Plasma Rh POSITIV No No No No September 25 [Type] E informa informa informa informa 2017 in tion in tion in tion in tion in 3:36 PM Blood source source source source data data data data ABO A No No No No September 25 group informa informa informa informa 2016 [Type] tion in tion in tion in ti in 3:36 PM in source source source source Blood data data data data CBC W Auto Differential panel in Blood Observa Value Referen Units Interpr Notes Date ce etation Range Basophils 0 - 0.2 K/MM3 Normal No September 25 informati 2016 3:36 [#/volume on in PM ] in source Blood by data Automated count Basophils 0.1 - 2.0 % Normal No September 25 informati 2016 3:36 leukocyte on in PM s in source Blood by data Automated count Eosinophi 0.0 - 0.4 K/mm3 Normal No September 25 ls informati 2016 3:36 [#/volume on in PM ] in source Blood by data Automated count Eosinophi 0.1 - % Normal No September 25 ls/100 12.0 informati 2016 3:36 leukocyte on in PM s in source Blood by data Automated count Granulocy 1.8 - 7.8 K/mm3 High No September 25 artemio informati 2016 3:36 [#/volume on in PM ] in source Blood by data Automated count Granulocy 37.0 - % Normal No September 25 artemio/100 80.0 informati 2016 3:36 leukocyte on in PM s in source Blood by data Automated count Hematocri 37.0 - % Low No September 25 t [Volume 47.0 informati 2016 3:36 on in PM Fraction] source of Blood data Hemoglobi 12.2 - g/dL Low No September 25 n 16.2 informati 2016 3:36 [Mass/vol on in PM ume] in source Blood data Lymphocyt 0.7 - 4.5 K/mm3 Normal No September 25 es inform2016 3:36 [#/volume on in PM ] in source Unspecifi data ed specimen by Automated count Lymphocyt 10 - 50.0 % Normal No September 25 es inform2016 3:36 [#/volume on in PM ] in source Unspecifi data ed specimen by Automated count Erythrocy 27 - 31.2 pg High No September 25 te mean informati 2016 3:36 corpuscul on in PM ar source hemoglobi data n [Entitic mass] Erythrocy 31.8 - g/dl Normal No September 25 te mean 35.4 informati 2016 3:36 corpuscul on in PM ar source hemoglobi data n concentra tion [Mass/vol ume] by Automated count Erythrocy 82.2 - fl High No September 25 te mean 97.8 informati 2016 3:36 corpuscul on in PM ar volume source [Entitic data volume] by Automated count Monocytes 0.1 - 1.0 K/mm3 Normal No September 25 informati 2016 3:36 [#/volume on in PM ] in source Blood by data Automated count Monocytes 1.7 - 9.3 % Normal No September 25 /100 informati 2016 3:36 leukocyte on in PM s in source Blood by data Automated count Platelet 7.4 - fl Normal September 25 mean 10.4 informati 2016 3:36 volume on in PM [Entitic source volume] data in Blood by Automated count Platelets 142 - 424 K/mm3 No No September 25 informati informati 2016 3:36 [#/volume on in on in PM ] in source source Blood data data Erythrocy 4.2 - 5.4 M/mm3 Low No September 25 artemio informati 2016 3:36 [#/volume on in PM ] in source Amniotic data fluid Erythrocy 11.5 - % Normal No September 25 te 17.5 informati 2016 3:36 distribut on in PM ion width source [Entitic data volume] by Automated count Leukocyte 4.8 - K/MM3 High No September 25 s 10.8 informati 2016 3:36 [#/volume on in PM ] in source Blood data Urinalysis dipstick W Reflex Microscopic panel in Urine Observa Value Referen Units Interpr Notes Date tion ce etation Range Collected by nurse? N Hold specimen in OE? Y Appeara CLEAR CLEAR No No No September 25 nce of informa informa informa 2016 Urine tion in tion in tion in 2:05 PM source source source data data data Bacteri TRACE O No No No September 25 a informa informa informa 2016 [Presen tion in tion in tion in 2:05 PM ce] in source source source Urine data data data sedimen t by Light microsc opy Bilirub NEGATIV NEG No No No September 25 in E informa informa informa 2016 [Presen tion in tion in tion in 2:05 PM ce] in source source source Urine data data data by Test strip Erythro TRACE-I NEG No No No September 25 cytes NTACT informa informa informa 2016 [Presen tion in tion in tion in 2:05 PM ce] in source source source Urine data data data Color YELLOW YELLOW No No No September 25 of informa informa informa 2016 Urine tion in tion in tion in 2:05 PM source source source data data data Glucose NEG No No No September 25 [Mass/vol informati informati informati 2016 2:05 ume] in on in on in on in PM Urine by source source source Test data data data strip Ketones NEGATIV NEG mg/dL No No September 25 E informa informa 2016 [Presen tion in tion in 2:05 PM ce] in source source Urine data data by Automat ed test strip Mucus 1+ NEG No Abnorma No September 25 [Presen informa l informa 2016 ce] in tion in tion in 2:05 PM Urine source source sedimen data data t by Light microsc opy Nitrite NEGATIV NEG No No No September 25 E informa informa informa 2016 [Presen tion in tion in tion in 2:05 PM ce] in source source source Urine data data data by Test strip pH of 5.0 - 8.5 No Normal No September 25 Urine informati informati 2016 2:05 on in on in PM source source data data Protein NEG mg/dL No No September 25 [Mass/vol informati informati 2016 2:05 ume] in on in on in PM Urine by source source Automated data data test strip Erythro OCC 0 rbc/hpf No No September 25 cytes informa informa 2016 [Presen tion in tion in 2:05 PM ce] in source source Urine data data sedimen t by Light microsc opy Specific 1.005 - No Normal No September 25 gravity 1.030 informati informati 2016 2:05 of Urine on in on in PM source source data data Epithel 3-5 0 - 5 #/hpf No No September 25 ial informa informa 2017 cells.s tion in tion in 2:05 PM quamous source source data data [Presen ce] in Urine sedimen t by Microsc opy high power field Urobili 0.2 NEG E.U./dL No No September 25 nogen informa informa 2016 [Presen tion in tion in 2:05 PM ce] in source source Urine data data by Test strip Leukocy [3 O wbc/hpf No No September 25 artemio wbc/hpf informa informa 2016 [#/volu ; 5 tion in tion in 2:05 PM me] in wbc/hpf source source Urine ] data data Urinalysis dipstick W Reflex Microscopic panel in Urine Observa Value Referen Units Interpr Notes Date tion ce etation Range Collected by nurse? N Hold specimen in OE? Y Appeara CLEAR CLEAR No No No September 25 nce of informa informa informa 2017 Urine tion in tion in tion in 2:05 PM source source source data data data Bilirub NEGATIV NEG No No No September 25 in E informa informa informa 2016 [Presen tion in tion in tion in 2:05 PM ce] in source source source Urine data data data by Test strip Erythro TRACE-I NEG No No No September 25 cytes NTACT informa informa informa 2016 [Presen tion in tion in tion in 2:05 PM ce] in source source source Urine data data data Color YELLOW YELLOW No No No September 25 of informa informa informa 2017 Urine tion in tion in tion in 2:05 PM source source source data data data Glucose NEG No No No September 25 [Mass/vol informati informati informati 2016 2:05 ume] in on in on in on in PM Urine by source source source Test data data data strip Ketones NEGATIV NEG mg/dL No No September 25 E informa informa 2016 [Presen tion in tion in 2:05 PM ce] in source source Urine data data by Automat ed test strip Mucus 1+ NEG No Abnorma No September 25 [Presen informa l informa 2016 ce] in tion in tion in 2:05 PM Urine source source sedimen data data t by Light microsc opy Nitrite NEGATIV NEG No No No September 25 E informa informa informa 2016 [Presen tion in tion in tion in 2:05 PM ce] in source source source Urine data data data by Test strip pH of 5.0 - 8.5 No Normal No September 25 Urine informati informati 2016 2:05 on in on in PM source source data data Protein NEG mg/dL No No September 25 [Mass/vol informati informati 2016 2:05 ume] in on in on in PM Urine by source source Automated data data test strip Specific 1.005 - No Normal No September 25 gravity 1.030 informati informati 2016 2:05 of Urine on in on in PM source source data data Urobili 0.2 NEG E.U./dL No No September 25 nogen informa informa 2016 [Presen tion in tion in 2:05 PM ce] in source source Urine data data by Test strip CHLAMYDIA AND GONORRHEA TESTING Observa Value Referen [...] Sep 14 EXPIRAT informa informa informa informa 2010 ION tion in tion in tion in [...] ia E informa informa informa E 2011 gonorrh tion in tion in tion in RESULT= 4:31 PM oeae source source source WITHIN rRNA data data data NORMAL [Presen ce] in LIMITSP Unspeci OSITIVE fied specime RESULT= n by Probe & ABNORMA target LEQUIVO SARKIS amplifi RESULT= cation method INDETER MINATEU NSATISF ACTORY RESULT= INVALID EFFECTI VE NOVEMBE R 2009: THE APTIMA COMBO 2 NUCLEIC [...]
--- OUTSIDE RECORDS SUMMARY | 2017-02-21 21:07 | External Medical Summary Rpt ---
Demographics Preferred Language Maltese Marital Status Unknown Islam Affiliation Unknown Race Unknown Ethnic Group Unknown Author Author KASI Address Unknown Phone Immunization Unable to retrieve immunization data due to connection failure with Immunization Registry. Please try again later.
--- OUTSIDE RECORDS SUMMARY | 2017-02-21 21:07 | External Medical Summary Rpt ---
Author Author PRERNA Sheehan, PRERNA Sweeten Organization [employer] Address Unknown Phone Unavailable [...] n by Probe & ABNORMA target LEQUIVO SRAKIS amplifi RESULT= cation method INDETER MINATEU NSATISF [...]
--- OUTSIDE RECORDS SUMMARY | 2017-02-21 21:07 | External Medical Summary Rpt ---
Demographics Preferred Language Divehi Marital Status Unknown Sikh Affiliation Unknown Race Unknown Ethnic Group Unknown Author Author KASI Address Unknown Phone Immunization Unable to retrieve immunization data due to connection failure with Immunization Registry. Please try again later.
== END 2017-02-11 02:44 | disposition home or self-care (01) ==
LOC: ER 01:37
PROVIDERS: Emergency Medicine
DX: R07.89 Other chest pain (principal); F17.210 Nicotine dependence, cigarettes, uncomplicated; Z88.0 Allergy status to penicillin